=== PATIENT | male | born 1935 | race Caucasian/White ===

== ENCOUNTER 2017-05-22 10:00 | Outpatient (RCR) | payer MEDICARE, BC, SELFPAY ==
--- NOTE | 2017-02-26 14:12 | HP.PTEVAL_ITS ---
Patient's Visit Information NUNU MALDONADO is a 81 year old M referred to Physical Therapy by John Harris with a diagnosis of L reverse TSA. Date of Evaluation: 02/26/17 Physical Therapist: Kwadwo Holman, PT, - Visit Plan Frequency: 3x /Week Duration: 4-6 Weeks Plan: L shoulder PROM and mobs for 4 weeks. Progress to AROM - Subjective Subjective: DOS: 02/20/17. Pt reports he has had a chronic Hx of R shoulder pain prior to this surgery. Pt notes a Hx of 2 arthroscpic rot cuff repairs prior to this surgery. Pt notes he is still in pain since the date of surgery. Pt reports he was very limited with AROM with the R shoulder prior to the surgery. Pt reports he has been doing nothing at home up til this point because he waws only given orders to move his elbow. Pt is still in a sling and notes he will be for 4-6 weeks. Pt reports he has been icing his shoulder for his pain. Pt is R hand dom. Pt reports he has to get his L shoulder replaced in the near future. Occasional sleep diff secondary to pain. Pt Occasional T and N in R UE. 0/10 at rest, 6/10 at worst (no specific reason) - Pain L shoulder Pain Intensity (Out of 10): 0 Pain Intensity Range: 6 - Objective Neuro: B UE sensation is WNL to light touch. B bicepital reflex= 1/3. MMT: L shoulder 4/5 throughout and painful with testing. R shoulder NT. ROM: L shoulder WFL with all motions. L shoulder flex= 65, abd= 55 - Goals Goal 1:: Decrease L shoulder pain x 50% to aid with IADL's Goal Time Frame: 4-6 Weeks Goal 2:: Increase L shoulder strength x 1 grade to aid with IADL's Goal Time Frame: 4-6 Weeks Goal 3:: Increase L shoulder flex and abd ROM x 40 degrees toa id with overhead activity Goal Time Frame: 4-6 Weeks Goal 4:: I with HEP Goal Time Frame: 4-6 Weeks - Rehabilitation Potential Physical Therapy Diagnosis: L shoulder pain, weakness, and limited ROM secondary to L reverse TSA Rehabilitation Potential: Good - Anticipated Interventions Patient/Client Instruction: Educate patient on: Condition, Plan of Care For the Purpose of:: To improve self management Therapeutic Exercise to Include: Strength training, Endurance training, Body mechanics, Postural training, Flexibilty training, Passive ROM, Active ROM, Scapular Strength/Stabilization For the Purpose of:: To decrease pain, To increase ROM, To improve muscle performance and motor function Cryotherapy (ice pack, ice massage): Yes For the Purpose of:: To decrease pain Thank you for the opportunity to evaluate your patient. For Medicare and Medicare HMO plans, please review the plan of care and approve it. It will need to be FAXED BACK to us at [phone] for Medicare purposes. Please let me know if there are questions or concerns regarding this plan of care. Physician Signature: Date:
--- NOTE | 2017-05-22 10:09 | HP.PTREVAL_ITS ---
John Harris, It has been my pleasure to treat NUNU MALDONADO over the last 33 visits for R reverse TSA. Please see the progress note below for an update on the physical therapy plan of care! Subjective: Pt reports his shoulder is still sore this date Objective/Function: R shoulder pain is 1/10 at rest, increases to 3/10 with movement. R shoulder ROM: flex= 86, abd= 80, ER= 25. R shoulder MMT: flex= 3/5 , abd= 3+/5, ER= 2-/5. I with HEP Plan Plan: Hold chart open until after visit on the 12th Goals Goal 1:: Decrease L shoulder pain x 50% to aid with IADL's Goal Time Frame: 4-6 Weeks Goal Progress: Progressing Goal 2:: Increase L shoulder strength x 1 grade to aid with IADL's Goal Time Frame: 4-6 Weeks Goal Progress: Progressing Goal 3:: Increase L shoulder flex and abd ROM x 40 degrees toa id with overhead activity Goal Time Frame: 4-6 Weeks Goal Progress: Not Progressing Goal 4:: I with HEP Goal Time Frame: 4-6 Weeks Goal Progress: Goal Met Anticipated Interventions Patient/Client Instruction: Educate patient on: Condition, Plan of Care For the Purpose of:: To improve self management Therapeutic Exercise to Include: Strength training, Endurance training, Body mechanics, Postural training, Flexibilty training, Passive ROM, Active ROM, Scapular Strength/Stabilization For the Purpose of:: To decrease pain, To increase ROM, To improve muscle performance and motor function Cryotherapy (ice pack, ice massage): Yes For the Purpose of:: To decrease pain Please do not hesitate to contact me at [phone] by phone or Fax: if you have questions or concerns regarding this new plan of care! Sincerely, Kwadwo Holman, PT,
--- NOTE | 2017-07-20 12:32 | HP.PT.NRP ---
HP - Discharge Summary (1) - Patient Information NUNU MALDONADO was seen in my office for initial evaluation on 02/26/17. The following Plan of Care was established for this patient: Initial Frequency: 3x /Week Initial Duration: 4-6 Weeks - Anticipated Interventions Patient/Client Instruction: Educate patient on: Condition, Plan of Care For the Purpose of:: To improve self management Therapeutic Exercise to Include: Strength training, Endurance training, Body mechanics, Postural training, Flexibilty training, Passive ROM, Active ROM, Scapular Strength/Stabilization For the Purpose of:: To decrease pain, To increase ROM, To improve muscle performance and motor function Cryotherapy (ice pack, ice massage): Yes For the Purpose of:: To decrease pain This patient was last seen in our office . Pertinent comments regarding their Physical therapy will appear below: Pt was last treated on the date of 05/22/17 for his R shoulder pain. Pt has not returned through todays date and will be discontinued at this time At this point I will be discontinuing this patient from physical therapy. I would be happy to see this patient again in the future if found appropriate by the physician. Thank you! Kwadwo Holman, PT,
== END 2017-05-22 19:00 | disposition home or self-care (01) ==
LOC: PT 10:00
PROVIDERS: Family Provider Family Medicine; PCP Family Medicine; Visit Provider Orthopaedic Surgery
DX: M19.011 Primary osteoarthritis, right shoulder (principal); M25.511 Pain in right shoulder; Z96.611 Presence of right artificial shoulder joint
CPT/HCPCS: 97110; 97140; 97161; 97530; G8984; G8985

== ENCOUNTER → 2017-09-15 14:46 | Outpatient (CLI) | payer MEDICARE, BC, SELFPAY ==
[2017-09-15 16:23] LABS: Absolute Lymphocyte Count 1.53 X10^3/ul (0.83-4.51); Absolute Neutrophil Count 3.7 X10^3/uL (2.0-7.7); Basophil# 0.02 X10^3/uL; Basophil% 0.3 % (0-1); Eosinophil# 0.15 X10^3/uL; Eosinophils% 2.5 % (0-5); Hematocrit 39.8 % (40-54); Hemoglobin 13.8 g/dl (13.0-16.5); Lymphocyte # 1.53 X10^3/ul (4.0); Lymphocyte % 25.2 % (19-41); Mean Corp Hgb Conc 34.7 g/gl (32-36); Mean Corpuscular Hgb 35.3 pg (27.0-32.0); Mean Corpuscular Volume 101.8 fL (80-94); Mean Platelet Vol. 9.6 fl (6.2-12.0); Monocyte# 0.65 X10^3/uL; Monocyte% 10.7 % (0-10); Neutrophil # 3.71 X10^3/uL (2.7-7.7); Neutrophil % 61.1 % (47-70); Platelet Count 149 K/mm3 (150-450); RBC Distribution Width CV 13.6 % (11.6-14.6); RBC Distribution Width SD 49.9 fl (35.1-43.9); Red Blood Count 3.91 M/mm3 (4.6-6.2); White Blood Count 6.1 K/mm3 (4.4-11.0)
[2017-09-15 16:24] LABS: POSITIVE COUNT NO; POSITIVE DIFFERENTIAL NO; POSITIVE MORPHOLOGY NO
[2017-09-15 16:49] LABS: ALB/GLOB Ratio 1.1 RATIO (0.9-2.4); AST(SGOT) 20 U/L (15-37); Alanine Aminotransfer ALT/SGPT 27 U/L (16-61); Albumin, Serum 3.8 g/dL (3.2-5.0); Alkaline Phosphatase 73 U/L (45-117); Anion Gap 9 (5-15); BUN 25 mg/dL (7-18); BUN/Creat Ratio 24.5 RATIO (10-20); Calcium,Total 8.8 mg/dL (8.5-10.1); Chloride 107 mmol/L (98-107); Creatinine, Serum 1.02 mg/dL (0.70-1.30); EST Glomerular Filtration Rate 74 mL/min (>60); Est Glom Filt Rate - Afr Amer 90 mL/min (>60); Globulin 3.5 g/dL (2.2-4.2); Glucose 92 mg/dL (74-106); Potassium 4.4 mmol/L (3.5-5.1); Protein, Total 7.3 g/dL (6.4-8.2); Sodium Level 143 mmol/L (136-145); Thyroid Stim Hormone (TSH) 2.71 uIU/mL (0.358-3.74)
[2017-09-16 10:26] LABS: Vitamin D,25 Hydroxy 53.2 ng/mL (29.95-100.01)
== END ==
PROVIDERS: Visit Provider Family Medicine Geriatric Medicine
DX: E11.9 Type 2 diabetes mellitus without complications (principal); E55.9 Vitamin D deficiency, unspecified
CPT/HCPCS: 36415; 80053; 82306; 84443; 85025

== ENCOUNTER → 2017-11-06 10:36 | Outpatient (CLI) | payer MEDICARE, BC, SELFPAY ==
[2017-11-06 11:12] LABS: Absolute Lymphocyte Count 0.79 X10^3/ul (0.83-4.51); Absolute Neutrophil Count 5.7 X10^3/uL (2.0-7.7); Basophil# 0.02 X10^3/uL; Basophil% 0.3 % (0-1); Eosinophil# 0.18 X10^3/uL; Eosinophils% 2.5 % (0-5); Hematocrit 40.9 % (40-54); Lymphocyte # 0.79 X10^3/ul (4.0); Lymphocyte % 10.8 % (19-41); Mean Corp Hgb Conc 34.2 g/gl (32-36); Mean Corpuscular Hgb 34.6 pg (27.0-32.0); Mean Platelet Vol. 9.4 fl (6.2-12.0); Monocyte# 0.66 X10^3/uL; Neutrophil # 5.65 X10^3/uL (2.7-7.7); Neutrophil % 77.4 % (47-70); POSITIVE COUNT NO; POSITIVE DIFFERENTIAL NO; POSITIVE MORPHOLOGY NO; Platelet Count 116 K/mm3 (150-450); RBC Distribution Width CV 13.7 % (11.6-14.6); Red Blood Count 4.05 M/mm3 (4.6-6.2); White Blood Count 7.3 K/mm3 (4.4-11.0)
[2017-11-06 11:38] LABS: Anion Gap 6 (5-15); BUN 22 mg/dL (7-18); BUN/Creat Ratio 22.3 RATIO (10-20); Calcium,Total 8.8 mg/dL (8.5-10.1); Chloride 106 mmol/L (98-107); Creatinine, Serum 0.99 mg/dL (0.70-1.30); EST Glomerular Filtration Rate 77 mL/min (>60); Est Glom Filt Rate - Afr Amer 94 mL/min (>60); Glucose 96 mg/dL (74-106); Potassium 4.1 mmol/L (3.5-5.1); Sodium Level 140 mmol/L (136-145)
[2017-11-11 15:36] LABS: Transferrin 234 mg/dL (200-370)
== END ==
PROVIDERS: Family Provider Family Medicine; PCP Family Medicine; Visit Provider Family Medicine Geriatric Medicine
DX: I77.6 Arteritis, unspecified (principal)
CPT/HCPCS: 36415; 80048; 81240; 81241; 84466; 85025

== ENCOUNTER → 2018-01-13 10:46 | Outpatient (CLI) | payer MEDICARE, BC, SELFPAY ==
[2018-01-13 12:34] LABS: AST(SGOT) 23 U/L (15-37); Alanine Aminotransfer ALT/SGPT 31 U/L (16-61); Albumin, Serum 3.7 g/dL (3.2-5.0); Alkaline Phosphatase 75 U/L (45-117); Bilirubin, Direct 0.35 mg/dL (0.00-0.30); Globulin 3.5 g/dL (2.2-4.2); Protein, Total 7.2 g/dL (6.4-8.2)
== END ==
PROVIDERS: Family Provider Family Medicine; PCP Family Medicine; Referring Provider Internal Medicine Gastroenterology; Visit Provider Internal Medicine Gastroenterology
DX: E83.119 Hemochromatosis, unspecified (principal)
CPT/HCPCS: 36415; 80076; 82105

== ENCOUNTER → 2018-03-01 11:34 | Outpatient (CLI) | payer MEDICARE, BC, SELFPAY ==
[2018-03-01 13:01] LABS: AST(SGOT) 26 U/L (15-37); Alanine Aminotransfer ALT/SGPT 33 U/L (16-61); Albumin, Serum 3.8 g/dL (3.2-5.0); Alkaline Phosphatase 78 U/L (45-117); Bilirubin, Direct 0.32 mg/dL (0.00-0.30); Cholesterol 119 mg/dL (200); Globulin 3.4 g/dL (2.2-4.2); High Density Lipoprotein 46 mg/dL; Protein, Total 7.2 g/dL (6.4-8.2); Triglycerides 69 mg/dL; Very Low Density Lipoprotein 14 mg/dL (5-40)
== END ==
PROVIDERS: Family Provider Family Medicine; PCP Family Medicine; Referring Provider Internal Medicine Cardiovascular Disease; Visit Provider Internal Medicine Cardiovascular Disease
DX: I06.1 Rheumatic aortic insufficiency (principal); I25.810 Atherosclerosis of coronary artery bypass graft(s) without angina pectoris; I48.0 Paroxysmal atrial fibrillation; I10 Essential (primary) hypertension; E78.2 Mixed hyperlipidemia; Z95.2 Presence of prosthetic heart valve; Z86.73 Personal history of transient ischemic attack (TIA), and cerebral infarction without residual deficits
CPT/HCPCS: 36415; 80061; 80076

== ENCOUNTER → 2018-04-29 08:39 | Outpatient (CLI) | payer MEDICARE, OTHER, SELFPAY ==
[2018-04-29 09:42] LABS: PSA,Total- Diagnostic 8.73 ng/mL (0.0-4.0)
== END ==
PROVIDERS: Family Provider Family Medicine; PCP Family Medicine; Referring Provider Urology; Visit Provider Urology
DX: C61 Malignant neoplasm of prostate (principal)
CPT/HCPCS: 36415; 84153

== ENCOUNTER → 2018-05-11 07:18 | Outpatient (CLI) | payer MEDICARE, OTHER, SELFPAY ==
--- NOTE | 2018-05-11 07:20 | NM_ITS ---
CLINICAL: 82-year-old male with reported history of carcinoma of the prostate. WHOLE BODY 99m Tc MDP RADIONUCLIDE BONE SCINTIGRAPHY COMPARISON: None available FINDINGS: Following the intravenous administration of 25.3 mCi of 99m Tc MDP, whole body bone images reveal: 1. Increased radiopharmaceutical concentration is identified in the mid-lower cervical spine posteriorly on the left and right, the acromioclavicular and glenohumeral compartments of the left shoulder, bilateral elbow articulations, right posterior sacrum, the right ankle, the right-left midfoot, the left wrist, the patellofemoral compartment of the left knee. 2. Facilitated tracer uptake is noted in the greater trochanteric aspect of the apparent bilateral hip prostheses (L > R), the proximal humeral component of the apparent right shoulder prosthesis. 3. The remaining skeletal structures are scintigraphically unremarkable with normal-appearing renal images and urinary bladder activity identified. Right and left knee prostheses demonstrate no evidence of significant increased radiotracer distribution. A linear increase in radiopharmaceutical concentration is defined within the proximal-distal sternum most consistent with prior median sternotomy. NM/Bone Scan Whole Body IMPRESSION: 1. The increase in radiopharmaceutical concentration identified in the cervical spine and sacrum, left shoulder, right and left elbows, the right ankle, midfoot bilaterally, the left wrist and patellofemoral compartment of the left knee (in the absence of patellar hardware placement) is most consistent with degenerative arthritis. 2. Increased radiotracer concentration noted in the trochanteric aspects of the presumably asymptomatic bilateral hip and proximal humeral component of the right shoulder arthroplasties is most consistent with normal postsurgical change. Correlation with plain film radiography may be of benefit in the region of the left hip prosthesis secondary to the intensity of uptake. 3. There is no definitive typical scintigraphic evidence of skeletal metastatic disease on the current examination. Electronically Signed: Sheldon Shelton DO at 22:41 EST Tel , Service support ,
== END ==
PROVIDERS: Family Provider Family Medicine; PCP Family Medicine; Referring Provider Urology; Visit Provider Urology
DX: C61 Malignant neoplasm of prostate (principal); R97.20 Elevated prostate specific antigen [PSA]
CPT/HCPCS: 78306

== ENCOUNTER → 2018-07-30 08:53 | Outpatient (CLI) | payer MEDICARE, OTHER, SELFPAY ==
--- NOTE | 2018-07-30 09:07 | US_ITS ---
STUDY: ABDOMINAL ULTRASOUND - RIGHT UPPER QUADRANT REASON FOR VISIT: Male, 82 years old. Hemachromatosis TECHNIQUE: Ultrasound evaluation of the right upper quadrant was performed with real-time and static bianchi-scale imaging. TECHNICAL QUALITY: Limited. Examination limited by bowel gas. COMPARISON: None. FINDINGS: Liver: The liver measures 15.6 cm. There is normal echogenicity of the liver. The bile ducts are within normal limits. There is hepatic color flow. The direction of portal flow is hepatopetal. There is no demonstrated mass lesion. Gallbladder: Normal distended gallbladder. The gallbladder wall measures 2.6 mm. There is a negative sonographic Blackwell's sign. There is no pericholecystic fluid. There are no gallstones. Common Bile Duct (C.B.D.): The common bile duct measures 4 mm. Pancreas: Not visualized. Right Kidney: Normal size of the right kidney. The right kidney measures 11.2 x 6.6 x 5.4 cm. Normal renal cortex. The right cortex measures 2 cm. There is no demonstrated renal mass or cyst. There is no right hydronephrosis. US/Liver IMPRESSION: Limited study. No cholelithiasis identified. Electronically Signed: Gabriel Leonie, at 7:15 EDT Tel , Service support ,
[2018-08-02 13:29] LABS: AFP, Tumor Marker 1.9 ng/mL (0.0-8.3)
== END ==
PROVIDERS: Family Provider Family Medicine; PCP Family Medicine; Referring Provider Internal Medicine Gastroenterology; Visit Provider Internal Medicine Gastroenterology
DX: E83.119 Hemochromatosis, unspecified (principal)
CPT/HCPCS: 36415; 76705; 82105

== ENCOUNTER → 2018-10-11 15:35 | Outpatient (CLI) | payer MEDICARE, OTHER, SELFPAY | PROVIDERS: Family Provider Family Medicine; PCP Family Medicine; Referring Provider Otolaryngology Otolaryngology/Facial Plastic Surgery; Visit Provider Otolaryngology Otolaryngology/Facial Plastic Surgery | DX: L02.92 Furuncle, unspecified (principal) | CPT/HCPCS: 87070; 87205 ==

== ENCOUNTER → 2018-10-26 10:21 | Outpatient (CLI) | payer MEDICARE, OTHER, SELFPAY | PROVIDERS: Family Provider Family Medicine; PCP Family Medicine; Referring Provider Urology; Visit Provider Urology | DX: C61 Malignant neoplasm of prostate (principal) | CPT/HCPCS: 36415; 84153 ==

== ENCOUNTER → 2019-01-31 10:44 | Outpatient (CLI) | payer MEDICARE, OTHER, SELFPAY ==
[2018-11-11 09:40] VITALS: BMI 29.8
[2019-01-31 12:11] LABS: PSA,Total- Diagnostic 0.16 ng/mL (0.0-4.0)
== END ==
PROVIDERS: Family Provider Family Medicine; PCP Family Medicine; Referring Provider Urology; Visit Provider Urology
DX: R97.20 Elevated prostate specific antigen [PSA] (principal)
CPT/HCPCS: 36415; 84153

== ENCOUNTER → 2019-02-11 10:11 | Outpatient (CLI) | payer MEDICARE, OTHER, SELFPAY ==
[2018-11-11 09:40] VITALS: BMI 29.8
--- NOTE | 2019-02-11 10:13 | NM_ITS ---
CLINICAL: 83-year-old male with reported history of carcinoma of the prostate. WHOLE BODY 99m Tc MDP RADIONUCLIDE BONE SCINTIGRAPHY COMPARISON: Previous whole body bone scintigraphy study dated 05/11/2018 FINDINGS: Following the intravenous administration of 27.4 mCi of 99m Tc MDP, whole body bone images reveal: 1. Enhanced tracer concentration remains apparent in the mid-lower cervical spine posteriorly on the left and right, the right ankle, bilateral midfoot, left-right wrists, acromioclavicular and glenohumeral compartment of the left shoulder, visualized left elbow. 2. Relatively unchanged increased uptake remains apparent in the proximal humeral component of the right shoulder arthroplasty, trochanteric aspect of the left hip prosthesis. 3. The remaining skeletal structures are scintigraphically unremarkable with normal-appearing renal images and urinary bladder activity identified. The right hip and bilateral knee arthroplasties demonstrate no evidence of significant increased tracer uptake. Prominent uptake is persistently visualized in the proximal sternum most consistent with postsurgical changes attributed to known median sternotomy. NM/Bone Scan Whole Body IMPRESSION: 1. The increase in radiopharmaceutical concentration redemonstrated in the cervical spine, right ankle, bilateral midfoot, wrist articulations bilaterally, left shoulder and left elbow remain commensurate with degenerative arthritis. 2. Facilitated uptake redemonstrated in the presumed asymptomatic right shoulder and left hip arthroplasties remains most consistent with normal postsurgical change. 3. Overall compared to the previous whole body bone scintigraphy study dated 05/11/2018, there is no significant interval change. No typical scintigraphic evidence of diffuse axial skeletal metastatic disease is defined on the present examination. Electronically Signed: Sheldon Shelton DO at 12:30 EST Tel , Service support ,
== END ==
PROVIDERS: Family Provider Family Medicine; PCP Family Medicine; Referring Provider Nurse Practitioner Adult Health; Visit Provider Nurse Practitioner Adult Health
DX: C61 Malignant neoplasm of prostate (principal)
CPT/HCPCS: 78306

== ENCOUNTER 2019-03-21 17:59 | Emergency (ER) | payer MEDICARE, OTHER, SELFPAY ==
[2018-11-11 09:40] VITALS: BMI 29.8
[2019-03-21 18:00] VITALS: BP 140/56; PULSE 75; RESP 18; TEMP 36.6; O2SAT 98; BMI 28.8
--- NOTE | 2019-03-21 18:32 | CT_ITS ---
STUDY: CT BRAIN WITHOUT CONTRAST REASON FOR EXAM: Male, 83 years old. FALL, STRUCK BACK OF HEAD WITH LACERATION RADIATION DOSAGE (If Supplied By Facility): CTDIvol = ( 44.99 ) mGy, DLP = ( 796.11 ) mGycm TECHNIQUE: Transaxial CT imaging of the brain was performed without administration of intravenous contrast material. Individualized dose optimization techniques were used for this CT. COMPARISON: No relevant priors. FINDINGS: Normal soft tissue structures. Normal calvarium. Calcification of the cavernous carotids and vertebral arteries. Mild atrophy and moderate periventricular white matter ischemic changes.. Normal basal ganglia and thalami. Normal brainstem. Normal cerebellum. There is no intracranial hemorrhage. There are no findings of an acute ischemic infarction. Postsurgical changes of left orbit Normal visualized paranasal sinuses. CT/Brain/Head without Contrast IMPRESSION: Moderate periventricular white matter ischemic changes. No evidence for acute intracranial bleed Electronically Signed: Tucker Harris MD at 18:59 EST , Service support ,
[2019-03-21 19:02] VITALS: BP 141/73; PULSE 76; RESP 14; O2SAT 96; O2SAT 98
--- NOTE | 2019-03-21 19:23 | RAD_ITS ---
STUDY: X-RAY - PELVIS AND BILATERAL HIPS REASON FOR EXAM: Male, 83 years old. fall, bilateral hip pain TECHNIQUE: AP view of the pelvis.? 2 views of the right hip, and 2 views of the left hip were obtained. COMPARISON: None. FINDINGS: There is a non-specific bowel gas pattern. Normal visualized soft tissue structures. Normal bilateral iliac wings, sacroiliac joints and visualized sacrum. Normal bilateral superior and inferior pubic rami. Normal pubic symphysis. Normal bilateral ischial tuberosities. There is a stable appearance to the hip prostheses bilaterally. There is linear lucency traversing the greater trochanter of the left hip which has the appearance of a hairline fracture RAD/Hips B/L min 2 views w/ Pelvis IMPRESSION: Stable appearance to bilateral hip prostheses however there does appear to be a hairline fracture of the greater trochanter of the left hip Clinical correlation recommended Electronically Signed: Tucker Harris MD at 20:10 EST , Service support ,
[2019-03-21] MEDS: Diphth,Pertuss(Acell),Tet Vac 0.5 ML Vial IM (19:39)
--- NOTE | 2019-03-21 19:45 | RAD_ITS ---
STUDY: X-RAY - LUMBAR SPINE REASON FOR EXAM: Male, 83 years old. fall, low back pain TECHNIQUE: 3 view(s) of the lumbar spine were obtained. COMPARISON: None FINDINGS: Normal lumbar lordosis. There is no substantial scoliosis. There is a normal alignment of the vertebrae. There is no evidence for acute fracture or subluxation. There is multilevel disc space narrowing and endplate spurring. There appears to be multilevel spinal stenosis exaggerated by facet arthropathy and shortened pedicles. The soft tissue structures are unremarkable. RAD/Lumbar Spine 2 or 3 Views IMPRESSION: No evidence for acute fracture or subluxation. Advanced spondylosis and probable spinal stenosis at multiple levels which may be better assessed with CT or MRI if indicated Electronically Signed: Tucker Harris MD at 20:12 EST , Service support ,
--- NOTE | 2019-03-21 20:12 | ED.DCSUM_ITS ---
- ER Visit Summary Date of Service: 03/21/19 Chief Complaint: Fall History of Present Illness: The patient is a 83 M who presents after a fall that occurred today. Patient states he fell approximately 5 feet. Patient landed on his back and fell backwards and hit his head. Patient denies any loss of consc iousness. Patient denies any paresthesias or weakness. Patient states he feels like he is a tightness in his head. Patient also states he feels like he has aching in his back. Patient denies any paresthesias or weakness. Patient was ambulatory after the fall. Patient is unsure of his last tetanus. Physical Examination: Vital signs are stable. Patient is afebrile. Patient is in no acute distress. Skin is warm and dry. There is a 5 cm full-thickness linear laceration on the occipital scalp. There is no active bleeding. There is moderate gapping of the wound margins. There is no erythema or warmth. There is no bony crepitance or step-off. Musculoskeletal exam reveals tenderness over the lower lumbar spine and bilateral posterior hips, worse on the left. Range of motion was slightly limited in internal and external rotation of the left hip secondary to pain. There is no deformity noted. Oral mucosa is pink and moist. Neck is supple. Trachea is midline. There is no JVD. Heart was regular rate and rhythm. Lungs are clear and equal bilaterally. Abdomen is soft and nontender. Cranial nerves II through XII are intact. There are no focal motor or sensory deficits noted. Test Results: CT scan of the brain was obtained. There is no acute intracranial abnormality. There is no skull fracture. X-rays of the lumbar spine were obtained. There are degenerative changes but no acute fracture or spondylolisthesis. X-rays of the bilateral hips were obtained. There is a questionable nondisplaced avulsion fracture of the greater trochanter on the left. There are no other acute fractures. The prostheses are intact. These were interpreted by the radiologist and myself. Emergency Department Course and Treatment: The scalp wound was cleaned and irrigated with copious amounts of normal saline. The wound was anesthetized 1% plain lidocaine locally. The wound was closed with 7 jin. Bacitracin dressing was applied. Patient tolerated the procedure well. Patient was given wound care instructions. Patient was given head injury instructions. Patient was instructed to follow-up with his primary care physician in 5 to 7 days. Patient and family understood and were agreeable with the plan. All questions were answered. Disposition: Discharge home Impression: 1. Scalp laceration 2. Left hip contusion 3. Lumbar strain This note was generated with [employer] dictation software. It may contain incorrect words, spelling, and punctuation that were not noted in review of the chart prior to signing ED Disposition - Plan for ED Patient: Disposition: Home or Assisted Living Diagnosis: Laceration of occipital scalp, Contusion of left hip, initial encounter, Lumbosacral strain Instructions: HEAD INJURY, No Wake-Up (Adult), LACERATION, Scalp Referrals: Stanley Grace DO [Primary Care Provider] - 7 Days for suture removal
[2019-03-21] MEDS: Lidocaine/Epi/Tetracaine 50 ML 1 APPLIC TOPICAL (20:15)
[2019-03-21] MEDS: BACITRACIN 15 GM Tube 1 APPLIC TOPICAL (20:29)
[2019-03-21 21:00] VITALS: BP 112/62; PULSE 78; RESP 14; O2SAT 96
[2019-03-21 21:01] VITALS: BP 112/62; PULSE 74; RESP 15; O2SAT 97
== END 2019-03-21 21:29 | disposition home or self-care (01) ==
PROVIDERS: Emergency Provider Emergency Medicine; Family Provider Family Medicine; PCP Family Medicine
DX: S01.01XA Laceration without foreign body of scalp, initial encounter (principal); S70.02XA Contusion of left hip, initial encounter; S39.012A Strain of muscle, fascia and tendon of lower back, initial encounter; W17.89XA Other fall from one level to another, initial encounter; Y93.89 Activity, other specified; Y92.89 Other specified places as the place of occurrence of the external cause; Y99.8 Other external cause status
CPT/HCPCS: 12002; 70450; 72100; 73521; 90715; 99285

== ENCOUNTER 2019-03-26 08:40 | Emergency (ER) | payer MEDICARE, OTHER, SELFPAY ==
[2019-03-26 08:41] VITALS: BP 143/74; PULSE 66; RESP 16; TEMP 36.6; O2SAT 98; BMI 30.8
--- NOTE | 2019-03-26 08:54 | CT_ITS ---
STUDY: CT BRAIN WITHOUT CONTRAST REASON FOR EXAM: Male, 83 years old. FALL OFF LADDER 5 DAYS AGO. RADIATION DOSAGE (If Supplied By Facility): CTDIvol = ( 44.99 ) mGy, DLP = ( 829.85 ) mGycm TECHNIQUE: Transaxial CT imaging of the brain was performed without administration of intravenous contrast material. Coronal and sagittal reconstructions were performed. Individualized dose optimization techniques were used for this CT. COMPARISON: 03/21/2019. FINDINGS: Normal soft tissue structures. Normal calvarium. Normal size ventricles and extra-axial spaces for the patient''s age. Hypodensities in the white matter of both cerebral hemispheres are chronic white matter ischemic changes. 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 Normal basal ganglia and thalami. Normal brainstem. Normal cerebellum. There is no intracranial hemorrhage. There are no findings of an acute ischemic infarction. Normal visualized paranasal sinuses. Extensive and dense vascular calcifications of both internal carotid artery siphons and the intradural segments of both vertebral arteries. CT/Brain/Head without Contrast IMPRESSION: 1. No CT evidence of intracranial bleeding, acute ischemic infarct or acute intracranial abnormality. 2. Extensive and dense vascular calcifications of both internal carotid artery siphons and the intradural segments of both vertebral arteries. 3. 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 4. No significant interval changes when compared to 03/21/2019. Electronically Signed: Demetrio Lizama MD at 9:39 EST , Service support ,
--- NOTE | 2019-03-26 08:54 | CT_ITS ---
STUDY: CT CERVICAL SPINE WITHOUT CONTRAST REASON FOR EXAM: Male, 83 years old. FALL OFF LADDER 5 DAYS AGO headache since last night dizzy hearing disturbance per RN RADIATION DOSAGE (If Supplied By Facility): CTDIvol = ( 25.28 ) mGy, DLP = ( 610.82 ) mGycm TECHNIQUE: High resolution transaxial imaging was performed without contrast material. Sagittal and coronal images were reconstructed. Individualized dose optimization techniques were used for this CT. COMPARISON: None FINDINGS: Normal craniovertebral junction. Pronounced loss of the predental space but intact lateral atlantoaxial articulations. Normal odontoid process. Mild straightening of the C-spine curve. No suspicious acute fractures of the vertebral bodies and posterior osseous elements. C2-3: Normal endplates. Normal disc height with intradiscal calcifications at. Normal central canal and bilateral intervertebral neural foramina. Ankylosis of the hypertrophic right facet joint. Partial ankylosis of the hypoplastic left facet joint. C3-4: Normal endplates. Mild disc space height narrowing. Faint intradiscal calcification. Normal central canal. Moderate stenosis of the right intervertebral neural foramen. Mild stenosis of the left intervertebral neural foramen. Moderately pronounced right degenerative facet hypertrophy. Normal left facet joint. C4-5: Normal endplates. Minimal disc space height narrowing. Normal central canal and right intervertebral neural foramen. Mild stenosis of the left intervertebral neural foramen. Moderately pronounced left degenerative facet hypertrophy. Normal right facet joint. C5-6: Normal endplates. Mild disc space height narrowing. Normal central canal. Ankylosis of the hypertrophic left facet joint. Normal right facet joint. Moderate stenosis of the left intervertebral neural foramen. Normal right intervertebral neural foramen. C6-7: Normal endplates. Normal disc height. Normal central canal and intervertebral neural foramina. Moderate right degenerative facet arthropathy. Mild left degenerative facet arthropathy. C7-T1: Normal endplates. Minimal degenerative anterolisthesis of C7 on T1. Mild disc space height narrowing. Normal central canal. Mild left degenerative facet arthropathy. Moderate stenosis of the left intervertebral neural foramen. Mild right degenerative facet arthropathy. Normal right intervertebral neural foramen. T1-T2 and T2-T3: Normal endplates. Normal disc height and morphology. Normal central canal and intervertebral neural foramina. Normal visualized soft tissue structures. CT/Spine Cervical without Contras IMPRESSION: 1. No acute fracture of the cervical spine and the craniocervical junction. 2. Minimal degenerative anterolisthesis of C7 on T1, moderate stenosis of the left intervertebral neural foramen and mild asymmetric degenerative facet arthropathy, left greater than right. 3. Ankylosis of the hypertrophic right C2-C3 facet joint and partial ankylosis of the hypoplastic left C2-C3 facet joint. 4. Moderate stenosis of the right C3-C4 intervertebral neural foramen, mild stenosis of the left C3-C4 intervertebral neural foramen and moderately pronounced right C3-C4 degenerative facet hypertrophy. 5. Moderately pronounced left C4-C5 degenerative facet hypertrophy and mild stenosis of the left intervertebral neural foramen. 6. Moderate stenosis of the left C5-C6 intervertebral neural foramen and ankylosis of the hypertrophic left C5-C6 facet joint. 7. Moderate right C6-C7 degenerative facet arthropathy and mild left C6-C7 degenerative facet arthropathy. Electronically Signed: Demetrio Lizama MD at 10:04 EST , Service support ,
[2019-03-26] MEDS: Acetaminophen 500 MG Tablet 1000 MG PO (09:05)
--- NOTE | 2019-03-26 09:05 | ED.VISSUMM ---
- ER Visit Summary Date of Service: 03/26/19 Chief Complaint: Headache, recent head trauma History of Present Illness: The patient is a 83 M who has a headache and clicking in his head. On March 21 he had a fall. He was seen and had a CAT scan of his head which was negative. He had jin placed in his scalp. He states he woke up today with a headache and this clicking sensation in his head. He took nothing for it. He denies any new falls or trauma. He states the pain was from his shoulders up to his head. He is seeing an orthopedic surgeon on Thursday for follow-up. He denies any other new symptoms. Physical Examination: Vital signs reviewed. HEENT exam shows a healing scalp laceration with jin. No erythema or drainage. Heart is regular rate and rhythm without murmurs. Lungs are clear to auscultation. Abdomen is soft and nontender. His back is tender from C5-C6 in the midline. There are no step-offs. Extremities reveal no edema. Skin exam shows multiple areas of bandaged skin tears. Neurologic exam normal. He has normal strength and sensation. Test Results: CAT scan of the head reveals chronic changes and no changes from his CAT scan done on March 21. CAT scan of the cervical spine reveals chronic changes as well. No acute fractures. Emergency Department Course and Treatment: The patient was given Tylenol for pain. I am unclear the etiology of this clicking noise he hears in his head. No signs of any fractures and his CAT scan of his head is unchanged. He will continue Tylenol at home. He is following up with his orthopedic surgeon on Thursday. He will also call his PCP. Treatment Plan: [] Disposition: Discharge Impression: Headache status post fall This note was generated with [employer] software. It may contain incorrect words, spelling, and punctuation that were not noted in review of the chart prior to signing ED Disposition - Plan for ED Patient: Referrals: Stanley Grace DO [Primary Care Provider] -
--- NOTE | 2019-03-26 10:15 | ED.DEP ---
ED Disposition - Plan for ED Patient: Disposition: Home or Assisted Living Instructions: Head Trauma (Traumatic Brain Injury) Referrals: Stanley Grace DO [Primary Care Provider] -
[2019-03-26 10:48] VITALS: BP 151/82; PULSE 60; RESP 16; O2SAT 98
== END 2019-03-26 10:58 | disposition home or self-care (01) ==
PROVIDERS: Emergency Provider Emergency Medicine; Family Provider Family Medicine; PCP Family Medicine
DX: R51 Headache (principal); S01.01XD Laceration without foreign body of scalp, subsequent encounter; W19.XXXD Unspecified fall, subsequent encounter; I48.0 Paroxysmal atrial fibrillation; I10 Essential (primary) hypertension; Z79.899 Other long term (current) drug therapy
CPT/HCPCS: 70450; 72125; 99283

== ENCOUNTER → 2019-04-01 15:20 | Outpatient (CLI) | payer MEDICARE, OTHER, SELFPAY ==
[2019-03-26 08:41] VITALS: BMI 30.8
== END ==
PROVIDERS: Family Provider Family Medicine; PCP Family Medicine; Visit Provider Family Medicine
DX: R05 Cough (principal)
CPT/HCPCS: 87070; 87205

== ENCOUNTER → 2019-05-04 16:02 | Outpatient (CLI) | payer MEDICARE, OTHER, SELFPAY ==
[2019-05-04 17:44] LABS: PSA,Total- Diagnostic 0.06 ng/mL (0.0-4.0)
== END ==
PROVIDERS: PCP Family Medicine; Referring Provider Urology; Visit Provider Urology
DX: R97.21 Rising PSA following treatment for malignant neoplasm of prostate (principal)
CPT/HCPCS: 36415; 84153

== ENCOUNTER 2019-05-16 22:56 | Emergency (ER) | payer MEDICARE, OTHER, SELFPAY ==
[2019-05-16 22:57] VITALS: BP 148/75; PULSE 61; RESP 18; TEMP 36.4; O2SAT 98; BMI 32.5
--- NOTE | 2019-05-16 22:58 | NURSING ---
rn called for ekg, pulled old ekgs for
--- NOTE | 2019-05-16 23:11 | EKG12_ITS ---
Test Reason : CP Blood Pressure : / mmHG Vent. Rate : 058 BPM Atrial Rate : 058 BPM P-R Int : 158 ms QRS Dur : 084 ms QT Int : 436 ms P-R-T Axes : 009 007 063 degrees QTc Int : 428 ms Sinus bradycardia Nonspecific ST and T wave abnormality Abnormal ECG Confirmed by AKILA WATERMAN, PARIS ([id number]), editorial writer HALIE LIU ([id number]) on 05/18/2019 1:52:56 PM Referred By: BJORN Confirmed By:PARIS WILBURN MD
--- NOTE | 2019-05-16 23:12 | ED.DCSUM_ITS ---
History of Present Illness Chief Complaint: Chest Pain Informant: Patient Narrative: he stated approximately 30 minutes ago he had left-sided sharp chest pain that he felt his shoulder as well. It lasted for about 15 minutes. No home treatment. Went away on its own. Denies associated symptoms. He had this remotely years ago for short period time and it went away and never had a cause. Currently he feels back to normal. No injury to this area. Denies any history of coronary artery disease. His last stress test of his heart was several years ago and was negative. 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 He is not on anticoagulation. Stated he cannot take aspirin. He stated it causes bleeding. Patient denies any cardiac risk factors including hypertension high cholesterol smoking or family history. However looking at the chart does show a history of hypertension diabetes and atrial fibrillation remotely. 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 Past Medical History - Allergies and Home Meds Allergies/Adverse Reactions: Allergies azithromycin [From Zithromax] Adverse Reaction (Verified 05/16/19 23:00) Other DIZZY doxycycline Adverse Reaction (Verified 05/16/19 23:00) Other COUGHA ND PHLEGM erythromycin base Adverse Reaction (Verified 05/16/19 23:00) Other gabapentin Adverse Reaction (Verified 05/16/19 23:00) Pain in joints guaifenesin [From Entex T] Adverse Reaction (Verified 05/16/19 23:00) Rash pseudoephedrine [From Entex T] Adverse Reaction (Verified 05/16/19 23:00) Rash Primary Care Physician: Stanley Grace DO [Primary Care Provider] - Prior records reviewed: Yes Past Medical History: - - See problem list Surgical History: total hip arthroplasty, total knee arthroplasty, - - Aortic valve replacement. Lives: With Family Smoking Status: Never smoker Alcohol: None Drugs: None - Family History Maternal Family History: Family History (Last Reviewed 11/11/18 @ 11:[address] Randall Neal MD) Brother Heart disease Brother Myocardial infarction Family History: Reports: No pertinent history Paternal Family History: Family History (Last Reviewed 11/11/18 @ 11:[address] Randall Neal MD) Brother Heart disease Brother Myocardial infarction Family History: Reports: No pertinent history Review of Systems General: Denies: Chills, Fever, Sweats Eyes: Denies: Visual changes - bilaterally, Diplopia ENT: Denies: Rhinorrhea, Sore throat Cardiovascular: Reports: Chest pain. Denies: Palpitations Respiratory: Denies: Dyspnea, Cough, Dyspnea on exertion Gastrointestinal: Denies: Abdominal pain, Nausea, Vomiting, Diarrhea, Melena, Hematochezia Genitourinary: Denies: Dysuria, Hematuria, Frequency Musculoskeletal: Denies: Back pain, Extremity Pain Skin: Denies: Rash, Wounds Neurological: Denies: Headache, Weakness, Numbness Physical Exam Vital Signs/Narrative: Vital Signs Temp Pulse Resp BP Pulse Ox 05/16/19 22:57 97.6 F L 61 18 148/75 H 98 General: Well nourished, Well developed, No Acute Distress Head: Normocephalic, Atraumatic Eyes: Perrl, EOMI ENT: Moist mucous membranes, No rhinorrhea Neck: Supple, Nontender Cardiovascular: Regular rate, Regular rhythm, No murmurs Respiratory: No distress, CTA bilaterally, Chest nontender Abdomen: Soft, Nontender, Nondistended, Normal bowel sounds Back: Nontender, Normal Inspection Extremities: Nontender, No edema Skin: Normal color, No rash Neurological: Alert, Oriented x3, Cranial nerves II-XII grossly intact, Normal Strength, Normal Sensation Psychological: Normal affect, Normal Mood Diagnostic/Tx/Re-eval - Medical Decision Making EKG obtained shows sinus rhythm at a rate of 58 with no acute ischemic findings. Unchanged from prior. Lab work and chest x-ray obtained. The patient refused aspirin. States chest x-ray normal. Lab work shows chronic thrombocytopenia otherwise nothing acute. Troponin was negative. Electrolytes unremarkable. Reevaluation the patient remains pain-free resting comfortably. I do not think he has an acute coronary syndrome PE or dissection. His symptoms have not come back. I discussed admission with the patient for stress test. He refused this. At this time I have a low suspicion for cardiac cause of his symptoms. I feel he can be discharged to follow-up. Patient is in agreement. I do not feel he needs a delta. ED Disposition - Plan for ED Patient: Disposition: Home or Assisted Living Diagnosis: Chest pain at rest Instructions: CHEST PAIN, Uncertain Cause Referrals: Stanley Grace DO [Primary Care Provider] -
[2019-05-16 23:15] VITALS: O2SAT 95
--- NOTE | 2019-05-16 23:16 | RAD_ITS ---
STUDY: X-RAY CHEST REASON FOR EXAM: Male, 83 years old. Chest pain beginning 20 minutes ago. TECHNIQUE: PA and lateral views of the chest. COMPARISON: May 07, 2016 FINDINGS: The lungs are clear and expanded. There is no demonstrated pleural abnormality. Sternal cerclage wires are present from a prior sternotomy. The heart is normal in size. Normal mediastinum and rafaela. Normal visualized pulmonary arteries. Normal visualized aortic arch and descending thoracic aorta. Moderate degenerative changes of the thoracic spine. There is been interval right shoulder replacement when compared to the prior study. There is no demonstrated abnormality of the visualized soft tissue structures of the upper abdomen. RAD/Chest PA and Lateral IMPRESSION: No acute cardiopulmonary disease. Electronically Signed: Sampson Rothman DO at 23:32 EST Tel [phone], Service support ,
[2019-05-16 23:19] LABS: Absolute Lymphocyte Count 1.45 X10^3/uL (0.83-4.51); Absolute Neutrophil Count 2.9 X10^3/uL (2.0-7.7); Basophil# 0.03 X10^3/uL; Basophil% 0.6 % (0-1); Eosinophil# 0.19 X10^3/uL; Eosinophils% 3.5 % (0-5); Hematocrit 38.7 % (40-54); Lymphocyte # 1.45 X10^3/ul (4.0); Mean Corp Hgb Conc 33.6 g/dL (32-36); Mean Corpuscular Hgb 34.9 pg (27.0-32.0); Mean Corpuscular Volume 103.8 fL (80-94); Mean Platelet Vol. 9.4 fl (6.2-12.0); Monocyte# 0.74 X10^3/uL; Monocyte% 13.8 % (0-10); NRBC Flagged by Analyzer 0 % (0-5); Neutrophil # 2.93 X10^3/uL (2.7-7.7); Neutrophil % 54.5 % (47-70); Platelet Count 134 K/mm3 (150-450); RBC Distribution Width CV 13.4 % (11.6-14.6); Red Blood Count 3.73 M/mm3 (4.6-6.2); White Blood Count 5.4 K/mm3 (4.4-11.0)
[2019-05-16 23:32] LABS: Anion Gap 6 (5-15); BUN 32 mg/dL (7-18); BUN/Creat Ratio 28.1 RATIO (10-20); Calcium,Total 8.6 mg/dL (8.5-10.1); Chloride 110 mmol/L (98-107); Creatinine, Serum 1.14 mg/dL (0.70-1.30); EST Glomerular Filtration Rate 65 mL/min (>60); Est Glom Filt Rate - Afr Amer 79 mL/min (>60); Estimated Creatinine Clearance 50.69 ml/min; Glucose 128 mg/dL (74-106); Potassium 3.8 mmol/L (3.5-5.1); Sodium Level 143 mmol/L (136-145)
[2019-05-16 23:54] VITALS: BP 138/74; PULSE 57; RESP 14; O2SAT 94
== END 2019-05-16 23:54 | disposition home or self-care (01) ==
LOC: ED 23:47
PROVIDERS: Emergency Provider Emergency Medicine; PCP Family Medicine
DX: R07.9 Chest pain, unspecified (principal); Z95.4 Presence of other heart-valve replacement; I25.10 Atherosclerotic heart disease of native coronary artery without angina pectoris
CPT/HCPCS: 71046; 80048; 84484; 85025; 93005; 99285; A4216

== ENCOUNTER → 2019-06-24 11:07 | Outpatient (CLI) | payer MEDICARE, OTHER, SELFPAY ==
[2019-06-24 11:56] LABS: Hemoglobin A1c 6.8 % (4.2-6.3)
== END ==
PROVIDERS: PCP Family Medicine; Referring Provider Family Medicine; Visit Provider Family Medicine
DX: R73.03 Prediabetes (principal)
CPT/HCPCS: 36415; 83036

== ENCOUNTER → 2019-08-04 10:48 | Outpatient (CLI) | payer MEDICARE, OTHER, SELFPAY ==
[2019-08-04 11:59] LABS: PSA,Total- Diagnostic 0.06 ng/mL (0.0-4.0)
== END ==
PROVIDERS: PCP Family Medicine; Referring Provider Urology; Visit Provider Urology
DX: C61 Malignant neoplasm of prostate (principal)
CPT/HCPCS: 36415; 84153

== ENCOUNTER → 2019-08-22 13:36 | Outpatient (CLI) | payer MEDICARE, OTHER, SELFPAY ==
[2019-08-22 15:23] LABS: Absolute Neutrophil Count 3.7 X10^3/uL (2.0-7.7); Basophil# 0.03 X10^3/uL; Basophil% 0.5 % (0-1); Eosinophil# 0.18 X10^3/uL; Erythrocyte Sedimentation Rate 8 mm/hr (0-20); Hematocrit 38.3 % (40-54); Hemoglobin 13.2 g/dL (13.0-16.5); Lymphocyte % 21.9 % (19-41); Mean Corp Hgb Conc 34.5 g/dL (32-36); Mean Corpuscular Hgb 34.6 pg (27.0-32.0); Mean Corpuscular Volume 100.5 fL (80-94); Mean Platelet Vol. 9.7 fl (6.2-12.0); Monocyte# 0.66 X10^3/uL; Monocyte% 11.1 % (0-10); NRBC Flagged by Analyzer 0 % (0-5); Neutrophil # 3.74 X10^3/uL (2.7-7.7); Platelet Count 136 K/mm3 (150-450); RBC Distribution Width CV 13.7 % (11.6-14.6); RBC Distribution Width SD 49.6 fl (35.1-43.9); Red Blood Count 3.81 M/mm3 (4.6-6.2); White Blood Count 5.9 K/mm3 (4.4-11.0)
[2019-08-22 15:36] LABS: ALB/GLOB Ratio 0.9 RATIO (0.9-2.4); AST(SGOT) 22 U/L (15-37); Alanine Aminotransfer ALT/SGPT 28 U/L (16-61); Albumin, Serum 3.4 g/dL (3.2-5.0); Alkaline Phosphatase 75 U/L (45-117); Anion Gap 8 (5-15); BUN 25 mg/dL (7-18); BUN/Creat Ratio 22.7 RATIO (10-20); CPK Total, Creatine Kinase 75 U/L (39-308); Calcium,Total 8.7 mg/dL (8.5-10.1); Chloride 107 mmol/L (98-107); EST Glomerular Filtration Rate 68 mL/min (>60); Est Glom Filt Rate - Afr Amer 82 mL/min (>60); Globulin 3.6 g/dL (2.2-4.2); Glucose 101 mg/dL (74-106); Sodium Level 140 mmol/L (136-145); Thyroid Stim Hormone (TSH) 1.77 uIU/mL (0.358-3.74)
[2019-08-22 15:37] LABS: CRP < 2.90 mg/L (0.0-3.0)
== END ==
PROVIDERS: PCP Family Medicine; Visit Provider Family Medicine
DX: M62.81 Muscle weakness (generalized) (principal); R06.00 Dyspnea, unspecified; E53.8 Deficiency of other specified B group vitamins; Z51.81 Encounter for therapeutic drug level monitoring
CPT/HCPCS: 36415; 80053; 82550; 84443; 85025; 85652; 86140

== ENCOUNTER → 2019-08-29 10:50 | Outpatient (CLI) | payer MEDICARE, OTHER, SELFPAY ==
--- NOTE | 2019-08-29 11:07 | MRI_ITS ---
STUDY: MRI LUMBAR SPINE WITHOUT CONTRAST REASON FOR EXAM: Male, 83 years old. Spinal stenosis, bilateral leg/hip pain after fall 6 mons ago. Prostate cancer. TECHNIQUE: Standardized fat and water weighted pulse sequences were obtained in the sagittal and axial planes. COMPARISON: X-ray dated March 21, 2019 FINDINGS: Lumbar lordosis preserved. No significant scoliosis. Bilateral hip arthroplasties. Conus medullaris terminates normally at the L1 level. No acute fracture. No acute dislocation. No acute cortical destruction. 6 mm T12 bone lesion without active STIR signal (sagittal image 9 series 3 and sagittal image 8 series 2). Paraspinal muscle atrophy. Normal aorta. Normal retroperitoneum. Sacrum intact. Thin fluid collection at the prefascial interface overlying the L4-S3 levels (sagittal image 10 series 4). T12-L1: Normal endplates. Disc desiccation. Normal bilateral facet joints. Normal central canal and bilateral lateral recesses. Normal bilateral intervertebral neural foramina. L1-2: Mild endplate spondylosis. Disc bulge with mild central canal narrowing. Mild facet arthrosis. Normal bilateral lateral recesses. Normal bilateral intervertebral neural foramina. L2-3: Mild endplate spondylosis. Calcified intervertebral disc. Tiny right foraminal protrusion/osteophyte (axial image 18 series 5). Mild facet arthrosis. Normal central canal and bilateral lateral recesses. Right neural foraminal narrowing without impingement. L3-4: Mild endplate spondylosis. Disc bulge, annular fissure, with mild central canal narrowing. Mild/moderate facet arthrosis. Normal bilateral lateral recesses. Neural foraminal narrowing without impingement. L4-5: Mild endplate spondylosis. Disc bulge with mild central canal narrowing. Moderate facet arthrosis. Lateral recess narrowing without impingement. Neural foraminal narrowing without impingement. L5-S1: Normal endplates. Disc bulge, left paracentral fissure, with mild central canal narrowing. Moderate facet arthrosis. Left lateral recess narrowing without impingement. Neural foraminal narrowing without impingement. MRI/Spine Lumbar (Routine) IMPRESSION: No acute fracture or dislocation Multilevel intervertebral disc disease with multilevel mild central canal narrowing Multilevel neural foraminal narrowing without impingement Multilevel lateral recess narrowing without impingement 6 mm T12 bone lesion without active STIR signal (correlate PSA given history) Thin prefascial lower lumbar/sacral fluid collection (potential bursitis) Electronically Signed: Peter Menezes DO at 9:29 EDT Tel , Service support ,
== END ==
PROVIDERS: PCP Family Medicine; Referring Provider Family Medicine; Visit Provider Family Medicine
DX: M48.061 Spinal stenosis, lumbar region without neurogenic claudication (principal)
CPT/HCPCS: 72148

== ENCOUNTER → 2019-11-03 10:50 | Outpatient (CLI) | payer MEDICARE, OTHER, SELFPAY | PROVIDERS: PCP Family Medicine; Visit Provider Family Medicine | DX: R30.0 Dysuria (principal) | CPT/HCPCS: 87077; 87086; 87088; 87186 ==

== ENCOUNTER → 2019-12-06 12:49 | Outpatient (CLI) | payer MEDICARE, OTHER, SELFPAY ==
[2019-11-17 11:53] VITALS: BMI 31.2
--- NOTE | 2019-12-06 12:49 | ECHOCS_ITS ---
Reason For Study: AVR Procedure This was a 2D Doppler, Color Flow transthoracic echocardiogram. The study was technically difficult. Contrast injection was performed. Exam performed in department. Left Ventricle Normal LV size. Left ventricular systolic function is normal. The estimated ejection fraction is 60 %. Stage 1 diastolic dysfunction. No regional wall motion abnormalities noted. Right Ventricle Normal RV size. Normal systolic function. Atria Normal left atrium. Normal right atrium. Mitral Valve The mitral valve is structurally normal. No prolapse or stenosis seen. Tricuspid Valve Normal tricuspid valve. Mild tricuspid valve insufficiency. Pulmonary artery systolic pressure is 24 mmHg. Aortic Valve The aortic valve is not well visualized. Peak aortic valve gradient 26 mmHg. Mean aortic valve gradient 14 mmHg. Mild aortic stenosis. Pulmonic Valve The pulmonic valve is not well visualized. Great Vessels Mildly dilated aortic root. The pulmonary artery is normal size. Normal inferior vena cava. Pericardium/Pleural No pericardial effusion. Medication 22 gauge I.V. with prn adaptor inserted into right arm. Diluted definity 6.0ml given slow IV push to enhance endocardial definition. MMode/2D Measurements & Calculations LVIDd: 4.4 cm IVSd: 0.91 cm LVOT diam: 2.0 cm LVIDs: 3.2 cm LVPWd: 1.0 cm RVDd: 3.4 cm FS: 27.5 % LVOT area: 3.1 cm2 Ao root diam: 3.9 cm LAV(MOD-bp): 75.4 ml LVAd ap4: 41.8 cm2 LAV(MOD-bp) Indexed: 35.4 ml/m2 EDV(MOD-sp4): 166.6 ml LAV(MOD-sp2): 87.2 ml EDV(sp4-el): 179.8 ml LAV(MOD-sp4): 68.2 ml LVAs ap4: 21.4 cm2 ESV(MOD-sp4): 57.2 ml ESV(sp4-el): 56.8 ml EF(MOD-sp4): 65.6 % EF(sp4-el): 68.4 % SV(MOD-sp4): 109.3 ml SV(sp4-el): 122.9 ml LA A4 area: 22.8 cm2 LA dimension(2D): 4.0 cm RA A4 area: 16.9 cm2 Time Measurements MV dec time: 0.24 sec Doppler Measurements & Calculations MV E max cale: 62.0 cm/sec Lat Peak E' Cale: 6.6 cm/sec Med Peak E' Cale: 7.9 cm/sec MV A max cale: 81.2 cm/sec E/E' lat: 9.3 E/E' med: 7.8 MV E/A: 0.76 Ao V2 max: 256.5 cm/sec LV V1 max: 100.6 cm/sec SV(LVOT): 70.2 ml Ao max P.4 mmHg LV V1 max P.0 mmHg Ao V2 mean: 178.8 cm/sec LV V1 mean P.3 mmHg Ao mean P.3 mmHg LV V1 mean: 72.5 cm/sec Ao V2 VTI: 49.3 cm LV V1 VTI: 22.6 cm HANNAH(I,D): 1.4 cm2 HANNAH(V,D): 1.2 cm2 PA V2 max: 125.0 cm/sec TR max cale: 227.3 cm/sec TR max P.8 mmHg Interpretation Summary Normal LV size. Left ventricular systolic function is normal. The estimated ejection fraction is 60 %. Mean aortic valve gradient 14 mmHg. Mild aortic stenosis. Stage 1 diastolic dysfunction. Contrast injection was performed. Ordering Physician: Randall Neal Referring Physician: JEREMÍAS BAZZI Performed By: Karol Silver, SAQIB, RVT
== END ==
PROVIDERS: PCP Family Medicine; Referring Provider Internal Medicine Cardiovascular Disease; Visit Provider Internal Medicine Cardiovascular Disease
DX: I25.10 Atherosclerotic heart disease of native coronary artery without angina pectoris (principal)
CPT/HCPCS: 93306; Q9957; A4216; C8929

== ENCOUNTER → 2019-12-12 13:45 | Outpatient (CLI) | payer MEDICARE, OTHER, SELFPAY ==
[2019-11-17 11:53] VITALS: BMI 31.2
--- NOTE | 2019-12-12 14:05 | RAD_ITS ---
STUDY: X-RAY - CERVICAL SPINE REASON FOR EXAM: Male, 84 years old. Neck pain, patient states he fell a while ago, pain ever since TECHNIQUE: 5 view(s) of the cervical spine were obtained including oblique views. COMPARISON: None FINDINGS: Normal anterior atlantoaxial articulation. Normal odontoid process. There is straightening of the normal cervical lordosis. Anterior spondylosis at the C5-C6 and C6-C7 levels. There is multi-level degenerative disc disease with multilevel disc space narrowing. Normal visualized intervertebral neuroforamina. Partial opacification of the posterior nuchal ligament. RAD/Cerv Spine 2 or 3 Views IMPRESSION: Straightening of the normal cervical lordosis. Spondylosis and disc space narrowing at the C5-C6 and C6-C7 levels. Electronically Signed: Fazal Garrido, at 14:06 EDT , Service support ,
== END ==
PROVIDERS: PCP Family Medicine; Referring Provider Anesthesiology Pain Medicine; Visit Provider Anesthesiology Pain Medicine
DX: M54.2 Cervicalgia (principal)
CPT/HCPCS: 72040

== ENCOUNTER 2019-12-27 11:00 | Outpatient (RCR) | payer MEDICARE, OTHER, SELFPAY ==
[2019-11-17 11:53] VITALS: BMI 31.2
[2019-12-19 11:25] VITALS: BMI 31.2
--- NOTE | 2019-12-20 14:51 | HP.PTEVAL ---
Patient's Visit Information NUNU MALDONADO is a 84 year old M referred to Physical Therapy by Dr. Sae Dupree MD with a diagnosis of NECK PAIN AND BACK PAIN. Date of Evaluation: 12/20/19 Physical Therapist: Chaparro Aguilar PT, Cert MDT, OCS - Visit Plan Frequency: 2x /Week Duration: 4 Weeks Plan: PT INTERVENTIONS MANUAL THERAPY CERVICAL TRACTION/STM,MODALTIES ,CERVICAL POSTURAL EX'S,DLS ABD/BACK - Subjective THis 84 y/o male presents to physical therapy with neck and back pain. Patient has h/o falling last Dec onto back and hit head. Patient helped son benito caused more neck and back pain. Seen DR Noriega for neck -back pain and recevied epidural injections for lumbar. wanted to do PT for cervical pain before any injections.Pain loacted cervival region lower spine. Aggravating factors sitting,turning cervical.Patient has no difficulty sleeping Denies LUCERO/dizziness/tinnutus/.Denies parathesia/tingling. Patient has cracking in neck. No meds. Location back pain radiates R>L to buttucks. Aggraveting factors walking,standing,lifting.Alleviating rest.Bowel/bladder-.Coughing /sneezing-. Patient has h/o x-rays and MRI. Patient condtion affects ADL''s and housework tasks . Patient has condtion affects QOL. SOCAIL: . VOCATION: retired - Objective POSTURE:mild foward posture. PALPATION: tender UT/levator scapular. GAIT: mild foward posture reciprocal pattern. NEURO: denies parathesia/tingling ,reflexes C5-6-7 1/3,L3-4,L4-5,L5-S1 1/3. SYMMTRIES: align. CERVICAL ROM : flexion min loss,rotation mod/severe loss,lateral flexion mod/severe loss,extension mod/severe loss. LUMBAR ROM: flexion mod loss,extension mod loss,side glides mod loss. AROM: BUE flexion limited 10 5 degrees flexion. MMT: grossly BUE 4/5,3+/5 shoulders quads/hams 4/5,hip flexion 4-/5,ankle. FLEXABILITY: hams mod limited - Special Tests C/S Radiculapathy - Left Upper limb tension test: Positive C/S Radiculapathy - Right Upper limb tension test: Positive C/S Radiculapathy - Left Spurlings: Negative C/S Radiculapathy - Right Spurlings: Negative C/S Radiculapathy - Left Cervical distraction: Negative C/S Radiculapathy - Right Cervical distraction: Negative Sharp Miguel: Positive Vertebral Artery Test: Positive Alar Ligament Test: Positive L/S Slump test left side: Negative L/S Slump test right side: Negative L/S Left Straight Leg Raise: Negative L/S Right Straight Leg Raise: Negative - Goals Goal 1:: I with HEP. Goal Time Frame: 4-6 Weeks Goal 2:: Patient to decrease cervical and back pain by 50% or > to improve function Goal Time Frame: 4-6 Weeks Goal 3:: Patient to improve cervical and lumbar ROM for function of recovery Goal Time Frame: 8-12 Weeks Goal 4:: Patient improve neck owestry score by 5 points r > to improve QOL. Goal Time Frame: 4-6 Weeks Goal 5:: Patient d/c to prophalaxis Goal Time Frame: 4-6 Weeks - Rehabilitation Potential Physical Therapy Diagnosis: Patient has cervical and back pain with decrease ROM cervcal and lumbar sine ,strength,pain weakness impairs ADL's and function thus benifit from skilled PT Rehabilitation Potential: Good - Anticipated Interventions Patient/Client Instruction: Educate patient on: Condition, Plan of Care For the Purpose of:: To decrease pain, To increase ROM, To improve muscle performance and motor function, To improve ability to perform ADL's, To increase tolerance to activity/condition/position, To improve ability of physical actions for home/community/work/leisure, To improve health of tissue, To decrease soft tissue restriction, To increase flexibility/ROM, To reduce risk of recurrence, To improve ability to perform tasks related to life management Therapeutic Exercise to Include: Strength training, Body mechanics, Postural training, Flexibilty training, Dynamic Lumbar Stabilization For the Purpose of:: To decrease pain, To increase ROM, To improve muscle performance and motor function, To improve ability to perform ADL's, To increase tolerance to activity/condition/position, To improve ability of physical actions for home/community/work/leisure, To improve health of tissue, To decrease soft tissue restriction, To increase flexibility/ROM, To improve ability to perform tasks related to life management Manual Therapy Techniques to Include: Mobilization, Soft tissue mobilization Comment: CERVICAL TRACTION For the Purpose of:: To decrease pain, To increase ROM, To improve nutrient delivery to tissue, To increase oxygenation perfusion, To improve health of tissue, To decrease soft tissue restriction, To increase flexibility/ROM TENS: Yes IF ES: Yes Other electric stimulation: Yes Cryotherapy (ice pack, ice massage): Yes Thermo therapy (hot pack): Yes Ultrasound (thermal/non thermal): Yes For the Purpose of:: To decrease pain, To increase ROM, To improve nutrient delivery to tissue, To increase oxygenation perfusion, To improve health of tissue, To decrease soft tissue restriction Thank you for the opportunity to evaluate your patient. For Medicare and Medicare HMO plans, please review the plan of care and approve it. It will need to be FAXED BACK to us at [phone] for Medicare purposes. For Medicare only, by signing this I certify the plan of care. Please let me know if there are questions or concerns regarding this plan of care. Physician Signature: Date:
--- NOTE | 2020-03-28 10:50 | HP.PT.NRP ---
NUNU MALDONADO was seen in my office for initial evaluation on 12/20/19. The following Plan of Care was established for this patient: Initial Frequency: 2x /Week Initial Duration: 4 Weeks Patient/Client Instruction: Educate patient on: Condition, Plan of Care For the Purpose of:: To decrease pain, To increase ROM, To improve muscle performance and motor function, To improve ability to perform ADL's, To increase tolerance to activity/condition/position, To improve ability of physical actions for home/community/work/leisure, To improve health of tissue, To decrease soft tissue restriction, To increase flexibility/ROM, To reduce risk of recurrence, To improve ability to perform tasks related to life management Therapeutic Exercise to Include: Strength training, Body mechanics, Postural training, Flexibilty training, Dynamic Lumbar Stabilization For the Purpose of:: To decrease pain, To increase ROM, To improve muscle performance and motor function, To improve ability to perform ADL's, To increase tolerance to activity/condition/position, To improve ability of physical actions for home/community/work/leisure, To improve health of tissue, To decrease soft tissue restriction, To increase flexibility/ROM, To improve ability to perform tasks related to life management Manual Therapy Techniques to Include: Mobilization, Soft tissue mobilization Comment: CERVICAL TRACTION For the Purpose of:: To decrease pain, To increase ROM, To improve nutrient delivery to tissue, To increase oxygenation perfusion, To improve health of tissue, To decrease soft tissue restriction, To increase flexibility/ROM TENS: Yes IF ES: Yes Other electric stimulation: Yes Cryotherapy (ice pack, ice massage): Yes Thermo therapy (hot pack): Yes Ultrasound (thermal/non thermal): Yes For the Purpose of:: To decrease pain, To increase ROM, To improve nutrient delivery to tissue, To increase oxygenation perfusion, To improve health of tissue, To decrease soft tissue restriction This patient was last seen in our office . Pertinent comments regarding their Physical therapy will appear below: Patient seen for PT for cervical pain with tx focusing on cervical postural ex's ,STM and modalties doing well thus is d/c. At this point I will be discontinuing this patient from physical therapy. I would be happy to see this patient again in the future if found appropriate by the physician. Thank you! Chaparro Aguilar, PT, Cert MDT, OCS
== END 2019-12-27 19:00 | disposition home or self-care (01) ==
LOC: PT 11:00
PROVIDERS: PCP Family Medicine; Referring Provider Anesthesiology Pain Medicine; Visit Provider Anesthesiology Pain Medicine
DX: M54.2 Cervicalgia (principal); M54.9 Dorsalgia, unspecified
CPT/HCPCS: 97035; 97140; 97162

== ENCOUNTER → 2020-01-24 10:09 | Outpatient (CLI) | payer MEDICARE, OTHER, SELFPAY ==
[2019-12-19 11:25] VITALS: BMI 31.2
== END ==
PROVIDERS: PCP Family Medicine; Visit Provider Family Medicine
DX: R73.03 Prediabetes (principal)
CPT/HCPCS: 36415; 83036

== ENCOUNTER → 2020-01-28 07:54 | Outpatient (CLI) | payer MEDICARE, OTHER, SELFPAY ==
[2019-12-19 11:25] VITALS: BMI 31.2
--- NOTE | 2020-01-28 08:05 | MRI_ITS ---
STUDY: MR PELVIS WITHOUT CONTRAST REASON FOR EXAM: Male, 84 years old. fell from ladder onto back 1 year ago, c/o pain in hips while sitting, h/o prior hamstring tear on L TECHNIQUE: Standardized fat and water weighted pulse sequences were obtained in all 3 orthogonal planes. COMPARISON: X-ray 01/04/2020 FINDINGS: Normal urinary bladder. Normal visualized small intestine. There are multiple colonic diverticula of the sigmoid colon consistent with chronic diverticulosis. There is no pelvic fluid. There is no pelvic mass lesion or lymphadenopathy. Normal visualized pelvic arteries. Status post bilateral hip arthroplasty. Normal abdominal wall. MRI/Pelvis (Routine) IMPRESSION: Normal unenhanced MRI of the pelvis. Electronically Signed: Sheldon Avila MD at 9:38 EST Tel , Service support ,
== END ==
PROVIDERS: PCP Family Medicine; Referring Provider Family Medicine; Visit Provider Family Medicine
DX: R10.2 Pelvic and perineal pain (principal); M79.18 Myalgia, other site
CPT/HCPCS: 72195

== ENCOUNTER → 2020-02-02 09:35 | Outpatient (CLI) | payer MEDICARE, OTHER, SELFPAY ==
[2019-12-19 11:25] VITALS: BMI 31.2
[2020-02-02 11:17] LABS: PSA,Total- Diagnostic 2.94 ng/mL (0.0-4.0)
== END ==
PROVIDERS: PCP Family Medicine; Referring Provider Urology; Visit Provider Urology
DX: C61 Malignant neoplasm of prostate (principal)
CPT/HCPCS: 36415; 84153

== ENCOUNTER → 2020-03-29 17:19 | Outpatient (CLI) | payer MEDICARE, OTHER, SELFPAY ==
[2019-12-19 11:25] VITALS: BMI 31.2
== END ==
PROVIDERS: PCP Family Medicine; Referring Provider Family Medicine; Visit Provider Family Medicine
DX: R05 Cough (principal); R51.9 Headache, unspecified
CPT/HCPCS: 87635; C9803; U0005; U0003

== ENCOUNTER → 2020-04-17 09:53 | Outpatient (CLI) | payer MEDICARE, OTHER, SELFPAY ==
[2019-12-19 11:25] VITALS: BMI 31.2
== END ==
PROVIDERS: PCP Family Medicine; Visit Provider Family Medicine
DX: R05 Cough (principal)
CPT/HCPCS: 87070; 87205

== ENCOUNTER 2020-05-14 05:59 | Emergency (ER) | payer MEDICARE, OTHER, SELFPAY ==
[2019-12-19 11:25] VITALS: BMI 31.2
[2020-05-14 05:59] VITALS: BP 135/81; PULSE 60; RESP 18; TEMP 35.7; O2SAT 95; BMI 31.8
--- NOTE | 2020-05-14 06:12 | EKG12_ITS ---
Test Reason : CP Blood Pressure : / mmHG Vent. Rate : 055 BPM Atrial Rate : 055 BPM P-R Int : 172 ms QRS Dur : 092 ms QT Int : 458 ms P-R-T Axes : 015 008 001 degrees QTc Int : 438 ms Sinus bradycardia Otherwise normal ECG Confirmed by ZACK WATERMAN, CATALINA ([id number]), commissioning editor HALIE LIU ([id number]) on 05/16/2020 12:42:03 PM Referred By: FRANCESCO Confirmed By:CATALINA DIXON MD
--- NOTE | 2020-05-14 06:12 | RAD_ITS ---
STUDY: X-RAY CHEST REASON FOR EXAM: Male, 84 years old. Chest pain. TECHNIQUE: AP COMPARISON: 05/16/2019 chest radiograph. FINDINGS: Nodular density left upper lung. Otherwise no concerning findings in the lungs. No evidence of pneumothorax, pleural effusion, pneumonia, or edema. Sternotomy wires and prosthetic aortic valve again demonstrated. Status post right shoulder arthroplasty. Heart size remains normal. No concerning mediastinal or hilar lesions. RAD/Chest 1 View (Portable) IMPRESSION: No acute findings. Nodular density left upper lung. This might represent overlapping of osseous structures however a left apical nodule is possible. Suggest CT chest with IV contrast to more definitively evaluate. Electronically Signed: Jonnie Merrill MD at 6:35 EST Tel , Service support ,
--- NOTE | 2020-05-14 06:13 | ED.VIS.GEN ---
History of Present Illness Informant: Patient, Significant Other Narrative: 84-year-old male presents for the evaluation of left-sided chest pain. Patient states that he developed a discomfort on the left side of his lower chest before bedtime which was around 1130 last night. When he woke this morning he states it moved slightly laterally and is still present. wonders if it was the [place] fried chicken that he had yesterday. Patient denies any belching vomiting nausea or shortness of breath. He has a history of an aortic valve replacement in 2012 for severe aortic regurgitation. Heart catheterization prior to that procedure showed mild nonobstructive disease. He has been doing well. He had a echocardiogram in November 2019 showed no regional wall abnormalities and ejection fraction of 60%. Cardiac medications include metoprolol 25 mg once a day. Patient cannot recall having these symptoms before. 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 Lives: Spouse/ Significant Other Smoking Status: Never smoker Drugs: None - Family History Maternal Family History: Family History (Last Reviewed 11/17/19 @ 12:[address] Randall Neal MD) Brother Heart disease Brother Myocardial infarction Family History: Reports: No pertinent history Paternal Family History: Family History (Last Reviewed 11/17/19 @ 12:[address] Randall Neal MD) Brother Heart disease Brother Myocardial infarction Family History: Reports: No pertinent history <Donaldo Davis - Last Filed: 05/14/20 06:31> - Family History Maternal Family History: Family History (Last Reviewed 11/17/19 @ 12:[address] Randall Neal MD) Brother Heart disease Brother Myocardial infarction Paternal Family History: Family History (Last Reviewed 11/17/19 @ 12:[address] Randall Neal MD) Brother Heart disease Brother Myocardial infarction <MyrnaJohn - Last Filed: 05/14/20 09:34> - Allergies and Home Meds Allergies/Adverse Reactions: Allergies azithromycin [From Zithromax] Adverse Reaction (Verified 05/14/20 06:07) Other DIZZY doxycycline Adverse Reaction (Verified 05/14/20 06:07) Other COUGHA ND PHLEGM erythromycin base Adverse Reaction (Verified 05/14/20 06:07) Other gabapentin Adverse Reaction (Verified 05/14/20 06:07) Pain in joints guaifenesin [From Entex T] Adverse Reaction (Verified 05/14/20 06:07) Rash pseudoephedrine [From Entex T] Adverse Reaction (Verified 05/14/20 06:07) Rash tramadol Adverse Reaction (Verified 05/14/20 06:08) Pain in joints Primary Care Physician: Stanley Grace DO [Primary Care Provider] - Review of Systems General: Denies: Chills, Fever, Sweats Eyes: Denies: Visual changes - bilaterally, Diplopia ENT: Denies: Rhinorrhea, Sore throat Cardiovascular: Reports: Chest pain. Denies: Palpitations Respiratory: Denies: Dyspnea, Cough, Dyspnea on exertion Gastrointestinal: Denies: Abdominal pain, Nausea, Vomiting, Diarrhea, Melena, Hematochezia Genitourinary: Denies: Dysuria, Hematuria, Frequency Musculoskeletal: Denies: Back pain, Extremity Pain Skin: Denies: Rash, Wounds Neurological: Denies: Headache, Weakness, Numbness <Donaldo Davis - Last Filed: 05/14/20 06:31> Physical Exam Vital Signs/Narrative: Vital Signs Temp Pulse Resp BP Pulse Ox 05/14/20 05:59 96.3 F L 60 18 135/81 H 95 Inital Vital Signs reviewed: Yes General: Well nourished, Well developed, No Acute Distress Head: Normocephalic, Atraumatic Eyes: Perrl, EOMI ENT: Moist mucous membranes, No rhinorrhea Neck: Supple, Nontender Cardiovascular: Regular rate, No murmurs, Bradycardia Respiratory: No distress, CTA bilaterally, Chest nontender Abdomen: Soft, Nontender, Nondistended, Normal bowel sounds Back: Nontender, Normal Inspection Extremities: Nontender, No edema Skin: Normal color, No rash Neurological: Alert, Oriented x3, Cranial nerves II-XII grossly intact, Normal Strength, Normal Sensation Psychological: Normal affect, Normal Mood <Donaldo Davis - Last Filed: 05/14/20 06:31> Vital Signs/Narrative: Vital Signs Temp Pulse Resp BP Pulse Ox 05/14/20 09:23 49 L 18 143/74 H 100 05/14/20 07:37 49 L 18 127/73 H 93 05/14/20 05:59 96.3 F L 60 18 135/81 H 95 <John Norris - Last Filed: 05/14/20 09:34> Diagnostic/Tx/Re-eval - EKG Initial EKG Interpretation: Sinus Bradycardia - EKG demonstrates a sinus bradycardia at a rate of 55. No concerning features of ACS or ectopy noted. This EKG was compared to 16 May 2019. No significant changes noted. - Medical Decision Making My interpretation of the single view portable chest x-ray is no acute disease. patient received a GI cocktail. <Donaldo Davis - Last Filed: 05/14/20 06:31> - Medical Decision Making The patient was signed out to me pending results of his delta troponin. Repeat EKG shows sinus bradycardia without acute ischemia. His second cardiac enzymes were negative. The patient's pain was relieved after GI cocktail. At this point, I do feel the patient is safe for outpatient follow-up. He and his are comfortable with this plan of care. <John Norris - Last Filed: 05/14/20 09:34> ED Disposition <Donaldo Davis - Last Filed: 05/14/20 06:31> <John Norris - Last Filed: 05/14/20 09:34> - Plan for ED Patient: Diagnosis: Chest pain Instructions: ED Chest Pain, Uncertain Cause Referrals: Stanley Grace DO [Primary Care Provider] -
[2020-05-14 06:18] LABS: Absolute Lymphocyte Count 1.63 X10^3/uL (0.83-4.51); Absolute Neutrophil Count 2.6 X10^3/uL (2.0-7.7); Basophil# 0.04 X10^3/uL; Basophil% 0.8 % (0-1); Eosinophils% 5.9 % (0-5); Hematocrit 42.1 % (40-54); Hemoglobin 14.2 g/dL (13.0-16.5); Lymphocyte # 1.63 X10^3/ul (4.0); Lymphocyte % 31.8 % (19-41); Mean Corp Hgb Conc 33.7 g/dL (32-36); Mean Corpuscular Hgb 34.2 pg (27.0-32.0); Mean Corpuscular Volume 101.4 fL (80-94); Mean Platelet Vol. 9.4 fl (6.2-12.0); Monocyte# 0.58 X10^3/uL; Monocyte% 11.3 % (0-10); NRBC Flagged by Analyzer 0 % (0-5); Neutrophil # 2.55 X10^3/uL (2.7-7.7); Neutrophil % 49.8 % (47-70); Platelet Count 133 K/mm3 (150-450); RBC Distribution Width CV 13.3 % (11.6-14.6); RBC Distribution Width SD 48.9 fl (35.1-43.9); Red Blood Count 4.15 M/mm3 (4.6-6.2); White Blood Count 5.1 K/mm3 (4.4-11.0)
[2020-05-14 06:23] LABS: Partial Thromboplast Time 28.7 Seconds (24.1-36.2); Prothrombin Time (Protime)PT. 13.2 SECONDS (11.7-14.9)
[2020-05-14] MEDS: Mag Hydrox/Al Hydrox/Simeth 30 ML UDC PO (06:24)
[2020-05-14 06:33] LABS: Anion Gap 6 (5-15); BUN 20 mg/dL (7-18); BUN/Creat Ratio 19.8 RATIO (10-20); Calcium,Total 8.9 mg/dL (8.5-10.1); Chloride 107 mmol/L (98-107); Creatinine, Serum 1.01 mg/dL (0.70-1.30); EST Glomerular Filtration Rate 75 mL/min (>60); Est Glom Filt Rate - Afr Amer 90 mL/min (>60); Estimated Creatinine Clearance 56.22 ml/min; Glucose 100 mg/dL (74-106); Potassium 3.7 mmol/L (3.5-5.1); Sodium Level 141 mmol/L (136-145)
[2020-05-14 07:37] VITALS: BP 127/73; PULSE 49; RESP 18; O2SAT 93
[2020-05-14 09:23] VITALS: BP 143/74; PULSE 49; RESP 18; O2SAT 100
[2020-05-14 09:54] VITALS: BP 137/74; PULSE 50; RESP 18; O2SAT 98
== END 2020-05-14 09:56 | disposition home or self-care (01) ==
LOC: ED 06:37
PROVIDERS: Emergency Provider Emergency Medicine; PCP Family Medicine
DX: R07.9 Chest pain, unspecified (principal)
CPT/HCPCS: 71045; 80048; 84484; 85025; 85610; 85730; 93005; 99285; A4216

== ENCOUNTER 2020-05-16 10:00 | Outpatient (RCR) | payer MEDICARE, OTHER, SELFPAY ==
[2019-12-19 11:25] VITALS: BMI 31.2
--- NOTE | 2020-04-18 11:57 | HP.PTEVAL_ITS ---
Patient's Visit Information NUNU MALDONADO is a 84 year old M referred to Physical Therapy by Dr. Will Chu MD with a diagnosis of R Lumbago with sciatica; other intervertebral disc generation lumbar. Date of Evaluation: 04/18/20 Physical Therapist: Chaparro Aguilar, PT, Cert MDT, OCS - Visit Plan Frequency: 2x /Week Duration: 4 Weeks Plan: 1-2xs/week for 4 weeks per POC. PT Interventions: Lumbar ROM, LE strengthening, core stabilization exercises, postural training. - Subjective Patient is am 84 year old male presenting to the clinic with radicular symptoms into R LE. Patient was in physical therapy for his neck and back after a fall last February. Followed up with Dr. Holman for his back; recommended L4-5 surgery. MRI showed free fragment at L4-5 on the right side. Hx of R hip and bilateral knee replacements, right reverse shoulder replacement, and rotator cuff repair. Patient reports pain states sitting causes pain in bilateral buttock. Walking causes R hip/groin pain and radicular symptoms into R thigh. Pain occassionaly radiates down to R foot. Denies any recent falls. Reports weakness in B LE. Reports numbness and tingling at night when he is laying down. Coughing/sneezing negative. Sleeping is negatively impacted by hands. States he has been to the [facility] recently reports everything is good. Couple months ago had epideral injections and nerve block; reports did not help. R sided neck symptoms still limiting factor. Patient reports that he is active and is compliant with HEP from previous physical therapy. SOCIAL: - Pain Bilateral Back Pain Intensity (Out of 10): 0 Pain Intensity Range: 10 Comment: R groin, radiates into R thigh and foot. - Objective Reflexes: WNL. Sensation: WNL B LE to light tough. Posture: WFL. Palpation: Unremarkable. AROM: Flexion 75% (limited by tightness in hamstrings), ext 75%, sidebend 75%, rotation 50%. LE MMT: R hip flexion 4/5, quad 5/5, hamstring 5/5, DF 5/5. L hip flexion 5/5, quad 5/5, hamstring 5/5, DF 5/5 - Special Tests L/S Slump test left side: Negative L/S Slump test right side: Negative L/S Left Straight Leg Raise: Negative L/S Right Straight Leg Raise: Negative Lumbar Standing: Flexion - Mechanical Response: No effect Lumbar Standing: Flexion - Symptoms During Testing: Increases Lumbar Standing: Flexion - Symptoms After Testing: No worse Comments:: calf Lumbar Standing: Extension - Mechanical Response: No effect Lumbar Standing: Extension - Symptoms During Testing: Increases Lumbar Standing: Extension - Symptoms After Testing: No worse Comments:: right low back Lumbar Standing: Right Side Glides - Mechanical Response: No effect Lumbar Standing: Right Side [place] - Symptoms During Testing: No effect Lumbar Standing: Right Side [place] - Symptoms After Testing: No effect Lumbar Standing: Left Side [place] - Mechanical Response: No effect Lumbar Standing: Left Side [place] - Symptoms During Testing: No effect Lumbar Standing: Left Side [place] - Symptoms After Testing: No effect Lumbar Lying: Flexion - Mechanical Response: No effect Lumbar Lying: Flexion - Symptoms During Testing: No effect Lumbar Lying: Flexion - Symptoms After Testing: No effect Comments:: pre test pain none - Goals Goal 1:: Patient will demonstrate independence with HEP. Goal Time Frame: 2-4 Weeks Goal 2:: Patient will demonstrate 5/5 R LE strength for improved functional strength and decreased fall risk. Goal Time Frame: 2-4 Weeks Goal 3:: Patient will demonstrate improved lumbar AROM for functional mobility and recovery. Goal Time Frame: 2-4 Weeks Goal 4:: Patient will demonstrate improved Oswestry Disability Indez (Back) by 5 or > points for improved QOL. Goal Time Frame: 2-4 Weeks - Rehabilitation Potential Physical Therapy Diagnosis: Patient is an 84 year old male presenting to the clinic with radicular symptoms into R LE to foot likely due to herniated disc and stenosis. Patient attended physical therapy in the past for neck/back; expresses hesitation/concerns for the benefits of physical therapy. Co- morbidities and hesitation about physical therapy may impact outcomes. Rehabilitation Potential: Good - Anticipated Interventions Patient/Client Instruction: Educate patient on: Condition, Plan of Care, Benefits of Fitness Program For the Purpose of:: To decrease pain, To increase ROM, To improve muscle performance and motor function, To increase tolerance to activity/condition/position, To improve ability of physical actions for home/community/work/leisure, To increase flexibility/ROM, To reduce risk of recurrence, To improve safety, To improve health and function, To improve ability to perform tasks related to life management Therapeutic Exercise to Include: Strength training, Body mechanics, Postural training, Flexibilty training, Active ROM Comment: LE strength/core For the Purpose of:: To decrease pain, To increase ROM, To improve muscle performance and motor function, To increase tolerance to activity/ condition/position, To improve ability of physical actions for home/community/work/leisure, To increase flexibility/ROM, To improve safety, To improve health and function, To improve ability to perform tasks related to life management IF ES: Yes Other electric stimulation: Yes Cryotherapy (ice pack, ice massage): Yes Thermo therapy (hot pack): Yes Ultrasound (thermal/non thermal): Yes For the Purpose of:: To decrease pain, To increase ROM, To improve muscle performance and motor function, To improve ability of physical actions for home/community/work/leisure, To increase flexibility/ROM, To improve health and function, To improve ability to perform tasks related to life management Thank you for the opportunity to evaluate your patient. For Medicare and Medicare HMO plans, please review the plan of care and approve it. It will need to be FAXED BACK to us at [phone] for Medicare purposes. For Medicare only, by signing this I certify the plan of care. Please let me know if there are questions or concerns regarding this plan of care. Physician Signature: Date:
--- NOTE | 2020-09-18 12:57 | HP.PT.NRP ---
NUNU MALDONADO was seen in my office for initial evaluation on 04/18/20. The following Plan of Care was established for this patient: Initial Frequency: 2x /Week Initial Duration: 4 Weeks Patient/Client Instruction: Educate patient on: Condition, Plan of Care, Benefits of Fitness Program For the Purpose of:: To decrease pain, To increase ROM, To improve muscle performance and motor function, To increase tolerance to activity/condition/position, To improve ability of physical actions for home/community/work/leisure, To increase flexibility/ROM, To reduce risk of recurrence, To improve safety, To improve health and function, To improve ability to perform tasks related to life management Therapeutic Exercise to Include: Strength training, Body mechanics, Postural training, Flexibilty training, Active ROM For the Purpose of:: To decrease pain, To increase ROM, To improve muscle performance and motor function, To increase tolerance to activity/condition/position, To improve ability of physical actions for home/community/work/leisure, To increase flexibility/ROM, To improve safety, To improve health and function, To improve ability to perform tasks related to life management IF ES: Yes Other electric stimulation: Yes Cryotherapy (ice pack, ice massage): Yes Thermo therapy (hot pack): Yes Ultrasound (thermal/non thermal): Yes For the Purpose of:: To decrease pain, To increase ROM, To improve muscle performance and motor function, To improve ability of physical actions for home/community/work/leisure, To increase flexibility/ROM, To improve health and function, To improve ability to perform tasks related to life management This patient was last seen in our office . Pertinent comments regarding their Physical therapy will appear below: Patient seen for PT for BACK for strengthening and DLS thus is doing better d/c from PT At this point I will be discontinuing this patient from physical therapy. I would be happy to see this patient again in the future if found appropriate by the physician. Thank you! Chaparro Aguilar, PT, Cert MDT, OCS
== END 2020-05-16 19:00 | disposition home or self-care (01) ==
LOC: PT 10:00
PROVIDERS: PCP Family Medicine; Visit Provider Orthopaedic Surgery
DX: M51.36 Other intervertebral disc degeneration, lumbar region (principal); M54.41 Lumbago with sciatica, right side; M70.61 Trochanteric bursitis, right hip
CPT/HCPCS: 97110; 97162

== ENCOUNTER → 2020-05-31 09:21 | Outpatient (CLI) | payer MEDICARE, OTHER, SELFPAY ==
[2020-05-14 05:59] VITALS: BMI 31.8
[2020-05-31 10:54] LABS: PSA,Total- Diagnostic 6.24 ng/mL (0.0-4.0)
== END ==
PROVIDERS: PCP Family Medicine; Referring Provider Urology; Visit Provider Urology
DX: C61 Malignant neoplasm of prostate (principal)
CPT/HCPCS: 36415; 84153

== ENCOUNTER 2020-06-15 13:16 | Outpatient (RCR) | payer MEDICARE, OTHER, SELFPAY | END 2020-08-28 23:59 | LOC: IMMUN 13:16 | PROVIDERS: PCP Family Medicine; Visit Provider Family Medicine | DX: Z23 Encounter for immunization (principal) | CPT/HCPCS: 0001A; 0002A; 91300 ==

== ENCOUNTER → 2020-07-27 13:15 | Outpatient (CLI) | payer MEDICARE, OTHER, SELFPAY | PROVIDERS: PCP Family Medicine; Referring Provider Nurse Practitioner Family; Visit Provider Nurse Practitioner Family | DX: R00.2 Palpitations (principal) | CPT/HCPCS: 93225; 93226 ==

== ENCOUNTER → 2020-08-13 06:23 | Outpatient (CLI) | payer MEDICARE, OTHER, SELFPAY ==
--- NOTE | 2020-08-13 14:29 | STRESSREP ---
Stress Test Report Pharmacologic myocardial perfusion stress test. 84-year-old man with a history of chest pain. Stress protocol: Resting EKG demonstrates sinus bradycardia with a rate of 51 bpm normal intervals are noted resting blood pressure is 120/72 mmHg. 0.4 mg of regadenoson was infused per usual protocol followed up intravenous saline flush injection continuous EKG monitoring was performed. The maximum heart rate attained was 74 bpm which was 54% of maximum predicted heart rate the maximum workload was 1 metabolic equivalent. At rest there were no ST or T wave changes noted to suggest abnormal flow reserve and at peak infusion nonspecific ST changes were noted with did not meet the criteria for ischemia. No clinical angina was noted. Myocardial perfusion protocol. 10.3 mCi of technetium 99m sestamibi was injected at rest. 0.4 mg of regadenoson was infused per usual protocol. At peak infusion 33.1 mCi of technetium 99m sestamibi was injected stress images were obtained stress and rest images were reconstructed and compared in the short axis vertical long and horizontal long axis. Gated images were also obtained. Perfusion SPECT analysis: Review of the stress images demonstrate normal uptake of tracer noted in all areas of the myocardium. The resting images similarly demonstrate normal uptake of tracer noted in all areas of myocardium. No areas of reversibility are noted to suggest ischemia and no previous infarct is noted. Gated SPECT analysis: The gated ejection fraction is 63%. Conclusion: Normal pharmacologic myocardial perfusion stress test. Preserved ejection fraction.
== END ==
PROVIDERS: PCP Family Medicine; Referring Provider Nurse Practitioner Family; Visit Provider Nurse Practitioner Family
DX: I47.2 Ventricular tachycardia (principal); I25.10 Atherosclerotic heart disease of native coronary artery without angina pectoris; I48.0 Paroxysmal atrial fibrillation; I06.1 Rheumatic aortic insufficiency; R00.2 Palpitations; R07.9 Chest pain, unspecified; Z95.2 Presence of prosthetic heart valve
CPT/HCPCS: 78452; 93017; A9500; A4216; J2785

== ENCOUNTER → 2020-09-18 10:10 | Outpatient (CLI) | payer MEDICARE, OTHER, SELFPAY ==
[2020-09-18 10:55] LABS: PSA,Total- Diagnostic 6.45 ng/mL (0.0-4.0)
== END ==
PROVIDERS: PCP Family Medicine; Referring Provider Urology; Visit Provider Urology
DX: C61 Malignant neoplasm of prostate (principal)
CPT/HCPCS: 36415; 84153

== ENCOUNTER → 2020-10-30 07:49 | Outpatient (CLI) | payer MEDICARE, OTHER, SELFPAY ==
--- NOTE | 2020-10-30 07:51 | US_ITS ---
STUDY: ABDOMINAL ULTRASOUND - RIGHT UPPER QUADRANT REASON FOR VISIT: Male, 85 years old HEMOCHROMATOSIS, methotrexate use TECHNIQUE: Ultrasound evaluation of the right upper quadrant was performed with real-time and static bianchi-scale imaging. TECHNICAL QUALITY: Adequate. COMPARISON: None. FINDINGS: Liver: The liver measures 15 cm. There is normal echogenicity of the liver. The bile ducts are within normal limits. There is hepatic color flow. The direction of portal flow is hepatopetal. There is no demonstrated mass lesion. Gallbladder: Normal distended gallbladder. The gallbladder wall measures 1.3 mm. There is a negative sonographic Blackwell''s sign. There is no pericholecystic fluid. There are no gallstones. Common Bile Duct (C.B.D.): The common bile duct measures 3.6 mm. Pancreas: Normal size of the head, body and tail of the pancreas. There is normal echogenicity of the pancreas. There is no demonstrated pancreatic mass or cyst. Right Kidney: Normal size of the right kidney. The right kidney measures 12.4 cm x 5.5 cm x 6.4 cm. Normal renal cortex. The right cortex measures 1.8 cm. There is a 1.5 cm x 1.9 cm x 1.2 cm right renal cyst. There is no right hydronephrosis. IMPRESSION: 1.5 cm x 1.9 cm x 1.2 cm right renal cyst. No other abnormality is seen. Electronically Signed: Fazal Garrido MD at 13:59 EDT , Service support , STUDY: ABDOMINAL ULTRASOUND - ELASTOGRAPHY REASON FOR VISIT: Male, 85 years old. Hemochromatosis. TECHNIQUE: Liver stiffness measurements were obtained on a [employer] 85 ultrasound machine using a CA 1-7 probe following the SRU guidelines. 3 measurements were obtained using a 2-D-SWE method. The IQR/M was 22% suggesting a quality data set. TECHNICAL QUALITY: Adequate. COMPARISON: None. FINDINGS: Liver: There is no demonstrated mass lesion. Median liver stiffness measured 6.4 kPa. US/Abdomen Limited IMPRESSION: Liver stiffness measures 6.4 kPa compatible with F2 -- F3 Metavir score. Electronically Signed: Fazal Garrido MD at 14:01 EDT , Service support ,
--- NOTE | 2020-10-30 07:51 | US_ITS ---
STUDY: ABDOMINAL ULTRASOUND - RIGHT UPPER QUADRANT REASON FOR VISIT: Male, 85 years old HEMOCHROMATOSIS, methotrexate use TECHNIQUE: Ultrasound evaluation of the right upper quadrant was performed with real-time and static bianchi-scale imaging. TECHNICAL QUALITY: Adequate. COMPARISON: None. FINDINGS: Liver: The liver measures 15 cm. There is normal echogenicity of the liver. The bile ducts are within normal limits. There is hepatic color flow. The direction of portal flow is hepatopetal. There is no demonstrated mass lesion. Gallbladder: Normal distended gallbladder. The gallbladder wall measures 1.3 mm. There is a negative sonographic Blackwell''s sign. There is no pericholecystic fluid. There are no gallstones. Common Bile Duct (C.B.D.): The common bile duct measures 3.6 mm. Pancreas: Normal size of the head, body and tail of the pancreas. There is normal echogenicity of the pancreas. There is no demonstrated pancreatic mass or cyst. Right Kidney: Normal size of the right kidney. The right kidney measures 12.4 cm x 5.5 cm x 6.4 cm. Normal renal cortex. The right cortex measures 1.8 cm. There is a 1.5 cm x 1.9 cm x 1.2 cm right renal cyst. There is no right hydronephrosis. IMPRESSION: 1.5 cm x 1.9 cm x 1.2 cm right renal cyst. No other abnormality is seen. Electronically Signed: Fazal Garrido MD at 13:59 EDT , Service support , STUDY: ABDOMINAL ULTRASOUND - ELASTOGRAPHY REASON FOR VISIT: Male, 85 years old. Hemochromatosis. TECHNIQUE: Liver stiffness measurements were obtained on a [employer] 85 ultrasound machine using a CA 1-7 probe following the SRU guidelines. 3 measurements were obtained using a 2-D-SWE method. The IQR/M was 22% suggesting a quality data set. TECHNICAL QUALITY: Adequate. COMPARISON: None. FINDINGS: Liver: There is no demonstrated mass lesion. Median liver stiffness measured 6.4 kPa. US/Elastography Parenchyma/Organ IMPRESSION: Liver stiffness measures 6.4 kPa compatible with F2 -- F3 Metavir score. Electronically Signed: Fazal Garrido MD at 14:01 EDT , Service support ,
== END ==
PROVIDERS: PCP Family Medicine; Referring Provider Internal Medicine Gastroenterology; Visit Provider Internal Medicine Gastroenterology
DX: E83.119 Hemochromatosis, unspecified (principal)
CPT/HCPCS: 76705; 76981

== ENCOUNTER → 2020-12-17 08:10 | Outpatient (CLI) | payer MEDICARE, OTHER, SELFPAY ==
--- NOTE | 2020-12-17 08:14 | CT_ITS ---
STUDY: CT LEFT SHOULDER REASON FOR EXAM: Left shoulder pain, limited range of motion. TECHNIQUE: The patient was scanned in a multi detector CT scanner. High resolution transaxial imaging was performed without the administration of intravenous contrast material. Sagittal and coronal images were reconstructed. Individualized dose optimization techniques were used for this CT. COMPARISON: None. FINDINGS: There are marginal osteophytes of the humeral head and severe joint space narrowing of the glenohumeral articulation (coronal reconstructions 36-43). There is an intra-articular body at the posterior aspect of the glenohumeral joint (axial images 31, 32). Normal glenoid rim, neck and visualized scapula. There is cystic change of the greater and lesser tuberosities. Normal coracoid process. Normal visualized lateral clavicle. There is acromioclavicular arthrosis with small undersurface osteophytes of the distal clavicle (coronal reconstructions 32-34). There is a Type II morphology (curved), with a neutral orientation. There are calcifications in the supraspinatus and infraspinatus tendons (coronal reconstructions 24-39) and subscapularis tendon (axial images 30-33). 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 Calcifications in the supraspinatus/infraspinatus and subscapularis tendons. Electronically Signed: Jose Jovel MD at 14:56 EDT Tel , Service support ,
== END ==
PROVIDERS: PCP Family Medicine; Referring Provider Specialist; Visit Provider Specialist
DX: M19.012 Primary osteoarthritis, left shoulder (principal)
CPT/HCPCS: 73200

== ENCOUNTER → 2021-01-02 14:39 | Outpatient (CLI) | payer MEDICARE, OTHER, SELFPAY ==
--- NOTE | 2021-01-02 14:43 | CT_ITS ---
STUDY: CTA HEAD AND NECK WITH CONTRAST REASON FOR EXAM: Male, 85 years old. DIZZINESS. History of falls. RADIATION DOSAGE (If Supplied By Facility): CTDIvol = ( 32.88 ) mGy, DLP = ( 1669.73 ) mGycm TECHNIQUE: CT angiography was performed with a multi-detector CT scanner. Data acquisition was obtained from the skull base through the vertex following intravenous administration of IV 100mL Isovue-370. MIP images were reconstructed from the axial data set. Post-processing of the angiographic images was performed, with multiplanar reformation and 3D reconstruction. Individualized dose optimization techniques were used for this CT. COMPARISON: Comparison is made with prior CTA of the brain dated 03/24/2016. FINDINGS: Normal bilateral petrous carotid arteries. Normal right cavernous carotid artery with a normal supraclinoid bifurcation. Normal left cavernous carotid artery with a normal supraclinoid bifurcation. Normal right A1 segments of the anterior cerebral artery. Normal left A1 segments of the anterior cerebral artery. Normal intact anterior communicating artery (ACOM). Normal bilateral A2 segments of the anterior cerebral arteries. Normal right M1 and M2 segments of the middle cerebral arteries, with a normal M1 bifurcation. Normal left M1 and M2 segments of the middle cerebral arteries, with a normal M1 bifurcation. There is non-visualization of the right posterior communicating artery (PCOM). There is non-visualization of the left posterior communicating artery (PCOM). Normal bilateral vertebral arteries. Normal basilar artery with a normal basilar bifurcation. The visualized bilateral superior cerebellar (SCA) arteries are normal. Normal bilateral P1, P2 and visualized P3 segments of the posterior cerebral arteries. There is no demonstrated aneurysm of the [place] of [place]. Mild cerebral atrophy. Decreased attenuation in the periventricular white matter suggestive of chronic small vessel disease. AORTIC ARCH: There is atherosclerotic calcific plaque formation of the aortic arch and great vessels arising from the aortic arch, without a hemodynamically significant stenosis. There is a normal origin of the brachiocephalic, left common carotid, and left subclavian arteries. RIGHT CAROTID ARTERIES: Normal right common carotid artery (CCA). Normal right common carotid bulb. Normal origin of the right internal carotid (ICA) artery without a hemodynamically significant stenosis. Normal visualized cervical portion of the right internal carotid artery. Normal origin of the right external carotid artery (ECA). LEFT CAROTID ARTERIES: Normal left common carotid artery (CCA). Normal left common carotid bulb. There is mild atherosclerotic plaque formation of the origin of the left internal carotid artery with less than 50% cross sectional diameter stenosis. Normal visualized cervical portion of the left internal carotid artery. Normal origin of the left external carotid artery (ECA). VERTEBRAL ARTERIES: There is enhancement within the bilateral vertebral arteries with a small right vertebral artery, and a dominant left vertebral artery. Atherosclerotic plaque formation of the left vertebral artery as well as the intradural segment of the right vertebral artery. CT/CTA Head AND Neck W/ Contrast IMPRESSION: Mild atherosclerotic plaque formation at the origin of the left internal carotid artery causing less than 50% narrowing. Electronically Signed: Fazal Garrido MD at 8:11 EDT , Service support ,
[2021-01-02 14:56] LABS: EGFR FINGERSTICK > 60.0000 mL/min (>60)
== END ==
PROVIDERS: PCP Family Medicine; Referring Provider Family Medicine; Visit Provider Family Medicine
DX: G45.0 Vertebro-basilar artery syndrome (principal); R42 Dizziness and giddiness
CPT/HCPCS: 70496; 70498; Q9967

== ENCOUNTER → 2021-01-04 15:01 | Outpatient (CLI) | payer MEDICARE, OTHER, SELFPAY ==
--- NOTE | 2021-01-04 15:03 | RAD_ITS ---
STUDY: X-RAY - LEFT WRIST REASON FOR EXAM: Male, 85 years old. PAIN TECHNIQUE: 3 view(s) of the wrist were obtained. COMPARISON: None. FINDINGS: Please see the impression. RAD/Wrist min 3 Views IMPRESSION: No acute fracture or dislocation in the left wrist; however, the scaphoid view was not obtained. Polyarticular osteoarthritis. Mild diffuse osteopenia. CPPD deposition in the triangular fibrocartilage. Vascular calcification. Electronically Signed: Ben Ochoa MD at 18:14 EDT Tel , Service support ,
== END ==
PROVIDERS: PCP Family Medicine; Referring Provider Family Medicine; Visit Provider Family Medicine
DX: M25.532 Pain in left wrist (principal)
CPT/HCPCS: 73110

== ENCOUNTER 2021-02-06 16:09 | Observation (INO) | payer MEDICARE, OTHER, SELFPAY ==
--- NOTE | 2021-01-18 14:58 | PCM.HP.BLA ---
History and Physical History and Physical [facility] Patient Name: Jose Armando Alejo : 1935 From: SARAH MARTÍNEZ PA-C DATE OF SURGERY: 02/06/2021 SCHEDULED PROCEDURE: left reverse total shoulder arthroplasty HISTORY OF PRESENT ILLNESS: Preoperative history and physical exam was performed on January 18, 2021. This is an 85-year-old male who has had ongoing pain for several years with his left shoulder. Patient reports having a previous left shoulder arthroscopy with Dr. Harris in 2016. Patient reports pain be an intermittent, aching, sharp. Pain is increased with any use of the left arm. He is right-hand dominant. Pain is located over the anterior and lateral aspect of the left shoulder. He does report the pain does awaken him at night. He gets intermittent numbness and tingling in both hands and fingers. Patient has attempted home exercises with no relief in symptoms. He has tried [id number] ibuprofen with no relief in symptoms. Patient has a medical history pertinent for psoriatic arthritis, previous stroke, history of previous hypertension and diabetes. He states after weight loss he has not had to take any blood pressure medications and diabetic medications. Patient does also see access coordinator Dr. Neal. Patient has previous history of heart catheterization and valve replacement in 2012. Per cardiology document patient has history of paroxysmal atrial fibrillation. History of prostate cancer. Patient denies having atrial fibrillation. He is a poor historian with regards to his medical history. Currently denies any chest pain, shortness of breath, fevers chills, recent infections. After failing conservative measures and discussing treatment options with Dr. Pierre Mckeon, the patient does wish to proceed with a left reverse total shoulder arthroplasty REVIEW OF SYSTEMS: ROS: Const: Denies anorexia, change in appetite, fever, difficulty sleeping, weight change. CV: Denies chest pain, heart murmur, irregular heartbeat and peripheral vascular disease. Resp: Denies asthma, cough, pneumonia, sleep apnea, shortness of breath, tuberculosis and wheezing. GI: Denies constipation, diarrhea, heartburn, nausea, rectal itching, bloody stools and vomiting. : Denies incontinence. Musculo: Denies leg swelling, pain, trouble walking and weakness. Skin: Denies Raynaud's, history of shingles and tattoo. Neuro: Denies ambulatory dysfunction, dizziness, numbness/tingling and tremor. Psych: Denies anxiety, depression, insomnia, mental illness and stress. Girish/Lymph: Denies anemia, bleeding/bruising tendency and past transfusion. Reviewed, no changes. PAST MEDICAL HISTORY: Advance Care Plan: Other Directive, LIVING WILL Effective Date: 02/09/2020 Other Directive, POA Effective Date: 02/09/2020 PMH: Medical Problems: Stroke, Psoriasis, Cancer, Diabetes, High Blood Pressure Accidents: Other - FALL-03/21/2019 Surgical Hx: Carpal Tunnel Release Lt - Carpal Tunnel Release RT - DR. HARRIS Hip Replacement Rt - DR. HARRIS Knee Replacement Bilat - DR HARRIS Shoulder Arthroscopy Lt Shoulder Arthroscopy Rt - X2 RT Shoulder Replacement - (2016) @[place] [facility] RT Shoulder - (2017) LT Leg Hamstring - (2016) RT Torn Tendon - (2015) Total LT Hip - (2014) Heart Valve Replacement - (2012) Protsate Cancer - (2009) Heart Catherization - (2012) Cataract LT Eye - (2006) Anesthesia Complications: None Assistive Devices: Glasses - READING Reviewed, no changes. SOCIAL HISTORY: SH: Marital: .Occupation: Retired.Work Status: Retired.Hand Dominance: Right-handed. Personal Habits: Cigarette Use: Never.Smokeless Tobacco: Never Used Smokeless Tobacco.E-Cigarette Use: Never used.Alcohol: Denies use.Drug Use: Denies Use.Enjoy Exercising: Never Exercises. Reviewed, no changes. VITALS: Ht: 69.3 Wt: 214lb Wt k.070 BMI: 31.3 BP: 118/54 Pulse: 59 Resp: 16 T: 97.5 T: 36.4C Pain Level: 2 ALLERGIES: Cats Dogs Ragweed Dust Mites Zithromax Erythromycin Gabapentin Otezla Tramadol Clindamyacin Doxycycline MEDICATIONS: Methotrexate 2.5 mg 8 tabs PO weekly, Folic Acid 1 mg 1 tab PO daily and 2 tabs on days of methotrexate, Multivitamins 1 tab PO daily, Preservision Areds 1 cap PO daily, Flaxseed Oil 1000 mg 1po daily, Triple [place]-3-6-9 1po daily, Fiber Adult Gummies 2 gm 1 by mouth every day, Ibuprofen 200 mg 2 tablets by mouth for pain as needed PRE-OP EXAM: General appearance:NORMAL Other: Eyes: Conjunctivae and lids: NORMAL Pupils: ERR Ears, Nose, Mouth, and Throat: NORMAL Other: Inspection of lips, teeth and gums: NORMAL Other: Neck: Examination of neck: no masses noted. Respiratory: Assessment of respiratory effort: NORMAL Other: Auscultation of lungs: clear to auscultation no wheezes, rhonchi or rales. Cardiovascular: Auscultation of heart: regular rate and rhythm, Positive systolic murmur. PHYSICAL EXAMINATION: Left shoulder is cool to touch without erythema or signs of infection. Patient has tenderness to palpation of the lateral left shoulder. Previous incisions from arthroscopy are well-healed with no signs of infection. Range of motion: Forward elevation 95 bilaterally, internal rotation 20 on the left and 25 on the right, internal rotation L2 on the left and T12 on the right. Resisted range of motion: Supraspinatus strength 4/5 on the left and 3/5 on the right, 4/5 external rotation on the left. Sensation intact to light touch in axillary, radial, median, ulnar nerve distribution. IMAGING STUDIES: Previous x-rays of the left shoulder reveals severe glenohumeral joint space narrowing with posterior glenoid erosion, subchondral sclerosis on the undersurface of the acromion and lateral tuberosity consistent with rotator cuff dysfunction. Large anterior/posterior humeral head osteophytes. IMPRESSION: 1. 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 History of hypertension 3. History of type 2 diabetes mellitus 4. Previous stroke 5. Previous history heart catheterization with heart valve replacement 6. History of paroxysmal atrial fibrillation 7. psoriatic arthritis PLAN: Dr. Pierre Mckeon did discuss and review with the patient all treatment options including surgical versus nonsurgical options. Patient does wish to proceed with the above-stated procedure. Potential risks, benefits, and complications of the procedure were discussed in detail including but not limited to , infection, nerve and blood vessel damage, persistent pain, numbness, tingling, paresthesias, blood clot, pulmonary embolism, and requirement for possible further surgery. The patient expressed full understanding and has no further questions for the doctor. Patient does agree to proceed with the above-stated procedure and has signed the surgery consent form. Patient states he has significant allergy to aspirin which causes significant bleeding. DVT prophylaxis and risk assessment was performed and we will utilize early mobilization of the arm for DVT prophylaxis. We discussed the current risks associated with COVID 19. This does include the risk of exposure while in the hospital. Patient was reassured local hospitals have low infection rates and are taking all necessary precautions to avoid exposure to patients. In addition, we discussed strategies that can be used to help limit exposure including those that limit the patient's time in the hospital. Also using strategies to limit the patient's need for continued inpatient services after being discharged from the hospital. Patient was notified that we will need to comply with any screening or testing the hospital wishes to perform or that surgery may be delayed for any positive results. This dictation was created using voice recognition software. Phonetic and/or grammatical errors may exist. ___ I have re-examined the patient. There are no clinical changes since date of exam. ___ See progress notes for changes. ___ Dictated on admission Date: Time: Signature:
[2021-01-28 09:52] LABS: Hemoglobin 13.8 g/dL (13.0-16.5); Mean Corp Hgb Conc 34.5 g/dL (32-36); Mean Corpuscular Hgb 34.4 pg (27.0-32.0); Mean Corpuscular Volume 99.8 fL (80-94); Mean Platelet Vol. 9.2 fl (6.2-12.0); Platelet Count 117 K/mm3 (150-450); RBC Distribution Width CV 13.7 % (11.6-14.6); Red Blood Count 4.01 M/mm3 (4.6-6.2); White Blood Count 5.5 K/mm3 (4.4-11.0)
[2021-01-28 10:08] LABS: International Normalized Ratio 1.1; Prothrombin Time (Protime)PT. 13.5 SECONDS (11.7-14.9)
[2021-01-28 10:09] LABS: Partial Thromboplast Time 28.2 Seconds (24.1-36.2)
[2021-01-28 10:26] LABS: Anion Gap 4 (5-15); BUN 23 mg/dL (7-18); BUN/Creat Ratio 21.3 RATIO (10-20); Calcium,Total 9.1 mg/dL (8.5-10.1); Chloride 106 mmol/L (98-107); Creatinine, Serum 1.08 mg/dL (0.70-1.30); EST Glomerular Filtration Rate 69 mL/min (>60); Est Glom Filt Rate - Afr Amer 84 mL/min (>60); Glucose 94 mg/dL (74-106); Potassium 3.9 mmol/L (3.5-5.1); Sodium Level 140 mmol/L (136-145)
[2021-01-28 10:36] LABS: AST(SGOT) 27 U/L (15-37); Alanine Aminotransfer ALT/SGPT 47 U/L (16-61); Albumin, Serum 3.3 g/dL (3.2-5.0); Alkaline Phosphatase 80 U/L (45-117); Bilirubin, Direct 0.29 mg/dL (0.00-0.30); Globulin 3.5 g/dL (2.2-4.2); Magnesium 1.9 mg/dL (1.6-2.6); Protein, Total 6.8 g/dL (6.4-8.2)
--- NOTE | 2021-02-05 14:57 | NURSING ---
PATIENT CALLED IN TO PAT NURSE AND STATED THAT PRE SURGERY ENSURE MADE HIM DIZZY. NURSE INSTRUCTED PATIENT NOT TO CONTINUE DRINKING ENSURE.
[2021-02-06] VITALS (8 sets, daily range): BP systolic 119–144; BP diastolic 71–95; PULSE 53–63; RESP 14–16; TEMP 36–36.4; O2SAT 93–100; BMI 129.5
--- NOTE | 2021-02-06 07:05 | PCM.OPRPT ---
Report of Operation Date of Procedure: 02/06/21 Pre-Operative Diagnosis: Left shoulder osteoarthritis with rotator cuff insufficiency Post-Operative Diagnosis: Left shoulder osteoarthritis with rotator cuff insufficiency Surgery/Procedure Performed:: Left reverse total shoulder replacement Description of Surgical Findings:: Stable shoulder Surgeon: Pierre Mckeon turn down man: Noa Lora Type of Anesthesia: General Anesthesiologist: Silver Edmond Special Medications: 2 g Ancef, 1 g TXA at incision, 1 g TXA closure, 10 mg Decadron, joint cocktail (5 mg Duramorph, 30 mL of 0.5% Ropivicaine, 1000 units of epinephrine, 30 mg of Toradol), 1 g vancomycin at incision Specimen's removed: Bony cuts Estimated Blood Loss (mL): 200 Fluids Replaced: 800 mL crystalloid Description of Procedure: Components used 1. [employer] glenoid baseplate 2. [employer] 36 mm, 6mm Glenosphere 3. [employer] 36mm, 4mm humeral liner 4. Agusto reunion reverse TSA humeral adapter tray 2mm 5. [employer] humeral stem primary press-fit 16mm size Brief history/Operative indications: 85 yo M with history of left shoulder pain and cuff tear arthropathy. Patient failed conservative measures as mentioned in the H&P. After discussion of risk and benefits of reverse total shoulder replacement including but not limited to blood loss, DVTs, PEs, nerve vessel damage, infection, general risk of anesthesia including loss of life, instability and stiffness patient demonstrating understanding wish to proceed was able to sign informed consent. Medical clearance was obtained. Procedure: On the date of the procedure, patient's left upper extremity was marked in the preoperative area. Patient was taken back to the operating room where they were placed on the table in the supine position. Anesthesia assumed control of the C-spine and airway, then administered anesthetic. All bony prominences were identified well-padded, the head was secured and the patient was placed in the beachchair position at about 35? inclination. Anesthesia remained in control of the C-spine airway throughout the remainder of the procedure. Patient was then appropriately fastened to the table and the left upper extremity was prepped in a sterile fashion. The surgeons then scrubbed. Upon reentering the room, the left upper extremity was draped in a sterile fashion and the incision was marked out. Timeout was called, everyone agreed upon the side, the site, the procedure to be performed, patient identity and antibiotics given. Incision was taken down through skin and subcutaneous tissue, fat down to fascia. The stripe of the deltopectoral interval and cephalic vein were identified and blunt dissection was used to retract the deltoid. The cephalic vein was retracted laterally. Clavipectoral fascia was then incised and a cobra retractor was placed in the wound. The proximal one third of the pectoralis major insertion was released. Pectoralis tendon insertion was used to tenodesed the biceps tendon which was identified in the bicipital groove. Tenodesis was done with #1 Vicryl. Proximally we followed the biceps tendon after transecting it into the rotator interval. The rotator interval was split and the arm was externally rotated. The split was 1 cm medial to the bicipital groove. Subscapularis tendon was released. We released down the anterior portion of the humeral head and a petersen elevator was used to release the inferior portion of the humeral head. The arm was externally rotated and the shoulder was dislocated. The humeral head was then cut at its natural retroversion. Once his humeral head cut was made humerus was retracted out of the way and the glenoid was exposed. After exposing the glenoid, the labrum and the remaining proximal biceps were debrided. At this time we are able to view the entire outer edge of the glenoid. A central pin was placed we sequentially reamed over this central pin to 36mm. Once this was completed the central screw was measured and found to be. The glenoid baseplate was screwed into place. Wound was closely irrigated out with normal saline we then drilled sequentially for 2 screws. Screws were placed superiorly and inferiorly and tightened down the screws. Once the screws were appropriately tightened into place the glenoid baseplate was compressed against the exposed subchondral bone. A 36mm glenosphere was impacted into place engaging the Reagan taper. Attention was then turned towards the humerus. The humerus was again externally rotated exposing the proximal portion of the humerus. Central canal finder was then used to open up the canal. We reamed to a 18mm reamer. We then broached to a 16mm stem. We trialed the 4mm liner, with the 2mm humeral baseplate. We obtained an adequate reduction at this time with a nice stable shoulder. Good internal rotation to the gluteus, forward elevation to 140?, external rotation to 20?. Final components were then assembled on the back table, trials were removed and the wound was copiously irrigated with normal saline after dislocating the shoulder. Once the final components were assembled they were impacted into place. Shoulder was then reduced and found to be stable with good range of motion. Subscapularis tendon was repaired using #2 FiberWire. The wound was with chlorhexidine solution then copiously irrigated out with a 1 L normal saline lavage. The deltopectoral fascia was then closed using #1 Vicryl skin was closed using 2-0 Vicryl interrupted sutures and final skin closure was done with 3-0 Monocryl. Steri-Strips are placed for final skin closure. Sterile dressing was placed patient was then placed in a sling and awakened by anesthesia. Patient was then transferred to the PACU for recovery. Postoperative plan: Patient will be admitted to the hospital overnight. They will get physical therapy starting in 2 weeks with normal postoperative regimen. After a thorough discussion of risks and benefits with the patient who has previous bleeding complications with aspirin after discussing increased bleeding complications with greater anticoagulation and risks associated with upper extremity surgery for PEs and VTE's we have elected to proceed with early mobilization as an appropriate form of anticoagulation. The first postoperative appointment will be in 2 weeks for wound check and initiation of phase 1 physical therapy. During the course of the procedure the physician fitness assistant played a vital role. His intimate knowledge of my steps in the procedure aided in safe and expedient completion of the procedure. The PA played a vital rolls in positioning particularly in obtaining the appropriate beach chair position and securing the patient's body and head to the table. The PA was also vital in the retraction of soft tissues during the exposure and especially the glenoid work as this is a vital part of the procedure to prevent neurovascular damage. the PA was also vital and protecting soft tissues during times of bony cuts and reaming. He also played a vital role in closure with my direct supervision. The PA was also important during reduction and dislocation of the joint and trials intraoperatively. Admit VTE Documentation VTE Present on Admission: No VTE Mechan Device Prophylaxis: SCD's VTE Pharm Prophylaxis ordered?: Yes
[2021-02-06] MEDS: Acetaminophen 500 MG Tablet 1000 MG PO ×2 (10:42→23:02)
[2021-02-06] MEDS: Celecoxib 200 MG Capsule 400 MG PO (10:42)
[2021-02-06 10:56] LABS: Bedside Glucose 96 mg/dL (70-110)
[2021-02-06] MEDS: dexAMETHasone 10 MG/ML Vial IV (12:38)
[2021-02-06] MEDS: Cefazolin 2 GM in 0.9% Normal Saline 100 ML IV (12:38)
--- NOTE | 2021-02-06 14:40 | RAD_ITS ---
STUDY: X-RAY - LEFT SHOULDER REASON FOR EXAM: Male, 85 years old. Post op -- AP and Lateral X-Ray of operative shoulder in PACU TECHNIQUE: 2 view(s) of the shoulder. COMPARISON: None. FINDINGS: The patient is status post reverse shoulder replacement. There is good alignment. Postoperative soft tissue changes. Left basilar atelectasis and/or infiltrate. RAD/Shoulder min 2 Views IMPRESSION: Status post left shoulder replacement. There is good alignment. Left basilar infiltrate or atelectasis. Electronically Signed: Fazal Garrido MD at 14:57 EST , Service support ,
[2021-02-06] MEDS: Lactated Ringers 1,000 ML 125 ML IV (17:07)
--- NOTE | 2021-02-06 17:54 | PCM.PN.HOSP ---
Documented by User: Saravanan MEDINA 02/06/21 18:05 Subjective Subjective Patient is an 85-year-old male comfortably resting in bed status post left reverse total shoulder replacement, patient is alert and orient x3. Denies illness or problems preop and postop. Does not appear in acute distress. Objective Data Objective Data Vital Signs: Vital Signs Temp Pulse Resp BP Pulse Ox 97.4 F L 53 L 16 144/81 H 97 02/06/21 16:20 02/06/21 16:20 02/06/21 16:20 02/06/21 16:20 02/06/21 16:20 Oxygen Flow Rate (L/min) 6 Oxygen Delivery Method Room Air Weight: 209 lb 10.554 oz Body Mass Index (BMI) 30.0 Intake & Output: Intake and Output for Last 24 Hours 02/04/21 02/05/21 02/06/21 23:59 23:59 23:59 Intake Total 866 / 866 Balance 866 / 866 Lab / Micro Data Result Diagrams: 01/28/21 09:22 01/28/21 09:22 Labs: Laboratory Results - last 24 hr 02/06/21 10:38: POC Glucose 96 Micro: Microbiology 01/28/21 09:22 Swab (Method) Nasal Screen MRSA/MSSA - Final Radiography Diagnostic Testing: Radiology Impression Shoulder X-Ray 02/06/21 14:40 IMPRESSION: Status post left shoulder replacement. There is good alignment. Left basilar infiltrate or atelectasis. Electronically Signed: Fazal Garrido MD at 14:57 EST , Service support , Physical Exam Const alert, oriented x3 and no apparent distress HEENT head/scalp atraumatic and moist oral mucous membranes Head and Scalp: normocephalic Eyes PERRL, EOMs intact bilaterally and conjunctivae normal Neck no lymphadenopathy, supple and no JVD Resp normal respiratory effort, no retractions, no use of accessory muscles and clear to auscultation bilaterally Cardio regular rate, regular rhythm, no murmurs and no JVD GI normal to inspection, nondistended, normoactive bowel sounds, soft to palpation and non-tender Extremity Extremity Narrative: Left upper extremity stabilized in device. Skin no rashes or lesions noted, no wounds, skin turgor normal and no jaundice Neuro CN's II-XII intact bilaterally Psych affect normal Assessment & Plan Assessment/Plan (1) Osteoarthritis: (2) Psoriasis: (3) B12 deficiency: PLAN: Patient is an 85-year-old male who presents to the hospital medicine service on consult from Dr. 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 1) psoriasis Continue methotrexate. 2) B12 deficiency Continue folic acid supplementation. 3) left shoulder osteoarthritis Status post left reverse total shoulder replacement performed by Dr. Mckeon. Management per orthopedics. DVT prophylaxis - SCDs Patient seen by Saravanan Vang PA-C, under the supervision of Dr. Renner. Documented by User: Dr. Ced Rennre MD 02/06/21 19:29 Subjective Subjective Patient is admitted after left reverse arthroplasty of shoulder. Patient has history of aortic valve replacement for aortic regurgitation in 2012, cardiac stent in 2014, paroxysmal A. fib not on anticoagulant, history of prostate cancer. Currently patient does not have any chest pain or shortness of breath or palpitation. Twelve-lead EKG on 02/01/2021 shows normal sinus rhythm QTC 421 ms. Twelve-lead EKG in July 2020 shows sinus bradycardia at 53 bpm. QTc 423 ms. Prior to surgery patient denied having any chest pain angina or shortness of breath or dyspnea on exertion. Objective Data Lab / Micro Data Result Diagrams: 01/28/21 09:22 01/28/21 09:22 Physical Exam Narrative General: Alert, Oriented x3, Cooperative HEENT: Atraumatic, PERRLA, EOMI, Normocephalic Oral: No Gingival or Mucosal Lesions/ Ulcerations Neck: Supple, No JVD, Negative Carotid Bruits Lungs: Air entry diminished in bilateral lung bases. No crepitation/rhonchi Cardiovascular: Sinus rhythm, Normal S1, Normal S2, No murmurs Abdomen: Bowel Sounds Present, Soft, Non Tender, Non-Distended : No renal angle tenderness. No suprapubic tenderness. Extremities: No edema, Capillary Refill Less than 3 Seconds Skin: No rashes, No breakdown Musculoskeletal: Left shoulder on U-sling. Surgical dressing is dry. No tenderness at hip and knee joints. Neurological: Cranial nerves II-XII grossly intact, DTR 2+/4 and Symmetrical, Neuro grossly intact Psych/Mental Status: Normal Affect, Appropriate. Assessment & Plan Assessment/Plan (1) Osteoarthritis: PLAN: This patient was seen in conjunction with CAROL Almanzar. I have independently interviewed and examined the patient and reviewed pertinent history, examination findings, laboratory and plan of management. I have reviewed the note and agree with the documented findings with the few additional points. In brief, patient is admitted in orthopedic Dr. 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 Patient has history of coronary artery status post stent and bioprosthetic aortic valve replacement. Patient does not have any active cardiac symptoms prior or during surgery. No chest pain angina or shortness of breath. Other comorbidities include psoriasis weak arthritis, history of prostate cancer and weakness. Patient does not have Siddiqui catheter. Patient is spontaneously voided about 250 Chu surgery. Patient is not on anticoagulant for paroxysmal A. fib. Currently sinus rhythm. Other community admission I have discussed my assessment with CAROL Almanzar and orders have been reviewed. Charges/Coding Visit Charges Inpatient E&M: 93364 Subs Hosp L2
[2021-02-06] MEDS: Cefazolin 1 GM/50 ML BAG IV (20:36)
[2021-02-06] MEDS: Senna/Docusate Sodium 1 Tablet 2 TABLET PO (23:00)
[2021-02-07 03:30] VITALS: BP 155/64; PULSE 60; RESP 18; TEMP 36.6; O2SAT 98
[2021-02-07] MEDS: Cefazolin 1 GM/50 ML BAG IV (05:27)
[2021-02-07] MEDS: Acetaminophen 500 MG Tablet 1000 MG PO (05:32)
[2021-02-07 07:41] LABS: Hematocrit 37.3 % (40-54); Hemoglobin 12.8 g/dL (13.0-16.5); Mean Corp Hgb Conc 34.3 g/dL (32-36); Mean Corpuscular Hgb 33.9 pg (27.0-32.0); Mean Corpuscular Volume 98.7 fL (80-94); Mean Platelet Vol. 9.6 fl (6.2-12.0); Platelet Count 115 K/mm3 (150-450); RBC Distribution Width CV 13.7 % (11.6-14.6); Red Blood Count 3.78 M/mm3 (4.6-6.2); White Blood Count 10.9 K/mm3 (4.4-11.0)
[2021-02-07 08:34] LABS: Anion Gap 9 (5-15); BUN 21 mg/dL (7-18); BUN/Creat Ratio 20.8 RATIO (10-20); Calcium,Total 8.4 mg/dL (8.5-10.1); Chloride 105 mmol/L (98-107); Creatinine, Serum 1.01 mg/dL (0.70-1.30); EST Glomerular Filtration Rate 75 mL/min (>60); Est Glom Filt Rate - Afr Amer 90 mL/min (>60); Estimated Creatinine Clearance 55.21 ml/min; Glucose 138 mg/dL (74-106); Potassium 4.2 mmol/L (3.5-5.1); Sodium Level 139 mmol/L (136-145)
[2021-02-07] MEDS: Senna/Docusate Sodium 1 Tablet 2 TABLET PO (09:09)
[2021-02-07] MEDS: Multivitamin (Healthy Eyes) Capsule 1 CAP PO (09:09)
[2021-02-07 09:18] VITALS: BP 110/79; PULSE 72; RESP 16; TEMP 36.4; O2SAT 99
--- NOTE | 2021-02-07 09:25 | PCS.PANDOC ---
PANDEMIC DOCUMENTATION INITIATED: Date: 11/05/2020 Time: 190
[2021-02-07] MEDS: Methotrexate 2.5 MG Tablet 20 MG PO (10:26)
[2021-02-07] MEDS: Meloxicam 7.5 MG Tablet PO (10:26)
--- NOTE | 2021-02-07 10:45 | CASEMGMT ---
MELBA SHEPARD Face to Face with patient for initial transition planning/care coordination assessment. RN CM introduced self and role at [facility]. Patient sitting in chair, alert and oriented. Patient willing to participate in assessment and is able to answer all questions appropriately. Care providers, pharmacy, and demographics verified. Patient wishes to discharge home, denies need for home health at this time. Patient states he has no further needs or concerns at this time. CM to follow for discharge planning needs that may arise. PCP: Sanjay Specialists: Linda ortho; Dennis, bundling machine operator; Ángel, bundle helper; Reginaldo, direct support professional Preferred Pharmacy: [facility] at discharge. Insurance: [facility], MMO Prescription Benefit: yes Living Will/HPOA: yes, Francie Alejo LNOK: Living Arrangements: Patient lives with in a single story home with no steps to enter. Patient states he is independent at home. Transportation: self/ DME/HHC: Patient states he has shower chair, raised toilet, grab bars, and walker at home. Patient denies previous HHC or SNF. Disposition Plan: Patient to discharge home with family support and follow-up plans in place. Melanie MALIK, RN, CM
--- NOTE | 2021-02-07 11:32 | PCM.DC ---
Discharge Instructions Diet Discharge Diet: No restrictions Dressing / Incision Call your doctor if your incision/area has: Continuous Slow Oozing, Sudden Increased Bleeding, Increased Pain/ Swelling, Increased Redness, Foul Smelling Discharge and Swelling at the incision site Call your doctor if you observe: Fever of 101 or Higher, Numbness or Tingling, Shortness of breath, Dizziness, Chest pain and Calf discomfort Remove Dressing in: 5 days Cleanse incision/area with: Soap & Water Follow Up Care Test Results: Test results from this visit will be discussed in further detail at your follow-up appointment, if applicable. Discharge Plan Admission Admit Date/Time: 02/06/21 16:09 Attending Provider: Pierre Mckeon Primary Care Provider: Stanley Grace Consulting Providers: Anila Jones ; Carin Mariee ; Donaldo Nelson ; Moy Mora Discharge Orders/Prescriptions Prescriptions: No Action omega-3 fatty acids [Fish Oil Concentrate] 1,000 mg capsule 1,000 mg PO BID RF: 0 flaxseed oil 1,000 MG capsule 1,000 mg PO BID RF: 0 methotrexate sodium 2.5 MG tablet 20 mg PO TH RF: 0 folic acid 1 MG tablet 1 mg PO SUMOTUWEFRSA RF: 0 PreserVision Lutein 226 mg-200 unit -5 mg-0.8 mg Capsule 1 cap PO BID RF: 0 Fiber Gummies 2 gram Tablet,Chewable 2 g PO DAILY RF: 0
--- NOTE | 2021-02-07 11:33 | PCM.PN.ORT ---
Subjective Subjective Patient is s/p left reverse total shoulder arthroplasty with Dr. Mckeon. Patient resting comfortably in bed. Rates pain 0/ 10 at rest. With movement 3/10. States taking Tylenol and meloxicam and ice help to relieve pain. Patient has been up with therapy. Patient compliant with sling. Afebrile, no chest pain, shortness of breath, negative calf pain/ erythema, and no other signs of DVT. Objective Data Objective Data Vital Signs: Vital Signs Temp Pulse Resp BP Pulse Ox 97.6 F L 72 16 110/79 99 02/07/21 09:18 02/07/21 09:18 02/07/21 09:18 02/07/21 09:18 02/07/21 09:18 Oxygen Flow Rate (L/min) 6 Oxygen Delivery Method Room Air Weight: 95.1 kg Body Mass Index (BMI) 30.0 Intake & Output: Intake and Output for Last 24 Hours 02/05/21 02/06/21 02/07/21 23:59 23:59 23:59 Intake Total 916 / 1116 1650 / 1650 Output Total 250 / 250 Balance 666 / 866 1650 / 1650 Lab / Micro Data Result Diagrams: 02/07/21 06:48 02/07/21 06:48 Labs: Laboratory Results - last 24 hr 02/07/21 06:48: WBC 10.9, RBC 3.78 L, Hgb 12.8 L, Hct 37.3 L, MCV 98.7 H, MCH 33.9 H, MCHC 34.3, RDW Std Deviation 49.0 H, RDW Coeff of Fazal 13.7, Plt Count 115 L, MPV 9.6 02/07/21 06:48: Sodium 139, Potassium 4.2, Chloride 105, Carbon Dioxide 25.0, Anion Gap 9, BUN 21 H, Creatinine 1.01, Estim Creat Clear Calc 55.21, Est GFR (MDRD) Af Amer 90, Est GFR (MDRD) Non-Af 75, BUN/Creatinine Ratio 20.8 H, Glucose 138 H, Calcium 8.4 L Micro: Microbiology 01/28/21 09:22 Swab (Method) Nasal Screen MRSA/MSSA - Final Radiography Diagnostic Testing: Radiology Impression Shoulder X-Ray 02/06/21 14:40 IMPRESSION: Status post left shoulder replacement. There is good alignment. Left basilar infiltrate or atelectasis. Electronically Signed: Fazal Garrido MD at 14:57 EST , Service support , Physical Exam Narrative Patient walking around room upon examination No signs of acute distress Satting well on room air Limb is warm to touch, Sensation intact throughout entire lower extremity, Patient able to make a peace sign, okay sign, cross fingers Radial pulses bounding. Dressing is clear dry intact Calf nontender to palpation, no erythema, no edema. Negative Homans Assessment & Plan Assessment/Plan (1) S/p reverse total shoulder arthroplasty: PLAN: 1. Will continue PT today 2. plan for discharge this afternoon following PT 3. Patient will follow up for his post op appointment in 2 weeks 4. Patient has outpatient PT appointment in 2 weeks after his postop appointment. 5. WBC 10.9, no acute reactive leukocytosis 6. H/H 12.8/37.3: post operavtive anemia secondary to acute blood loss intraoperatively. Patient is asymptomatic at this time. No intraoperative complications. will continue to monitor. no acute interventions. 7. DVT prophylaxis : Patient has severe allergy to aspirin as it makes him bleed significantly. We will use early mobilization, SCDs, movement for DVT prophylaxis. 8. Pain control: patient instructed to take tylenol 500mg 2 tablets TID and meloxicam twice daily. Patient declined oxycodone prescription as he states he does not need it he is not in pain.
--- NOTE | 2021-02-07 11:42 | CASEMGMT ---
MELBA CM in to complete CELIS form with patient. RN DEVYN explained CELIS form to patient, patient voiced understanding. Patient signed CELIS form and filed in chart. Patient provided with copy of signed CELIS form. Patient had no further questions or concerns at this time.
== END 2021-02-07 12:35 | disposition home or self-care (01) ==
LOC: MS2 02-07 07:18 → AC 02-07 09:01 → SDC 02-07 09:01 → MS2 02-07 09:01
PROVIDERS: Anesthesiology; Admitting Provider Specialist; PCP Family Medicine; Referring Provider Specialist; Visit Provider Specialist
PROC: (CPT 23472; principal; 2021-02-06 11:55)
DX: M19.012 Primary osteoarthritis, left shoulder (principal); I10 Essential (primary) hypertension; L40.50 Arthropathic psoriasis, unspecified; I48.0 Paroxysmal atrial fibrillation; E11.9 Type 2 diabetes mellitus without complications; I25.10 Atherosclerotic heart disease of native coronary artery without angina pectoris; E53.8 Deficiency of other specified B group vitamins; Z86.73 Personal history of transient ischemic attack (TIA), and cerebral infarction without residual deficits; Z85.46 Personal history of malignant neoplasm of prostate; Z79.899 Other long term (current) drug therapy; Z95.5 Presence of coronary angioplasty implant and graft; Z95.3 Presence of xenogenic heart valve
CPT/HCPCS: 23472; 64415; 36415; 73030; 80048; 80076; 82962; 83735; 85027; 85610; 85730; 87081; 94762; 96365; 96366; 97166; 99218; 99251; C1776; J7040; J7120; G0378; G0463; J2405; J8610

== ENCOUNTER 2021-02-19 02:46 | Emergency (ER) | payer MEDICARE, OTHER, SELFPAY ==
[2021-02-19 02:47] VITALS: BP 173/80; PULSE 58; RESP 18; TEMP 36.3; O2SAT 95; BMI 30.2
--- NOTE | 2021-02-19 03:38 | EDS_ITS ---
HPI History of Present Illness Chief Complaint: Upper Extremity Injury Narrative Narrative: Pt had a left shoulder replacement surgery about 2 weeks ago. he states that he has had increased pain and swelling which he felt was worse tonight. He states that he has concern for infection and therefore comes in to the ED for evaluation [facility] Medical History Back pain Cancer Cardiology follow-up encounter Easy bruising Essential (primary) hypertension Excessive bleeding Hereditary hemochromatosis History of Holter monitoring History of injury of tendon History of irregular heartbeat History of pain when walking History of stress test Hx of dislocation of hip Hypertension Injury of head and neck Leg cramps Loss of hearing Macular degeneration Non-smoker Nonobstructive atherosclerosis of coronary artery Obesity Pain Paroxysmal atrial fibrillation Prostate cancer Prosthetic aortic valve stenosis Psoriasis Psoriatic arthritis Rectal bleeding Restless legs Rheumatic aortic valve insufficiency Shortness of breath on exertion Syncope TIA (transient ischemic attack) (2007) Wears glasses Home Medications flaxseed oil 1,000 mg PO BID 03/23/16 [History Last Taken Unknown] folic acid 1 mg PO SUMOTUWEFRSA 03/23/16 [History Last Taken Unknown] methotrexate sodium 20 mg PO TH 03/23/16 [History Last Taken 03/20/16] omega-3 fatty acids 1,000 mg capsule 1,000 mg PO BID 11/17/19 [History Last Taken Unknown] Fiber Gummies 2 g PO DAILY 01/23/21 [History Last Taken Unknown] PreserVision Lutein 1 cap PO BID 01/23/21 [History Last Taken Unknown] acetaminophen 1,000 mg PO Q8 #90 tab 02/07/21 [Rx Last Taken Unknown] meloxicam 7.5 mg PO BID #60 tab 02/07/21 [Rx Last Taken Unknown] Allergy/AdvReac Type Severity Reaction Status Date / Time apremilast [From Otezla] AdvReac Pain in Verified 02/19/21 02:50 joints azithromycin [From Zithromax] AdvReac Other Verified 02/19/21 02:50 doxycycline AdvReac Other Verified 02/19/21 02:50 erythromycin base AdvReac Other Verified 02/19/21 02:50 gabapentin AdvReac Pain in Verified 02/19/21 02:50 joints guaifenesin [From Entex T] AdvReac Rash Verified 02/19/21 02:50 pseudoephedrine AdvReac Rash Verified 02/19/21 02:50 [From Entex T] tramadol AdvReac Pain in Verified 02/19/21 02:50 joints Family History Brother Heart disease AFIB Brother Myocardial infarction Surgical History H/O aortic valve replacement (06/30/12) History of bilateral carpal tunnel release History of left heart catheterization (06/18/12) History of nasal septoplasty History of repair of rotator cuff History of shoulder surgery History of total bilateral knee replacement History of total right hip replacement Hx of colonoscopy Hx of left cataract extraction Hx of right cataract extraction Hx of shoulder replacement Hx of total hip arthroplasty Social History Smoking Status: Never smoker ROS ROS ED Constitutional Constitutional ED: Denies chills or fever(s) Cardiovascular Cardiovascular: Denies chest pain Respiratory/Chest Respiratory/Chest: Denies cough or dyspnea Gastrointestinal Gastrointestinal: Denies abdominal pain, diarrhea, nausea or vomiting Genitourinary Genitourinary ED: Denies dysuria Musculoskeletal Musculoskeletal: Reports myalgias Integumentary Reports other Details: + ecchymosis ; Denies rash Neurologic Neurologic: Denies headache(s) or paresthesias Hematologic/Lymphatic Hematologic/Lymphatic: Denies easy bleeding or easy bruising EXAM Physical Exam Const Vital Signs: 02/19/21 02:47 Temperature 97.3 F L Temperature Source Oral Pulse Rate 58 L Respiratory Rate 18 Blood Pressure 173/80 H Blood Pressure Mean 111 Pulse Ox 95 Oxygen Delivery Method Room Air Positive well nourished and well developed General Appearance ED: well developed Eyes PERRL and EOMs intact bilaterally Neck full ROM and supple Chest Wall palpation of chest normal Resp normal respiratory effort and clear to auscultation bilaterally Cardio regular rate and regular rhythm Extremity Extremity Narrative: Surgical change to the left shoulder with incision that is clean dry and intact. + STS to the left arm with ecchymosis. No obvious infectious process noted. Neuro oriented x3 and CN's II-XII intact bilaterally Sensorium / Orientation: alert Psych mental status grossly normal Skin no rashes or lesions noted Skin Narrative: soft tissue changes to the left arm as documented above MDM MDM MDM Narrative Medical decision making narrative: pt presented afebrile without secondary changes to suggest infection. With his concern for illness and the bruising I elected to perform basic labs. labs showed no acute findings. With his pain and swelling and recent surgery he will be ordered an venous duplex to rule out DVT Discharge Plan Triage Chief Complaint: Upper Extremity Injury ED Provider: Aquiles Bowling Dx/Rx/DC Orders Clinical Impression: Post-operative pain, Ecchymosis Instructions: ED Hematoma Prescriptions: No Action omega-3 fatty acids [Fish Oil Concentrate] 1,000 mg capsule 1,000 mg PO BID RF: 0 flaxseed oil 1,000 MG capsule 1,000 mg PO BID RF: 0 methotrexate sodium 2.5 MG tablet 20 mg PO TH RF: 0 folic acid 1 MG tablet 1 mg PO SUMOTUWEFRSA RF: 0 PreserVision Lutein 226 mg-200 unit -5 mg-0.8 mg Capsule 1 cap PO BID RF: 0 Fiber Gummies 2 gram Tablet,Chewable 2 g PO DAILY RF: 0 acetaminophen 500 mg Tablet 1,000 mg PO Q8 Qty: 90 RF: 0 meloxicam 7.5 mg Tablet 7.5 mg PO BID Qty: 60 RF: 0 Other Ambulatory Orders: Venous Duplex US, Unilateral (Routine) Facility: [facility] - Location: [facility] Ordered By: Dr. Aquiles Bowling Primary Care Provider: Stanley Grace Referrals: Stanley Grace DO [Primary Care Provider] - Activity Restrictions/Additional Instructions: Please return as directed for your ultrasound to further assess the cause of your pain and swelling Disposition Disposition: Home, Self Care Discharge Date/Time: 02/19/21 04:40
[2021-02-19 03:59] LABS: Absolute Lymphocyte Count 1.17 X10^3/uL (0.83-4.51); Absolute Neutrophil Count 3.6 X10^3/uL (2.0-7.7); Basophil# 0.03 X10^3/uL; Basophil% 0.5 % (0-1); Eosinophil# 0.29 X10^3/uL; Eosinophils% 5.2 % (0-5); Hematocrit 34.9 % (40-54); Lymphocyte # 1.17 X10^3/ul (0.83-4.51); Lymphocyte % 20.9 % (19-41); Mean Corp Hgb Conc 34.4 g/dL (32-36); Mean Corpuscular Hgb 34.2 pg (27.0-32.0); Mean Corpuscular Volume 99.4 fL (80-94); Mean Platelet Vol. 8.6 fl (6.2-12.0); Monocyte# 0.51 X10^3/uL; Monocyte% 9.1 % (0-10); NRBC Flagged by Analyzer 0 % (0-5); Neutrophil # 3.55 X10^3/uL (2.7-7.7); Neutrophil % 63.2 % (47-70); Platelet Count 157 K/mm3 (150-450); RBC Distribution Width CV 13.9 % (11.6-14.6); RBC Distribution Width SD 49.2 fl (35.1-43.9); Red Blood Count 3.51 M/mm3 (4.6-6.2); White Blood Count 5.6 K/mm3 (4.4-11.0)
[2021-02-19 04:03] LABS: International Normalized Ratio 1.1; Prothrombin Time (Protime)PT. 13.4 SECONDS (11.7-14.9)
[2021-02-19 04:04] LABS: Partial Thromboplast Time 29.3 Seconds (24.1-36.2)
[2021-02-19 04:12] LABS: Anion Gap 6 (5-15); BUN 25 mg/dL (7-18); BUN/Creat Ratio 27.7 RATIO (10-20); Calcium,Total 8.7 mg/dL (8.5-10.1); Chloride 107 mmol/L (98-107); EST Glomerular Filtration Rate 85 mL/min (>60); Est Glom Filt Rate - Afr Amer 103 mL/min (>60); Estimated Creatinine Clearance 61.96 ml/min; Glucose 120 mg/dL (74-106); Sodium Level 139 mmol/L (136-145)
== END 2021-02-19 04:40 | disposition home or self-care (01) ==
PROVIDERS: Emergency Provider Emergency Medicine; PCP Family Medicine
DX: G89.18 Other acute postprocedural pain (principal); R58 Hemorrhage, not elsewhere classified; I25.10 Atherosclerotic heart disease of native coronary artery without angina pectoris; M79.89 Other specified soft tissue disorders; R60.0 Localized edema; Z86.73 Personal history of transient ischemic attack (TIA), and cerebral infarction without residual deficits; Z96.612 Presence of left artificial shoulder joint
CPT/HCPCS: 80048; 85025; 85610; 85730; 93971; 99282

== ENCOUNTER → 2021-02-19 10:45 | Outpatient (CLI) | payer MEDICARE, OTHER, SELFPAY ==
--- NOTE | 2021-02-19 10:56 | VDUE_ITS ---
Reason For Study: Swelling Left Proximal Left jugular vein is spontaneous, widely patent, phasic, with no intraluminal echogenicity noted. Left subclavian vein is spontaneous, widely patent, phasic, with no intraluminal echogenicity noted. Left Arm Left axillary vein is spontaneous, patent, phasic, competent, compressible and demonstrates augmentation. Left brachial vein is compressible. Left cephalic vein is compressible. Left basilic vein is compressible. Left Lower Arm Left radial vein is compressible. Left ulnar vein is compressible. Patient Safety Pt seen in ED 02/19/2021 in early AM. Preliminary report sent to PCP: Sanjay and Ortho: Linda. VL/Venous Duplex US, Unilateral Interpretation Summary No evidence for acute deep venous thrombosis[left] upper extremity with patent and compressible cephalic and basilic veins. Ordering Physician: Aquiles Bowling Referring Physician: Stanley Grace Performed By: Melanie Cao RVT ?
== END ==
PROVIDERS: PCP Family Medicine; Referring Provider Emergency Medicine; Visit Provider Emergency Medicine
DX: R60.0 Localized edema (principal)
CPT/HCPCS: 93971

== ENCOUNTER → 2021-03-05 18:24 | Outpatient (CLI) | payer MEDICARE, OTHER, SELFPAY ==
--- NOTE | 2021-03-05 18:45 | MRI_ITS ---
EXAM: MR HEAD WITHOUT AND WITH INTRAVENOUS CONTRAST CLINICAL INDICATION: DISEQUILIBRIUM Technologist Notes RINGING IN EARS;DIZZINESS; HAS HAD SEVERAL FALLS W/ HITTING HEAD. SYMPTOMS HAVE BEEN IN LAST YEAR. TECHNIQUE: Multiplanar and multisequence MR images of the brain were obtained without and with intravenous contrast. This report was created using [employer] technology. CONTRAST: IV 19ml Dotarem 19 mL COMPARISON: ct 03.26.19 FINDINGS: BRAIN AND EXTRA-AXIAL SPACES: Microvascular ischemic changes. 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 No intra- or extra-axial hemorrhage. No intracranial mass or mass effect. Ventricles are appropriate for age. No hydrocephalus. Basal cisterns are patent. SELLA: Unremarkable. Normal sella turcica, pituitary gland, infundibular stalk, optic chiasm and hypothalamus. AUDITORY SYSTEM: Unremarkable. The internal auditory canals are patent. BONES/JOINTS: Unremarkable. No discrete lytic or blastic abnormalities. SINUSES: Unremarkable as visualized. Clear. MASTOID AIR CELLS: Unremarkable as visualized. Clear. ORBITS: Unremarkable as visualized. Both globes, extraocular muscles, optic nerves and retrobulbar fat appear unremarkable. VASCULATURE: Unremarkable as visualized. Normal flow voids in the major intracranial circulation. MRI/Brain W/WO Contrast IMPRESSION: Microvascular ischemic changes. Electronically Signed: Kwadwo Khan MD at 20:04 EST , Service support ,
== END ==
PROVIDERS: PCP Family Medicine; Visit Provider Psychiatry & Neurology Neurology
DX: R42 Dizziness and giddiness (principal)
CPT/HCPCS: 70553; A9575

== ENCOUNTER → 2021-03-21 10:44 | Outpatient (CLI) | payer MEDICARE, OTHER, SELFPAY ==
[2021-03-21 11:36] LABS: Vitamin B12 786 pg/mL (211-911)
[2021-03-21 12:09] LABS: Ferritin 91 ng/mL (26-388); Iron 138 ug/dL (65-175); Thyroid Stim Hormone (TSH) 1.55 uIU/mL (0.358-3.74)
[2021-03-27 20:19] LABS: Vitamin B1, Thiamine 145.4 nmol/L (66.5-200.0)
== END ==
PROVIDERS: PCP Family Medicine; Referring Provider Psychiatry & Neurology Neurology; Visit Provider Urology
DX: C61 Malignant neoplasm of prostate (principal); D64.9 Anemia, unspecified; G31.84 Mild cognitive impairment of uncertain or unknown etiology; I10 Essential (primary) hypertension; Z86.2 Personal history of diseases of the blood and blood-forming organs and certain disorders involving the immune mechanism
CPT/HCPCS: 36415; 82607; 82728; 82746; 83540; 84153; 84425; 84443

== ENCOUNTER 2021-04-05 08:46 | Outpatient (CLI) | payer MEDICARE, OTHER, SELFPAY ==
--- NOTE | 2021-04-05 08:52 | NM_ITS ---
CLINICAL: Male, 85 years old. ELEVATED PSA -- HX OF PROSTATE CANCER WHOLE BODY NUCLEAR BONE SCAN TECHNIQUE: Following the IV administration of 26 mCi of Tc MDP, whole body bone imaging was performed with a gamma camera following a three hour delay. COMPARISON STUDIES : NM - None. CR - Not available for review at this time. CT - Not available for review at this time. MR - Not available for review at this time. US - Not available for review at this time. FINDINGS: There is a normal concentration of radiopharmaceutical throughout the axial and appendicular skeletal system without either a focal decrease or increase in uptake. Photopenic areas within the humeral head bilaterally consistent with arthroplasty. Some diffuse increased uptake surrounding the prosthesis on the left consistent with recent surgery. Photopenic areas about both knee joints consistent with arthroplasty. NM/Bone Scan Whole Body IMPRESSION: No scintigraphic evidence of metastatic disease. Electronically Signed: Sheldon Avila MD at 12:56 EST Tel , Service support ,
== END 2021-04-05 23:59 | disposition short-term general hospital (02) ==
LOC: NM 08:48
PROVIDERS: PCP Family Medicine; Referring Provider Urology; Visit Provider Urology
DX: R97.20 Elevated prostate specific antigen [PSA] (principal)
CPT/HCPCS: 78306; A9503

== ENCOUNTER 2021-07-01 10:15 | Outpatient (CLI) | payer MEDICARE, OTHER, SELFPAY ==
[2021-07-01 11:49] LABS: PSA,Total- Diagnostic 0.59 ng/mL (0.0-4.0)
== END 2021-07-01 23:59 | disposition home or self-care (01) ==
LOC: LAB 10:17
PROVIDERS: PCP Family Medicine; Referring Provider Registered Nurse; Visit Provider Registered Nurse
DX: R97.20 Elevated prostate specific antigen [PSA] (principal)
CPT/HCPCS: 36415; 84153

== ENCOUNTER → 2021-07-10 | Outpatient (CLI) | payer MEDICARE, OTHER, SELFPAY ==
--- NOTE | 2021-07-10 16:42 | CT_ITS ---
STUDY: CT CHEST WITH CONTRAST REASON FOR EXAM: Male, 85 years old. LEFT LUNG NODULE RADIATION DOSAGE (If Supplied By Facility): CTDIvol = ( 22.61 ) mGy, DLP = ( 706.62 ) mGycm TECHNIQUE: Transaxial imaging was performed following intravenous administration of IV 100mL Isovue-300. Individualized dose optimization techniques were used for this CT. COMPARISON: Chest x-ray 07/05/2021. CT chest 07/06/2012. FINDINGS: LUNGS: No consolidation. Left upper lobe small calcified subpleural nodule is unchanged to slightly smaller compared to the prior CT chest. No other lung nodules are identified. Degenerative changes at the anterior aspect of the first ribs sternochondral junction more pronounced on the left, likely accounts for the nodular opacity seen on the recent chest x-rays. PLEURA: No pleural effusion. No pneumothorax. MEDIASTINUM: Unremarkable. HEART: Not enlarged. Aortic valve prosthesis. AORTA: Normal caliber. UPPER ABDOMEN: No acute abnormalities. BONES/SOFT TISSUES: Surgical hardware in both shoulders. Sternal wires. No acute abnormalities. OTHER: None. CT/Chest WITH Contrast IMPRESSION: No pulmonary nodule. No acute findings. Electronically Signed: Karol Allen MD at 4:13 EDT ,
[2021-07-10 16:55] LABS: EGFR FINGERSTICK > 60.0000 mL/min (>60)
== END | disposition home or self-care (01) ==
LOC: CT 16:40
PROVIDERS: PCP Family Medicine; Visit Provider Family Medicine
DX: R91.1 Solitary pulmonary nodule (principal)
CPT/HCPCS: 71260; Q9967

== ENCOUNTER 2021-07-24 15:30 | Outpatient (RCR) | payer MEDICARE, OTHER, SELFPAY ==
--- NOTE | 2021-07-04 15:47 | HP.PTEVAL ---
Patient's Visit Information NUNU MALDONADO is a 85 year old M referred to Physical Therapy by Dr. Stanley Grace DO with a diagnosis of vertigo, dizzyness. Date of Evaluation: 07/04/21 Physical Therapist: Peter Chance, CONNERT, OCS, CSCS - Visit Plan Frequency: 1x/Week Duration: 4-6 Weeks Plan: weekly as needed for 2-4 weeks for positional monitorring and check need for further vestibular or balance. Next session check positional and oculomotor as needed. - Subjective Been having for 6 months some dizzyness. Decme of 2018 fell to the basement of house and got stitches in head. Not sure if that has anything to do with it. Started insidiously 6 onths ago and was about gone 3 weeks ago but started on other pills for bronchitis and wheezing. Now still partly dizzy. has to be careful stooping over or turning too fast. Gettng up in the morning has to be really careful. Gets LUCERO and dizzy described as having to be careful with balance. Sitting and lying down are not a problem lately. Was a little dizzy lying down back 2 months ago but not anymore. Activities are normal but has to be careful. Retired. Mows yard with tractor and trimmed with hands. Lives with of 60 years. Lives in ranch on one floor, no steps. Dresses self and bathroom shower I. One fall bending over to pickler helper paper last week, no injury. - Objective Walks I and easily without imbalance or AD. Trasnfers without UE easily. Steps reciprocal without rail today. Cervical aROM is limited but not painful or probklematic. 30 ext and 45 B rotation. UE AROM WFL, limited elevation with B TSA. + R hallpike carol for up torsional nystagmus 3 second delayed and 8 second duration. Treated with R Ashely and then - HD test. - Balance/Special Test Scores Functional Gait Assessment Score: 28 % Disability: 6.6700 Dizziness Score: 54 - Goals Goal 1:: Abolish vertigo feeling Goal Time Frame: 2-4 Weeks Goal 2:: Pt feel 100% back to normal Goal Time Frame: 2-4 Weeks - Rehabilitation Potential Physical Therapy Diagnosis: BPPV Rehabilitation Potential: Good - Anticipated Interventions Patient/Client Instruction: Educate patient on: Condition, Plan of Care For the Purpose of:: To increase tolerance to activity/condition/position, To improve ability of physical actions for home/community/work/leisure Comment: vestibular ex/activity For the Purpose of:: To increase tolerance to activity/condition/position, To improve balance, To improve safety with gait Thank you for the opportunity to evaluate your patient. For Medicare and Medicare HMO plans, please review the plan of care and approve it. It will need to be FAXED BACK to us at [phone] for Medicare purposes. For Medicare only, by signing this I certify the plan of care. Please let me know if there are questions or concerns regarding this plan of care. Physician Signature: Date:
--- NOTE | 2021-07-24 15:55 | HP.PTREVAL_ITS ---
Dr. Stanley Grace, DO, It has been my pleasure to treat NUNU MALDONADO over the last 3 visits for vertigo, dizzyness. Please see the progress note below for an update on the physical therapy plan of care! Subjective: I am doing OK. Maybe woozy every now and then. No spinning. Balance feels OK. Activities are all pretty normal. Doing exercises without d campbell.Saw Sanjay last week and being treated for bronchitis. Wants to hold on therapy and work on ex at home and will call if problems. Objective/Function: + R HD treated with Ashely today, very slight positive. Walking very well and feeling good for the most part. pt wishes to continue with ex at home vs more frequent therapy. Plan Plan: hold chart til end of July and patient to call if dizzy returns or feels worse to return, otherwise will d/c end of July. Balance/Gait/Functional tests - Balance/Special Test Scores Functional Gait Assessment Score: 29 % Disability: 3.3400 Dizziness Score: 6 Goals Goal 1:: Abolish vertigo feeling Goal Time Frame: 2-4 Weeks Goal Progress: Goal Met Goal 2:: Pt feel 100% back to normal Goal Time Frame: 2-4 Weeks Goal Progress: 99%, tired today Anticipated Interventions Patient/Client Instruction: Educate patient on: Condition, Plan of Care For the Purpose of:: To increase tolerance to activity/condition/position, To improve ability of physical actions for home/community/work/leisure Comment: vestibular ex/activity For the Purpose of:: To increase tolerance to activity/condition/position, To improve balance, To improve safety with gait Please do not hesitate to contact me at [phone] by phone or if you have questions or concerns regarding this new plan of care! Sincerely, Peter Chance, DPT, OCS, CSCS
--- NOTE | 2021-09-26 16:29 | HP.PTDCSUM ---
It has been my pleasure to treat NUNU MALDONADO referred by Dr. Stanley Grace DO, with the diagnosis of vertigo, dizzyness for a total of 3 visit(s). Discharge Date: Please see the following information for a summary of their discharge status. Subjective: I am doing OK. Maybe woozy every now and then. No spinning. Balance feels OK. Activities are all pretty normal. Doing exercises without dizzy.Saw Sanjay last week and being treated for bronchitis. Wants to hold on therapy and work on ex at home and will call if problems. % Improvement: 99 Objective/Function: + R HD treated with Ashely today, very slight positive. Walking very well and feeling good for the most part. pt wishes to continue with ex at home vs more frequent therapy. Goal 1:: Abolish vertigo feeling Goal Progress: Goal Met Goal 2:: Pt feel 100% back to normal Goal Progress: 99%, tired today Plan: hold chart til end of July and patient to call if dizzy returns or feels worse to return, otherwise will d/c end of July. If there are questions or concerns regarding this patient's physical therapy, please feel free to call me at [phone]. Thank you for the referral of this patient. Sincerely, Peter Chance, DPT, OCS, CSCS Balance/Gait/Functional tests - Balance/Special Test Scores Functional Gait Assessment Score: 29 % Disability: 3.3400 Dizziness Score: 6
== END 2021-07-24 19:00 | disposition home or self-care (01) ==
LOC: PT 15:30
PROVIDERS: PCP Family Medicine; Referring Provider Family Medicine; Visit Provider Family Medicine
DX: R42 Dizziness and giddiness (principal)
CPT/HCPCS: 97161; 97530

== ENCOUNTER 2021-10-28 17:34 | Emergency (ER) | payer MEDICARE, OTHER, SELFPAY ==
[2021-10-28 17:35] VITALS: BP 94/49; PULSE 85; RESP 16; TEMP 35.9; O2SAT 94; BMI 29.7
--- NOTE | 2021-10-28 20:26 | EX.ED.GENINJ ---
HPI History of Present Illness Chief Complaint: Laceration Narrative Narrative: Patient slipped off his scooter. He abraded his right cheek on the handlebars. No impact with the head or loss of consciousness or headache. He also got a skin tear in his right forearm. He did not want to come in but his told him to come in. Last tetanus is unknown. Not on any anticoagulation. He states he feels fine. Nothing really makes his worse. He put a dressing on the area that made it better. [facility] Medical History Anemia Back pain Easy bruising Essential (primary) hypertension Excessive bleeding Hereditary hemochromatosis History of injury of tendon History of pain when walking Leg cramps Loss of hearing Macular degeneration Non-smoker Nonobstructive atherosclerosis of coronary artery Obesity Orthostatic hypotension Pain Paroxysmal atrial fibrillation Prostate cancer Prosthetic aortic valve stenosis Psoriasis Psoriatic arthritis Rectal bleeding Restless legs Rheumatic aortic valve insufficiency Syncope TIA (transient ischemic attack) (2007) Wears glasses Home Medications folic acid 1 mg tablet 1 mg PO SUMOTUWEFRSA 03/23/16 [History Last Taken Unknown] vit C 226 mg-vit E 90 mg-copper 0.8 mg-zinc oxide-lutein 5 mg capsule (PreserVision Lutein) 1 cap PO BID 01/23/21 [History Last Taken Unknown] cholecalciferol (vitamin D3) 25 mcg (1,000 unit) capsule 25 mcg PO DAILY 03/04/21 [History Last Taken Unknown] fish, borage, flaxseed oils-omega 3,6,9 cb #1 400 mg-400 mg-400 mg cap ([place] 3-6-9) 1 cap PO DAILY 03/04/21 [History Last Taken Unknown] meclizine 12.5 mg tablet 12.5 mg PO BID #60 tabs 03/04/21 [Rx Last Taken Unknown] metformin 500 mg tablet 500 mg PO DAILY PRN 03/04/21 [History Last Taken Unknown] methotrexate sodium 2.5 mg tablet 20 mg PO TH 03/04/21 [History Last Taken Unknown] inulin 2 gram chewable tablet (Fiber Gummies) g PO DAILY PRN 07/01/21 [History Last Taken Unknown] Allergy/AdvReac Type Severity Reaction Status Date / Time apremilast [From Otezla] AdvReac Pain in Verified 10/28/21 17:35 joints azithromycin [From Zithromax] AdvReac Other Verified 10/28/21 17:35 doxycycline AdvReac Other Verified 10/28/21 17:35 erythromycin base AdvReac Other Verified 10/28/21 17:35 gabapentin AdvReac Pain in Verified 10/28/21 17:35 joints guaifenesin [From Entex T] AdvReac Rash Verified 10/28/21 17:35 pseudoephedrine AdvReac Rash Verified 10/28/21 17:35 [From Entex T] tramadol AdvReac Pain in Verified 10/28/21 17:35 joints Family History Brother Heart disease AFIB Brother Myocardial infarction Other Cerebral aneurysm Surgical History H/O aortic valve replacement (06/30/12) History of arthroplasty of left shoulder History of bilateral carpal tunnel release History of left heart catheterization (06/18/12) History of nasal septoplasty History of repair of rotator cuff History of shoulder surgery History of total bilateral knee replacement History of total right hip replacement Hx of colonoscopy Hx of left cataract extraction Hx of right cataract extraction Hx of shoulder replacement Hx of total hip arthroplasty S/p reverse total shoulder arthroplasty Social History Smoking Status: Never smoker Electronic Cigarette Use: not used second hand exposure: No alcohol intake: never substance use type: does not use ROS ROS ED Constitutional Constitutional ED: Denies chills or fever(s) Eyes Eyes: Denies blurry vision or change in vision ENT ENT ED: Reports other Details: Laceration to right cheek. Now no bleeding. Closed. Cardiovascular Cardiovascular: Denies chest pain, palpitations or racing heartbeat Respiratory/Chest Respiratory/Chest: Denies cough or dyspnea Gastrointestinal Gastrointestinal: Denies nausea or vomiting Musculoskeletal Musculoskeletal: Denies arthralgias, back pain, myalgias or neck pain Integumentary Reports other Details: See history of present illness Neurologic Neurologic: Denies headache(s), paresthesias or weakness Hematologic/Lymphatic Hematologic/Lymphatic: Denies easy bleeding or easy bruising Allergic/Immunologic Allergic/Immunologic ED: Denies urticaria EXAM Physical Exam Const Vital Signs: 10/28/21 17:35 Temperature 96.7 F L Temperature Source Temporal Pulse Rate 85 Respiratory Rate 16 Blood Pressure 94/49 L Blood Pressure Mean 64 Pulse Ox 94 Oxygen Delivery Method Room Air Positive well nourished General Appearance ED: NAD HEENT HEENT Narrative: Patient has a 1/2 cm laceration right over the right sinus area. No involvement of the eye. It is already closed. No bleeding. No tenderness. No bony step-off. No facial anesthesia or diplopia with upward gaze. Eyes PERRL and EOMs intact bilaterally General Eye ED: Yes other Other Details: No sign of involvement. No subconjunctival hemorrhage. Neck No full ROM General: Negative for tenderness Chest Wall inspection of chest normal Resp normal respiratory effort Cardio regular rhythm GI normal to inspection, nondistended, normoactive bowel sounds and non-tender Narrative: No CVA tenderness Back/Spine no thoracic nor lumbar tenderness Extremity Extremity Narrative: Patient has skin tear to the right forearm. No active bleeding. No bony tenderness Neuro oriented x3 Neuro Narrative: states he is acting normally. Psych mental status grossly normal Skin Skin Narrative: See above PROC Procedures Lacerations Laceration: Depth: Skin Shape: Linear Prep: Sterile Conditions Laceration repair: Dermabond MDM MDM MDM Narrative Medical decision making narrative: The right forearm was cleansed and nonadherent dressing placed. Dermabond is done to the right cheek. He tolerated this well. Tetanus is updated. Reasons to return are discussed. I really do not see indication for CT or other imaging at this time. Patient does not want these done either Discharge Plan Triage Chief Complaint: Laceration ED Provider: Fransisco Guzman Dx/Rx/DC Orders Clinical Impression: Laceration of cheek, right, Skin tear of right upper extremity Instructions: ED Laceration: All Closures Prescriptions: No Action metformin 500 mg tablet 500 mg PO DAILY PRN Rx Instructions: Take when BS is over 120 fish,bora,flax oils-om3,6,9no1 [[place] 3-6-9] 400-400-400 mg capsule 1 cap PO DAILY cholecalciferol (vitamin D3) 25 mcg (1,000 unit) capsule 25 mcg PO DAILY meclizine 12.5 mg tablet 12.5 mg PO BID Qty: 60 2RF Fiber Gummies 2 gram tablet,chewable PO DAILY PRN folic acid 1 MG tablet 1 mg PO SUMOTUWEFRSA Label Comments: supplement methotrexate sodium 2.5 mg tablet 20 mg PO Label Comments: THURSDAYS PreserVision Lutein 226 mg-200 unit -5 mg-0.8 mg Capsule 1 cap PO BID Primary Care Provider: Stanley Grace Referrals: Stanley Grace, [Primary Care Provider] - 1 Week if not improving Disposition Disposition: Home, Self Care
[2021-10-28] MEDS: Diphth,Pertuss(Acell),Tet Vac 0.5 ML Vial IM (20:47)
== END 2021-10-28 20:56 | disposition home or self-care (01) ==
PROVIDERS: Emergency Provider Emergency Medicine; PCP Family Medicine; Visit Provider Emergency Medicine
DX: S01.411A Laceration without foreign body of right cheek and temporomandibular area, initial encounter (principal); S51.811A Laceration without foreign body of right forearm, initial encounter; I25.10 Atherosclerotic heart disease of native coronary artery without angina pectoris; Z86.73 Personal history of transient ischemic attack (TIA), and cerebral infarction without residual deficits; W05.1XXA Fall from non-moving nonmotorized scooter, initial encounter
CPT/HCPCS: 12011; 99282

== ENCOUNTER → 2021-10-29 | Outpatient (CLI) | payer MEDICARE, OTHER, SELFPAY ==
[2021-10-29 12:43] LABS: PSA,Total- Diagnostic 0.27 ng/mL (0.0-4.0)
== END | disposition home or self-care (01) ==
LOC: LAB 11:26
PROVIDERS: PCP Family Medicine; Referring Provider Urology; Visit Provider Urology
DX: C61 Malignant neoplasm of prostate (principal)
CPT/HCPCS: 36415; 84153

== ENCOUNTER → 2021-10-30 | Outpatient (CLI) | payer MEDICARE, OTHER, SELFPAY ==
--- NOTE | 2021-10-30 13:21 | NEURO ---
NCS and/or EMG Patient Report Ordering Doctor: Eric Gage DATE OF SERVICE: 10/30/21 Jose Armando presents for electrodiagnostic testing of the right upper limb. He reports numbness and tingling in the left hand. Electrodiagnostic Findings: Left median motor nerve demonstrates prolonged distal latency with normal amplitude and reduced conduction velocity. Borderline prolonged left ulnar motor latency is noted. Absent left median sensory latency at the wrist. Absent ulnar sensory response at the wrist. On needle EMG, all muscles tested in the left upper limb showed no evidence of denervation with normal motor unit action potentials. Electrodiagnostic impression: This is an abnormal study in the left upper limb. 1. 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 This is consistent with a moderate to advanced left carpal tunnel syndrome. 2. 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 3. No electrodiagnostic evidence is noted for cervical radiculopathy.
== END | disposition home or self-care (01) ==
LOC: PSN 09:51
PROVIDERS: PCP Family Medicine; Referring Provider Physician Assistant Surgical; Visit Provider Physician Assistant Surgical
DX: R20.2 Paresthesia of skin (principal)
CPT/HCPCS: 95886; 95910

== ENCOUNTER 2021-12-24 15:00 | Outpatient (RCR) | payer MEDICARE, OTHER, SELFPAY ==
--- NOTE | 2021-12-10 14:35 | HP.PTEVAL ---
Patient's Visit Information NUNU MALDONADO is a 86 year old M referred to Physical Therapy by Dr. Stanley Grace DO with a diagnosis of . Date of Evaluation: 12/04/21 Physical Therapist: Chaparro Aguilar PT, Cert MDT, OCS - Visit Plan Frequency: 1x/Week Duration: 4 Weeks - Subjective This 86 y/o male presents to physical therapy with lumbar pain and right hip pain . Patient has h/o lumbar radiculopathy for and hip pain past year . Patient has multiple comorbities to include bilateral THR, bilateral TSR , bilateral TKR ,CABG aorta valve, TIA. Patient pain right groin to foot. Aggravating walking , standing 5-10mins , difficulty with lifting. Alleviating factors rest and sitting. Patient symptoms affects sleeping. Coughing/sneezing -. Bowel/bladder . Denies paresthesia/tingling. Patient had x-rays of hips looked good. Patient did have MRI showed lumbar stenosis. Patient symptoms affects QOL and daily function. Patient states have been doing ex's which has not helped .No meds. Patient uses scooter for extended mobility. SOCIAL: . VOCATION: retired - Pain Right Lower Extremity Pain Intensity (Out of 10): 3 Pain Intensity Range: 10 Bilateral Back Pain Intensity (Out of 10): 2 Pain Intensity Range: 10 - Objective POST - Rehabilitation Potential Rehabilitation Potential: Good - Anticipated Interventions Thank you for the opportunity to evaluate your patient. For Medicare and Medicare HMO plans, please review the plan of care and approve it. It will need to be FAXED BACK to us at [phone] for Medicare purposes. For Medicare only, by signing this I certify the plan of care. Please let me know if there are questions or concerns regarding this plan of care. Physician Signature: Date:
--- NOTE | 2021-12-10 15:02 | HP.PTEVAL_ITS ---
Patient's Visit Information NUNU MALDONADO is a 86 year old M referred to Physical Therapy by Dr. Stanley Grace DO with a diagnosis of OTHER INTERVERTEBRAL DSIC DEGENERATION, ARTIFICIAL HIP JOINT. Date of Evaluation: 12/04/21 Physical Therapist: Chaparro Aguilar, PT, Cert MDT, OCS - Visit Plan Frequency: 1x/Week Duration: 4 Weeks Plan: PT INTERVETIONS DLS,POSTURAL EX'S LE STRENGTHENING AND FLEXABLITY AND FUNCTIONAL STRENGTHENING - Subjective This 86 y/o male presents to physical therapy with lumbar pain and right hip pain . Patient has h/o lumbar radiculopathy for and hip pain past year . Patient has multiple comorbities to include bilateral THR, bilateral TSR , bilateral TKR ,CABG aorta valve, TIA. Patient pain right groin to foot. Aggravating walking , standing 5-10mins , difficulty with lifting. Alleviating factors rest and sit ting. Patient symptoms affects sleeping. Coughing/sneezing -. Bowel/bladder . Denies paresthesia/tingling. Patient had x-rays of hips looked good. Patient did have MRI showed lumbar stenosis. Patient symptoms affects QOL and daily function. Patient states have been doing ex's which has not helped .No meds. Patient uses scooter for extended mobility. SOCIAL: . VOCATION: retired - Pain Right Lower Extremity Pain Intensity (Out of 10): 3 Pain Intensity Range: 10 Bilateral Back Pain Intensity (Out of 10): 2 Pain Intensity Range: 10 - Objective POSTURE: mild forward posture. GAIT: reciprocal pattern mild forward posture sloe jennifer. PALPATION: LS. NEURO: denies paresthesia/tingling ,reflexes L3-4,L4-5,L5-S1 2/3. MMT: quad/hams 4/5 ,hip flexion 4-/5 ,,ankle 4/5. LUMBAR ROM: flexion mod loss ,extension mod loss ,side glides mod loss,. FLEXABLITY: hamstrings min tight - Special Tests L/S Slump test left side: Negative L/S Slump test right side: Negative L/S Left Straight Leg Raise: Negative L/S Right Straight Leg Raise: Negative - Balance/Special Test Scores Oswestry Low Back Score: 26 - Goals Goal 1:: I with HEP for back Goal Time Frame: 4-6 Weeks Goal 2:: Patient improve posture for ADLS 75% of the time Goal Time Frame: 4-6 Weeks Goal 3:: Patient to demonstrate 50% improvement with decrease function with less pain Goal Time Frame: 4-6 Weeks Goal 4:: Patient improve lumbar ROM for function of recovery to put on shoes Goal Time Frame: 4-6 Weeks Goal 5:: Patient to improve back oswestry by 5 points to improve QOL and function Goal Time Frame: 4-6 Weeks - Rehabilitation Potential Physical Therapy Diagnosis: This patient has complexity issues with back pain chronic back pain with decrease ROM lumbar spine, pain LS with postion and motion testing impairs ADLS and housework tasks thus benefit from skilled PT Rehabilitation Potential: Good - Anticipated Interventions Patient/Client Instruction: Educate patient on: Condition, Plan of Care For the Purpose of:: To decrease pain, To increase ROM, To improve muscle performance and motor function, To improve ability to perform ADL's, To increase tolerance to activity/condition/position, To improve ability of physical actions for home/community/work/leisure, To improve health of tissue, To decrease soft tissue restriction, To prevent re-injury, To improve tolerance to ADL's Therapeutic Exercise to Include: Strength training, Endurance training, Balance training, Body mechanics, Postural training, Flexibilty training, Active ROM, Dynamic Lumbar Stabilization For the Purpose of:: To decrease pain, To increase ROM, To improve muscle performance and motor function, To improve ability to perform ADL's, To increase tolerance to activity/condition/position, To improve ability of physical actions for home/community/work/leisure, To improve health of tissue, To decrease soft tissue restriction, To increase flexibility/ROM, To improve ability to perform tasks related to life management, To improve tolerance to ADL's Thank you for the opportunity to evaluate your patient. For Medicare and Medicare HMO plans, please review the plan of care and approve it. It will need to be FAXED BACK to us at [phone] for Medicare purposes. For Medicare only, by signing this I certify the plan of care. Please let me know if there are questions or concerns regarding this plan of care. Physician Signature: Date:
--- NOTE | 2021-12-10 15:06 | HP.PTEVAL_ITS ---
Patient's Visit Information NUNU MALDONADO is a 86 year old M referred to Physical Therapy by Dr. Stanley Grace DO with a diagnosis of OTHER INTERVERTEBRAL DSIC DEGENERATION, ARTIFICIAL HIP JOINT. Date of Evaluation: 12/04/21 Physical Therapist: Chaparro Aguilar, PT, Cert MDT, OCS - Visit Plan Frequency: 2x /Week Duration: 4 Weeks Plan: PT INTERVETIONS DLS,POSTURAL EX'S LE STRENGTHENING AND FLEXABLITY AND FUNCTIONAL STRENGTHENING - Subjective This 86 y/o male presents to physical therapy with lumbar pain and right hip pain . Patient has h/o lumbar radiculopathy for and hip pain past year . Patient has multiple comorbities to include bilateral THR, bilateral TSR , bilateral TKR ,CABG aorta valve, TIA. Patient pain right groin to foot. Aggravating walking , standing 5-10mins , difficulty with lifting. Alleviating factors rest and si tting. Patient symptoms affects sleeping. Coughing/sneezing -. Bowel/bladder . Denies paresthesia/tingling. Patient had x-rays of hips looked good. Patient did have MRI showed lumbar stenosis. Patient symptoms affects QOL and daily function. Patient states have been doing ex's which has not helped .No meds. Patient uses scooter for extended mobility. SOCIAL: . VOCATION: retired - Pain Right Lower Extremity Pain Intensity (Out of 10): 3 Pain Intensity Range: 10 Bilateral Back Pain Intensity (Out of 10): 2 Pain Intensity Range: 10 - Objective POSTURE: mild forward posture. GAIT: reciprocal pattern mild forward posture sloe jennifer. PALPATION: LS. NEURO: denies paresthesia/tingling ,reflexes L3-4,L4-5,L5-S1 2/3. MMT: quad/hams 4/5 ,hip flexion 4-/5 ,,ankle 4/5. LUMBAR ROM: flexion mod loss ,extension mod loss ,side glides mod loss,. FLEXABLITY: hamstrings min tight - Special Tests L/S Slump test left side: Negative L/S Slump test right side: Negative L/S Left Straight Leg Raise: Negative L/S Right Straight Leg Raise: Negative - Balance/Special Test Scores Oswestry Low Back Score: 26 - Goals Goal 1:: I with HEP for back Goal Time Frame: 4-6 Weeks Goal 2:: Patient improve posture for ADLS 75% of the time Goal Time Frame: 4-6 Weeks Goal 3:: Patient to demonstrate 50% improvement with decrease function with less pain Goal Time Frame: 4-6 Weeks Goal 4:: Patient improve lumbar ROM for function of recovery to put on shoes Goal Time Frame: 4-6 Weeks Goal 5:: Patient to improve back oswestry by 5 points to improve QOL and function Goal Time Frame: 4-6 Weeks - Rehabilitation Potential Physical Therapy Diagnosis: This patient has complexity issues with back pain chronic back pain with decrease ROM lumbar spine, pain LS with postion and motion testing impairs ADLS and housework tasks thus benefit from skilled PT Rehabilitation Potential: Good - Anticipated Interventions Patient/Client Instruction: Educate patient on: Condition, Plan of Care For the Purpose of:: To decrease pain, To increase ROM, To improve muscle performance and motor function, To improve ability to perform ADL's, To increase tolerance to activity/condition/position, To improve ability of physical actions for home/community/work/leisure, To improve health of tissue, To decrease soft t issue restriction, To prevent re-injury, To improve tolerance to ADL's Therapeutic Exercise to Include: Strength training, Endurance training, Balance training, Body mechanics, Postural training, Flexibilty training, Active ROM, Dynamic Lumbar Stabilization For the Purpose of:: To decrease pain, To increase ROM, To improve muscle performance and motor function, To improve ability to perform ADL's, To increase tolerance to activity/condition/position, To improve ability of physical actions for home/community/work/leisure, To improve health of tissue, To decrease soft tissue restriction, To increase flexibility/ROM, To improve ability to perform tasks related to life management, To improve tolerance to ADL's Thank you for the opportunity to evaluate your patient. For Medicare and Medicare HMO plans, please review the plan of care and approve it. It will need to be FAXED BACK to us at [phone] for Medicare purposes. For Medicare only, by signing this I certify the plan of care. Please let me know if there are questions or concerns regarding this plan of care. Physician Signature: Date:
--- NOTE | 2022-01-07 09:53 | HP.PT.NRP ---
NUNU MALDONADO was seen in my office for initial evaluation on 12/04/21. The following Plan of Care was established for this patient: Initial Frequency: 2x /Week Initial Duration: 4 Weeks Patient/Client Instruction: Educate patient on: Condition, Plan of Care For the Purpose of:: To decrease pain, To increase ROM, To improve muscle performance and motor function, To improve ability to perform ADL's, To increase tolerance to activity/condition/position, To improve ability of physical actions for home/community/work/leisure, To improve health of tissue, To decrease soft tissue restriction, To prevent re-injury, To improve tolerance to ADL's Therapeutic Exercise to Include: Strength training, Endurance training, Balance training, Body mechanics, Postural training, Flexibilty training, Active ROM, Dynamic Lumbar Stabilization For the Purpose of:: To decrease pain, To increase ROM, To improve muscle performance and motor function, To improve ability to perform ADL's, To increase tolerance to activity/condition/position, To improve ability of physical actions for home/community/work/leisure, To improve health of tissue, To decrease soft tissue restriction, To increase flexibility/ROM, To improve ability to perform tasks related to life management, To improve tolerance to ADL's This patient was last seen in our office . Pertinent comments regarding their Physical therapy will appear below: Patient seen in PT for back an hip pain for ROM ,strengthening and DLS. RTD thus plan to return in Aquatic therapy At this point I will be discontinuing this patient from physical therapy. I would be happy to see this patient again in the future if found appropriate by the physician. Thank you! Chaparro Aguilar, PT, Cert MDT, OCS Balance/Gait/Functional tests - Balance/Special Test Scores Oswestry Low Back Score: 26
== END 2021-12-24 19:00 | disposition home or self-care (01) ==
LOC: PT 15:00
PROVIDERS: PCP Family Medicine; Visit Provider Family Medicine
DX: M51.36 Other intervertebral disc degeneration, lumbar region (principal); Z96.643 Presence of artificial hip joint, bilateral
CPT/HCPCS: 97110; 97162

== ENCOUNTER → 2021-12-31 | Outpatient (CLI) | payer MEDICARE, OTHER, SELFPAY ==
--- NOTE | 2021-12-31 08:55 | ECHOCS_ITS ---
Version 2 Reason For Study: MURMUR Procedure This was a 2D Doppler, Color Flow transthoracic echocardiogram. The study was technically difficult. The study was technically limited. Due to poor parasternal accoustic windows. Contrast injection was performed. Exam performed in department. Left Ventricle Normal LV size. Left ventricular systolic function is normal. The estimated ejection fraction is 60 %. No regional wall motion abnormalities noted. Right Ventricle Normal RV size. Normal systolic function. Atria Normal left atrium. Normal right atrium. Mitral Valve Mitral valve not well visualized. Aortic Valve Peak aortic valve gradient 29 mmHg. Mean aortic valve gradient 16 mmHg. Mild aortic stenosis. Bioprosthetic aortic valve. Great Vessels Normal aortic root. Pericardium/Pleural No pericardial effusion. Medication 22 gauge I.V. with prn adaptor inserted into right arm. Diluted definity 2.0ml given slow IV push to enhance endocardial definition. MMode/2D Measurements & Calculations LVIDd: 5.7 cm IVSd: 1.00 cm LVOT diam: 2.0 cm LVIDs: 4.2 cm LVPWd: 1.1 cm LVOT area: 3.3 cm2 RVDd: 3.3 cm FS: 27.0 % LAV(MOD-bp): 103.6 ml LA A4 area: 29.5 cm2 RA A4 area: 20.6 cm2 LAV(MOD-bp) Indexed: 47.8 ml/m2 LAV(MOD-sp2): 92.1 ml LAV(MOD-sp4): 102.1 ml Time Measurements MV dec time: 0.27 sec Doppler Measurements & Calculations MV E max cale: 57.0 cm/sec Lat Peak E' Cale: 7.9 cm/sec Med Peak E' Cale: 8.9 cm/sec MV A max cale: 71.5 cm/sec E/E' lat: 7.2 E/E' med: 6.4 MV E/A: 0.80 Ao V2 max: 270.5 cm/sec LV V1 max: 86.2 cm/sec MV dec slope: 211.7 cm/sec2 Ao max P.3 mmHg LV V1 max P.0 mmHg Ao V2 mean: 190.1 cm/sec LV V1 mean P.8 mmHg Ao mean P.4 mmHg LV V1 mean: 64.8 cm/sec Ao V2 VTI: 61.9 cm LV V1 VTI: 23.3 cm HANNAH(I,D): 1.2 cm2 HANNAH(V,D): 1.1 cm2 SV(LVOT): 76.8 ml PA V2 max: 101.9 cm/sec TR max cale: 240.4 cm/sec TR max P.1 mmHg ECHO/Echo Complete W/ Contrast Interpretation Summary Normal LV size. Left ventricular systolic function is normal. The estimated ejection fraction is 60 %. Mean aortic valve gradient 16 mmHg. Mild aortic stenosis. Bioprosthetic aortic valve. Contrast injection was performed. The study was technically difficult. The stud y was technically limited. Ordering Physician: Randall Neal Referring Physician: Stanley Grace Performed By: Shea Caal, SAQIB, RVT
== END | disposition home or self-care (01) ==
LOC: CVS 08:53
PROVIDERS: PCP Family Medicine; Referring Provider Internal Medicine Cardiovascular Disease; Visit Provider Internal Medicine Cardiovascular Disease
DX: R01.1 Cardiac murmur, unspecified (principal); Z95.2 Presence of prosthetic heart valve
CPT/HCPCS: 93306; Q9957; A4216; C8929

== ENCOUNTER → 2022-02-03 | Outpatient (CLI) | payer MEDICARE, OTHER, SELFPAY ==
[2022-02-03 15:49] LABS: PSA,Total- Diagnostic 0.06 ng/mL (0.0-4.0)
== END | disposition home or self-care (01) ==
LOC: LAB 13:34
PROVIDERS: PCP Family Medicine; Referring Provider Urology; Visit Provider Urology
DX: C61 Malignant neoplasm of prostate (principal)
CPT/HCPCS: 36415; 84153

== ENCOUNTER 2022-02-10 10:00 | Outpatient (RCR) | payer MEDICARE, OTHER, SELFPAY ==
--- NOTE | 2022-01-09 15:13 | HP.PTEVAL_ITS ---
Patient's Visit Information NUNU MALDONADO is a 86 year old M referred to Physical Therapy by Dr. Pierre Mckeon MD with a diagnosis of Bursitis R and L hip. Date of Evaluation: 01/09/22 Physical Therapist: Peter Chance, DPT, OCS, CSCS - Visit Plan Frequency: 3x /Week Duration: 4-6 Weeks Plan: 3x/week for 3-6 weeks for aquatic therapy for. 1. quad and HS stretches. 2. LE and core strength. 3. general activity progression. Monitor tolerance to pain. 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 Doing very well. Having issues with torn HS L leg and HS tendon R leg and butt is sore when he sits alot. Talked to Linda about this pain and wants to try water therapy. Has 5 shoulder surgerie and B TSA, B MAYA, B TKA. Has a pig valve and had a TIA at one point. Mows and gal yard and washes car and does housework and sweeps and can do it all, it just hurts. I cannot lift things. L shoulder is sore at times. May get x rays at some point. No real back trouble. Was on gabapentin at one point and it attacked legs and made them weak. Cannot stand long perior of time or knees lock up adn that has never gone away from 10-15 yrs ago. He exercises daily: for LE with bands and walking in the house. Has intermittent hip pain B without reason, can wake up at night with pain. Falls now and then typically with bending FW. No cane or walker as he does not want to use them. - Pain B hip pain Pain Intensity (Out of 10): 0 Pain Intensity Range: 0, 2 - Objective Walks with stiffness in legs but I without AD. Trasnfers I bed and chair. Steps reciprocal with one rail today. LB AROM ext mod limited and no pain, flexion and SB WFL. HS and quads min and mod tight. UE aROM WFL but lacking ext rot ation and end range elevation, strength 4/5 except R shoulder er 4-/5. Hip and knee AROM WFL and without c/o pain today. ankle AROM WFL. tender B GT areas minimally. reflexes 1/3 patella and achilles. Sensation LE WNL to gross light touch. strength hips 4+/5 flexion and 4/5 abd and 4- extension. knee strength 5/5 flexion and ext, ankl eStrength 4+/5 B. - Balance/Special Test Scores Functional Gait Assessment Score: 27 % Disability: 10.0000 Lower Extremity Functional Score: 50 - Goals Goal 1:: Pain reports 50% improved to 1/10 at worst in hips and shoulders and LB Goal Time Frame: 4-6 Weeks Goal 2:: I managment of hip painas needed Goal Time Frame: 4-6 Weeks - Rehabilitation Potential Physical Therapy Diagnosis: stiffness and pain B hip s and widespread. Rehabilitation Potential: Fair - Anticipated Interventions Patient/Client Instruction: Educate patient on: Condition, Plan of Care For the Purpose of:: To decrease pain, To increase tolerance to activity/condition/position Therapeutic Exercise to Include: Strength training, Flexibilty training, In an aquatic setting, Passive ROM, Active ROM For the Purpose of:: To decrease pain, To improve nutrient delivery to tissue, To improve muscle performance and motor function, To increase tolerance to activity/condition/position Thank you for the opportunity to evaluate your patient. For Medicare and Medicare HMO plans, please review the plan of care and approve it. It will need to be FAXED BACK to us at [phone] for Medicare purposes. For Medicare only, by signing this I certify the plan of care. Please let me know if there are questions or concerns regarding this plan of care. Physician Signature: Date:
--- NOTE | 2022-02-10 10:31 | HP.PTDCSUM ---
It has been my pleasure to treat NUNU MALDONADO referred by Dr. Pierre Mckeon MD, with the diagnosis of Bursitis R and L hip for a total of 8 visit(s). Discharge Date: Please see the following information for a summary of their discharge status. Subjective: Doing good.. walking better. B hip pain Pain Intensity (Out of 10): 0 % Improvement: 30 Objective/Function: GAIT: reciprocal pattern. NURO: intact. PALPATION: unremarkable. FLEXABILITY: WFL. MMT: quads/hams 4/5 ,4-/5 Goal 1:: Pain reports 50% improved to 1/10 at worst in hips and shoulders and LB Goal Progress: Progressing Goal 2:: I managment of hip painas needed Goal Progress: Progressing Plan: d/c If there are questions or concerns regarding this patient's physical therapy, please feel free to call me at [phone]. Thank you for the referral of this patient. Sincerely, Chaparro Aguilar, PT, Cert MDT, OCS Balance/Gait/Functional tests - Balance/Special Test Scores Functional Gait Assessment Score: 27 % Disability: 10.0000 Lower Extremity Functional Score: 41
== END 2022-02-10 19:00 | disposition home or self-care (01) ==
LOC: PT 10:00
PROVIDERS: PCP Family Medicine; Referring Provider Specialist; Visit Provider Specialist
DX: M70.71 Other bursitis of hip, right hip (principal); M70.72 Other bursitis of hip, left hip
CPT/HCPCS: 97113; 97161; 97530

== ENCOUNTER 2022-03-18 00:33 | Emergency (ER) | payer MEDICARE, OTHER, SELFPAY ==
[2022-03-18 00:34] VITALS: BP 146/83; PULSE 60; RESP 16; TEMP 36.8; O2SAT 98; BMI 30.9
--- NOTE | 2022-03-18 00:41 | CT_ITS ---
EXAM: CT maxillofacial. HISTORY: trauma TECHNIQUE: CT Maxillofacial W/O Contrast Injection. Coronal and sagittal reconstructions were obtained. A radiation dose optimization technique was utilized for this scan. COMPARISON: None. LIMITATIONS: None. ORBITS: Old fracture of the left orbital floor. No acute fracture identified. NASAL BONES: Normal ZYGOMATIC ARCHES: Normal. MAXILLAE: Normal. PTERYGOID PLATES: Normal. MANDIBLE: Normal. SINUSES: No fluid levels. SOFT TISSUES: Right periorbital soft tissue swelling. OTHER: None. CONCLUSION: No acute fracture. Electronically Signed: Aguila Nance MD at 2:52 EST , CT/Sinus/Facial Bone IMPRESSION: undefined
--- NOTE | 2022-03-18 00:41 | CT_ITS ---
EXAM: CT cervical spine. HISTORY: trauma TECHNIQUE: No intravenous contrast. A radiation dose optimization technique was used for this scan. COMPARISON: None. LIMITATIONS: Motion artifact. FRACTURES: None. SPINAL CANAL: No significant stenosis. DEGENERATIVE CHANGE: Moderate degenerative change. SOFT TISSUE: Normal. OTHER: None. CONCLUSION: Motion artifact. No acute fracture identified. Electronically Signed: Aguila Nance MD at 2:46 EST , CT/Spine Cervical without Contras IMPRESSION: undefined
--- NOTE | 2022-03-18 00:41 | CT_ITS ---
EXAM: CT brain without IV contrast. HISTORY: trauma TECHNIQUE: No intravenous contrast. A radiation dose optimization technique was used for this scan. COMPARISON: Head CT March 26, 2019. LIMITATIONS: None. BRAIN: Mild involutional change. Mild low attenuation bilaterally within the deep white matter, likely secondary to chronic microvascular ischemia. 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 VENTRICLES: No hydrocephalus. EXTRA-AXIAL SPACES: No acute hemorrhage. CALVARIUM/SKULL BASE: No acute fracture. FACE/SINUSES: The facial bones are described in a separate report. SOFT TISSUES: Contusion of the right frontal scalp. OTHER: None. CONCLUSION: No acute intracranial abnormality. Electronically Signed: Aguila Nance MD at 2:05 EST , CT/Brain/Head without Contrast IMPRESSION: undefined
--- NOTE | 2022-03-18 00:43 | EDS_ITS ---
HPI History of Present Illness Chief Complaint: Fall Informant: patient Onset/Context/Timing Onset: Days Mechanism/Context: Fall Narrative Narrative: Patient presents for evaluation after falling on March 15. He fell on icy sidewalk face forward. He denies loss of consciousness. states he had a large hematoma just above his right eye and he now has a black eye. He denies vision change. He had difficulty sleeping tonight so he wanted to come in to be evaluated. He does not take anticoagulants. [facility] Medical History Anemia Back pain Easy bruising Essential (primary) hypertension Excessive bleeding Hereditary hemochromatosis History of injury of tendon History of pain when walking Leg cramps Loss of hearing Macular degeneration Mild cognitive impairment Non-smoker Nonobstructive atherosclerosis of coronary artery Nonrheumatic aortic (valve) insufficiency Obesity Orthostatic hypotension Pain Paroxysmal atrial fibrillation Peripheral vestibulopathy Prostate cancer Prosthetic aortic valve stenosis Psoriasis Psoriatic arthritis Rectal bleeding Restless legs Syncope TIA (transient ischemic attack) (2007) Wears glasses Home Medications folic acid 1 mg tablet 1 mg PO SUMOTUWEFRSA 03/23/16 [History Last Taken Unknown] vit C 226 mg-vit E 90 mg-copper 0.8 mg-zinc oxide-lutein 5 mg capsule (PreserVision Lutein) 1 cap PO BID 01/23/21 [History Last Taken Unknown] cholecalciferol (vitamin D3) 25 mcg (1,000 unit) capsule 25 mcg PO DAILY 03/04/21 [History Last Taken Unknown] fish, borage, flaxseed oils-omega 3,6,9 cb #1 400 mg-400 mg-400 mg cap ([place]ple [place] 3-6-9) 1 cap PO DAILY 03/04/21 [History Last Taken Unknown] metformin 500 mg tablet 500 mg PO DAILY PRN 03/04/21 [History Last Taken Unknown] methotrexate sodium 2.5 mg tablet 20 mg PO TH 03/04/21 [History Last Taken Unkno wn] inulin 2 gram chewable tablet (Fiber Gummies) g PO DAILY PRN 07/01/21 [History Last Taken Unknown] metoprolol succinate 25 mg tablet,extended release 24 hr 25 mg PO DAILY PRN 12/17/21 [History Last Taken Unknown] Allergy/AdvReac Type Severity Reaction Status Date / Time apremilast [From Otezla] AdvReac Pain in Verified 12/17/21 09:14 joints azithromycin [From Zithromax] AdvReac Other Verified 12/17/21 09:14 doxycycline AdvReac Other Verified 12/17/21 09:14 erythromycin base AdvReac Other Verified 12/17/21 09:14 gabapentin AdvReac Pain in Verified 12/17/21 09:14 joints guaifenesin [From Entex T] AdvReac Rash Verified 12/17/21 09:14 pseudoephedrine AdvReac Rash Verified 12/17/21 09:14 [From Entex T] tramadol AdvReac Pain in Verified 12/17/21 09:14 joints Family History Brother Heart disease AFIB Brother Myocardial infarction Other Cerebral aneurysm Surgical History H/O aortic valve replacement (06/30/12) History of arthroplasty of left shoulder History of bilateral carpal tunnel release History of left heart catheterization (06/18/12) History of nasal septoplasty History of repair of rotator cuff History of shoulder surgery History of total bilateral knee replacement History of total right hip replacement Hx of colonoscopy Hx of left cataract extraction Hx of right cataract extraction Hx of shoulder replacement Hx of total hip arthroplasty S/p reverse total shoulder arthroplasty Social History Smoking Status: Never smoker Electronic Cigarette Use: not used second hand exposure: No alcohol intake: never substance use type: does not use ROS ROS ED Constitutional Constitutional ED: Denies chills or fever(s) Eyes Eyes: Denies change in vision or discharge from eye(s) ENT ENT ED: Denies discharge from eye(s), rhinorrhea or sore throat Cardiovascular Cardiovascular: Denies chest pain or palpitations Respiratory/Chest Respiratory/Chest: Denies cough or dyspnea Gastrointestinal Gastrointestinal: Denies abdominal pain, diarrhea, nausea or vomiting Genitourinary Genitourinary ED: Denies difficulty urinating or dysuria Musculoskeletal Musculoskeletal: Reports neck pain; Denies back pain or extremity pain Integumentary Reports other Details: Periorbital ecchymosis ; Denies Abrasions or rash Neurologic Neurologic: Denies headache(s) or weakness Psychiatric Psychiatric: Denies anxiety or depression Endocrine Endocrinology: Denies polydipsia or polyuria Allergic/Immunologic Allergic/Immunologic ED: Denies lip swelling or urticaria EXAM Physical Exam Const Vital Signs: 03/18/22 00:34 03/18/22 00:36 Temperature 98.3 F Temperature Source Temporal Pulse Rate 60 Respiratory Rate 16 Respiratory Effort Normal Non-Labored Blood Pressure 146/83 H Blood Pressure Mean 104 Pulse Ox 98 Oxygen Delivery Method Room Air Positive well nourished and well developed General Appearance ED: well developed HEENT Reports normocephalic HEENT Narrative: Right periorbital ecchymosis. Extraocular movements fully intact. Eyes PERRL and EOMs intact bilaterally Neck supple Chest Wall inspection of chest normal and palpation of chest normal Resp normal respiratory effort and clear to auscultation bilaterally Cardio regular rate and regular rhythm GI normal to inspection, nondistended, normoactive bowel sounds Palpation: soft Extremity normal to inspection Neuro oriented x3 and no sensory deficits noted Sensorium / Orientation: alert Motor Exam: strength 5/5 throughout Psych mental status grossly normal Skin Skin Narrative: Periorbital ecchymosis as noted above. MDM MDM MDM Narrative Medical decision making narrative: CT scan of the head, C-spine, facial bones is obtained. Radiography Diagnostic Testing: Clinical Impression(s) from Imaging Studies Brain CT 03/18/22 00:41 IMPRESSION: undefined Cervical Spine CT 03/18/22 00:41 IMPRESSION: undefined CT C-spine: Motion artifact. No acute fracture identified. CT brain: No acute intracranial abnormality. CT facial bones: No acute fracture. Treatment and Re-Evaluation Narrative: Test results discussed with patient and at bedside. They are reassured with these findings. Supportive care is discussed. Discharge Plan Triage Chief Complaint: Fall ED Provider: Danya Morales Dx/Rx/DC Orders Clinical Impression: Fall, Contusion of periorbital region Instructions: ED Eye Contusion, ED Mechanical Fall Prescriptions: No Action metformin 500 mg tablet 500 mg PO DAILY PRN Rx Instructions: Take when BS is over 120 fish,bora,flax oils-om3,6,9no1 [[place]ple [place] 3-6-9] 400-400-400 mg capsule 1 cap PO DAILY cholecalciferol (vitamin D3) 25 mcg (1,000 unit) capsule 25 mcg PO DAILY Fiber Gummies 2 gram tablet,chewable PO DAILY PRN metoprolol succinate 25 mg tablet extended release 24 hr 25 mg PO DAILY PRN folic acid 1 MG tablet 1 mg PO SUMOTUWEFRSA Label Comments: supplement methotrexate sodium 2.5 mg tablet 20 mg PO Label Comments: THURSDAYS PreserVision Lutein 226 mg-200 unit -5 mg-0.8 mg Capsule 1 cap PO BID Primary Care Provider: Stanley Grace Referrals: Stanley Grace DO [Primary Care Provider] - As Needed Disposition Disposition: Home, Self Care
== END 2022-03-18 03:22 | disposition home or self-care (01) ==
PROVIDERS: Emergency Provider Emergency Medicine; PCP Family Medicine; Visit Provider Emergency Medicine
DX: S05.11XA Contusion of eyeball and orbital tissues, right eye, initial encounter (principal); I25.10 Atherosclerotic heart disease of native coronary artery without angina pectoris; Z86.73 Personal history of transient ischemic attack (TIA), and cerebral infarction without residual deficits; W19.XXXA Unspecified fall, initial encounter
CPT/HCPCS: 70450; 70486; 72125; 99282

== ENCOUNTER 2022-04-14 00:50 | Emergency (ER) | payer MEDICARE, OTHER, SELFPAY ==
[2022-04-14 00:52] VITALS: BP 176/78; PULSE 54; RESP 15; TEMP 36.3; O2SAT 97; BMI 31.2
--- NOTE | 2022-04-14 01:21 | CT_ITS ---
EXAM: CT HEAD WITHOUT INTRAVENOUS CONTRAST CLINICAL INDICATION: headache TECHNIQUE: Multiple axial images were obtained of the head without intravenous contrast. This CT exam was performed using one or more of the following dose reduction techniques: automated exposure control, adjustment of the mA and/or kV according to patient size, and/or use of iterative reconstruction technique. This report was created using [employer] report generation technology. COMPARISON: 03/18/2022 FINDINGS: BRAIN AND EXTRA-AXIAL SPACES: Diffuse cerebral volume loss. Periventricular small vessel ischemic changes. No intra- or extra-axial hemorrhage. No intracranial mass or mass effect. Posterior fossa structures are unremarkable. No hydrocephalus. Basal cisterns are patent. BONES/JOINTS: Unremarkable. No discrete lytic or blastic abnormalities. VASCULATURE: Vascular calcifications. SINUSES: Unremarkable as visualized. Clear. MASTOID AIR CELLS: Unremarkable. Clear. ORBITS: Visualized globes, extraocular muscles, optic nerves and retrobulbar fat appear unremarkable. CT/Brain/Head without Contrast IMPRESSION: 1. No acute intracranial abnormalities. 2. Age-related changes. Electronically Signed: Kwadwo Davis MD at 2:02 EST ,
--- NOTE | 2022-04-14 01:22 | RAD_ITS ---
EXAM: XR CHEST, 2 VIEWS CLINICAL INDICATION: chest pain TECHNIQUE: Frontal and lateral views of the chest. This report was created using [employer] report generation technology. COMPARISON: 07/05/2021 FINDINGS: LUNGS AND PLEURAL SPACES: Unremarkable. No consolidation or edema. No pneumothorax. No effusion. HEART: Unremarkable. Cardiac silhouette not enlarged. MEDIASTINUM: Surgical changes of the mediastinum. BONES/JOINTS: Degenerative changes of the spine. Bilateral shoulder arthroplasties. SOFT TISSUES: Unremarkable. RAD/Chest PA and Lateral IMPRESSION: No acute findings in the chest. Electronically Signed: Kwadwo Davis MD at 1:53 EST ,
--- NOTE | 2022-04-14 01:22 | EKG12_ITS ---
Test Reason : HEADACHE Blood Pressure : / mmHG Vent. Rate : 052 BPM Atrial Rate : 052 BPM P-R Int : 196 ms QRS Dur : 096 ms QT Int : 456 ms P-R-T Axes : 004 008 030 degrees QTc Int : 424 ms Sinus bradycardia Nonspecific ST abnormality Abnormal ECG Confirmed by ZACK WATERMAN, CATALINA ([id number]), society editor HALIE LIU ([id number]) on 04/14/2022 10:59:32 AM Referred By: Confirmed By:CATALINA DIXON MD
[2022-04-14 01:32] LABS: Absolute Lymphocyte Count 1.91 X10^3/uL (0.83-4.51); Absolute Neutrophil Count 2.7 X10^3/uL (2.0-7.7); Basophil# 0.04 X10^3/uL; Basophil% 0.7 % (0-1); Eosinophil# 0.23 X10^3/uL; Eosinophils% 4.2 % (0-5); Hematocrit 37.3 % (40-54); Hemoglobin 13.2 g/dL (13.0-16.5); Lymphocyte # 1.91 X10^3/ul (0.83-4.51); Lymphocyte % 34.7 % (19-41); Mean Corp Hgb Conc 35.4 g/dL (32-36); Mean Corpuscular Hgb 35.5 pg (27.0-32.0); Mean Corpuscular Volume 100.3 fL (80-94); Mean Platelet Vol. 9.5 fl (6.2-12.0); Monocyte# 0.63 X10^3/uL; Monocyte% 11.5 % (0-10); NRBC Flagged by Analyzer 0 % (0-5); Neutrophil # 2.68 X10^3/uL (2.7-7.7); Neutrophil % 48.7 % (47-70); Platelet Count 114 K/mm3 (150-450); RBC Distribution Width CV 13.2 % (11.6-14.6); RBC Distribution Width SD 48.2 fl (35.1-43.9); Red Blood Count 3.72 M/mm3 (4.6-6.2); White Blood Count 5.5 K/mm3 (4.4-11.0)
[2022-04-14 01:49] LABS: Anion Gap 5 (5-15); BUN 29 mg/dL (7-18); BUN/Creat Ratio 28.4 RATIO (10-20); Calcium,Total 9.1 mg/dL (8.5-10.1); Chloride 108 mmol/L (98-107); Creatinine, Serum 1.02 mg/dL (0.70-1.30); EST Glomerular Filtration Rate 74 mL/min (>60); Est Glom Filt Rate - Afr Amer 89 mL/min (>60); Estimated Creatinine Clearance 53.68 ml/min; Glucose 117 mg/dL (74-106); Potassium 4.1 mmol/L (3.5-5.1); Sodium Level 141 mmol/L (136-145); Troponin-I HS 12 pg/mL (3.0-78.0)
--- NOTE | 2022-04-14 02:27 | EX.ED.VIS.HA ---
HPI History of Present Illness Chief Complaint: Headache Informant: patient and spouse/S.O. Narrative Narrative: Worsening shooting left-sided headache since 11 PM. Denies visual changes speech changes nausea and vomiting. States tingling down left arm. No current chest pains. Reported had a fall head injury 3 weeks ago was seen in the ED with imaging studies that were negative. He typically does not take any blood thinners. However spouse gave him an aspirin prior to arrival. In addition stated 2 days ago while in the shower had a twinge in his chest that was brief. He does history of prostatic valve replacement. No obstructive coronary disease history. [facility] Medical History Anemia Back pain Easy bruising Essential (primary) hypertension Excessive bleeding Hereditary hemochromatosis History of injury of tendon History of pain when walking Leg cramps Loss of hearing Macular degeneration Mild cognitive impairment Non-smoker Nonobstructive atherosclerosis of coronary artery Nonrheumatic aortic (valve) insufficiency Obesity Orthostatic hypotension Pain Paroxysmal atrial fibrillation Peripheral vestibulopathy Prostate cancer Prosthetic aortic valve stenosis Psoriasis Psoriatic arthritis Rectal bleeding Restless legs Syncope TIA (transient ischemic attack) (2007) Wears glasses Home Medications folic acid 1 mg tablet 1 mg PO SUMOTUWEFRSA 03/23/16 [History Last Taken Unknown] vit C 226 mg-vit E 90 mg-copper 0.8 mg-zinc oxide-lutein 5 mg capsule (PreserVision Lutein) 1 cap PO BID 01/23/21 [History Last Taken Unknown] cholecalciferol (vitamin D3) 25 mcg (1,000 unit) capsule 25 mcg PO DAILY 03/04/21 [History Last Taken Unknown] fish, borage, flaxseed oils-omega 3,6,9 cb #1 400 mg-400 mg-400 mg cap (Triple [place] 3-6-9) 1 cap PO DAILY 03/04/21 [History Last Taken Unknown] metformin 500 mg tablet 500 mg PO DAILY PRN 03/04/21 [History Last Taken Unknown] methotrexate sodium 2.5 mg tablet 20 mg PO TH 03/04/21 [History Last Taken Unknown] inulin 2 gram chewable tablet (Fiber Gummies) g PO DAILY PRN 07/01/21 [History Last Taken Unknown] metoprolol succinate 25 mg tablet,extended release 24 hr 25 mg PO DAILY PRN 12/17/21 [History Last Taken Unknown] Allergy/AdvReac Type Severity Reaction Status Date / Time apremilast [From Otezla] AdvReac Pain in Verified 04/14/22 00:52 joints azithromycin [From Zithromax] AdvReac Other Verified 04/14/22 00:52 doxycycline AdvReac Other Verified 04/14/22 00:52 erythromycin base AdvReac Other Verified 04/14/22 00:52 gabapentin AdvReac Pain in Verified 04/14/22 00:52 joints guaifenesin [From Entex T] AdvReac Rash Verified 04/14/22 00:52 pseudoephedrine AdvReac Rash Verified 04/14/22 00:52 [From Entex T] tramadol AdvReac Pain in Verified 04/14/22 00:52 joints Family History Brother Heart disease AFIB Brother Myocardial infarction Other Cerebral aneurysm Surgical History H/O aortic valve replacement (06/30/12) History of arthroplasty of left shoulder History of bilateral carpal tunnel release History of left heart catheterization (06/18/12) History of nasal septoplasty History of repair of rotator cuff History of shoulder surgery History of total bilateral knee replacement History of total right hip replacement Hx of colonoscopy Hx of left cataract extraction Hx of right cataract extraction Hx of shoulder replacement Hx of total hip arthroplasty S/p reverse total shoulder arthroplasty Social History Smoking Status: Never smoker Electronic Cigarette Use: not used second hand exposure: No alcohol intake: never substance use type: does not use ROS ROS ED Constitutional Constitutional ED: Denies chills, fever(s) or sweats Eyes Eyes: Denies change in vision ENT ENT ED: Denies dysphagia or sore throat Cardiovascular Cardiovascular: Reports chest pain; Denies leg edema, palpitations or racing heartbeat Respiratory/Chest Respiratory/Chest: Denies cough, dyspnea or dyspnea on exertion Gastrointestinal Gastrointestinal: Denies abdominal pain, diarrhea, nausea or vomiting Genitourinary Genitourinary ED: Denies dysuria, hematuria or urinary frequency Musculoskeletal Musculoskeletal: Denies back pain, extremity pain or neck pain Integumentary Denies rash or wounds Neurologic Neurologic: Reports headache(s); Denies paresthesias or weakness EXAM Physical Exam Const Vital Signs: 04/14/22 00:52 Temperature 97.3 F L Temperature Source Temporal Pulse Rate 54 L Respiratory Rate 15 Blood Pressure 176/78 H Blood Pressure Mean 110 Pulse Ox 97 Oxygen Delivery Method Room Air Positive well nourished and well developed General Appearance ED: well developed and NAD HEENT Reports TM's clear and moist mucous membranes HEENT Narrative: No temporal artery tenderness bilaterally. normocephalic and atraumatic Tympanic Membrane ED: Yes TM's clear Eyes PERRL, EOMs intact bilaterally and conjunctivae normal General Eye ED: Yes normal appearance of both eyes Neck no lymphadenopathy, supple and no meningeal signs General: Negative for tenderness Chest Wall Chest: Negative for tenderness Resp normal respiratory effort and normal air movement Effort and Inspection: symmetric chest movement; Negative for respiratory distress Cardio regular rate, regular rhythm and no murmurs Peripheral Pulses: pulses 2+ throughout GI normal to inspection, nondistended, normoactive bowel sounds and non-tender Palpation: Negative for guarding or rebound tenderness present Back/Spine no CVA tenderness and no thoracic nor lumbar tenderness Extremity normal to inspection General Extremety ED: Negative for edema or tenderness General Extremity: Negative for edema Neuro oriented x3, CN's II-XII intact bilaterally and no sensory deficits noted Neuro Narrative: Cranial nerves II through XII intact. Sensorium / Orientation: awake and alert Skin no rashes or lesions noted and no wounds MDM MDM MDM Narrative Medical decision making narrative: Patient headache 2 hours prior to arrival there is no focal deficits. No meningismus. Differential meningitis atypical migraines delayed bleed from head trauma. Head CT obtained negative. Symptoms subsiding. Discussed using Tylenol as needed. They have this at home. Patient NIH of 0. Left-sided headache with left arm tingling, this does not correlate with any stroke symptoms. He had chest pains 2 days ago that resolved. Differential of atypical chest pain ACS. No clinical PE risk factors. No dyspnea. EKG cardiac work-up negative. Two-view chest x-ray interpreted by myself and read by radiology shows no acute process. Patient able ambulate in the department. He discharged outpatient follow-up. All questions were answered. Lab Data Attestation: I reviewed the patient's lab results. Labs: Laboratory Results - last 24 hr 04/14/22 04/14/22 00:55 00:55 WBC 5.5 RBC 3.72 L Hgb 13.2 Hct 37.3 L MCV 100.3 H MCH 35.5 H MCHC 35.4 RDW Std Deviation 48.2 H RDW Coeff of Fazal 13.2 Plt Count 114 L MPV 9.5 Immature Gran % (Auto) 0.200 Neut % (Auto) 48.7 Lymph % (Auto) 34.7 [place] % (Auto) 11.5 H Eos % (Auto) 4.2 Baso % (Auto) 0.7 Absolute Neuts (auto) 2.7 Absolute Lymphs (auto) 1.91 Nucleated RBC % 0 Sodium 141 Potassium 4.1 Chloride 108 H Carbon Dioxide 28.0 Anion Gap 5 BUN 29 H Creatinine 1.02 Estim Creat Clear Calc 53.68 Est GFR (MDRD) Af Amer 89 Est GFR (MDRD) Non-Af 74 BUN/Creatinine Ratio 28.4 H Glucose 117 H Calcium 9.1 Troponin I High Sens 12 Radiography Diagnostic Testing: Clinical Impression(s) from Imaging Studies Brain CT 04/14/22 01:21 IMPRESSION: 1. No acute intracranial abnormalities. 2. Age-related changes. Electronically Signed: Kwadwo Davis MD at 2:02 EST Reading Location ID and State: [address] [place] [address] Tel , Service support , Chest X-Ray 04/14/22 01:22 IMPRESSION: No acute findings in the chest. Electronically Signed: Kwadwo Davis MD at 1:53 EST Reading Location ID and State: [facility] / [place] Tel , Service support , Discharge Plan Triage Chief Complaint: Headache ED Provider: Silas Hernandez Dx/Rx/DC Orders Clinical Impression: Headache, Chest pain Instructions: ED Chest Pain, Noncardiac, ED Headache Unspecified Prescriptions: No Action metformin 500 mg tablet 500 mg PO DAILY PRN Rx Instructions: Take when BS is over 120 fish,bora,flax oils-om3,6,[id number] [Triple [place] 3-6-9] 400-400-400 mg capsule 1 cap PO DAILY cholecalciferol (vitamin D3) 25 mcg (1,000 unit) capsule 25 mcg PO DAILY Fiber Gummies 2 gram tablet,chewable PO DAILY PRN metoprolol succinate 25 mg tablet extended release 24 hr 25 mg PO DAILY PRN folic acid 1 MG tablet 1 mg PO SUMOTUWEFRSA Label Comments: supplement methotrexate sodium 2.5 mg tablet 20 mg PO Label Comments: THURSDAYS PreserVision Lutein 226 mg-200 unit -5 mg-0.8 mg Capsule 1 cap PO BID Primary Care Provider: Stanley Grace Referrals: Stanley Grace DO [Primary Care Provider] - 3-5 Days if not improving Activity Restrictions/Additional Instructions: CT brain negative. Cardiac work-up negative. Use acetaminophen or Tylenol as needed every 6 hours. Follow-up with your doctor. Return if any worsening symptoms. Disposition Disposition: Home, Self Care
[2022-04-14 02:48] VITALS: BP 130/90; PULSE 78; RESP 16
== END 2022-04-14 02:48 | disposition home or self-care (01) ==
PROVIDERS: Emergency Provider Emergency Medicine; PCP Family Medicine; Visit Provider Emergency Medicine
DX: R51.9 Headache, unspecified (principal); R07.9 Chest pain, unspecified; I25.10 Atherosclerotic heart disease of native coronary artery without angina pectoris; Z86.73 Personal history of transient ischemic attack (TIA), and cerebral infarction without residual deficits
CPT/HCPCS: 70450; 71046; 80048; 84484; 85025; 93005; 99283; A4216

== ENCOUNTER → 2022-05-12 | Outpatient (CLI) | payer MEDICARE, OTHER, SELFPAY ==
[2022-05-12 10:56] LABS: PSA,Total- Diagnostic 0.08 ng/mL (0.0-4.0)
== END | disposition home or self-care (01) ==
LOC: LAB 09:34
PROVIDERS: PCP Family Medicine; Referring Provider Urology; Visit Provider Urology
DX: R97.21 Rising PSA following treatment for malignant neoplasm of prostate (principal)
CPT/HCPCS: 36415; 84153

== ENCOUNTER → 2022-05-22 | Outpatient (CLI) | payer MEDICARE, OTHER, SELFPAY ==
[2022-05-22 16:02] LABS: Vitamin B12 544 pg/mL (211-911)
== END | disposition home or self-care (01) ==
LOC: BFHLAB 11:17
PROVIDERS: PCP Family Medicine; Visit Provider Family Medicine
DX: E53.8 Deficiency of other specified B group vitamins (principal)
CPT/HCPCS: 36415; 82607

== ENCOUNTER → 2022-05-27 | Outpatient (CLI) | payer MEDICARE, OTHER, SELFPAY | END | disposition home or self-care (01) | LOC: LABSPEC 16:11 | PROVIDERS: PCP Family Medicine; Visit Provider Family Medicine | DX: U07.1 COVID-19 (principal) | CPT/HCPCS: 87635; U0003; U0005 ==

== ENCOUNTER → 2022-08-12 | Outpatient (CLI) | payer MEDICARE, OTHER, SELFPAY ==
[2022-08-12 13:33] LABS: PSA,Total- Diagnostic 0.07 ng/mL (0.0-4.0)
== END | disposition home or self-care (01) ==
LOC: LAB 11:36
PROVIDERS: PCP Family Medicine; Referring Provider Registered Nurse; Visit Provider Registered Nurse
DX: C61 Malignant neoplasm of prostate (principal)
CPT/HCPCS: 36415; 84153

== ENCOUNTER 2022-09-02 11:45 | Inpatient (IN) | payer MEDICARE, OTHER, SELFPAY ==
[2022-09-02] VITALS (27 sets, daily range): BP systolic 103–197; BP diastolic 66–113; PULSE 53–92; RESP 13–28; TEMP 35.2–36.6; O2SAT 90–100; BMI 33.2; BMI 31.1
[2022-09-02] MEDS: Rocuronium Bromide 50 MG/5 ML Vial IV (11:50)
--- NOTE | 2022-09-02 11:58 | EDS_ITS ---
HPI History of Present Illness Chief Complaint: Unresponsive Detail of Chief Complaint: Collapsed while eating with Informant: family and EMS Onset/Context/Timing Onset: Hours Context: Sudden Onset Timing: Continuous Quality: V-fib arrest Location: Residents Current Severity: Severe Maximum Severity: Severe Worsened by: Unknown Relieved by: Defibrillation, epinephrine and amiodarone Associated Symptoms Associated Symptoms: other (Unknown.) Length of loss of consciousness: From time of onset Narrative Narrative: Patient is an elderly male with history of mild cognitive impairment, prosthetic aortic valve, paroxysmal atrial fibrillation, nonobstructive atherosclerotic coronary disease, essential hypertension, prostate cancer who was eating when he collapsed. He was found to be in V-fib. He was defibrillated x3. He received 4 doses of epinephrine. After the second IV bolus of amiodarone patient had spontaneous return of circulation. Upon arrival patient's GCS is 3T. Prior similar symptoms: No Recent Illness/Hospitalization: No [facility] Medical History Anemia Back pain Easy bruising Essential (primary) hypertension Excessive bleeding Hereditary hemochromatosis History of injury of tendon History of pain when walking Leg cramps Loss of hearing Macular degeneration Mild cognitive impairment Non-smoker Nonobstructive atherosclerosis of coronary artery Nonrheumatic aortic (valve) insufficiency Obesity Orthostatic hypotension Pain Paroxysmal atrial fibrillation Peripheral vestibulopathy Prostate cancer Prosthetic aortic valve stenosis Psoriasis Psoriatic arthritis Rectal bleeding Restless legs Syncope TIA (transient ischemic attack) (2007) Wears glasses Home Medications folic acid 1 mg tablet 1 mg PO SUMOTUWEFRSA 03/23/16 [History Last Taken Unknown] cholecalciferol (vitamin D3) 25 mcg (1,000 unit) capsule 25 mcg PO DAILY 03/04/21 [History Last Taken Unknown] fish, borage, flaxseed oils-omega 3,6,9 cb #1 400 mg-400 mg-400 mg cap (Triple Rowdy 3-6-9) 1 cap PO DAILY 03/04/21 [History Last Taken Unknown] methotrexate sodium 2.5 mg tablet 20 mg PO TH 03/04/21 [History Last Taken Unknown] inulin 2 gram chewable tablet (Fiber Gummies) g PO DAILY PRN 07/01/21 [History Last Taken Unknown] cetirizine 10 mg tablet 10 mg PO DAILY #30 tabs 04/21/22 [Rx Last Taken Unknown] multivitamin (Multiple Vitamins tablet) 1 tab PO DAILY 04/21/22 [History Last Taken Unknown] Allergy/AdvReac Type Severity Reaction Status Date / Time apremilast [From Otezla] AdvReac Pain in Verified 04/21/22 15:49 joints azithromycin [From Zithromax] AdvReac Other Verified 04/21/22 15:49 doxycycline AdvReac Other Verified 04/21/22 15:49 erythromycin base AdvReac Other Verified 04/21/22 15:49 gabapentin AdvReac Pain in Verified 04/21/22 15:49 joints guaifenesin [From Entex T] AdvReac Rash Verified 04/21/22 15:49 pseudoephedrine AdvReac Rash Verified 04/21/22 15:49 [From Entex T] tramadol AdvReac Pain in Verified 04/21/22 15:49 joints Family History Brother Heart disease AFIB Brother Myocardial infarction Other Cerebral aneurysm Surgical History H/O aortic valve replacement (06/30/12) History of arthroplasty of left shoulder History of bilateral carpal tunnel release History of left heart catheterization (06/18/12) History of nasal septoplasty History of repair of rotator cuff History of shoulder surgery History of total bilateral knee replacement History of total right hip replacement Hx of colonoscopy Hx of left cataract extraction Hx of right cataract extraction Hx of shoulder replacement Hx of total hip arthroplasty S/p reverse total shoulder arthroplasty Social History Smoking Status: Unknown if ever smoked Electronic Cigarette Use: not used second hand exposure: No alcohol intake: never substance use type: does not use shanika/religious: Moravian seatbelt use: sometimes ROS ROS ED Review of Systems ROS Unobtainable: due to mental status EXAM Physical Exam Const Vital Signs: 09/02/22 11:46 09/02/22 12:02 09/02/22 12:30 Temperature 97 F L 96.8 F L Temperature Source Temporal Core Pulse Rate 70 66 62 Respiratory Rate 16 14 14 Blood Pressure 103/72 121/70 H 114/75 Blood Pressure Mean 82 87 88 Pulse Ox 100 99 99 Oxygen Delivery Method Ambu-Bag Mechanical Ventilator Mechanical Ventilator Fraction of Inspired Oxygen (FIO2) 70 70 09/02/22 12:46 09/02/22 13:00 09/02/22 13:46 Temperature 95.4 F L Temperature Source Core Pulse Rate 68 60 58 L Respiratory Rate 23 H 18 17 Blood Pressure 134/71 H 132/72 H 117/71 Blood Pressure Mean 92 92 86 Pulse Ox 99 96 96 Oxygen Delivery Method Mechanical Ventilator Mechanical Ventilator Mechanical Ventilator Fraction of Inspired Oxygen (FIO2) 70 70 70 Positive well nourished and well developed Constitutional Narrative: Patient is breathing spontaneously. There is an Igel in place. General Appearance ED: well developed and NAD; Negative for pallor HEENT normocephalic and atraumatic; Negative for cyanosis of lips/distal nose Eyes Eyes Narrative: Pupils are pinpoint. General Eye ED: Negative for pale conjunctiva or scleral icterus Neck no lymphadenopathy, supple and no JVD Resp Resp Narrative: Patient is breathing on his own. Breathing is not labored. Breath sounds are diminished bilaterally. Pulse ox is 100%. Cardio regular rate, regular rhythm, S1 normal heart sound, S2 normal heart sound and no murmurs GI non-distended and no masses GI Narrative: There is no palpable pulsatile mass. There is no abdominal bruit. Auscultation: hypoactive bowel sounds Palpation: soft Back/Spine no CVA tenderness Neuro No oriented x3, No CN's II-XII intact bilaterally and No no sensory deficits noted Neuro Narrative: GCS 3 T Sensorium / Orientation: orientation impaired and stuporous; Negative for alert, oriented to person, oriented to place or oriented to time Speech: Negative for speech normal Gait (Neuro): Negative for normal gait Psych Psych Narrative: Unable to determine Skin General Skin Exam: Negative for jaundice or pallor Lesions: no lesions Rashes: no rashes MDM MDM MDM Narrative Medical decision making narrative: Patient arrives status post V-fib arrest. Ice packs for axilla and groin were ordered. Patient was intubated. First attempt was made without sedation or chemical paralysis. This was unsuccessful because patient would gag when attempt was made to push the endotracheal tube past the cords. Patient received 50 mg of rocuronium. He was easily orotracheal intubated with a 7.5 Setswana endotracheal tube using glide scope on first pass. There is appropriate color change on capnometer. Breath sounds were noted bilaterally. Work-up was undertaken for V-fib arrest. In light of history of prostate cancer need to consider pulmonary embolus. Since patient did receive amiodarone with return to spontaneous circulation from V-fib will start amiodarone drip. I was informed that the stated he was not using the left side prior to his collapse. With pinpoint pupils not using his left side need to rule out intracranial bleed. CT of the head without contrast was ordered. Since there is no evidence of intracranial bleed CTA was obtained. CTA reveals bilateral interstitial pneumonia. We will obtain blood cultures and start on antibiotics for community-acquired pneumonia. Case was discussed with Dr. Hector Cornejo the pediatrician active practice. He wanted family to be made aware that we do not do formal hypoxic thermic treatment. had many questions. The and patient's computer software engineer Dr. Randall Neal. Since she was made aware that Dr. Fu does not believe that hypothermia is of benefit she wishes her to stay here. Mender [employer] was paged as well to discuss anticoagulation etc. Lab Data Attestation: I reviewed the patient's lab results. Lab results narrative: CBC is remarkable for macrocytic red UA reveals hematuria with bacteriuria. There is no pyuria. Macro was negative for leukoesterase and nitrites. We will send culture. Antibiotics were not started. Comprehensive metabolic panel is remarkable for potassium 3.1, CO2 of 16 with an anion gap of 12. BUN and creatinine are 17 and 1.13 with a GFR 65. Glucose elevated 216. Total bili slightly up at 1.1. AST and ALT are up at 2 77-73 respectively. Troponin is markedly elevated 2643. D-dimer is elevated even after corrected for age. With prior history of clots will obtain CTA of the chest if the CT of the head does not reveal intracranial bleed. Lactate is elevated at 5.1. This is most likely due to the rest. Labs: Laboratory Results - last 24 hr 09/02/22 09/02/22 09/02/22 11:50 11:50 11:50 WBC 8.2 RBC 3.39 L Hgb 11.8 L Hct 34.9 L MCV 102.9 H MCH 34.8 H MCHC 33.8 RDW Std Deviation 52.4 H RDW Coeff of Fazal 14.1 Plt Count 104 L MPV 9.1 Immature Gran % (Auto) 2.200 H Neut % (Auto) 51.6 Lymph % (Auto) 35.7 [place] % (Auto) 7.7 Eos % (Auto) 2.4 Baso % (Auto) 0.4 Absolute Neuts (auto) 4.2 Absolute Lymphs (auto) 2.92 Nucleated RBC % 0.2 PT 16.8 H INR 1.4 APTT 27.3 D-Dimer Quant (PE/DVT) 4.88 H* Sodium 142 Potassium 3.1 L Chloride 114 H Carbon Dioxide 16.0 L Anion Gap 12 BUN 17 Creatinine 1.13 Estim Creat Clear Calc 48.45 Est GFR (MDRD) Af Amer 79 Est GFR (MDRD) Non-Af 65 BUN/Creatinine Ratio 15.0 Glucose 216 H Lactic Acid Calcium 7.7 L Total Bilirubin 1.10 H AST 277 H ALT 273 H Alkaline Phosphatase 71 Troponin I High Sens 2643 H* B-Natriuretic Peptide Total Protein 5.6 L Albumin 2.9 L Globulin 2.7 Albumin/Globulin Ratio 1.1 Urine Color Urine Clarity Urine pH Ur Specific [place] Urine Protein Urine Glucose (UA) Urine Ketones Urine Occult Blood Urine Nitrite Urine Bilirubin Urine Urobilinogen Ur Leukocyte Esterase Urine RBC Urine WBC Ur Squamous Epith Cells Urine Bacteria Urine Mucus POC Glucose 09/02/22 09/02/22 09/02/22 11:50 11:50 12:00 WBC RBC Hgb Hct MCV MCH MCHC RDW Std Deviation RDW Coeff of Fazal Plt Count MPV Immature Gran % (Auto) Neut % (Auto) Lymph % (Auto) [place] % (Auto) Eos % (Auto) Baso % (Auto) Absolute Neuts (auto) Absolute Lymphs (auto) Nucleated RBC % PT INR APTT D-Dimer Quant (PE/DVT) Sodium Potassium Chloride Carbon Dioxide Anion Gap BUN Creatinine Estim Creat Clear Calc Est GFR (MDRD) Af Amer Est GFR (MDRD) Non-Af BUN/Creatinine Ratio Glucose Lactic Acid 5.1 H* Calcium Total Bilirubin AST ALT Alkaline Phosphatase Troponin I High Sens B-Natriuretic Peptide 202.5 H Total Protein Albumin Globulin Albumin/Globulin Ratio Urine Color Yellow Urine Clarity Cloudy Urine pH 7.0 Ur Specific [place] 1.015 Urine Protein 500 H Urine Glucose (UA) 100 H Urine Ketones Negative Urine Occult Blood 250 H Urine Nitrite Negative Urine Bilirubin Negative Urine Urobilinogen Normal Ur Leukocyte Esterase Negative Urine RBC 25-50 SEEN Urine WBC 5-10 SEEN Ur Squamous Epith Cells 0 SEEN Urine Bacteria 2+ Urine Mucus 0 SEEN POC Glucose 09/02/22 12:11 WBC RBC Hgb Hct MCV MCH MCHC RDW Std Deviation RDW Coeff of Fazal Plt Count MPV Immature Gran % (Auto) Neut % (Auto) Lymph % (Auto) [place] % (Auto) Eos % (Auto) Baso % (Auto) Absolute Neuts (auto) Absolute Lymphs (auto) Nucleated RBC % PT INR APTT D-Dimer Quant (PE/DVT) Sodium Potassium Chloride Carbon Dioxide Anion Gap BUN Creatinine Estim Creat Clear Calc Est GFR (MDRD) Af Amer Est GFR (MDRD) Non-Af BUN/Creatinine Ratio Glucose Lactic Acid Calcium Total Bilirubin AST ALT Alkaline Phosphatase Troponin I High Sens B-Natriuretic Peptide Total Protein Albumin Globulin Albumin/Globulin Ratio Urine Color Urine Clarity Urine pH Ur Specific [place] Urine Protein Urine Glucose (UA) Urine Ketones Urine Occult Blood Urine Nitrite Urine Bilirubin Urine Urobilinogen Ur Leukocyte Esterase Urine RBC Urine WBC Ur Squamous Epith Cells Urine Bacteria Urine Mucus POC Glucose 198 H Radiography Chest X-Ray - ED: 1 View and Read by ED Physician (Single view portable chest x- ray reveals endotracheal tube to be at the kalpesh/left main. Will have respiratory was pulled back 1.5 cm. OG is in the stomach but needs to be inserted an additional 5 to 10 cm. Limited inspiratory volume. There may be CHF versus poor inspiratory volume versus pneum) Diagnostic Testing: Clinical Impression(s) from Imaging Studies Chest X-Ray 09/02/22 12:20 IMPRESSION: The tip of the endotracheal tube is at the level of the kalpesh. It should be pulled back approximately 2.5 cm. The tip of the orogastric tube is below the left hemidiaphragm. Patchy infiltrate in the left lower lobe as well as in the left apex. Electronically Signed: Fazal Garrido MD at 12:36 EDT , Brain CT 09/02/22 12:47 IMPRESSION: Chronic involutional changes of the brain. Electronically Signed: Fazal Garrido MD at 13:47 EDT , Chest CTA 09/02/22 13:00 IMPRESSION: No evidence of pleural embolism. The tip of the endotracheal tube is in the origin of the left mainstem bronchus. It should be withdrawn approximately 2 cm. Patchy infiltration and/or atelectasis at the lung bases as described. Electronically Signed: Fazal Garrido MD at 13:52 EDT , CTA of the chest reveals bilateral interstitial infiltrates. CT of the head without contrast reveals no acute intracranial bleed i.e. subdural, epidural, subarachnoid hemorrhage or intraparenchymal bleed. EKG Initial EKG: Attestation: I personally reviewed and interpreted this EKG as follows: Interpretation: Sinus Rhythm (Rate is 63. There is no ossific ST-T wave changes noted. Parable is under 74 ms. Cures duration 100 ms. QT duration 438 ms. [place] is normal.) Procedures Intubations Intubation Method: orotracheal (Documented in the MDM portion of the chart) Intubation Verification: Positive color change and Bilateral breath sounds confirmed Intubation Complications: no complications Critical Care Time Critical Care Time: Yes Critical care time (excluding procedures): 75-104 minutes (76), Including time spent: (History, physical, documentation, review of prior records, interpretation laboratory results and imaging, discussion with family and ), Discussing w/Patient &/or Family/Maintenance Clerk, Discussing w/Consultants (Hospitalist, pediatrician active practice) and Arranging Admission or Transfer Discharge Plan Dx/Rx/DC Orders Clinical Impression: Cardiopulmonary arrest with successful resuscitation, Prostate cancer, Obesity, Essential (primary) hypertension, Ventricular fibrillation, Non-ST elevation NE (NSTEMI), Bilateral interstitial pneumonia, Acute respiratory failure, History of coronary artery disease, Lactic acidosis Disposition Disposition: [facility] Capacity Capacity Assessment Tool Can the patient make a choice & communicate that choice?: No Can the patient understand benefits, risks and alternatives?: No Can the patient make a logical, rational choice?: No Is the choice the patient makes consistent w/ their values?: Unable to Determine Is there an impending, emergent risk to the patient?: Yes Does the patient have an Advance Directive?: Unable to Determine (Spoke to a family member will contact patient's to determine CODE STATUS etc.) Is there a Surrogate Available?: No (Not presently) i.e. close relative (spouse, child, parent, sibling)?: Yes (Uncertain regarding CODE STATUS etc. There is a history of blood clots.)
--- NOTE | 2022-09-02 12:06 | EKG12_ITS ---
Test Reason : CHEST PAIN Blood Pressure : / mmHG Vent. Rate : 063 BPM Atrial Rate : 063 BPM P-R Int : 174 ms QRS Dur : 100 ms QT Int : 438 ms P-R-T Axes : 015 021 067 degrees QTc Int : 448 ms Normal sinus rhythm Nonspecific ST and T wave abnormality Abnormal ECG Confirmed by LEVI WATERMAN, SYMONE ([id number]), editor in chief HALIE LIU ([id number]) on 09/05/2022 9:55:27 AM Referred By: MELCHOR Confirmed By:FADY SIMS MD
[2022-09-02 12:12] LABS: Mucous, Urine 0 SEEN /hpf (<or=2+); Squamous Epithelial Cells - UA 0 SEEN /hpf (0-5)
[2022-09-02 12:14] LABS: Color, Urine Yellow (Yellow); Glucose, Dipstick 100 mg/dl (Normal); Ketone-Dipstick Negative (Negative); Leukocyte Esterase-Dipstick Negative /ul (Negative); Nitrite-Dipstick Negative (Negative); Occult Blood-Urine 250 /ul (Negative); Protein-Dipstick 500 mg/dl (Negative); Specific Gravity, Urine 1.015 (1.002-1.030); Urine Bilirubin Dipstick Negative (Negative); Urine Clarity Cloudy (Clear); Urine Urobilinogen Normal (Normal)
[2022-09-02 12:18] LABS: Absolute Lymphocyte Count 2.92 X10^3/uL (0.83-4.51); Absolute Neutrophil Count 4.2 X10^3/uL (2.0-7.7); Basophil# 0.03 X10^3/uL; Basophil% 0.4 % (0-1); Eosinophils% 2.4 % (0-5); Hematocrit 34.9 % (40-54); Hemoglobin 11.8 g/dL (13.0-16.5); Lymphocyte # 2.92 X10^3/ul (0.83-4.51); Lymphocyte % 35.7 % (19-41); Mean Corp Hgb Conc 33.8 g/dL (32-36); Mean Corpuscular Hgb 34.8 pg (27.0-32.0); Mean Corpuscular Volume 102.9 fL (80-94); Mean Platelet Vol. 9.1 fl (6.2-12.0); Monocyte# 0.63 X10^3/uL; Monocyte% 7.7 % (0-10); NRBC Flagged by Analyzer 0.2 % (0-5); Neutrophil # 4.21 X10^3/uL (2.7-7.7); Neutrophil % 51.6 % (47-70); Platelet Count 104 K/mm3 (150-450); RBC Distribution Width CV 14.1 % (11.6-14.6); RBC Distribution Width SD 52.4 fl (35.1-43.9); Red Blood Count 3.39 M/mm3 (4.6-6.2); White Blood Count 8.2 K/mm3 (4.4-11.0)
--- NOTE | 2022-09-02 12:20 | RAD_ITS ---
STUDY: X-RAY CHEST REASON FOR EXAM: Male, 86 years old. Status postintubation TECHNIQUE: Single AP portable view of the chest. COMPARISON: Comparison is made with prior study dated April 14, 2022. FINDINGS: An orogastric tube is seen with the tip below the left hemidiaphragm. An endotracheal tube is in situ with the tip at the level of the kalpesh. It should be pulled back approximately 2.5 cm. Increased markings at the left lung base suggestive of a possible atelectasis. Mild degree of increased markings also seen at the left lung apex. There is no demonstrated pleural abnormality. Sternal cerclage wires are present from a prior sternotomy. Normal mediastinum and rafaela. Normal visualized pulmonary arteries. Normal visualized aortic arch and descending thoracic aorta. There are degenerative changes of the visualized thoracic spine. Bilateral shoulder replacement. There is no demonstrated abnormality of the visualized soft tissue structures of the upper abdomen. RAD/Chest 1 View (Portable) IMPRESSION: The tip of the endotracheal tube is at the level of the kalpesh. It should be pulled back approximately 2.5 cm. The tip of the orogastric tube is below the left hemidiaphragm. Patchy infiltrate in the left lower lobe as well as in the left apex. Electronically Signed: Fazal Garrido MD at 12:36 EDT ,
[2022-09-02 12:28] LABS: International Normalized Ratio 1.4; Partial Thromboplast Time 27.3 Seconds (24.1-36.2); Prothrombin Time (Protime)PT. 16.8 SECONDS (11.7-14.9)
[2022-09-02 12:31] LABS: Bacteria 2+ /hpf (None Seen); Red Blood Cells-Urine 25-50 SEEN /hpf (0-5); White Blood Cells 5-10 SEEN /hpf (0-5)
[2022-09-02 12:31] LABS: Bedside Glucose 198 mg/dL (74-106)
[2022-09-02 12:44] LABS: BNP,B-Type NATRIURETIC PEPTIDE 202.5 pg/mL (0-100)
--- NOTE | 2022-09-02 12:47 | CT_ITS ---
STUDY: CT BRAIN WITHOUT CONTRAST REASON FOR EXAM: Male, 86 years old. Pinpoint pupils, GCS 3 T concern hemorrhage for rest. RADIATION DOSAGE (If Supplied By Facility): CTDIvol = ( 44.99 ) mGy, DLP = ( 832.67 ) mGycm TECHNIQUE: Transaxial CT imaging of the brain was performed without administration of intravenous contrast material. Individualized dose optimization techniques were used for this CT. COMPARISON: Comparison is made with prior study dated April 14, 2022. FINDINGS: Normal soft tissue structures. Normal calvarium. There is mild cerebral atrophy with widening of the extra-axial spaces and ventricular dilatation. There are areas of decreased attenuation within the white matter tracts of the supratentorial brain, consistent with microvascular disease changes. 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 Also old small lacunar infarct in the insular cortex of the left temporal lobe. Normal brainstem. Normal cerebellum. There is no intracranial hemorrhage. There are no findings of an acute ischemic infarction. Atherosclerotic calcification of the vertebral arteries and cavernous portions of the internal carotid arteries bilaterally. Partial opacification of the ethmoid sinuses bilaterally. CT/Brain/Head without Contrast IMPRESSION: Chronic involutional changes of the brain. Electronically Signed: Fazal Garrido MD at 13:47 EDT ,
[2022-09-02 12:53] LABS: D-Dimer Quantitative (DVT/PE) 4.88 FEU/ug/m (0.27-0.49)
[2022-09-02 12:57] LABS: ALB/GLOB Ratio 1.1 RATIO (0.9-2.4); AST(SGOT) 277 U/L (15-37); Alanine Aminotransfer ALT/SGPT 273 U/L (16-61); Albumin, Serum 2.9 g/dL (3.2-5.0); Alkaline Phosphatase 71 U/L (45-117); Anion Gap 12 (5-15); BUN 17 mg/dL (7-18); Calcium,Total 7.7 mg/dL (8.5-10.1); Chloride 114 mmol/L (98-107); Creatinine, Serum 1.13 mg/dL (0.70-1.30); EST Glomerular Filtration Rate 65 mL/min (>60); Est Glom Filt Rate - Afr Amer 79 mL/min (>60); Estimated Creatinine Clearance 48.45 ml/min; Globulin 2.7 g/dL (2.2-4.2); Glucose 216 mg/dL (74-106); Lactic Acid 5.1 mmol/L (0.4-1.9); Potassium 3.1 mmol/L (3.5-5.1); Protein, Total 5.6 g/dL (6.4-8.2); Sodium Level 142 mmol/L (136-145); Troponin-I HS (w/2H Reflex) 2643 pg/mL (3.0-78.0)
--- NOTE | 2022-09-02 13:00 | CT_ITS ---
STUDY: CTA CHEST REASON FOR EXAM: Male, 86 years old. Elevated D-dimer prior clots RADIATION DOSAGE (If Supplied By Facility): CTDIvol = ( 20.97 ) mGy, DLP = ( 580.91 ) mGycm TECHNIQUE: The examination was performed with the intravenous administration of [id number] 100ML. Post-processing of the angiographic images was performed, with multiplanar reformation and 3D reconstruction. Individualized dose optimization techniques were used for this CT. COMPARISON: Comparison is made with prior chest graft on the date as well as prior CT of the chest dated July 10, 2021. FINDINGS: An endotracheal tube is in situ. The tip is at the lower margin of the left mainstem bronchus. It should be withdrawn. NG tube is seen within the stomach. Normal enhancement of the main pulmonary artery and right and left pulmonary arteries. Normal enhancement of the bilateral peripheral pulmonary arteries. There is no demonstrated pulmonary embolism. Normal thoracic aorta and visualized great vessels. There is no demonstrated aortic dissection. Sternal cerclage wires and vascular clips are present from a prior sternotomy and coronary artery bypass graft procedure (CABG). There are calcifications of the coronary arteries. Normal mediastinum. Normal hilar regions. Normal visualized trachea and bronchi. Increased markings at the lung bases with confluence worse in the right lower lobe suggestive of bibasilar infiltrates and/or atelectasis. Normal pleura. Normal chest wall structures. There are degenerative changes of thoracic spine. Normal visualized upper abdomen. CT/CTA Chest W/WO Contrast IMPRESSION: No evidence of pleural embolism. The tip of the endotracheal tube is in the origin of the left mainstem bronchus. It should be withdrawn approximately 2 cm. Patchy infiltration and/or atelectasis at the lung bases as described. Electronically Signed: Fazal Garrido MD at 13:52 EDT ,
[2022-09-02] MEDS: fentaNYL 100 MCG/2 ML Ampul 50 MCG IV (13:42)
--- NOTE | 2022-09-02 13:57 | CM.ED ---
Social Work SW introduced self and role to patient's and grandson. SW provided emotional support to family. Hyacinth Alvarez MANAGER INTERN, [employer]
[2022-09-02 14:13] LABS: Reflex Troponin-HS? (from REC) Y
[2022-09-02] MEDS: fentaNYL drip 100 ML 2.5 MCG CONT INF (14:17)
[2022-09-02 14:21] LABS: Base Excess -8 mmol/L (-2 to +2); Bicarbonate 17.3 mmol/L (22-26); Blood Gas Specimen Type ART; FI02 50; Mode AC; PEEP 5; PO2 85 mmHG (75-100); RR 14; SITE L Radial; SO2 96 % (95-99); Total Carbon Dioxide 18 mmol/L; Vt 450; pCO2 29.4 mmHg (35-45); pH 7.38 (7.35-7.45)
--- NOTE | 2022-09-02 14:44 | ED.RN ---
1154- PT THRASHING ARMS AND LEGS GAGGING ON INTUBATION. DR. ROCHE VERBAL ORDER FOR PARALYTIC MEDICATION. PT PLACED IN SOFT RESTRAINTS.
--- NOTE | 2022-09-02 14:59 | ED.RN ---
CALLED PHARMACY TO VERIFY HEPARIN
--- NOTE | 2022-09-02 15:17 | ED.RN ---
HEPARIN ON HOLD PER DR ROCHE UNTIL CENTRAL LINE IS PLACED
[2022-09-02] MEDS: Propofol 10MG/Ml 1,000 MG/100 ML Bottle 6.3 MG CONT INF (15:18)
[2022-09-02 15:42] LABS: Troponin-I HS 3220 pg/mL (3.0-78.0)
[2022-09-02] MEDS: Heparin Injection (Vial) 5,000 UNIT/ML VIAL 8000 UNIT IV (15:51)
[2022-09-02] MEDS: HEPARIN/D5w 25,000 UNITS 25,000 UNITS/250 ML IV.SOLN. 15 UNITS CONT INF (15:55)
[2022-09-02 16:12] LABS: Reflex Lactate? Y
--- NOTE | 2022-09-02 16:49 | CON.PCM.CC_ITS ---
Assessment & Plan Assessment/Plan (1) Acute respiratory failure: PLAN: Plan RECOMMENDATIONS: 1. Continue assist-control mode of mechanical ventilation. Wean FiO2 and PEEP for saturations greater than 90%. 2. Continue current sedation regimen with a goal to maintain a RASS of -1 to 1. 3. Plan for awakening trial beginning tomorrow to assess neurologic status. 4. Continue amiodarone and heparin per cardiology recommendations. 5. Continue empiric antimicrobials, pending finalized culture results. 6. Continue appropriate GI prophylaxis. IMPRESSIONS: 1. Acute hypoxemic respiratory failure following cardiac arrest The patient presented as a out of hospital V-fib cardiac arrest and was intubated in the emergency department. ROSC was ultimately achieved. The patient does have what appears to be some infiltrates in the bibasilar posterior lung draper. Therefore, antimicrobials were initiated. Sputum culture is pend ing. Plan to continue assist-control mode of mechanical ventilation and wean FiO2 to maintain saturations at or above 90%. Recommend daily. Spontaneous awakening and breathing trials beginning tomorrow. 2. History of coronary artery disease and valvular heart disease status postca rdiac arrest Cardiology consultation is pending. Anticipate need for follow-up echocard iogram. Will defer medical management to cardiology. It is unclear how much downtime there was during the patient's initial insult. Therefore, his underlying neurologic status is unclear. Targeted temperature management would otherwise be indicated in a situation like this. 3. Advanced age/hypertension/hyperlipidemia/history of prostate CA Complicates care, management, recovery and prognosis. Continue supportive measures as noted above. TIME: 37 minutes of critical care time, independent of procedures, was spent addressing the patient's acute hypoxemic respiratory failure status post V-fib cardiac arrest, review of all data and collaboration with the care team. HPI Consult Data Date of Consult: 09/03/22 HPI Narrative Reason for Consultation: Acute respiratory failure HPI Narrative: The patient is an 86-year-old male, with a history as outlined below, who presented to the emergency department via EMS on September 02 following an acute cardiopulmonary event at home. According to EMS documentation, the patient was found with his pulseless and apneic. ACLS was initiated. The patient was noted to be in ventricular fibrillation for which the patient received a combination of shocks, epinephrine and amiodarone. ROSC was ultimately achieved while in route to the hospital. The patient has a known history of coronary artery disease and aortic valve disease with severe aortic regurgitation. The patient is followed by Dr. Neal on an outpatient basis. On presentation to the emergency department, the patient was noted to be afebrile and hemodynamically stable. Initial laboratory evaluation revealed no evidence of a leukocytosis. Platelet count was low at 104,000. D-dimer was elevated at 4.8. Chemistry profile was notable for a potassium of 3.1, chloride of 114, bicarbonate of 16 and creatinine of 1.13. Lactate was elevated at 5.1. AST and ALT were increased at 277 and 273, respectively. Troponin was elevated at 2643. BNP was increased at 202. Urine analysis was noncontributory. CT head revealed chronic involutional changes of the brain. CTA chest showed no evidence for pulmonary embolism. The endotracheal tube was located in the left mainstem. There was bibasilar subpleural infiltrates. Upon arrival to the emergency department, the patient's GCS was documented to be 3T. The patient was emergently intubated. A central venous catheter was placed. The patient was initiated on amiodarone and heparin infusion. The patient was also started on antimicrobial therapy. He was admitted to the medical intensive care unit for further management. [facility] Medical History Anemia Back pain Easy bruising Essential (primary) hypertension Excessive bleeding Hereditary hemochromatosis History of injury of tendon History of pain when walking Leg cramps Loss of hearing Macular degeneration Mild cognitive impairment Non-smoker Nonobstructive atherosclerosis of coronary artery Nonrheumatic aortic (valve) insufficiency Obesity Orthostatic hypotension Pain Paroxysmal atrial fibrillation Peripheral vestibulopathy Prostate cancer Prosthetic aortic valve stenosis Psoriasis Psoriatic arthritis Rectal bleeding Restless legs Syncope TIA (transient ischemic attack) (2007) Wears glasses Home Medications folic acid 1 mg tablet 1 mg PO SUMOTUWEFRSA Check with primary doctor 03/23/16 [History Last Taken Unknown] cholecalciferol (vitamin D3) 25 mcg (1,000 unit) capsule 25 mcg PO DAILY Check with primary doctor 03/04/21 [History Last Taken Unknown] fish, borage, flaxseed oils-omega 3,6,9 cb #1 400 mg-400 mg-400 mg cap (Triple [place] 3-6-9) 1 cap PO DAILY Check with primary doctor 03/04/21 [History Last Taken Unknown] methotrexate sodium 2.5 mg tablet 20 mg PO TH Check with primary doctor 03/04/21 [History Last Taken Unknown] multivitamin (Multiple Vitamins tablet) 1 tab PO DAILY Check with primary doctor 04/21/22 [History Last Taken Unknown] cetirizine 10 mg tablet 10 mg PO DAILY Check with primary doctor 09/02/22 [History Last Taken Unknown] Allergy/AdvReac Type Severity Reaction Status Date / Time apremilast [From Otezla] AdvReac Pain in Verified 09/02/22 14:23 joints azithromycin [From Zithromax] AdvReac Other Verified 09/02/22 14:23 doxycycline AdvReac Other Verified 09/02/22 14:23 erythromycin base AdvReac Other Verified 09/02/22 14:23 gabapentin AdvReac Pain in Verified 09/02/22 14:23 joints guaifenesin [From Entex T] AdvReac Rash Verified 09/02/22 14:23 pseudoephedrine AdvReac Rash Verified 09/02/22 14:23 [From Entex T] tramadol AdvReac Pain in Verified 09/02/22 14:23 joints Family History Brother Heart disease AFIB Brother Myocardial infarction Other Cerebral aneurysm Surgical History H/O aortic valve replacement (06/30/12) History of arthroplasty of left shoulder History of bilateral carpal tunnel release History of left heart catheterization (06/18/12) History of nasal septoplasty History of repair of rotator cuff History of shoulder surgery History of total bilateral knee replacement History of total right hip replacement Hx of colonoscopy Hx of left cataract extraction Hx of right cataract extraction Hx of shoulder replacement Hx of total hip arthroplasty S/p reverse total shoulder arthroplasty Social History Smoking Status: Never smoker Electronic Cigarette Use: not used second hand exposure: No alcohol intake: never substance use type: does not use shanika/evangelical: Druze seatbelt use: sometimes ROS Review of Systems ROS Unobtainable: due to endotracheal tube Physical Exam Const Constitutional Narrative: Intubated, sedated and mechanically ventilated. HEENT head/scalp atraumatic Mouth: endotracheal tube in place Eyes conjunctivae normal Neck supple General: trachea midline and CVC in place Chest inspection of chest normal Resp normal respiratory effort Auscultation: Negative for rales, rhonchi or wheezes Cardio regular rate and regular rhythm Cardio Narrative: Frequent ectopy GI normal to inspection, nondistended, normoactive bowel sounds Extremity Extremity Narrative: Trace lower extremity edema General Extremity: Negative for clubbing Skin General Skin Exam: venous stasis and dermatitis Neuro Sensorium / Orientation: sedated on vent Lab / Micro Data Result Diagrams: 09/03/22 03:45 09/03/22 03:45 Labs: Laboratory Results - last 24 hr 09/02/22 11:50: WBC 8.2, RBC 3.39 L, Hgb 11.8 L, Hct 34.9 L, MCV 102.9 H, MCH 34.8 H, MCHC 33.8, RDW Std Deviation 52.4 H, RDW Coeff of Fazal 14.1, Plt Count 104 L, MPV 9.1, Immature Gran % (Auto) 2.200 H, Neut % (Auto) 51.6, Lymph % (Auto) 35.7, [place] % (Auto) 7.7, Eos % (Auto) 2.4, Baso % (Auto) 0.4, Absolute Neuts (auto) 4.2, Absolute Lymphs (auto) 2.92, Nucleated RBC % 0.2 09/02/22 11:50: PT 16.8 H, INR 1.4, APTT 27.3, D-Dimer Quant (PE/DVT) 4.88 H* 09/02/22 11:50: Sodium 142, Potassium 3.1 L, Chloride 114 H, Carbon Dioxide 16.0 L, Anion Gap 12, BUN 17, Creatinine 1.13, Estim Creat Clear Calc 48.45, Est GFR (MDRD) Af Amer 79, Est GFR (MDRD) Non-Af 65, BUN/Creatinine Ratio 15.0, Glucose 216 H, Calcium 7.7 L, Total Bilirubin 1.10 H, AST 277 H, ALT 273 H, Alkaline Phosphatase 71, Troponin I High Sens 2643 H*, Total Protein 5.6 L, Albumin 2.9 L , Globulin 2.7, Albumin/Globulin Ratio 1.1 09/02/22 11:50: Lactic Acid 5.1 H* 09/02/22 11:50: B-Natriuretic Peptide 202.5 H 09/02/22 12:00: Urine Color Yellow, Urine Clarity Cloudy, Urine pH 7.0, Ur Specific [place] 1.015, Urine Protein 500 H, Urine Glucose (UA) 100 H, Urine Ketones Negative, Urine Occult Blood 250 H, Urine Nitrite Negative, Urine Bilirubin Negative, Urine Urobilinogen Normal, Ur Leukocyte Esterase Negative, Urine RBC 25-50 SEEN, Urine WBC 5-10 SEEN, Ur Squamous Epith Cells 0 SEEN, Urine Bacteria 2+, Urine Mucus 0 SEEN 09/02/22 12:11: POC Glucose 198 H 09/02/22 15:00: Troponin I High Sens 3220 H* ABG Data ABG results: ABG 09/02/22 14:18 Specimen Type ART Sample Site L Radial pH 7.38 Bicarbonate Actual 17.3 L Total CO2 18 Base Excess -8 L O2 Saturation 96 O2 % 50 ABG pCO2 29.4 L ABG pO2 85 Respiration Rate 14 Vent Mode AC Tidal Volume 450 POC PEEP 5 Radiology Impression Chest X-Ray 09/02/22 12:20 IMPRESSION: The tip of the endotracheal tube is at the level of the kalpesh. It should be pulled back approximately 2.5 cm. The tip of the orogastric tube is below the left hemidiaphragm. Patchy infiltrate in the left lower lobe as well as in the left apex. Electronically Signed: Fazal Garrido MD at 12:36 EDT , Brain CT 09/02/22 12:47 IMPRESSION: Chronic involutional changes of the brain. Electronically Signed: Fazal Garrido MD at 13:47 EDT , Chest CTA 09/02/22 13:00 IMPRESSION: No evidence of pleural embolism. The tip of the endotracheal tube is in the origin of the left mainstem bronchus. It should be withdrawn approximately 2 cm. Patchy infiltration and/or atelectasis at the lung bases as described. Electronically Signed: Fazal Garrido MD at 13:52 EDT , Charges/Coding Procedures Hospitalists Procedures: 15868 Critial Care 1st Hr
[2022-09-02] MEDS: KCl 20MEQ in D5NS 20 MEQ/1,000 ML IV.SOLN. 75 MEQ IV (17:32)
[2022-09-02] MEDS: Potassium Chloride 20mEq/100mL 20 MEQ/100 ML IV.SOLN. 100 MEQ IV BOLUS ×2 (17:37→19:33)
[2022-09-02 17:39] LABS: Lactic Acid 4.7 mmol/L (0.4-1.9)
--- NOTE | 2022-09-02 17:42 | BH.SGPN.TEST ---
ET was pulled back to 26 at the teeth per Dr. Demarco Group Topic: [] # of Participants: [] Goal of Group: [] Staff Interventions: []
[2022-09-02] MEDS: Aspirin 325 MG Tablet NG (17:43)
[2022-09-02] MEDS: Amiodarone 360 MG in Dextrose 5% Viaflo Bag 192.8 ML 16.7 MG CONT INF (18:31)
[2022-09-02] MEDS: Ipratropium/Albuterol Sulfate 3 ML AMPUL.NEB INHALATION ×2 (18:38→22:55)
[2022-09-02 18:41] LABS: Troponin-I HS 4359 pg/mL (3.0-78.0)
[2022-09-02] MEDS: Insulin Lispro 100 UNIT/ML INSULN.PEN SC (18:44)
[2022-09-02 18:51] LABS: Bedside Glucose 232 mg/dL (74-106)
[2022-09-02 19:13] LABS: CPK Total, Creatine Kinase 330 U/L (39-308); Triglycerides 94 mg/dL
--- NOTE | 2022-09-02 19:43 | PCM.HP.STD ---
HPI - General General Date of Admission: 09/02/22 Date of Service: 09/02/22 Chief Complaint: Cardiac arrest HPI Narrative NUNU MALDONADO, is a 86 M who presents following a cardiac arrest. Patient currently intubated and on mechanical ventilation. History was obtained from the patient's who is at the bedside and who was with him when he slumped while they were having breakfast. Daughter and son-in-law also in the room providing some of the history. EMS was called and patient was successfully resuscitated following 3 shocks as he was found to be in ventricular fibrillation. Found to have markedly elevated the troponin levels and lactic acidosis [facility] Medical History Anemia Back pain Easy bruising Essential (primary) hypertension Excessive bleeding Hereditary hemochromatosis History of injury of tendon History of pain when walking Leg cramps Loss of hearing Macular degeneration Mild cognitive impairment Non-smoker Nonobstructive atherosclerosis of coronary artery Nonrheumatic aortic (valve) insufficiency Obesity Orthostatic hypotension Pain Paroxysmal atrial fibrillation Peripheral vestibulopathy Prostate cancer Prosthetic aortic valve stenosis Psoriasis Psoriatic arthritis Rectal bleeding Restless legs Syncope TIA (transient ischemic attack) (2007) Wears glasses Home Medications folic acid 1 mg tablet 1 mg PO SUMOTUWEFRSA Check with primary doctor 03/23/16 [History Last Taken Unknown] cholecalciferol (vitamin D3) 25 mcg (1,000 unit) capsule 25 mcg PO DAILY Check with primary doctor 03/04/21 [History Last Taken Unknown] fish, borage, flaxseed oils-omega 3,6,9 cb #1 400 mg-400 mg-400 mg cap (Triple [place] 3-6-9) 1 cap PO DAILY Check with primary doctor 03/04/21 [History Last Taken Unknown] methotrexate sodium 2.5 mg tablet 20 mg PO TH Check with primary doctor 03/04/21 [History Last Taken Unknown] multivitamin (Multiple Vitamins tablet) 1 tab PO DAILY Check with primary doctor 04/21/22 [History Last Taken Unknown] cetirizine 10 mg tablet 10 mg PO DAILY Check with primary doctor 09/02/22 [History Last Taken Unknown] Allergy/AdvReac Type Severity Reaction Status Date / Time apremilast [From Otezla] AdvReac Pain in Verified 09/02/22 14:23 joints azithromycin [From Zithromax] AdvReac Other Verified 09/02/22 14:23 doxycycline AdvReac Other Verified 09/02/22 14:23 erythromycin base AdvReac Other Verified 09/02/22 14:23 gabapentin AdvReac Pain in Verified 09/02/22 14:23 joints guaifenesin [From Entex T] AdvReac Rash Verified 09/02/22 14:23 pseudoephedrine AdvReac Rash Verified 09/02/22 14:23 [From Entex T] tramadol AdvReac Pain in Verified 09/02/22 14:23 joints Family History Brother Heart disease AFIB Brother Myocardial infarction Other Cerebral aneurysm Surgical History H/O aortic valve replacement (06/30/12) History of arthroplasty of left shoulder History of bilateral carpal tunnel release History of left heart catheterization (06/18/12) History of nasal septoplasty History of repair of rotator cuff History of shoulder surgery History of total bilateral knee replacement History of total right hip replacement Hx of colonoscopy Hx of left cataract extraction Hx of right cataract extraction Hx of shoulder replacement Hx of total hip arthroplasty S/p reverse total shoulder arthroplasty Social History Smoking Status: Never smoker Electronic Cigarette Use: not used second hand exposure: No alcohol intake: never substance use type: does not use shanika/orthodox: Congregation seatbelt use: sometimes ROS ROS Narrative Unable to obtain as patient is intubated and on mechanical ventilation. Vital Signs Vital Signs Vital Signs: 09/02/22 11:46 09/02/22 12:02 09/02/22 12:30 Temperature 36.1 C L 36.0 C L Temperature Source Temporal Core Pulse Rate 70 66 62 Respiratory Rate 16 14 14 Respiratory Effort Respiratory Pattern Blood Pressure 103/72 121/70 H 114/75 Blood Pressure [BP] Blood Pressure Mean 82 87 88 Blood Pressure Mean [BP] Blood Pressure Source Blood Pressure Source [BP] Blood Pressure Position Blood Pressure Position [BP] Blood Pressure Location Blood Pressure Location [BP] Pulse Ox 100 99 99 Oxygen Delivery Method Ambu-Bag Mechanical Ventilator Mechanical Ventilator Fraction of Inspired Oxygen (FIO2) 70 70 09/02/22 12:46 09/02/22 13:00 09/02/22 13:46 Temperature 35.2 C L Temperature Source Core Pulse Rate 68 60 58 L Respiratory Rate 23 H 18 17 Respiratory Effort Respiratory Pattern Blood Pressure 134/71 H 132/72 H 117/71 Blood Pressure [BP] Blood Pressure Mean 92 92 86 Blood Pressure Mean [BP] Blood Pressure Source Blood Pressure Source [BP] Blood Pressure Position Blood Pressure Position [BP] Blood Pressure Location Blood Pressure Location [BP] Pulse Ox 99 96 96 Oxygen Delivery Method Mechanical Ventilator Mechanical Ventilator Mechanical Ventilator Fraction of Inspired Oxygen (FIO2) 70 70 70 09/02/22 14:01 09/02/22 14:26 09/02/22 15:24 Temperature 35.2 C L 35.2 C L Temperature Source Core Core Pulse Rate 60 69 92 Respiratory Rate 21 H 25 H 28 H Respiratory Effort Respiratory Pattern Blood Pressure 129/80 H 129/80 H 181/100 H Blood Pressure [BP] Blood Pressure Mean 96 96 127 Blood Pressure Mean [BP] Blood Pressure Source Blood Pressure Source [BP] Blood Pressure Position Blood Pressure Position [BP] Blood Pressure Location Blood Pressure Location [BP] Pulse Ox 96 95 93 Oxygen Delivery Method Mechanical Ventilator Mechanical Ventilator Mechanical Ventilator Fraction of Inspired Oxygen (FIO2) 70 70 100 09/02/22 15:33 09/02/22 12:00 09/02/22 17:00 Temperature 35.5 C L Temperature Source Core Pulse Rate 75 78 Respiratory Rate 26 H 18 Respiratory Effort Respiratory Pattern Normal Blood Pressure 197/79 H Blood Pressure [BP] Blood Pressure Mean 118 Blood Pressure Mean [BP] Blood Pressure Source Blood Pressure Source [BP] Blood Pressure Position Blood Pressure Position [BP] Blood Pressure Location Blood Pressure Location [BP] Pulse Ox 92 100 100 Oxygen Delivery Method Mechanical Ventilator Fraction of Inspired Oxygen (FIO2) 100 100 50 09/02/22 16:56 09/02/22 17:00 09/02/22 17:15 Temperature Temperature Source Pulse Rate 69 75 59 L Respiratory Rate 24 H 13 Respiratory Effort Respiratory Pattern Blood Pressure 146/72 H 146/113 H 103/69 Blood Pressure [BP] Blood Pressure Mean 96 124 80 Blood Pressure Mean [BP] Blood Pressure Source Monitor Monitor Monitor Blood Pressure Source [BP] Blood Pressure Position Semi-Fowlers Semi-Fowlers Semi-Fowlers Blood Pressure Position [BP] Blood Pressure Location Left Arm Left Arm Left Arm Blood Pressure Location [BP] Pulse Ox 90 99 Oxygen Delivery Method Mechanical Ventilator Mechanical Ventilator Fraction of Inspired Oxygen (FIO2) 50 50 09/02/22 17:30 09/02/22 18:00 09/02/22 18:30 Temperature 36.2 C L Temperature Source Core Pulse Rate 57 L 54 L 53 L Respiratory Rate 14 14 13 Respiratory Effort Respiratory Pattern Blood Pressure 110/66 110/68 114/70 Blood Pressure [BP] Blood Pressure Mean 80 82 84 Blood Pressure Mean [BP] Blood Pressure Source Monitor Monitor Monitor Blood Pressure Source [BP] Blood Pressure Position Semi-Fowlers Semi-Fowlers Semi-Fowlers Blood Pressure Position [BP] Blood Pressure Location Left Arm Left Arm Left Arm Blood Pressure Location [BP] Pulse Ox 98 99 100 Oxygen Delivery Method Mechanical Ventilator Mechanical Ventilator Mechanical Ventilator Fraction of Inspired Oxygen (FIO2) 50 50 40 09/02/22 19:00 09/02/22 17:30 Temperature 36.3 C L Temperature Source Core Pulse Rate 56 L Respiratory Rate 17 Respiratory Effort Mechanically Ventilated Respiratory Pattern Blood Pressure Blood Pressure [BP] 115/70 Blood Pressure Mean Blood Pressure Mean [BP] 85 Blood Pressure Source Blood Pressure Source [BP] Monitor Blood Pressure Position Blood Pressure Position [BP] Semi-Fowlers Blood Pressure Location Blood Pressure Location [BP] Left Arm Pulse Ox 100 Oxygen Delivery Method Mechanical Ventilator Mechanical Ventilator Fraction of Inspired Oxygen (FIO2) 40 50 Weight Weight: 98.6 kg Body Mass Index (BMI) 31.1 Physical Exam Narrative General exam. Elderly man, intubated and on mechanical ventilation, skin slightly. HEENT. Intubated, oral mucosa slightly dry Neck. Neck is supple Heart. Present second heart sounds. Slightly distant Lungs. Fair air entry but with expiratory wheezing 2+ bilaterally. Abdomen soft and full nontender. Extremities. No pedal edema. 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 Unable to examine as patient is sedated. Results Medical Records Data Attestation: I reviewed the patient's medical records Lab / Micro Data Attestation: I reviewed the patient's lab results. Result Diagrams: 09/02/22 11:50 09/02/22 11:50 Labs: Laboratory Results - last 24 hr 09/02/22 11:50: WBC 8.2, RBC 3.39 L, Hgb 11.8 L, Hct 34.9 L, MCV 102.9 H, MCH 34.8 H, MCHC 33.8, RDW Std Deviation 52.4 H, RDW Coeff of Fazal 14.1, Plt Count 104 L, MPV 9.1, Immature Gran % (Auto) 2.200 H, Neut % (Auto) 51.6, Lymph % (Auto) 35.7, [place] % (Auto) 7.7, Eos % (Auto) 2.4, Baso % (Auto) 0.4, Absolute Neuts (auto) 4.2, Absolute Lymphs (auto) 2.92, Nucleated RBC % 0.2 09/02/22 11:50: PT 16.8 H, INR 1.4, APTT 27.3, D-Dimer Quant (PE/DVT) 4.88 H* 09/02/22 11:50: Sodium 142, Potassium 3.1 L, Chloride 114 H, Carbon Dioxide 16.0 L, Anion Gap 12, BUN 17, Creatinine 1.13, Estim Creat Clear Calc 48.45, Est GFR (MDRD) Af Amer 79, Est GFR (MDRD) Non-Af 65, BUN/Creatinine Ratio 15.0, Glucose 216 H, Calcium 7.7 L, Total Bilirubin 1.10 H, AST 277 H, ALT 273 H, Alkaline Phosphatase 71, Troponin I High Sens 2643 H*, Total Protein 5.6 L, Albumin 2.9 L, Globulin 2.7, Albumin/Globulin Ratio 1.1 09/02/22 11:50: Lactic Acid 5.1 H* 09/02/22 11:50: B-Natriuretic Peptide 202.5 H 09/02/22 11:50: Total Creatine Kinase 330 H, Triglycerides 94 09/02/22 12:00: Urine Color Yellow, Urine Clarity Cloudy, Urine pH 7.0, Ur Specific [place] 1.015, Urine Protein 500 H, Urine Glucose (UA) 100 H, Urine Ketones Negative, Urine Occult Blood 250 H, Urine Nitrite Negative, Urine Bilirubin Negative, Urine Urobilinogen Normal, Ur Leukocyte Esterase Negative, Urine RBC 25-50 SEEN, Urine WBC 5-10 SEEN, Ur Squamous Epith Cells 0 SEEN, Urine Bacteria 2+, Urine Mucus 0 SEEN 09/02/22 12:11: POC Glucose 198 H 09/02/22 14:55: Troponin I High Sens 4359 H* 09/02/22 15:00: Troponin I High Sens 3220 H* 09/02/22 16:36: Lactic Acid 4.7 H* 09/02/22 18:26: POC Glucose 232 H ABG Data ABG results: ABG 09/02/22 14:18 Specimen Type ART Sample Site L Radial pH 7.38 Bicarbonate Actual 17.3 L Total CO2 18 Base Excess -8 L O2 Saturation 96 O2 % 50 ABG pCO2 29.4 L ABG pO2 85 Respiration Rate 14 Vent Mode AC Tidal Volume 450 POC PEEP 5 Attestation: I personally reviewed and interpreted this ABG as follows: Radiology Impression Chest X-Ray 09/02/22 12:20 IMPRESSION: The tip of the endotracheal tube is at the level of the kalpesh. It should be pulled back approximately 2.5 cm. The tip of the orogastric tube is below the left hemidiaphragm. Patchy infiltrate in the left lower lobe as well as in the left apex. Electronically Signed: Fazal Garrido MD at 12:36 EDT , Brain CT 09/02/22 12:47 IMPRESSION: Chronic involutional changes of the brain. Electronically Signed: Fazal Garrido MD at 13:47 EDT , Chest CTA 09/02/22 13:00 IMPRESSION: No evidence of pleural embolism. The tip of the endotracheal tube is in the origin of the left mainstem bronchus. It should be withdrawn approximately 2 cm. Patchy infiltration and/or atelectasis at the lung bases as described. Electronically Signed: Fazal Garrido MD at 13:52 EDT , Assessment & Plan Assessment/Plan (1) Cardiac arrest: PLAN: Plan 1. Status post ventricular fibrillation cardiac arrest. Patient successfully resuscitated. Hemodynamically he appears to be quite stable at this time. Patient is intubated and on mechanical ventilation. Will be admitted to the intensive care unit. 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 Continue sedation with fentanyl drip. 2. NSTEMI. Possible cause of ventricular fibrillation arrest. Started on heparin by weight. Cardiology consulted. May require left heart catheterization. Echocardiogram. 3. Hypokalemia. Will correct. 4. Hyperglycemia. No known history of diabetes. Most likely stress response. We will stick to keep her normal glucose between 100 and 180 mg per DL with basal and sliding scale Humalog every 6 hours. 5. Lactic acidosis. Secondary to cardiac arrest. Currently hemodynamically stable and appears to be perfusing well. 6. Wheezing noted on examination. We will schedule inhaled bronchodilators with DuoNebs every 4 hours. Charges/Coding Visit Charges Inpatient E&M: 71560 Init Hosp L3
--- NOTE | 2022-09-02 20:32 | RAD_ITS ---
STUDY: X-RAY CHEST REASON FOR EXAM: Male, 86 years old. CVC placement TECHNIQUE: Single AP portable view of the chest. COMPARISON: Same day 12:52 PM. FINDINGS: There is a new right PICC line the level of the right hilum. Endotracheal tube terminates 1.2 cm above the kalpesh. Consider repositioning 3 cm proximal. Nasogastric tube coiled in the proximal stomach. Mild increased atelectasis in the lung bases since earlier today. Electronically Signed: Akira Vail MD at 21:05 EDT , RAD/Chest 1 View (Portable) IMPRESSION: undefined
[2022-09-02 21:55] LABS: Partial Thromboplast Time > 200.0 Seconds (24.1-36.2)
[2022-09-02 22:02] LABS: Troponin-I HS 6309 pg/mL (3.0-78.0)
[2022-09-02] MEDS: Chlorhexidine 15 ML PO (23:20)
[2022-09-02] MEDS: Famotidine 20 MG Tablet GT (23:26)
[2022-09-02] MEDS: Atorvastatin Calcium 40 MG Tablet PO (23:26)
[2022-09-03] VITALS (34 sets, daily range): BP systolic 102–130; BP diastolic 51–74; PULSE 58–93; RESP 13–30; TEMP 36.6–38.1; O2SAT 25–99; BMI 31.5
[2022-09-03] MEDS: Propofol 10MG/Ml 1,000 MG/100 ML Bottle 9.5 MG CONT INF (00:19)
[2022-09-03] MEDS: Insulin Lispro 100 UNIT/ML INSULN.PEN SC ×4 (01:09→17:16)
[2022-09-03 01:22] LABS: Bedside Glucose 244 mg/dL (74-106)
[2022-09-03] MEDS: Ipratropium/Albuterol Sulfate 3 ML AMPUL.NEB INHALATION ×6 (02:06→22:51)
[2022-09-03 03:53] LABS: Absolute Lymphocyte Count 1.07 X10^3/uL (0.83-4.51); Absolute Neutrophil Count 6.8 X10^3/uL (2.0-7.7); Basophil# 0.01 X10^3/uL; Basophil% 0.1 % (0-1); Eosinophil# 0.02 X10^3/uL; Eosinophils% 0.2 % (0-5); Hematocrit 34.8 % (40-54); Hemoglobin 11.5 g/dL (13.0-16.5); Lymphocyte # 1.07 X10^3/ul (0.83-4.51); Lymphocyte % 12.4 % (19-41); Mean Corpuscular Hgb 34.5 pg (27.0-32.0); Mean Corpuscular Volume 104.5 fL (80-94); Mean Platelet Vol. 9.7 fl (6.2-12.0); Monocyte# 0.69 X10^3/uL; NRBC Flagged by Analyzer 0 % (0-5); Neutrophil % 78.7 % (47-70); Platelet Count 111 K/mm3 (150-450); RBC Distribution Width CV 14.4 % (11.6-14.6); RBC Distribution Width SD 53.8 fl (35.1-43.9); Red Blood Count 3.33 M/mm3 (4.6-6.2); White Blood Count 8.6 K/mm3 (4.4-11.0)
[2022-09-03 04:13] LABS: AST(SGOT) 211 U/L (15-37); Alanine Aminotransfer ALT/SGPT 246 U/L (16-61); Albumin, Serum 2.9 g/dL (3.2-5.0); Alkaline Phosphatase 66 U/L (45-117); Anion Gap 10 (5-15); BUN 20 mg/dL (7-18); BUN/Creat Ratio 16.1 RATIO (10-20); Chloride 111 mmol/L (98-107); Creatinine, Serum 1.24 mg/dL (0.70-1.30); EST Glomerular Filtration Rate 59 mL/min (>60); Est Glom Filt Rate - Afr Amer 71 mL/min (>60); Estimated Creatinine Clearance 44.15 ml/min; Glucose 246 mg/dL (74-106); Potassium 3.7 mmol/L (3.5-5.1); Protein, Total 5.9 g/dL (6.4-8.2); Sodium Level 138 mmol/L (136-145)
[2022-09-03 04:20] LABS: Troponin-I HS 9499 pg/mL (3.0-78.0)
[2022-09-03] MEDS: KCl 20MEQ in D5NS 20 MEQ/1,000 ML IV.SOLN. 75 MEQ IV ×2 (05:59→16:14)
[2022-09-03] MEDS: 0.9% Saline Lock 10 ML Syringe IV ×3 (06:00→19:39)
[2022-09-03 06:08] LABS: Partial Thromboplast Time 114.8 Seconds (24.1-36.2)
[2022-09-03 06:11] LABS: Bedside Glucose 220 mg/dL (74-106)
--- NOTE | 2022-09-03 07:25 | PCM.PN.INT ---
Assessment & Plan Assessment/Plan (1) Acute respiratory failure: PLAN: Plan RECOMMENDATIONS: 1. Continue assist-control mode of mechanical ventilation. Wean FiO2 and PEEP for saturations greater than 90%. 2. Continue to limit sedation to better assess underlying neurologic status. 3. Continue pressure support mode of mechanical ventilation as tolerated. 4. Awaiting cardiology evaluation. 5. Obtain echocardiogram. 6. Continue heparin infusion and amiodarone. 7. Continue empiric antimicrobials. 8. Continue appropriate GI prophylaxis. 9. Okay to initiate tube feeds. IMPRESSIONS: 1. Acute hypoxemic respiratory failure following cardiac arrest The patient presented as a out of hospital V-fib cardiac arrest and was intubated in the emergency department. ROSC was ultimately achieved. The patient does have what appears to be some infiltrates in the bibasilar posterior lung draper. Therefore, antimicrobials were initiated. Sputum culture is pending. Plan to continue assist-control mode of mechanical ventilation and wean FiO2 to maintain saturations at or above 90%. The patient will be continued on pressure support mode mechanical ventilation as tolerated today. Follow-up ABG will be obtained. 2. History of coronary artery disease and valvular heart disease status postcardiac arrest Cardiology consultation is pending. Anticipate need for follow-up echocardiogram. Will defer medical management to cardiology. It is unclear how much downtime there was during the patient's initial insult. Therefore, his underlying neurologic status is unclear. We will continue supportive measures as noted above while awaiting neurologic recovery. 3. Advanced age/hypertension/hyperlipidemia/history of prostate CA Complicates care, management, recovery and prognosis. Continue supportive measures as noted above. TIME: 33 minutes of critical care time, independent of procedures, was spent addressing the patient's acute hypoxemic respiratory failure status post V-fib cardiac arrest, review of all data and collaboration with the care team. Subjective Subjective The patient was seen and examined at the bedside this morning. Events from the last 24 hours have been reviewed. The patient currently has a low-grade temperature at 99.6 ?F. He is otherwise hemodynamically stable and maintaining appropriate oxygen saturations with an FiO2 requirement of 25%. The patient is currently on a spontaneous breathing trial. The patient has been off of all forms of sedation since 4 AM. Although he opens his eyes, he does not follow any commands at the present time. Troponin this morning remains elevated at 9500. Objective Data Objective Data The patient's most recent lab work, culture data and imaging studies have all been personally reviewed. Surface echocardiogram from December 2021 demonstrated normal LV size and function with an ejection fraction of 60%. Mild aortic stenosis was noted. Blood and sputum cultures are pending. Vital Signs: Vital Signs Temp Pulse Resp BP Pulse Ox O2 Del Method FiO2 99.6 F H 71 13 127/65 H 96 Mechanical Ventilator 25 09/03/22 06:00 09/03/22 06:00 09/03/22 06:00 09/03/22 06:00 09/03/22 06:00 09/03/22 06:00 09/03/22 06:00 Oxygen Delivery Method Mechanical Ventilator Weight: 220 lb 3.869 oz Body Mass Index (BMI) 31.5 Intake & Output: Intake and Output for Last 24 Hours 09/01/22 09/02/22 09/03/22 23:59 23:59 23:59 Intake Total 1106.71 / 1116.21 1079.58 / 1079.58 Output Total 2575 / 2575 310 / 310 Balance -1468.29 / -1458.79 769.58 / 769.58 Lab / Micro Data Attestation: I reviewed the patient's lab results. Result Diagrams: 09/03/22 03:45 09/03/22 03:45 Labs: Laboratory Results - last 24 hr 09/02/22 11:50: WBC 8.2, RBC 3.39 L, Hgb 11.8 L, Hct 34.9 L, MCV 102.9 H, MCH 34.8 H, MCHC 33.8, RDW Std Deviation 52.4 H, RDW Coeff of Fazal 14.1, Plt Count 104 L, MPV 9.1, Immature Gran % (Auto) 2.200 H, Neut % (Auto) 51.6, Lymph % (Auto) 35.7, [place] % (Auto) 7.7, Eos % (Auto) 2.4, Baso % (Auto) 0.4, Absolute Neuts (auto) 4.2, Absolute Lymphs (auto) 2.92, Nucleated RBC % 0.2 09/02/22 11:50: PT 16.8 H, INR 1.4, APTT 27.3, D-Dimer Quant (PE/DVT) 4.88 H* 09/02/22 11:50: Sodium 142, Potassium 3.1 L, Chloride 114 H, Carbon Dioxide 16.0 L, Anion Gap 12, BUN 17, Creatinine 1.13, Estim Creat Clear Calc 48.45, Est GFR (MDRD) Af Amer 79, Est GFR (MDRD) Non-Af 65, BUN/Creatinine Ratio 15.0, Glucose 216 H, Calcium 7.7 L, Total Bilirubin 1.10 H, AST 277 H, ALT 273 H, Alkaline Phosphatase 71, Troponin I High Sens 2643 H*, Total Protein 5.6 L, Albumin 2.9 L, Globulin 2.7, Albumin/Globulin Ratio 1.1 09/02/22 11:50: Lactic Acid 5.1 H* 09/02/22 11:50: B-Natriuretic Peptide 202.5 H 09/02/22 11:50: Total Creatine Kinase 330 H, Triglycerides 94 09/02/22 12:00: Urine Color Yellow, Urine Clarity Cloudy, Urine pH 7.0, Ur Specific [place] 1.015, Urine Protein 500 H, Urine Glucose (UA) 100 H, Urine Ketones Negative, Urine Occult Blood 250 H, Urine Nitrite Negative, Urine Bilirubin Negative, Urine Urobilinogen Normal, Ur Leukocyte Esterase Negative, Urine RBC 25-50 SEEN, Urine WBC 5-10 SEEN, Ur Squamous Epith Cells 0 SEEN, Urine Bacteria 2+, Urine Mucus 0 SEEN 09/02/22 12:11: POC Glucose 198 H 09/02/22 14:55: Troponin I High Sens 4359 H* 09/02/22 15:00: Troponin I High Sens 3220 H* 09/02/22 16:36: Lactic Acid 4.7 H* 09/02/22 18:26: POC Glucose 232 H 09/02/22 21:15: Troponin I High Sens 6309 H* 09/02/22 21:15: APTT > 200.0 H* 09/03/22 01:04: POC Glucose 244 H 09/03/22 03:45: WBC 8.6, RBC 3.33 L, Hgb 11.5 L, Hct 34.8 L, MCV 104.5 H, MCH 34.5 H, MCHC 33.0, RDW Std Deviation 53.8 H, RDW Coeff of Fazal 14.4, Plt Count 111 L, MPV 9.7, Immature Gran % (Auto) 0.600, Neut % (Auto) 78.7 H, Lymph % (Auto) 12.4 L, [place] % (Auto) 8.0, Eos % (Auto) 0.2, Baso % (Auto) 0.1, Absolute Neuts (auto) 6.8, Absolute Lymphs (auto) 1.07, Nucleated RBC % 0 09/03/22 03:45: Sodium 138, Potassium 3.7, Chloride 111 H, Carbon Dioxide 17.0 L, Anion Gap 10, BUN 20 H, Creatinine 1.24, Estim Creat Clear Calc 44.15, Est GFR (MDRD) Af Amer 71, Est GFR (MDRD) Non-Af 59 L, BUN/Creatinine Ratio 16.1, Glucose 246 H, Calcium 8.0 L, Total Bilirubin 0.90, AST 211 H, ALT 246 H, Alkaline Phosphatase 66, Total Protein 5.9 L, Albumin 2.9 L, Globulin 3.0, Albumin/Globulin Ratio 1.0 09/03/22 03:45: Troponin I High Sens 9499 H* 09/03/22 05:50: APTT 114.8 H* 09/03/22 05:54: POC Glucose 220 H ABG Data ABG results: ABG 09/02/22 14:18 Specimen Type ART Sample Site L Radial pH 7.38 Bicarbonate Actual 17.3 L Total CO2 18 Base Excess -8 L O2 Saturation 96 O2 % 50 ABG pCO2 29.4 L ABG pO2 85 Respiration Rate 14 Vent Mode AC Tidal Volume 450 POC PEEP 5 Radiography Diagnostic Testing: Radiology Impression Chest X-Ray 09/02/22 12:20 IMPRESSION: The tip of the endotracheal tube is at the level of the kalpesh. It should be pulled back approximately 2.5 cm. The tip of the orogastric tube is below the left hemidiaphragm. Patchy infiltrate in the left lower lobe as well as in the left apex. Electronically Signed: Fazal Garrido MD at 12:36 EDT , Brain CT 09/02/22 12:47 IMPRESSION: Chronic involutional changes of the brain. Electronically Signed: Fazal Garrido MD at 13:47 EDT , Chest CTA 09/02/22 13:00 IMPRESSION: No evidence of pleural embolism. The tip of the endotracheal tube is in the origin of the left mainstem bronchus. It should be withdrawn approximately 2 cm. Patchy infiltration and/or atelectasis at the lung bases as described. Electronically Signed: Fazal Garrido MD at 13:52 EDT , Chest X-Ray 09/02/22 20:32 IMPRESSION: undefined Physical Exam Const Constitutional Narrative: Remains intubated mechanically ventilated. HEENT head/scalp atraumatic Mouth: endotracheal tube in place Eyes PERRL and conjunctivae normal Neck supple General: trachea midline and CVC in place Chest inspection of chest normal Resp normal respiratory effort Auscultation: Negative for rales, rhonchi or wheezes Cardio regular rate and regular rhythm Cardio Narrative: Frequent ectopy GI normal to inspection, nondistended, normoactive bowel sounds Extremity Extremity Narrative: Trace lower extremity edema General Extremity: Negative for clubbing Skin General Skin Exam: venous stasis and dermatitis Neuro Neuro Narrative: The patient's eyes are currently opening. He appears to be tracking. However, the patient is not following any commands at the present time. Charges/Coding Procedures Hospitalists Procedures: [id number] Critial Care 1st Hr
--- NOTE | 2022-09-03 07:27 | ECHOCS_ITS ---
Reason For Study: S/P OK Procedure This was a 2D Doppler, Color Flow transthoracic echocardiogram. The study was technically difficult. Exam performed portable in ICU/CCU. Left Ventricle Normal LV size. Left ventricular systolic function is normal. The estimated ejection fraction is 55 %. Stage 1 diastolic dysfunction. No regional wall motion abnormalities noted. Right Ventricle Normal RV size. Normal systolic function. Atria Normal left atrium. Normal right atrium. Mitral Valve Mitral valve not well visualized. Tricuspid Valve The tricuspid valve is not well visualized. Aortic Valve The aortic valve is not well visualized. Peak aortic valve gradient 50 mmHg. Mean aortic valve gradient 30 mmHg. Moderate aortic stenosis. Pulmonic Valve The pulmonic valve is not well visualized. Great Vessels Normal aortic root. Pericardium/Pleural No pericardial effusion. Medication Diluted definity 3ml given slow IV push to enhance endocardial definition. MMode/2D Measurements & Calculations LVIDd: 4.3 cm IVSd: 1.1 cm LVOT diam: 2.0 cm LVIDs: 2.9 cm LVPWd: 0.97 cm RVDd: 3.8 cm FS: 31.4 % LVOT area: 3.2 cm2 Ao root diam: 3.5 cm LAV(MOD-bp): 42.2 ml LVAd ap4: 21.8 cm2 LAV(MOD-bp) Indexed: 19.4 ml/m2 LVLd ap4: 7.3 cm LAV(MOD-sp2): 36.7 ml EDV(MOD-sp4): 52.0 ml LAV(MOD-sp4): 44.8 ml EDV(sp4-el): 54.9 ml LVAs ap4: 11.5 cm2 LVLs ap4: 6.5 cm ESV(MOD-sp4): 17.3 ml ESV(sp4-el): 17.3 ml EF(MOD-sp4): 66.7 % EF(sp4-el): 68.6 % SV(MOD-sp4): 34.7 ml SV(sp4-el): 37.7 ml LA A4 area: 18.6 cm2 LA dimension(2D): 4.0 cm RA A4 area: 16.8 cm2 Time Measurements MV dec time: 0.32 sec Doppler Measurements & Calculations MV E max cale: 63.2 cm/sec Lat Peak E' Acle: 11.0 cm/sec Med Peak E' Cale: 9.2 cm/sec MV A max cale: 97.8 cm/sec E/E' lat: 5.7 E/E' med: 6.8 MV E/A: 0.65 Ao V2 max: 355.9 cm/sec LV V1 max: 114.3 cm/sec SV(LVOT): 72.8 ml Ao max P.7 mmHg LV V1 max P.2 mmHg Ao V2 mean: 261.4 cm/sec LV V1 mean P.1 mmHg Ao mean P.3 mmHg LV V1 mean: 83.8 cm/sec Ao V2 VTI: 55.8 cm LV V1 VTI: 22.7 cm AV (velocity ratio): 0.41 HANNAH(I,D): 1.3 cm2 HANNAH(V,D): 1.0 cm2 PA V2 max: 126.4 cm/sec ECHO/Echo Complete W/ Contrast Interpretation Summary Normal LV size. Left ventricular systolic function is normal. The estimated ejection fraction is 55 %. Stage 1 diastolic dysfunction. Peak aortic valve gradient 50 mmHg. Mean aortic valve gradient 30 mmHg. Moderate aortic stenosis. Contrast injection was performed. Ordering Physician: Hector Cornejo Referring Physician: JEREMÍAS BAZZI Performed By: Christie Aleman RDCS
[2022-09-03] MEDS: Amiodarone 360 MG in Dextrose 5% Viaflo Bag 192.8 ML 16.7 MG CONT INF (07:30)
[2022-09-03 07:55] LABS: Base Excess -7 mmol/L (-2 to +2); Bicarbonate 16.9 mmol/L (22-26); Blood Gas Specimen Type ART; FI02 25; Mode CPAP/PS; PEEP 5; PO2 70 mmHG (75-100); PS 5; SITE L Radial; SO2 95 % (95-99); Total Carbon Dioxide 18 mmol/L; pCO2 24.2 mmHg (35-45); pH 7.45 (7.35-7.45)
[2022-09-03] MEDS: Chlorhexidine 15 ML PO ×2 (10:23→19:39)
[2022-09-03] MEDS: Famotidine 20 MG Tablet GT ×2 (10:25→19:40)
[2022-09-03] MEDS: Aspirin 325 MG Tablet NG (10:25)
[2022-09-03 12:22] LABS: Bedside Glucose 221 mg/dL (74-106)
[2022-09-03] MEDS: Vital AF 1.2 Cal Liquid 1,000 ML 15 ML GT (12:59)
--- NOTE | 2022-09-03 13:21 | CHAPLAIN ---
Type of Pastoral Visit _x__ Initial Visit ___ Follow-up Visit ___ On-call Visit ___ General Patient Visit ___ Spiritual Assessment ___ Family Conference ___ Bereavement ___ Rapid Response ___ Code Blue ___ Other (describe below) Pastoral Care Referral From ___ Patient _x__ Family ___ Nurse ___ Physician ___ Etl Application Developer ___ Binding Nicker ___ Other (describe below) Sacrament/Intervention _x__ Active listening ___ Anointing ___ Cheondoism ___ Bereavement ___ Communion ___ Jessica exploration ___ ___ Life review _x__ Prayer ___ Reconciliation ___ Sacrament of Sick _x__ Supportive presence ___ Wedding ___ Other (describe below) Pastoral Comments patient is on the ventilator and minimally responsive; pt family members have gathered in the waiting room; offer of support led to much explanation by about the days events and how she is coping with the sudden change in pt health; family has muslim and family support; family welcomes the presence and prayer of this tong hooker a well; prayer with family
[2022-09-03] MEDS: Insulin Glargine-YFGN 100 UNIT/ML Pen 12 UNIT SC (13:43)
[2022-09-03 14:09] LABS: Partial Thromboplast Time 62.2 Seconds (24.1-36.2)
--- NOTE | 2022-09-03 14:33 | PN_ITS ---
Subjective Subjective Patient seen and examined. He was admitted after he was found unresponsive. He was found pulseless and apneic and ACLS was initiated. EMS was called and he was found to be ventricular fibrillation. He was resuscitated with epinephrine, amiodarone and shocks via ACLS protocol and ultimately ROSC was achieved. CT of the brain showed no acute intracranial pathology. CT of the chest showed no evidence of PE. He was intubated in the ED. Central line was also placed and he was placed on amiodarone and heparin infusion. Patient seen and examined this morning. His son and grandson were by his bedside. Patient remains intubated but was on spontaneous breathing via the ventilator. Patient able to answer questions but is alert and able to track with his eyes. Unable to do review of systems. Objective Data Objective Data Vital Signs: Vital Signs Temp Pulse Resp BP Pulse Ox O2 Del Method FiO2 100.4 F H 83 18 130/74 H 97 Mechanical Ventilator 25 09/03/22 12:00 09/03/22 14:26 09/03/22 14:26 09/03/22 13:00 09/03/22 14:22 09/03/22 13:00 09/03/22 13:00 Oxygen Delivery Method Mechanical Ventilator Weight: 219 lb 9.286 oz Body Mass Index (BMI) 31.5 Intake & Output: Intake and Output for Last 24 Hours 09/01/22 09/02/22 09/03/22 23:59 23:59 23:59 Intake Total 1106.71 / 1116.21 1654.58 / 1654.58 Output Total 2575 / 2575 510 / 510 Balance -1468.29 / -1458.79 1144.58 / 1144.58 Lab / Micro Data Result Diagrams: 09/03/22 03:45 09/03/22 03:45 Labs: Laboratory Results - last 24 hr 09/02/22 11:50: Total Creatine Kinase 330 H, Triglycerides 94 09/02/22 14:55: Troponin I High Sens 4359 H* 09/02/22 15:00: Troponin I High Sens 3220 H* 09/02/22 16:36: Lactic Acid 4.7 H* 09/02/22 18:26: POC Glucose 232 H 09/02/22 21:15: Troponin I High Sens 6309 H* 09/02/22 21:15: APTT > 200.0 H* 09/03/22 01:04: POC Glucose 244 H 09/03/22 03:45: WBC 8.6, RBC 3.33 L, Hgb 11.5 L, Hct 34.8 L, MCV 104.5 H, MCH 34.5 H, MCHC 33.0, RDW Std Deviation 53.8 H, RDW Coeff of Fazal 14.4, Plt Count 111 L, MPV 9.7, Immature Gran % (Auto) 0.600, Neut % (Auto) 78.7 H, Lymph % (Auto) 12.4 L, [place] % (Auto) 8.0, Eos % (Auto) 0.2, Baso % (Auto) 0.1, Absolute Neuts (auto) 6.8, Absolute Lymphs (auto) 1.07, Nucleated RBC % 0 09/03/22 03:45: Sodium 138, Potassium 3.7, Chloride 111 H, Carbon Dioxide 17.0 L , Anion Gap 10, BUN 20 H, Creatinine 1.24, Estim Creat Clear Calc 44.15, Est GFR (MDRD) Af Amer 71, Est GFR (MDRD) Non-Af 59 L, BUN/Creatinine Ratio 16.1, Glucose 246 H, Calcium 8.0 L, Total Bilirubin 0.90, AST 211 H, ALT 246 H, Alkaline Phosphatase 66, Total Protein 5.9 L, Albumin 2.9 L, Globulin 3.0, Albumin/Globulin Ratio 1.0 09/03/22 03:45: Troponin I High Sens 9499 H* 09/03/22 05:50: APTT 114.8 H* 09/03/22 05:54: POC Glucose 220 H 09/03/22 12:00: POC Glucose 221 H 09/03/22 13:50: APTT 62.2 H ABG Data ABG results: ABG 09/03/22 07:50 Specimen Type ART Sample Site L Radial pH 7.45 Bicarbonate Actual 16.9 L Total CO2 18 Base Excess -7 L O2 Saturation 95 O2 % 25 ABG pCO2 24.2 L ABG pO2 70 L Vent Mode CPAP/PS POC PEEP 5 POC Pressure Suppt 5 Radiography Diagnostic Testing: Radiology Impression Chest X-Ray 09/02/22 20:32 IMPRESSION: undefined Echocardiogram 09/03/22 07:27 Interpretation Summary Normal LV size. Left ventricular systolic function is normal. The estimated ejection fraction is 55 %. Stage 1 diastolic dysfunction. Peak aortic valve gradient 50 mmHg. Mean aortic valve gradient 30 mmHg. Moderate aortic stenosis. Contrast injection was performed. Ordering Physician: Hector Cornejo Referring Physician: JEREMÍAS BAZZI Performed By: Christie Aleman RDCS Physical Exam Const Constitutional Narrative: patient alert, intubated, unable to answer question HEENT normocephalic, head/scalp atraumatic and moist oral mucous membranes Eyes PERRL and EOMs intact bilaterally Neck no lymphadenopathy, supple and no JVD Lymph Lymphatic: no lymphadenopathy noted and no lymphedema noted Resp Resp Narrative: patient intubated, off sedation. On spontaneous breathing on ventilator. Diminished breath sounds bibasally, no wheezes or crackles. Cardio regular rate, regular rhythm, S1 normal heart sound, S2 normal heart sound and no murmurs GI normal to inspection, nondistended, normoactive bowel sounds, soft to palpation and non-tender Extremity normal capillary refill, no clubbing, cyanosis or edema and no calf tenderness Skin General Skin Exam: no breakdown and turgor normal Neuro Neuro Narrative: alert, flat affect, intubated, off sedation. Able to squeeze fingers bilaterally, dorsi flex and plantar flex both feet. Motor Exam: strength 5/5 throughout Psych thought process normal and cooperative Appearance: appropriate Assessment & Plan Assessment/Plan (1) Cardiopulmonary arrest with successful resuscitation: (2) Ventricular fibrillation: (3) Non-ST elevation ID (NSTEMI): PLAN: Plan #Acute cardiopulmonary arrest due to ventricular fibrillation * successfully resuscitated via ROSC after he received epinephrine and amiodarone and was shocked * currently on heparin drip and amiodarone * intubated * cardiology and critical care on board * 2D echo showed EF of 55% with normal left ventricular systolic function and stage I diastolic dysfunction with no regional wall motion abnormalities noted. Moderate aortic stenosis visualized * #Acute hypoxic respiratory failure due to acute cardiopulmonary arrest * As above. Currently intubated. Undergoing a spontaneous breathing trial. * Breathing treatments bronchodilators. CT of the chest was negative for PE but showed bibasilar posterior lung field crackles. * Critical care on board. On broad-spectrum antibiotics-on IV Zosyn * #NSTEMI * Troponin is markedly elevated and trended upwards. * Cardiology on board. On heparin drip. * 2D echo done * On high intensity statin and aspirin * #Hyperlipidemia: On statin #Historyf of prostate cancer: stable #History of aortic valve stenosis s/p aortic valve replacement: Stable DVT prophylaxis: on heparin drip Charges/Coding Visit Charges Inpatient E&M: 19602 [facility] Hosp L3
--- NOTE | 2022-09-03 15:45 | CASEMGMT ---
Addendum entered and electronically signed by Elizabeth Noriega RN 09/03/22 16:21: DME: pt does have a bench in his shower with a hand held shower head and grab bars. Original Note: MELBA SHEPARD Discharge Planning Assessment: Pt on ventilator. Face to Face with patient's in waiting room for initial transition planning/care coordination assessment.?MELBA SHEPARD introduced self and role at [facility], pt's voices understanding, and is agreeable to participating in assessment.? Care providers, pharmacy,?and demographics verified. ? Admitting dx: cardiopulmonary arrest, pneumonia, NSTEMI PCP: Sanjay Specialists: Ángel (professor of communication arts), [facility] hematology (was Dr. Collins), [facility] Insurance: Passenger [employer], [employer] [facility] supplement Prescription Benefit:? yes LNOK: pt's Francie Living Arrangements: Pt lives with his spouse in a single story home without steps to enter. Pt was independent with all ADLs including self care and household tasks. Pt was mowing the yard on Thursday and assisting with other agronomist without difficulty. DME: none HHC/SNF: none ? Plan: TBD. Pt's currently recovering from a fx tailbone and is reliant on a walker for ambulation. Pt had been assisting her as needed. Pt's will have limited ability to assist pt. Will continue to monitor pt's medical status and assist with discharge needs as they are determined. Maria Luisa Noriega RN CM
[2022-09-03] MEDS: HEPARIN/D5w 25,000 UNITS 25,000 UNITS/250 ML IV.SOLN. 9 UNITS CONT INF (16:15)
--- NOTE | 2022-09-03 16:44 | PCM.CONS.C ---
Assessment & Plan Assessment/Plan (1) Non-ST elevation GA (NSTEMI): PLAN: This could be related to patient's cardiac arrest due to ventricular fibrillation. Patient has history of mild CAD. He denies any chest pain at this time. Agree with continuing heparin. This can be discontinued tomorrow. (2) Nonobstructive atherosclerosis of coronary artery: (3) H/O aortic valve replacement: PLAN: 2D echo done today revealed preserved EF and moderate aortic stenosis. (4) Ventricular fibrillation: PLAN: Patient was hypokalemic upon presentation. No further episodes of ventricular fibrillation. He was on amiodarone drip which we have discontinued at this time. We will continue to monitor on telemetry. EF is preserved. HPI Consult Data Date of Consult: 09/03/22 HPI Narrative Reason for Consultation: Elevated troponin, cardiac arrest HPI Narrative: NUNU MALDONADO, is a 86 M who presents after what appears to be a witnessed cardiac arrest. When EMS came to patient's bedside he was apparently in ventricular fibrillation. He was defibrillated and brought to the emergency room. He is currently intubated but awake and appears to be following commands. He denies any chest pain. His troponin went went up to over 9000. His potassium upon arrival was 3.1 and he was also acidotic. Review of systems: Cannot obtain as patient is intubated. [facility] Medical History Anemia Back pain Easy bruising Essential (primary) hypertension Excessive bleeding Hereditary hemochromatosis History of injury of tendon History of pain when walking Leg cramps Loss of hearing Macular degeneration Mild cognitive impairment Non-smoker Nonobstructive atherosclerosis of coronary artery Nonrheumatic aortic (valve) insufficiency Obesity Orthostatic hypotension Pain Paroxysmal atrial fibrillation Peripheral vestibulopathy Prostate cancer Prosthetic aortic valve stenosis Psoriasis Psoriatic arthritis Rectal bleeding Restless legs Syncope TIA (transient ischemic attack) (2007) Wears glasses Home Medications folic acid 1 mg tablet 1 mg PO SUMOTUWEFRSA Check with primary doctor 03/23/16 [History Last Taken Unknown] cholecalciferol (vitamin D3) 25 mcg (1,000 unit) capsule 25 mcg PO DAILY Check with primary doctor 03/04/21 [History Last Taken Unknown] fish, borage, flaxseed oils-omega 3,6,9 cb #1 400 mg-400 mg-400 mg cap (Triple [place] 3-6-9) 1 cap PO DAILY Check with primary doctor 03/04/21 [History Last Taken Unknown] methotrexate sodium 2.5 mg tablet 20 mg PO TH Check with primary doctor 03/04/21 [History Last Taken Unknown] multivitamin (Multiple Vitamins tablet) 1 tab PO DAILY Check with primary doctor 04/21/22 [History Last Taken Unknown] cetirizine 10 mg tablet 10 mg PO DAILY Check with primary doctor 09/02/22 [History Last Taken Unknown] Allergy/AdvReac Type Severity Reaction Status Date / Time apremilast [From Otezla] AdvReac Pain in Verified 09/02/22 14:23 joints azithromycin [From Zithromax] AdvReac Other Verified 09/02/22 14:23 doxycycline AdvReac Other Verified 09/02/22 14:23 erythromycin base AdvReac Other Verified 09/02/22 14:23 gabapentin AdvReac Pain in Verified 09/02/22 14:23 joints guaifenesin [From Entex T] AdvReac Rash Verified 09/02/22 14:23 pseudoephedrine AdvReac Rash Verified 09/02/22 14:23 [From Entex T] tramadol AdvReac Pain in Verified 09/02/22 14:23 joints Family History Brother Heart disease AFIB Brother Myocardial infarction Other Cerebral aneurysm Surgical History H/O aortic valve replacement (06/30/12) History of arthroplasty of left shoulder History of bilateral carpal tunnel release History of left heart catheterization (06/18/12) History of nasal septoplasty History of repair of rotator cuff History of shoulder surgery History of total bilateral knee replacement History of total right hip replacement Hx of colonoscopy Hx of left cataract extraction Hx of right cataract extraction Hx of shoulder replacement Hx of total hip arthroplasty S/p reverse total shoulder arthroplasty Social History Smoking Status: Never smoker Electronic Cigarette Use: not used second hand exposure: No alcohol intake: never substance use type: does not use shanika/tenriism: Rastafarian seatbelt use: sometimes Physical Exam Const Constitutional Narrative: Intubated but appears to be following commands. HEENT normocephalic Cardio regular rate Risk Stratification Risk Stratification Applicable: No Charges/Coding Visit Charges Inpatient E&M: 13934 Init Hosp L2 Objective Data Vital Signs: Vital Signs Temp Pulse Resp BP Pulse Ox O2 Del Method FiO2 100.2 F H 91 14 114/55 L 97 Mechanical Ventilator 25 09/03/22 16:00 09/03/22 16:00 09/03/22 16:00 09/03/22 16:00 09/03/22 16:00 09/03/22 16:00 09/03/22 16:00 Oxygen Delivery Method Mechanical Ventilator Weight: 219 lb 9.286 oz Body Mass Index (BMI) 31.5 Intake & Output: Intake and Output for Last 24 Hours 09/01/22 09/02/22 09/03/22 23:59 23:59 23:59 Intake Total 1106.71 / 1116.21 2427.23 / 2427.23 Output Total 2575 / 2575 510 / 510 Balance -1468.29 / -1458.79 1917.23 / 1917.23 Lab / Micro Data Result Diagrams: 09/03/22 03:45 09/03/22 03:45 Labs: Laboratory Results - last 24 hr 09/02/22 11:50: Total Creatine Kinase 330 H, Triglycerides 94 09/02/22 14:55: Troponin I High Sens 4359 H* 09/02/22 16:36: Lactic Acid 4.7 H* 09/02/22 18:26: POC Glucose 232 H 09/02/22 21:15: Troponin I High Sens 6309 H* 09/02/22 21:15: APTT > 200.0 H* 09/03/22 01:04: POC Glucose 244 H 09/03/22 03:45: WBC 8.6, RBC 3.33 L, Hgb 11.5 L, Hct 34.8 L, MCV 104.5 H, MCH 34.5 H, MCHC 33.0, RDW Std Deviation 53.8 H, RDW Coeff of Fazal 14.4, Plt Count 111 L, MPV 9.7, Immature Gran % (Auto) 0.600, Neut % (Auto) 78.7 H, Lymph % (Auto) 12.4 L, [place] % (Auto) 8.0, Eos % (Auto) 0.2, Baso % (Auto) 0.1, Absolute Neuts (auto) 6.8, Absolute Lymphs (auto) 1.07, Nucleated RBC % 0 09/03/22 03:45: Sodium 138, Potassium 3.7, Chloride 111 H, Carbon Dioxide 17.0 L, Anion Gap 10, BUN 20 H, Creatinine 1.24, Estim Creat Clear Calc 44.15, Est GFR (MDRD) Af Amer 71, Est GFR (MDRD) Non-Af 59 L, BUN/Creatinine Ratio 16.1, Glucose 246 H, Calcium 8.0 L, Total Bilirubin 0.90, AST 211 H, ALT 246 H, Alkaline Phosphatase 66, Total Protein 5.9 L, Albumin 2.9 L, Globulin 3.0, Albumin/Globulin Ratio 1.0 09/03/22 03:45: Troponin I High Sens 9499 H* 09/03/22 05:50: APTT 114.8 H* 09/03/22 05:54: POC Glucose 220 H 09/03/22 12:00: POC Glucose 221 H 09/03/22 13:50: APTT 62.2 H Micro: Microbiology 09/02/22 16:55 Sputum, Induced/Lukens Gram Stain - Final ABG Data ABG results: ABG 09/03/22 07:50 Specimen Type ART Sample Site L Radial pH 7.45 Bicarbonate Actual 16.9 L Total CO2 18 Base Excess -7 L O2 Saturation 95 O2 % 25 ABG pCO2 24.2 L ABG pO2 70 L Vent Mode CPAP/PS POC PEEP 5 POC Pressure Suppt 5 Cardiology Labs/Tests 09/02/22 11:50: Triglycerides 94 09/02/22 16:36: Lactic Acid 4.7 H* 09/02/22 21:15: APTT > 200.0 H* 09/03/22 03:45: WBC 8.6, RBC 3.33 L, Hgb 11.5 L, Hct 34.8 L, MCV 104.5 H, MCH 34.5 H, MCHC 33.0, Plt Count 111 L, MPV 9.7, Immature Gran % (Auto) 0.600, Neut % (Auto) 78.7 H, Lymph % (Auto) 12.4 L, [place] % (Auto) 8.0, Eos % (Auto) 0.2, Baso % (Auto) 0.1, Absolute Neuts (auto) 6.8, Nucleated RBC % 0 09/03/22 03:45: Sodium 138, Potassium 3.7, Chloride 111 H, Carbon Dioxide 17.0 L, Anion Gap 10, BUN 20 H, Creatinine 1.24, Est GFR (MDRD) Af Amer 71, Est GFR (MDRD) Non-Af 59 L, BUN/Creatinine Ratio 16.1, Glucose 246 H, Calcium 8.0 L, Total Bilirubin 0.90 09/03/22 05:50: APTT 114.8 H* 09/03/22 07:50: pH 7.45, Bicarbonate Actual 16.9 L, Base Excess -7 L, O2 Saturation 95, ABG pCO2 24.2 L, ABG pO2 70 L 09/03/22 13:50: APTT 62.2 H Rhythm: EKG: ECHO: Stress Test: Cardiac Cath: PCI: CT Surgery: Holter monitor: EPS: PPM: CXR: Chest CT Scan: Radiography Diagnostic Testing: Radiology Impression Chest X-Ray 09/02/22 20:32 IMPRESSION: undefined Echocardiogram 09/03/22 07:27 Interpretation Summary Normal LV size. Left ventricular systolic function is normal. The estimated ejection fraction is 55 %. Stage 1 diastolic dysfunction. Peak aortic valve gradient 50 mmHg. Mean aortic valve gradient 30 mmHg. Moderate aortic stenosis. Contrast injection was performed. Ordering Physician: Hector Cornejo Referring Physician: JEREMÍAS BAZZI Performed By: Christie Aleman RDCS
[2022-09-03 17:36] LABS: Bedside Glucose 218 mg/dL (74-106)
[2022-09-03] MEDS: Propofol 10MG/Ml 1,000 MG/100 ML Bottle 6.3 MG CONT INF (18:30)
[2022-09-03] MEDS: Atorvastatin Calcium 40 MG Tablet PO (19:40)
[2022-09-03 20:10] LABS: Partial Thromboplast Time 75.4 Seconds (24.1-36.2)
[2022-09-04] VITALS (34 sets, daily range): BP systolic 97–154; BP diastolic 55–86; PULSE 68–89; RESP 11–97; TEMP 37.3–37.8; O2SAT 20–100; BMI 32.3
[2022-09-04] MEDS: Insulin Lispro 100 UNIT/ML INSULN.PEN SC ×4 (00:22→23:43)
[2022-09-04 00:33] LABS: Bedside Glucose 182 mg/dL (74-106)
[2022-09-04] MEDS: fentaNYL drip 100 ML 5 MCG CONT INF (01:44)
[2022-09-04] MEDS: Propofol 10MG/Ml 1,000 MG/100 ML Bottle 12.6 MG CONT INF (02:45)
[2022-09-04 03:18] LABS: Absolute Lymphocyte Count 1.18 X10^3/uL (0.83-4.51); Basophil# 0.02 X10^3/uL; Basophil% 0.2 % (0-1); Eosinophil# 0.11 X10^3/uL; Eosinophils% 1.3 % (0-5); Hematocrit 32.2 % (40-54); Hemoglobin 10.4 g/dL (13.0-16.5); Lymphocyte # 1.18 X10^3/ul (0.83-4.51); Lymphocyte % 14.5 % (19-41); Mean Corp Hgb Conc 32.3 g/dL (32-36); Mean Corpuscular Hgb 34.7 pg (27.0-32.0); Mean Corpuscular Volume 107.3 fL (80-94); Mean Platelet Vol. 9.7 fl (6.2-12.0); Monocyte# 0.78 X10^3/uL; Monocyte% 9.6 % (0-10); NRBC Flagged by Analyzer 0 % (0-5); Neutrophil # 6.02 X10^3/uL (2.7-7.7); Neutrophil % 73.9 % (47-70); POSITIVE COUNT YES; Platelet Count 90 K/mm3 (150-450); RBC Distribution Width CV 14.8 % (11.6-14.6); RBC Distribution Width SD 57.4 fl (35.1-43.9); White Blood Count 8.2 K/mm3 (4.4-11.0)
[2022-09-04 03:24] LABS: Differential Indicated SCAN CRITERIA MET
[2022-09-04 03:26] LABS: Partial Thromboplast Time 74.8 Seconds (24.1-36.2)
[2022-09-04 03:38] LABS: Anisocytosis 1+; Macrocytosis 2+
[2022-09-04 03:39] LABS: Platelet Estimate MOD DEC (ADEQ)
[2022-09-04 03:51] LABS: Anion Gap 6 (5-15); BUN 15 mg/dL (7-18); BUN/Creat Ratio 15.7 RATIO (10-20); Chloride 114 mmol/L (98-107); Creatinine, Serum 0.96 mg/dL (0.70-1.30); EST Glomerular Filtration Rate 79 mL/min (>60); Est Glom Filt Rate - Afr Amer 96 mL/min (>60); Estimated Creatinine Clearance 57.03 ml/min; Glucose 179 mg/dL (74-106); Potassium 3.4 mmol/L (3.5-5.1); Sodium Level 140 mmol/L (136-145)
[2022-09-04] MEDS: Ipratropium/Albuterol Sulfate 3 ML AMPUL.NEB INHALATION ×6 (04:02→22:06)
[2022-09-04] MEDS: Vital AF 1.2 Cal Liquid 1,000 ML 45 ML GT (05:36)
[2022-09-04] MEDS: KCl 20MEQ in D5NS 20 MEQ/1,000 ML IV.SOLN. 75 MEQ IV ×2 (05:37→17:48)
[2022-09-04] MEDS: 0.9% Saline Lock 10 ML Syringe IV (05:40)
--- NOTE | 2022-09-04 07:01 | PCM.PN.INT ---
Assessment & Plan Assessment/Plan (1) Acute respiratory failure: PLAN: Plan RECOMMENDATIONS: 1. Proceed with a trial of extubation this morning. 2. Once extubated, wean supplemental oxygen to maintain saturations at or above 90%. 3. Bedside swallow evaluation with dietary advancement as tolerated. 4. Potassium repletion as ordered. 5. Continue empiric antimicrobials. 6. Encourage incentive spirometer use and mobilize patient as tolerated. IMPRESSIONS: 1. Acute hypoxemic respiratory failure following cardiac arrest The patient presented as a out of hospital V-fib cardiac arrest and was intubated in the emergency department. ROSC was ultimately achieved. The patient does have what appears to be some infiltrates in the bibasilar posterior lung draper. Therefore, antimicrobials were initiated. Sputum culture is pending. The patient has improved significantly from a respiratory perspective and was able to be extubated on September 04. We will plan to wean supplemental oxygen at this time to maintain saturations at or above 90%. Bedside swallow evaluation will be completed with dietary advancement accordingly. 2. History of coronary artery disease and valvular heart disease status postcardiac arrest Cardiology is following to assist with medical management. 3. Advanced age/hypertension/hyperlipidemia/history of prostate CA Complicates care, management, recovery and prognosis. Continue supportive measures as noted above. TIME: 31 minutes of critical care time, independent of procedures, was spent addressing the patient's acute hypoxemic respiratory failure status post V-fib cardiac arrest, review of all data and collaboration with the care team. Subjective Subjective The patient was seen and examined at the bedside this morning. Events from the last 24 hours have been reviewed. The patient is currently afebrile, hemodynamically stable and maintaining appropriate oxygen saturations on spontaneous mode mechanical ventilation with an FiO2 requirement of 25%. The patient has done well overnight. The patient is now alert and following commands. He has done well this morning on a breathing trial. The patient is documented to be overall net +1.3 L for the hospitalization. Potassium is low at 3.4. Objective Data Objective Data The patient's most recent lab work, culture data and imaging studies have all been personally reviewed. Surface echocardiogram from December 2021 demonstrated normal LV size and function with an ejection fraction of 60%. Mild aortic stenosis was noted. Blood and sputum cultures are pending. Vital Signs: Vital Signs Temp Pulse Resp BP Pulse Ox O2 Del Method O2 Flow Rate 99.2 F H 78 14 141/78 H 96 Mechanical Ventilator 25 09/04/22 06:00 09/04/22 05:00 09/04/22 06:00 09/04/22 06:00 09/04/22 06:00 09/04/22 06:00 09/03/22 20:00 FiO2 25 09/04/22 06:00 Oxygen Flow Rate (L/min) 25 Oxygen Delivery Method Mechanical Ventilator Weight: 225 lb 8.526 oz Body Mass Index (BMI) 32.3 Intake & Output: Intake and Output for Last 24 Hours 09/02/22 09/03/22 09/04/22 23:59 23:59 23:59 Intake Total 1106.71 / 1116.21 2763.51 / 3048.86 1718.04 / 1718.04 Output Total 2575 / 2575 960 / 975 710 / 710 Balance -1468.29 / -1458.79 1803.51 / 2073.86 1008.04 / 1008.04 Lab / Micro Data Attestation: I reviewed the patient's lab results. Result Diagrams: 09/04/22 03:00 09/04/22 03:00 Labs: Laboratory Results - last 24 hr 09/03/22 12:00: POC Glucose 221 H 09/03/22 13:50: APTT 62.2 H 09/03/22 17:15: POC Glucose 218 H 09/03/22 19:50: APTT 75.4 H 09/04/22 00:16: POC Glucose 182 H 09/04/22 03:00: APTT 74.8 H 09/04/22 03:00: Sodium 140, Potassium 3.4 L, Chloride 114 H, Carbon Dioxide 20.0 L, Anion Gap 6, BUN 15, Creatinine 0.96, Estim Creat Clear Calc 57.03, Est GFR (MDRD) Af Amer 96, Est GFR (MDRD) Non-Af 79, BUN/Creatinine Ratio 15.7, Glucose 179 H, Calcium 8.0 L 09/04/22 03:00: WBC 8.2, RBC 3.00 L, Hgb 10.4 L, Hct 32.2 L, MCV 107.3 H, MCH 34.7 H, MCHC 32.3, RDW Std Deviation 57.4 H, RDW Coeff of Fazal 14.8 H, Plt Count 90 L, MPV 9.7, Immature Gran % (Auto) 0.500, Neut % (Auto) 73.9 H, Lymph % (Auto) 14.5 L, [place] % (Auto) 9.6, Eos % (Auto) 1.3, Baso % (Auto) 0.2, Absolute Neuts (auto) 6.0, Absolute Lymphs (auto) 1.18, Nucleated RBC % 0, Platelet Estimate MOD DEC, Anisocytosis 1+, Macrocytosis 2+ Micro: Microbiology 09/02/22 16:55 Sputum, Induced/Lukens Gram Stain - Final ABG Data ABG results: ABG 09/03/22 07:50 Specimen Type ART Sample Site L Radial pH 7.45 Bicarbonate Actual 16.9 L Total CO2 18 Base Excess -7 L O2 Saturation 95 O2 % 25 ABG pCO2 24.2 L ABG pO2 70 L Vent Mode CPAP/PS POC PEEP 5 POC Pressure Suppt 5 Radiography Diagnostic Testing: Radiology Impression Echocardiogram 09/03/22 07:27 Interpretation Summary Normal LV size. Left ventricular systolic function is normal. The estimated ejection fraction is 55 %. Stage 1 diastolic dysfunction. Peak aortic valve gradient 50 mmHg. Mean aortic valve gradient 30 mmHg. Moderate aortic stenosis. Contrast injection was performed. Ordering Physician: Hector Cornejo Referring Physician: JEREMÍAS BAZZI Performed By: Christie Aleman RDCS Physical Exam Const Constitutional Narrative: Intubated and mechanically ventilated. Tolerating spontaneous mode mechanical ventilation. HEENT normocephalic and head/scalp atraumatic Mouth: endotracheal tube in place Eyes PERRL and conjunctivae normal Neck supple General: trachea midline and CVC in place Chest inspection of chest normal Resp normal respiratory effort Auscultation: Negative for rales, rhonchi or wheezes Cardio regular rate and regular rhythm Cardio Narrative: Frequent ectopy GI normal to inspection, nondistended, normoactive bowel sounds Extremity Extremity Narrative: Trace lower extremity edema General Extremity: Negative for clubbing Skin General Skin Exam: venous stasis and dermatitis Neuro Neuro Narrative: Alert and able to follow simple commands appropriately. Charges/Coding Procedures Hospitalists Procedures: 44494 Critial Care 1st Hr
[2022-09-04] MEDS: Potassium Chloride 10mEq/100mL 10 MEQ/100 ML IV.SOLN. 100 MEQ IV BOLUS ×4 (07:54→10:53)
[2022-09-04] MEDS: Insulin Glargine-YFGN 100 UNIT/ML Pen 12 UNIT SC (09:39)
[2022-09-04 10:00] LABS: Bedside Glucose 177 mg/dL (74-106)
[2022-09-04 11:28] LABS: Bedside Glucose 170 mg/dL (74-106)
--- NOTE | 2022-09-04 14:42 | CHAPLAIN ---
Type of Pastoral Visit ___ Initial Visit _x__ Follow-up Visit ___ On-call Visit ___ General Patient Visit ___ Spiritual Assessment ___ Family Conference ___ Bereavement ___ Rapid Response ___ Code Blue ___ Other (describe below) Pastoral Care Referral From ___ Patient _x__ Family ___ Nurse ___ Physician ___ Screen Printing Press Operator ___ Psychiatric Nurse ___ Other (describe below) Sacrament/Intervention ___ Active listening ___ Anointing ___ Orthodox ___ Bereavement ___ Communion ___ Jessica exploration ___ ___ Life review _x__ Prayer ___ Reconciliation ___ Sacrament of Sick _x__ Supportive presence ___ Wedding ___ Other (describe below) Pastoral Comments patient is alert but receiving a breathing treatment and unable to talk; pt does indicate understanding and nod head; pt welcomes prayer and presence for support
--- NOTE | 2022-09-04 16:05 | PN_ITS ---
Subjective Subjective Patient seen and examined. He was extubated this morning. He feels better. was by his bedside. He is having some difficulty with swallowing likely because he was intubated. Speech therapy consulted. He has remained hemodynamically stable. He was on 2 L of oxygen at time of review was subsequently weaned down to room air. Objective Data Objective Data Vital Signs: Vital Signs Temp Pulse Resp BP Pulse Ox O2 Del Method O2 Flow Rate 100.1 F H 80 18 132/59 H 94 Room Air 3 09/04/22 16:00 09/04/22 16:00 09/04/22 16:00 09/04/22 16:00 09/04/22 16:00 09/04/22 16:00 09/04/22 15:44 FiO2 25 09/04/22 06:00 Oxygen Flow Rate (L/min) 3 Oxygen Delivery Method Room Air Weight: 225 lb 8.526 oz Body Mass Index (BMI) 32.3 Intake & Output: Intake and Output for Last 24 Hours 09/02/22 09/03/22 09/04/22 23:59 23:59 23:59 Intake Total 1106.71 / 1116.21 2763.51 / 3048.86 2161.37 / 2161.37 Output Total 2575 / 2575 960 / 975 960 / 960 Balance -1468.29 / -1458.79 1803.51 / 2073.86 1201.37 / 1201.37 Lab / Micro Data Result Diagrams: 09/04/22 03:00 09/04/22 03:00 Labs: Laboratory Results - last 24 hr 09/03/22 17:15: POC Glucose 218 H 09/03/22 19:50: APTT 75.4 H 09/04/22 00:16: POC Glucose 182 H 09/04/22 03:00: APTT 74.8 H 09/04/22 03:00: Sodium 140, Potassium 3.4 L, Chloride 114 H, Carbon Dioxide 20.0 L, Anion Gap 6, BUN 15, Creatinine 0.96, Estim Creat Clear Calc 57.03, Est GFR (MDRD) Af Amer 96, Est GFR (MDRD) Non-Af 79, BUN/Creatinine Ratio 15.7, Glucose 179 H, Calcium 8.0 L 09/04/22 03:00: WBC 8.2, RBC 3.00 L, Hgb 10.4 L, Hct 32.2 L, MCV 107.3 H, MCH 34.7 H, MCHC 32.3, RDW Std Deviation 57.4 H, RDW Coeff of Fazal 14.8 H, Plt Count 90 L, MPV 9.7, Immature Gran % (Auto) 0.500, Neut % (Auto) 73.9 H, Lymph % (Auto) 14.5 L, [place] % (Auto) 9.6, Eos % (Auto) 1.3, Baso % (Auto) 0.2, Absolute Neuts (auto) 6.0, Absolute Lymphs (auto) 1.18, Nucleated RBC % 0, Platelet Estimate MOD DEC, Anisocytosis 1+, Macrocytosis 2+ 09/04/22 09:39: POC Glucose 177 H 09/04/22 11:10: POC Glucose 170 H Micro: Microbiology 09/02/22 16:55 Sputum, Induced/Lukens Gram Stain - Final 09/02/22 16:55 Sputum, Induced/Lukens Respiratory Culture - Preliminary Appears to be normal respiratory ann. Further studies to follow. 09/02/22 13:54 Blood Culture (Wb) - Anticubital Right Blood Culture - Preliminary No growth in 48 hours. 09/02/22 13:50 Blood Culture (Wb) - Anticubital Right Blood Culture - Preliminary No growth in 48 hours. Physical Exam Const alert, oriented x3 and no apparent distress Orientation / Consciousness: lethargic HEENT normocephalic, head/scalp atraumatic and moist oral mucous membranes Eyes PERRL and EOMs intact bilaterally Neck no lymphadenopathy, supple and no JVD Lymph Lymphatic: no lymphadenopathy noted and no lymphedema noted Resp Resp Narrative: patient extubated, on room air. now Cardio regular rate, regular rhythm, S1 normal heart sound, S2 normal heart sound and no murmurs GI normal to inspection, nondistended, normoactive bowel sounds, soft to palpation and non-tender Extremity normal capillary refill, no clubbing, cyanosis or edema and no calf tenderness Skin General Skin Exam: no breakdown and turgor normal Neuro CN's II-XII intact bilaterally and no focal motor deficits Motor Exam: strength 5/5 throughout Psych thought process normal and cooperative Appearance: appropriate Mood & Affect: flat affect Assessment & Plan Assessment/Plan (1) Cardiopulmonary arrest with successful resuscitation: (2) Ventricular fibrillation: (3) Non-ST elevation GA (NSTEMI): PLAN: Plan #Acute cardiopulmonary arrest due to ventricular fibrillation * successfully resuscitated via ROSC after he received epinephrine and amiodarone and was shocked * currently on heparin drip and amiodarone * Was extubated this morning. * cardiology and critical care on board * 2D echo showed EF of 55% with normal left ventricular systolic function and stage I diastolic dysfunction with no regional wall motion abnormalities noted. Moderate aortic stenosis visualized * #Acute hypoxic respiratory failure due to acute cardiopulmonary arrest * Was successfully extubated this morning * Breathing treatments bronchodilators. CT of the chest was negative for PE but showed bibasilar posterior lung field crackles. * Critical care on board. On broad-spectrum antibiotics-on IV Zosyn * #Hypokalemia: Potassium is 3.4. Will replace and trend. #NSTEMI * Troponin is markedly elevated and trended upwards. * Cardiology on board. On heparin drip. * 2D echo done and results as above. * On high intensity statin and aspirin * Further management as per cardiology. #Hyperlipidemia: On statin #History of prostate cancer: stable #History of aortic valve stenosis s/p aortic valve replacement: Stable DVT prophylaxis: on heparin drip Charges/Coding Visit Charges Inpatient E&M: 90547 Subs Hosp L2
--- NOTE | 2022-09-04 16:15 | CASEMGMT ---
Discharge Planning SNF list created and given to SW. Sydnie Pan, Discharge Planning Asst.
[2022-09-04 17:16] LABS: Bedside Glucose 155 mg/dL (74-106)
[2022-09-04] MEDS: HEPARIN/D5w 25,000 UNITS 25,000 UNITS/250 ML IV.SOLN. 9 UNITS CONT INF (17:44)
--- NOTE | 2022-09-04 17:49 | PCM.PN.CARD ---
Subjective Subjective Patient is extubated. Responds appropriately to questions. Denies any chest pain. Objective Data Vital Signs: Vital Signs Temp Pulse Resp BP Pulse Ox O2 Del Method O2 Flow Rate 100.1 F H 84 18 138/72 H 91 Room Air 3 09/04/22 16:00 09/04/22 17:00 09/04/22 17:00 09/04/22 17:00 09/04/22 17:00 09/04/22 17:00 09/04/22 15:44 FiO2 25 09/04/22 06:00 Oxygen Flow Rate (L/min) 3 Oxygen Delivery Method Room Air Weight: 225 lb 8.526 oz Body Mass Index (BMI) 32.3 Intake & Output: Intake and Output for Last 24 Hours 09/02/22 09/03/22 09/04/22 23:59 23:59 23:59 Intake Total 1106.71 / 1116.21 2763.51 / 3048.86 3354.47 / 3354.47 Output Total 2575 / 2575 960 / 975 1660 / 1660 Balance -1468.29 / -1458.79 1803.51 / 2073.86 1694.47 / 1694.47 Lab / Micro Data Result Diagrams: 09/04/22 03:00 09/04/22 03:00 Labs: Laboratory Results - last 24 hr 09/03/22 19:50: APTT 75.4 H 09/04/22 00:16: POC Glucose 182 H 09/04/22 03:00: APTT 74.8 H 09/04/22 03:00: Sodium 140, Potassium 3.4 L, Chloride 114 H, Carbon Dioxide 20.0 L, Anion Gap 6, BUN 15, Creatinine 0.96, Estim Creat Clear Calc 57.03, Est GFR (MDRD) Af Amer 96, Est GFR (MDRD) Non-Af 79, BUN/Creatinine Ratio 15.7, Glucose 179 H, Calcium 8.0 L 09/04/22 03:00: WBC 8.2, RBC 3.00 L, Hgb 10.4 L, Hct 32.2 L, MCV 107.3 H, MCH 34.7 H, MCHC 32.3, RDW Std Deviation 57.4 H, RDW Coeff of Fazal 14.8 H, Plt Count 90 L, MPV 9.7, Immature Gran % (Auto) 0.500, Neut % (Auto) 73.9 H, Lymph % (Auto) 14.5 L, [place] % (Auto) 9.6, Eos % (Auto) 1.3, Baso % (Auto) 0.2, Absolute Neuts (auto) 6.0, Absolute Lymphs (auto) 1.18, Nucleated RBC % 0, Platelet Estimate MOD DEC, Anisocytosis 1+, Macrocytosis 2+ 09/04/22 09:39: POC Glucose 177 H 09/04/22 11:10: POC Glucose 170 H 09/04/22 16:54: POC Glucose 155 H Micro: Microbiology 09/02/22 16:55 Sputum, Induced/Lukens Gram Stain - Final 09/02/22 16:55 Sputum, Induced/Lukens Respiratory Culture - Preliminary Appears to be normal respiratory ann. Further studies to follow. 09/02/22 13:54 Blood Culture (Wb) - Anticubital Right Blood Culture - Preliminary No growth in 48 hours. 09/02/22 13:50 Blood Culture (Wb) - Anticubital Right Blood Culture - Preliminary No growth in 48 hours. Cardiology Labs/Tests 09/03/22 19:50: APTT 75.4 H 09/04/22 03:00: APTT 74.8 H 09/04/22 03:00: Sodium 140, Potassium 3.4 L, Chloride 114 H, Carbon Dioxide 20.0 L, Anion Gap 6, BUN 15, Creatinine 0.96, Est GFR (MDRD) Af Amer 96, Est GFR (MDRD) Non-Af 79, BUN/Creatinine Ratio 15.7, Glucose 179 H, Calcium 8.0 L 09/04/22 03:00: WBC 8.2, RBC 3.00 L, Hgb 10.4 L, Hct 32.2 L, MCV 107.3 H, MCH 34.7 H, MCHC 32.3, Plt Count 90 L, MPV 9.7, Immature Gran % (Auto) 0.500, Neut % (Auto) 73.9 H, Lymph % (Auto) 14.5 L, [place] % (Auto) 9.6, Eos % (Auto) 1.3, Baso % (Auto) 0.2, Absolute Neuts (auto) 6.0, Nucleated RBC % 0 Rhythm: EKG: ECHO: Stress Test: Cardiac Cath: PCI: CT Surgery: Holter monitor: EPS: PPM: CXR: Chest CT Scan: Physical Exam HEENT normocephalic Eyes no scleral icterus Resp normal respiratory effort Assessment & Plan Assessment/Plan (1) Non-ST elevation [place] (NSTEMI): PLAN: This could be related to patient's cardiac arrest due to ventricular fibrillation. Patient has history of mild CAD. He denies any chest pain at this time. We could consider a Lexiscan stress test prior to discharge or just continue medical management with aspirin and statin. Further recommendations will be based on patient's hospital course. (2) Nonobstructive atherosclerosis of coronary artery: (3) H/O aortic valve replacement: PLAN: 2D echo done today revealed preserved EF and moderate aortic stenosis. (4) Ventricular fibrillation: PLAN: Patient was hypokalemic upon presentation. No further episodes of ventricular fibrillation. He was on amiodarone drip which we have discontinued at this time. We will continue to monitor on telemetry. EF is preserved. Charges/Coding Visit Charges Inpatient E&M: 58762 Subs Hosp L2
[2022-09-05] VITALS (27 sets, daily range): BP systolic 103–153; BP diastolic 47–99; PULSE 77–93; RESP 15–27; TEMP 36.6–38; O2SAT 89–98; BMI 32.0
[2022-09-05 00:03] LABS: Bedside Glucose 160 mg/dL (74-106)
[2022-09-05 04:12] LABS: Absolute Lymphocyte Count 1.07 X10^3/uL (0.83-4.51); Absolute Neutrophil Count 7.1 X10^3/uL (2.0-7.7); Basophil# 0.03 X10^3/uL; Basophil% 0.3 % (0-1); Eosinophil# 0.11 X10^3/uL; Eosinophils% 1.2 % (0-5); Hematocrit 30.1 % (40-54); Hemoglobin 10.4 g/dL (13.0-16.5); Lymphocyte # 1.07 X10^3/ul (0.83-4.51); Lymphocyte % 11.4 % (19-41); Mean Corp Hgb Conc 34.6 g/dL (32-36); Mean Corpuscular Volume 101.3 fL (80-94); Mean Platelet Vol. 9.6 fl (6.2-12.0); Monocyte# 1.03 X10^3/uL; NRBC Flagged by Analyzer 0 % (0-5); Neutrophil # 7.08 X10^3/uL (2.7-7.7); Neutrophil % 75.4 % (47-70); Platelet Count 102 K/mm3 (150-450); RBC Distribution Width CV 14.4 % (11.6-14.6); RBC Distribution Width SD 51.9 fl (35.1-43.9); Red Blood Count 2.97 M/mm3 (4.6-6.2); White Blood Count 9.4 K/mm3 (4.4-11.0)
[2022-09-05 04:31] LABS: Anion Gap 6 (5-15); BUN 9 mg/dL (7-18); BUN/Creat Ratio 11.2 RATIO (10-20); Calcium,Total 8.6 mg/dL (8.5-10.1); Chloride 111 mmol/L (98-107); EST Glomerular Filtration Rate 97 mL/min (>60); Est Glom Filt Rate - Afr Amer 117 mL/min (>60); Estimated Creatinine Clearance 68.44 ml/min; Glucose 144 mg/dL (74-106); Potassium 3.9 mmol/L (3.5-5.1); Sodium Level 139 mmol/L (136-145)
[2022-09-05 04:32] LABS: Partial Thromboplast Time 52.4 Seconds (24.1-36.2)
[2022-09-05] MEDS: Heparin Injection (Vial) 5,000 UNIT/ML VIAL IV (05:01)
[2022-09-05] MEDS: KCl 20MEQ in D5NS 20 MEQ/1,000 ML IV.SOLN. 75 MEQ IV ×2 (05:02→20:16)
[2022-09-05 05:35] LABS: Bedside Glucose 129 mg/dL (74-106)
[2022-09-05] MEDS: Ipratropium/Albuterol Sulfate 3 ML AMPUL.NEB INHALATION ×5 (06:50→23:04)
--- NOTE | 2022-09-05 09:35 | PCM.PN.INT ---
Assessment & Plan Assessment/Plan (1) Acute respiratory failure: PLAN: Patient extubated uneventfully on 09/04/2022, is now on room air with no new respiratory issues. PLAN: Plan RECOMMENDATIONS: 1. Monitor respiratory status, mobilize, recheck portable chest x-ray today for follow-up on his previous bibasilar atelectasis. 2. Bedside swallow evaluation today, with dietary advancement as tolerated, then decrease maintenance IV when he is able to take adequately p.o. 3. Continue to monitor fluids and electrolytes. 4. Continue empiric antimicrobials, cultures are negative to date. 5. Patient is unable to perform incentive spirometer use due to confusion, would use normal stimulation and attempts at conversation for bronchopulmonary hygiene, and mobilize patient as tolerated. Due to impulsiveness and confusion this will likely be limited to dangle at bedside as he is unsafe moving to a chair. Discussed with physical therapy on interdisciplinary rounds. 6. Continue IV heparin for now, further cardiac work-up and management per cardiology. IMPRESSIONS: 1. Acute hypoxemic respiratory failure following cardiac arrest The patient presented as a out of hospital witnessed V-fib cardiac arrest and was intubated in the emergency department. ROSC was ultimately achieved on route with EMS after 3 shocks and multiple rounds of epi, amiodarone IV. The patient does have what appears to be some infiltrates in the bibasilar posterior lung draper on CT, possibly some chronic pulmonary fibrotic changes. Therefore, antimicrobials were empirically initiated. Sputum culture is negative to date. The patient has improved significantly is now on room air after he was extubated on September 04. Maintain saturations at or above 90%. Bedside swallow evaluation will be completed with dietary advancement accordingly. 2. History of coronary artery disease and valvular heart disease status postcardiac arrest Cardiology is following to assist with medical management. Troponin peaked at over 9000. 3. Acute postarrest metabolic encephalopathy Patient is gradually improving. Likely due to hypertensive/ischemic. In the setting of cardiac arrest. He will need further assessment of placement options, this was discussed on interdisciplinary rounds with his adult daughter today who lives in [place]. There is another daughter who lives locally. No further imaging is needed at this time. Supportive care, maintenance of excellent oxygenation, and management of electrolytes are main course of therapy currently. 4. Advanced age/hypertension/hyperlipidemia/history of prostate CA Complicates care, management, recovery and prognosis. Continue supportive measures as noted above. - He will likely need placement when he is ready for hospital discharge. TIME: 40 minutes of critical care time, independent of procedures, was spent addressing the patient's acute and chronic medical issues status post V-fib cardiac arrest, review of data and interdisciplinary communication/rounds with the family and care team. Subjective Subjective Patient remains confused, knows his name knows he is in the hospital, but is hallucinating and reaching above his bed picking at the air. Confabulating, semiarticulate speech, more so when he focuses. No complaint of pain, headache, dyspnea, abdominal discomfort. Objective Data Objective Data The patient was seen and examined at the bedside this morning. Events from the last 24 hours have been reviewed. The patient's most recent labs microbiology and imaging have all been personally reviewed. The case was discussed on ICU interdisciplinary rounds. Overnight: Stable vitals, respiratory, physical status. Improving confusion, nonfocal. He needs 2 person assist, needs close observation because he is impetuous and is a fall risk. Remains in ICU mainly for that reason. Pertinent events include: Extubated uneventfully yesterday. Saturation is 92% on room air. No further cardiac arrhythmias since hospitalization. Vital Signs: Vital Signs Temp Pulse Resp BP Pulse Ox O2 Del Method O2 Flow Rate 99.1 F 77 20 H 103/83 H 92 Room Air 3 09/05/22 08:00 09/05/22 08:00 09/05/22 08:00 09/05/22 08:00 09/05/22 08:00 09/05/22 08:00 09/04/22 15:44 FiO2 25 09/04/22 06:00 Oxygen Flow Rate (L/min) 3 Oxygen Delivery Method Room Air (oxygen was discontinued). Weight: 223 lb 8.78 oz Body Mass Index (BMI) 32.0 Current medications include DuoNeb, aspirin, atorvastatin 40 mg at bedtime, heparin at 1000 units an hour, 40 of potassium, insulin glargine 12 units daily, Zosyn. Maintenance IV fluids D5 normal saline at 75 cc/h. Intake & Output: Intake and Output for Last 24 Hours 09/03/22 09/04/22 09/05/22 23:59 23:59 23:59 Intake Total 2763.51 / 3048.86 3354.47 / 3354.47 1044.65 / 1044.65 Output Total 960 / 975 2860 / 2860 1550 / 1550 Balance 1803.51 / 2073.86 494.47 / 494.47 -505.35 / -505.35 Maintenance IV fluids D5 normal saline at 75 cc/h. N.p.o. pending speech evaluation, possibly starting a oral diet today if he passes. Lab / Micro Data Attestation: I reviewed the patient's lab results. Result Diagrams: 09/05/22 03:55 09/05/22 03:55 Labs: Laboratory Results - last 24 hr 09/04/22 09:39: POC Glucose 177 H 09/04/22 11:10: POC Glucose 170 H 09/04/22 16:54: POC Glucose 155 H 09/04/22 23:40: POC Glucose 160 H 09/05/22 03:55: WBC 9.4, RBC 2.97 L, Hgb 10.4 L, Hct 30.1 L, MCV 101.3 H D, MCH 35.0 H, MCHC 34.6 D, RDW Std Deviation 51.9 H, RDW Coeff of Fazal 14.4, Plt Count 102 L, MPV 9.6, Immature Gran % (Auto) 0.700, Neut % (Auto) 75.4 H, Lymph % (Auto) 11.4 L, [place] % (Auto) 11.0 H, Eos % (Auto) 1.2, Baso % (Auto) 0.3, Absolute Neuts (auto) 7.1, Absolute Lymphs (auto) 1.07, Nucleated RBC % 0 09/05/22 03:55: Sodium 139, Potassium 3.9, Chloride 111 H, Carbon Dioxide 22.0, Anion Gap 6, BUN 9, Creatinine 0.80, Estim Creat Clear Calc 68.44, Est GFR (MDRD) Af Amer 117, Est GFR (MDRD) Non-Af 97, BUN/Creatinine Ratio 11.2, Glucose 144 H, Calcium 8.6 09/05/22 03:55: APTT 52.4 H 09/05/22 05:10: POC Glucose 129 H Micro: Microbiology 09/02/22 16:55 Sputum, Induced/Lukens Gram Stain - Final 09/02/22 16:55 Sputum, Induced/Lukens Respiratory Culture - Final Mixed normal respiratory ann. No Streptococcus pneumoniae, beta-hemolytic Streptococcus or Staphylococcus aureus isolated. 09/02/22 13:54 Blood Culture (Wb) - Anticubital Right Blood Culture - Preliminary No growth in 48 hours. 09/02/22 13:50 Blood Culture (Wb) - Anticubital Right Blood Culture - Preliminary No growth in 48 hours. Radiography Diagnostic Testing: CT/CTA Chest W/WO Contrast IMPRESSION: No evidence of pleural embolism. The tip of the endotracheal tube is in the origin of the left mainstem bronchus. It should be withdrawn approximately 2 cm. Patchy infiltration and/or atelectasis at the lung bases as described. ? Electronically Signed: Fazal Garrido MD at 13:52 EDT Chest x-ray portable 09/02/2022: FINDINGS: There is a new right PICC line the level of the right hilum. Endotracheal tube terminates 1.2 cm above the kalpesh. Consider repositioning 3 cm proximal. Nasogastric tube coiled in the proximal stomach. Mild increased atelectasis in the lung bases since earlier today. Electronically Signed: Akira Vail MD at 21:05 EDT Echocardiogram September 03, 2022 ejection fraction 55% stage I diastolic dysfunction, moderate aortic stenosis with a peak gradient of 50 mm mean gradient of 30. Rhythm Strip Rhythm Strip: Sinus Rhythm Physical Exam Narrative Developed, pleasantly confused elderly gentleman in no acute distress. Mild agitation, easily redirectable with voice. HEENT is unremarkable with moist mucous membranes. Garbled speech, anicteric. EOMI, able to focus and track. Normal pupils Chest is clear bilaterally with no wheezes rales or rhonchi. Did not cooperate for repositioning for exam. Anterolateral exam only. Unlabored respirations, symmetrical chest, mildly chronically hyperinflated. Heart regular S1-S2 with an aortic stenosis murmur heard across the anterior precordium to the neck, 3 out of 6 Abdomen is soft, nontender, bowel sounds, Extremities have no clubbing cyanosis or edema. Chronic venous stasis changes of both distal lower extremities. Pulses 2+. Arthritic chronic changes of the hands. Neuro: Good strength bilaterally, able to raise his hands above his head, follows commands generally. Confused, easily distractible, unable to maintain a string of conversation yet. Initial reasonable responses. Oriented to hospital and self. Const alert; Negative for oriented x3 Constitutional Narrative: Intubated and mechanically ventilated. Tolerating spontaneous mode mechanical ventilation. HEENT normocephalic and head/scalp atraumatic Eyes PERRL and conjunctivae normal Neck supple General: trachea midline and CVC in place Chest inspection of chest normal Resp normal respiratory effort Auscultation: Negative for rales, rhonchi or wheezes Cardio regular rate and regular rhythm Cardio Narrative: Frequent ectopy GI normal to inspection, nondistended, normoactive bowel sounds Extremity Extremity Narrative: Trace lower extremity edema General Extremity: Negative for clubbing Skin General Skin Exam: venous stasis and dermatitis Neuro Neuro Narrative: Alert and able to follow simple commands appropriately. Sensorium / Orientation: sedated on vent
--- NOTE | 2022-09-05 10:16 | PCM.PROGNOTE ---
Subjective Subjective Patient seen and examined. HE had no acute complaints. He is on room air. He does appear to be a bit confused. He denied any fever, chills, cough, chest pain, palpitations, dizziness, nausea, vomiting or diarrhea. Review of systems is otherwise negative. Objective Data Objective Data Vital Signs: Vital Signs Temp Pulse Resp BP Pulse Ox O2 Del Method O2 Flow Rate 99.1 F 79 18 126/99 H 92 Room Air 3 09/05/22 08:00 09/05/22 10:00 09/05/22 10:00 09/05/22 10:00 09/05/22 10:00 09/05/22 10:00 09/04/22 15:44 FiO2 25 09/04/22 06:00 Oxygen Flow Rate (L/min) 3 Oxygen Delivery Method Room Air Weight: 223 lb 8.78 oz Body Mass Index (BMI) 32.0 Intake & Output: Intake and Output for Last 24 Hours 09/03/22 09/04/22 09/05/22 23:59 23:59 23:59 Intake Total 2763.51 / 3048.86 3354.47 / 3354.47 1044.65 / 1044.65 Output Total 960 / 975 2860 / 2860 1550 / 1550 Balance 1803.51 / 2073.86 494.47 / 494.47 -505.35 / -505.35 Lab / Micro Data Result Diagrams: 09/05/22 03:55 09/05/22 03:55 Labs: Laboratory Results - last 24 hr 09/04/22 11:10: POC Glucose 170 H 09/04/22 16:54: POC Glucose 155 H 09/04/22 23:40: POC Glucose 160 H 09/05/22 03:55: WBC 9.4, RBC 2.97 L, Hgb 10.4 L, Hct 30.1 L, MCV 101.3 H D, MCH 35.0 H, MCHC 34.6 D, RDW Std Deviation 51.9 H, RDW Coeff of Fazal 14.4, Plt Count 102 L, MPV 9.6, Immature Gran % (Auto) 0.700, Neut % (Auto) 75.4 H, Lymph % (Auto) 11.4 L, [place] % (Auto) 11.0 H, Eos % (Auto) 1.2, Baso % (Auto) 0.3, Absolute Neuts (auto) 7.1, Absolute Lymphs (auto) 1.07, Nucleated RBC % 0 09/05/22 03:55: Sodium 139, Potassium 3.9, Chloride 111 H, Carbon Dioxide 22.0, Anion Gap 6, BUN 9, Creatinine 0.80, Estim Creat Clear Calc 68.44, Est GFR (MDRD) Af Amer 117, Est GFR (MDRD) Non-Af 97, BUN/Creatinine Ratio 11.2, Glucose 144 H, Calcium 8.6 09/05/22 03:55: APTT 52.4 H 09/05/22 05:10: POC Glucose 129 H Micro: Microbiology 09/02/22 16:55 Sputum, Induced/Lukens Gram Stain - Final 09/02/22 16:55 Sputum, Induced/Lukens Respiratory Culture - Final Mixed normal respiratory ann. No Streptococcus pneumoniae, beta-hemolytic Streptococcus or Staphylococcus aureus isolated. 09/02/22 13:54 Blood Culture (Wb) - Anticubital Right Blood Culture - Preliminary No growth in 48 hours. 09/02/22 13:50 Blood Culture (Wb) - Anticubital Right Blood Culture - Preliminary No growth in 48 hours. Rhythm Strip Rhythm Strip: Sinus Rhythm Physical Exam Const alert and no apparent distress Orientation / Consciousness: lethargic HEENT normocephalic, head/scalp atraumatic and moist oral mucous membranes Eyes PERRL and EOMs intact bilaterally Neck no lymphadenopathy, supple and no JVD Lymph Lymphatic: no lymphadenopathy noted and no lymphedema noted Resp Resp Narrative: patient extubated, on room air. now Cardio regular rate, regular rhythm, S1 normal heart sound, S2 normal heart sound and no murmurs GI normal to inspection, nondistended, normoactive bowel sounds, soft to palpation and non-tender Extremity normal capillary refill, no clubbing, cyanosis or edema and no calf tenderness Skin General Skin Exam: no breakdown and turgor normal Neuro CN's II-XII intact bilaterally and no focal motor deficits Neuro Narrative: alert, flat affect Motor Exam: strength 5/5 throughout Psych thought process normal and cooperative Appearance: appropriate Mood & Affect: flat affect Assessment & Plan Assessment/Plan (1) Cardiopulmonary arrest with successful resuscitation: (2) Ventricular fibrillation: (3) Non-ST elevation [place] (NSTEMI): PLAN: Plan #Acute cardiopulmonary arrest due to ventricular fibrillation successfully resuscitated via ROSC after he received epinephrine and amiodarone and received shocks. extubated and now on room air cardiology and critical care on board. currently on heparin drip and amiodarone 2D echo showed EF of 55% with normal left ventricular systolic function and stage I diastolic dysfunction with no regional wall motion abnormalities noted. Moderate aortic stenosis visualized #Acute hypoxic respiratory failure due to acute cardiopulmonary arrest now extubated and on room air. Breathing treatments bronchodilators. CT of the chest was negative for PE but showed bibasilar posterior lung field crackles. Critical care on board. on IV Zosyn speech therapy pending #Hypokalemia: resolved. Potassium is 3.9. #NSTEMI Troponin is markedly elevated and trended upwards. Cardiology on board. On heparin drip. 2D echo done and results as above. On high intensity statin and aspirin per cardiology, to consider a lexiscan stress test prior to discharge or just continue medical management with aspirin and statin #Hyperlipidemia: On statin #History of prostate cancer: stable #History of aortic valve stenosis s/p aortic valve replacement: Stable DVT prophylaxis: on heparin drip Charges/Coding Visit Charges Inpatient E&M: 85838 [facility] Hosp L3
[2022-09-05] MEDS: Insulin Glargine-YFGN 100 UNIT/ML Pen 12 UNIT SC (10:52)
[2022-09-05 11:03] LABS: Bedside Glucose 145 mg/dL (74-106)
--- NOTE | 2022-09-05 11:23 | CASEMGMT ---
SW met with patient's family as senior living facility is being recommended. Patient's Francie, son in law Storm, and daughter Susan were all present. SW introduced self and role at [facility]. SW went over Medicare SNF coverage. SW explained SW would just need family to pick several facilities they would be okay with and SW will check on availability. After looking at the list their choices would be [facility] and then [facility]. They are trying to figure out care for patient's as well. SW explained if she went to a halfway she would be private pay due to no qualifying stay. They verbalized understanding. SW will work on referrals. NAYANA asked Sydnie d/c medical lab assistant to please make referrals to [facility] and [facility]. Zahra MARTINEZ
[2022-09-05 11:52] LABS: Partial Thromboplast Time 61.5 Seconds (24.1-36.2)
--- NOTE | 2022-09-05 12:00 | CASEMGMT ---
Discharge Planning Referral sent to SW and W via [facility]. Sydnie Pan, Discharge Planning Asst.
--- NOTE | 2022-09-05 16:00 | CASEMGMT ---
[facility] has accepted patient. [facility] has said they will not have any beds until next week. reached out to [facility] to see when they will have a bed next week, but [facility] has not gotten back to . will notify family. Physician feels patient will likely be at [facility] through the weekend. Plan: [facility] vs [facility] Zahra MARTINEZ
--- NOTE | 2022-09-05 16:23 | CASEMGMT ---
NAYANA went to notify family that [facility] accepted and [facility] will not have beds until next week. Family then asked NAYANA to send a referral to [facility]. NAYANA told family NAYANA will follow up with family on Thursday once NAYANA hears back from facilities. NAYANA then asked Sydnie d/c planning lead to please send referrals to [facility] and [facility]. Plan: [facility] Zahra MARTINEZ
--- NOTE | 2022-09-05 16:27 | CASEMGMT ---
Discharge Planning Additional SNF referrals sent to [facility], per family request. Sydnie Pan, Discharge Planning Asst.
--- NOTE | 2022-09-05 18:08 | NURSING ---
report called for transfer to room 101, family present & aware
[2022-09-05 18:13] LABS: Bedside Glucose 154 mg/dL (74-106)
[2022-09-05 18:21] LABS: Partial Thromboplast Time 56.8 Seconds (24.1-36.2)
[2022-09-05] MEDS: HEPARIN/D5w 25,000 UNITS 25,000 UNITS/250 ML IV.SOLN. 10 UNITS CONT INF (20:21)
[2022-09-05] MEDS: 0.9% Saline Lock 10 ML Syringe IV ×2 (20:22→21:04)
[2022-09-06] VITALS (10 sets, daily range): BP systolic 126–143; BP diastolic 69–76; PULSE 74–89; RESP 16–24; TEMP 36.4–37.3; O2SAT 90–96; BMI 31.4
[2022-09-06 02:00] LABS: Bedside Glucose 160 mg/dL (74-106)
[2022-09-06] MEDS: Ipratropium/Albuterol Sulfate 3 ML AMPUL.NEB INHALATION ×5 (03:23→23:55)
--- NOTE | 2022-09-06 05:00 | RAD_ITS ---
INDICATION: atelectasis follow up EXAMINATION/TECHNIQUE: X-RAY - XR Chest 1 View COMPARISON: September 02, 2022. FINDINGS: LINES/DEVICES: Right-sided PICC line is visualized with its tip projecting over the SVC. Vertebral removal of endotracheal and nasogastric tubes appear LUNGS: Moderate left lower lobe atelectasis stable. MEDIASTINUM AND CARDIOVASCULAR STRUCTURES: Status post sternotomy. Heart size normal. BONES AND SOFT TISSUES: Status post bilateral shoulder arthroplasty. RAD/Chest 1 View (Portable) IMPRESSION: Endotracheal tube and nasogastric tube removed. Remainder findings detailed above stable. Electronically Signed: Stanley Quigley MD, DANIEL at 9:17 EDT ,
[2022-09-06 06:43] LABS: Bedside Glucose 146 mg/dL (74-106)
[2022-09-06 07:06] LABS: Absolute Lymphocyte Count 1.12 X10^3/uL (0.83-4.51); Absolute Neutrophil Count 5.5 X10^3/uL (2.0-7.7); Basophil# 0.03 X10^3/uL; Basophil% 0.4 % (0-1); Eosinophil# 0.11 X10^3/uL; Eosinophils% 1.4 % (0-5); Hematocrit 29.4 % (40-54); Hemoglobin 9.8 g/dL (13.0-16.5); Lymphocyte # 1.12 X10^3/ul (0.83-4.51); Lymphocyte % 14.4 % (19-41); Mean Corp Hgb Conc 33.3 g/dL (32-36); Mean Corpuscular Hgb 34.3 pg (27.0-32.0); Mean Corpuscular Volume 102.8 fL (80-94); Mean Platelet Vol. 9.2 fl (6.2-12.0); Monocyte# 1.02 X10^3/uL; Monocyte% 13.1 % (0-10); NRBC Flagged by Analyzer 0 % (0-5); Neutrophil # 5.47 X10^3/uL (2.7-7.7); Neutrophil % 70.1 % (47-70); Platelet Count 102 K/mm3 (150-450); RBC Distribution Width CV 14.2 % (11.6-14.6); RBC Distribution Width SD 53.1 fl (35.1-43.9); Red Blood Count 2.86 M/mm3 (4.6-6.2); White Blood Count 7.8 K/mm3 (4.4-11.0)
[2022-09-06 07:34] LABS: ALB/GLOB Ratio 0.9 RATIO (0.9-2.4); AST(SGOT) 56 U/L (15-37); Alanine Aminotransfer ALT/SGPT 91 U/L (16-61); Albumin, Serum 2.7 g/dL (3.2-5.0); Alkaline Phosphatase 62 U/L (45-117); Anion Gap 5 (5-15); BUN 12 mg/dL (7-18); BUN/Creat Ratio 13.4 RATIO (10-20); Calcium,Total 8.5 mg/dL (8.5-10.1); Chloride 107 mmol/L (98-107); Creatinine, Serum 0.89 mg/dL (0.70-1.30); EST Glomerular Filtration Rate 86 mL/min (>60); Est Glom Filt Rate - Afr Amer 104 mL/min (>60); Estimated Creatinine Clearance 61.52 ml/min; Globulin 3.1 g/dL (2.2-4.2); Glucose 168 mg/dL (74-106); Potassium 3.9 mmol/L (3.5-5.1); Protein, Total 5.8 g/dL (6.4-8.2); Sodium Level 136 mmol/L (136-145)
[2022-09-06 07:51] LABS: Procalcitonin 0.11 ng/mL (0.00-0.09)
[2022-09-06 07:55] LABS: Partial Thromboplast Time 60.4 Seconds (24.1-36.2)
[2022-09-06] MEDS: KCl 20MEQ in D5NS 20 MEQ/1,000 ML IV.SOLN. 75 MEQ IV ×2 (10:04→21:33)
--- NOTE | 2022-09-06 10:29 | PN_ITS ---
Subjective Subjective Patient seen and examined. he was lying comfortably in bed. He is a bit confused and just answers mumbles in response to questions. Unable to do comprehensive review of systems. He has remained hemodynamically stable. Objective Data Objective Data Vital Signs: Vital Signs Temp Pulse Resp BP Pulse Ox O2 Del Method O2 Flow Rate 98 F 88 20 H 132/69 H 95 Room Air 3 09/06/22 04:40 09/06/22 07:08 09/06/22 07:08 09/06/22 04:40 09/06/22 04:40 09/06/22 09:13 09/04/22 15:44 FiO2 25 09/04/22 06:00 Oxygen Flow Rate (L/min) 3 Oxygen Delivery Method Room Air Weight: 219 lb 12.814 oz Body Mass Index (BMI) 31.4 Intake & Output: Intake and Output for Last 24 Hours 09/04/22 09/05/22 09/06/22 23:59 23:59 23:59 Intake Total 3354.47 / 3354.47 2242.50 / 2242.50 1166.5 / 1166.5 Output Total 2860 / 2860 1550 / 1550 1000 / 1000 Balance 494.47 / 494.47 692.50 / 692.50 166.5 / 166.5 Lab / Micro Data Result Diagrams: 09/06/22 06:59 09/06/22 06:59 Labs: Laboratory Results - last 24 hr 09/05/22 10:43: POC Glucose 145 H 09/05/22 11:30: APTT 61.5 H 09/05/22 17:54: POC Glucose 154 H 09/05/22 17:55: APTT 56.8 H 09/05/22 23:29: POC Glucose 160 H 09/06/22 06:20: POC Glucose 146 H 09/06/22 06:59: WBC 7.8, RBC 2.86 L, Hgb 9.8 L, Hct 29.4 L, MCV 102.8 H, MCH 34.3 H, MCHC 33.3, RDW Std Deviation 53.1 H, RDW Coeff of Fazal 14.2, Plt Count 102 L, MPV 9.2, Immature Gran % (Auto) 0.600, Neut % (Auto) 70.1 H, Lymph % (Auto) 14.4 L, [place] % (Auto) 13.1 H, Eos % (Auto) 1.4, Baso % (Auto) 0.4, Absolute Neuts (auto) 5.5, Absolute Lymphs (auto) 1.12, Nucleated RBC % 0 09/06/22 06:59: Sodium 136, Potassium 3.9, Chloride 107, Carbon Dioxide 24.0, Anion Gap 5, BUN 12, Creatinine 0.89, Estim Creat Clear Calc 61.52, Est GFR (MDRD) Af Amer 104, Est GFR (MDRD) Non-Af 86, BUN/Creatinine Ratio 13.4, Glucose 168 H, Calcium 8.5, Total Bilirubin 2.40 H, AST 56 H, ALT 91 H, Alkaline Phosphatase 62, Total Protein 5.8 L, Albumin 2.7 L, Globulin 3.1, Albumin/Globulin Ratio 0.9 09/06/22 06:59: Procalcitonin 0.11 H 09/06/22 06:59: APTT 60.4 H Micro: Microbiology 09/02/22 16:55 Sputum, Induced/Lukens Gram Stain - Final 09/02/22 16:55 Sputum, Induced/Lukens Respiratory Culture - Final Mixed normal respiratory ann. No Streptococcus pneumoniae, beta-hemolytic Streptococcus or Staphylococcus aureus isolated. 09/02/22 13:54 Blood Culture (Wb) - Anticubital Right Blood Culture - Preliminary No growth in 48 hours. 09/02/22 13:50 Blood Culture (Wb) - Anticubital Right Blood Culture - Preliminary No growth in 48 hours. Radiography Diagnostic Testing: Radiology Impression Chest X-Ray 09/06/22 05:00 IMPRESSION: Endotracheal tube and nasogastric tube removed. Remainder findings detailed above stable. Electronically Signed: Stanley Quigley MD, DANIEL at 9:17 EDT , Rhythm Strip Rhythm Strip: Sinus Rhythm Physical Exam Const Constitutional Narrative: patient alert, confused Orientation / Consciousness: lethargic HEENT normocephalic, head/scalp atraumatic and moist oral mucous membranes Eyes PERRL and EOMs intact bilaterally Neck no lymphadenopathy, supple and no JVD Lymph Lymphatic: no lymphadenopathy noted and no lymphedema noted Resp Resp Narrative: milldy diminished breath sounds bibasally, no wheezes or crackles. On room air. Cardio regular rate, regular rhythm, S1 normal heart sound, S2 normal heart sound and no murmurs GI normal to inspection, nondistended, normoactive bowel sounds, soft to palpation and non-tender Extremity normal capillary refill, no clubbing, cyanosis or edema and no calf tenderness Skin General Skin Exam: no breakdown and turgor normal Neuro CN's II-XII intact bilaterally and no focal motor deficits Neuro Narrative: confused Motor Exam: strength 5/5 throughout Psych Psych Narrative: confused Assessment & Plan Assessment/Plan (1) Cardiopulmonary arrest with successful resuscitation: (2) Ventricular fibrillation: (3) Non-ST elevation NM (NSTEMI): PLAN: Plan #Acute cardiopulmonary arrest due to ventricular fibrillation * successfully resuscitated via ROSC after he received epinephrine and amiodarone and received shocks. * extubated and now on room air * cardiology and critical care on board. * currently on heparin drip and amiodarone * 2D echo showed EF of 55% with normal left ventricular systolic function and stage I diastolic dysfunction with no regional wall motion abnormalities noted. Moderate aortic stenosis visualized * #Acute hypoxic respiratory failure due to acute cardiopulmonary arrest * now extubated and on room air. * Breathing treatments bronchodilators. * CT of the chest was negative for PE but showed bibasilar posterior lung field crackles. * Critical care on board. * on IV Zosyn * speech therapy on board * #Hypokalemia: resolved. #NSTEMI * Troponin is markedly elevated and trended upwards. * Cardiology on board. heparin drip discontinued * 2D echo done and results as above. * On high intensity statin and aspirin * per cardiology, to consider a lexiscan stress test prior to discharge or just continue medical management with aspirin and statin #Hyperlipidemia: On statin #History of prostate cancer: stable #History of aortic valve stenosis s/p aortic valve replacement: Stable DVT prophylaxis: heparin drip discontinued; Start lovenox 40mg daily Charges/Coding Visit Charges Inpatient E&M: 53753 Subs Hosp L2
[2022-09-06] MEDS: Insulin Glargine-YFGN 100 UNIT/ML Pen 12 UNIT SC (11:20)
[2022-09-06] MEDS: Insulin Lispro 100 UNIT/ML INSULN.PEN SC (11:21)
[2022-09-06 11:33] LABS: Bedside Glucose 167 mg/dL (74-106)
[2022-09-06 18:33] LABS: Bedside Glucose 150 mg/dL (74-106)
[2022-09-06] MEDS: Heparin Injection (Vial) 5,000 UNIT/ML VIAL 5000 UNIT SC (21:04)
[2022-09-06] MEDS: Aspirin 300 MG Suppository RC (21:04)
[2022-09-06] MEDS: 0.9% Saline Lock 10 ML Syringe IV (21:22)
[2022-09-06 23:51] LABS: Bedside Glucose 164 mg/dL (74-106)
[2022-09-07] VITALS (10 sets, daily range): BP systolic 133–149; BP diastolic 52–87; PULSE 70–86; RESP 16–24; TEMP 36.3–37.3; O2SAT 92–97; BMI 30.3
[2022-09-07] MEDS: 0.9% Saline Lock 10 ML Syringe IV ×3 (05:27→12:53)
[2022-09-07] MEDS: Ipratropium/Albuterol Sulfate 3 ML AMPUL.NEB INHALATION ×4 (05:46→22:39)
[2022-09-07 05:52] LABS: Bedside Glucose 138 mg/dL (74-106)
[2022-09-07 06:16] LABS: Absolute Lymphocyte Count 1.01 X10^3/uL (0.83-4.51); Absolute Neutrophil Count 4.9 X10^3/uL (2.0-7.7); Basophil# 0.03 X10^3/uL; Basophil% 0.4 % (0-1); Eosinophil# 0.27 X10^3/uL; Eosinophils% 3.7 % (0-5); Hematocrit 31.3 % (40-54); Hemoglobin 10.7 g/dL (13.0-16.5); Lymphocyte # 1.01 X10^3/ul (0.83-4.51); Lymphocyte % 13.9 % (19-41); Mean Corp Hgb Conc 34.2 g/dL (32-36); Mean Corpuscular Volume 102.3 fL (80-94); Mean Platelet Vol. 9.4 fl (6.2-12.0); Monocyte# 0.96 X10^3/uL; Monocyte% 13.2 % (0-10); NRBC Flagged by Analyzer 0 % (0-5); Neutrophil # 4.94 X10^3/uL (2.7-7.7); Neutrophil % 68.2 % (47-70); Platelet Count 119 K/mm3 (150-450); RBC Distribution Width CV 13.9 % (11.6-14.6); RBC Distribution Width SD 51.3 fl (35.1-43.9); Red Blood Count 3.06 M/mm3 (4.6-6.2); White Blood Count 7.3 K/mm3 (4.4-11.0)
[2022-09-07 06:40] LABS: Anion Gap 6 (5-15); BUN 12 mg/dL (7-18); Calcium,Total 8.6 mg/dL (8.5-10.1); Chloride 109 mmol/L (98-107); EST Glomerular Filtration Rate 97 mL/min (>60); Est Glom Filt Rate - Afr Amer 117 mL/min (>60); Estimated Creatinine Clearance 68.44 ml/min; Glucose 145 mg/dL (74-106); Potassium 3.7 mmol/L (3.5-5.1); Sodium Level 137 mmol/L (136-145)
--- NOTE | 2022-09-07 11:53 | PN_ITS ---
Subjective Subjective Patient seen and examined. He was lying comfortably in bed. He still has some confusion and so unable to do comprehensive review of systems or suggest mumbles in response to questions. Review of systems otherwise negative. Patient is n.p.o. due to concerns about dysphagia and is due to have a cookie swallow test tomorrow. He has remained hemodynamically stable. Objective Data Objective Data Vital Signs: Vital Signs Temp Pulse Resp BP Pulse Ox O2 Del Method O2 Flow Rate 98.8 F 74 24 H 134/80 H 93 Nasal Cannula 2 09/07/22 07:38 09/07/22 10:30 09/07/22 10:30 09/07/22 07:38 09/07/22 08:49 09/07/22 09:00 09/07/22 11:26 FiO2 25 09/04/22 06:00 Oxygen Flow Rate (L/min) 2 Oxygen Delivery Method Nasal Cannula Weight: 212 lb 1.355 oz Body Mass Index (BMI) 30.3 Intake & Output: Intake and Output for Last 24 Hours 09/05/22 09/06/22 09/07/22 23:59 23:59 23:59 Intake Total 2242.50 / 2242.50 2154.25 / 2154.25 93.75 / 93.75 Output Total 1550 / 1550 2150 / 2150 400 / 400 Balance 692.50 / 692.50 4.25 / 4.25 -306.25 / -306.25 Lab / Micro Data Result Diagrams: 09/07/22 05:52 09/07/22 05:52 Labs: Laboratory Results - last 24 hr 09/06/22 18:15: POC Glucose 150 H 09/06/22 23:31: POC Glucose 164 H 09/07/22 05:22: POC Glucose 138 H 09/07/22 05:52: WBC 7.3, RBC 3.06 L, Hgb 10.7 L, Hct 31.3 L, MCV 102.3 H, MCH 35.0 H, MCHC 34.2, RDW Std Deviation 51.3 H, RDW Coeff of Fazal 13.9, Plt Count 119 L, MPV 9.4, Immature Gran % (Auto) 0.600, Neut % (Auto) 68.2, Lymph % (Auto) 13.9 L, [place] % (Auto) 13.2 H, Eos % (Auto) 3.7, Baso % (Auto) 0.4, Absolute Neuts (auto) 4.9, Absolute Lymphs (auto) 1.01, Nucleated RBC % 0 09/07/22 05:52: Sodium 137, Potassium 3.7, Chloride 109 H, Carbon Dioxide 22.0, Anion Gap 6, BUN 12, Creatinine 0.80, Estim Creat Clear Calc 68.44, Est GFR (MDRD) Af Amer 117, Est GFR (MDRD) Non-Af 97, BUN/Creatinine Ratio 15.0, Glucose 145 H, Calcium 8.6 Micro: Microbiology 09/02/22 16:55 Sputum, Induced/Lukens Gram Stain - Final 09/02/22 16:55 Sputum, Induced/Lukens Respiratory Culture - Final Mixed normal respiratory ann. No Streptococcus pneumoniae, beta-hemolytic Streptococcus or Staphylococcus aureus isolated. 09/02/22 13:54 Blood Culture (Wb) - Anticubital Right Blood Culture - Preliminary No growth in 48 hours. 09/02/22 13:50 Blood Culture (Wb) - Anticubital Right Blood Culture - Preliminary No growth in 48 hours. Rhythm Strip Rhythm Strip: Sinus Rhythm Physical Exam Const alert and no apparent distress Constitutional Narrative: patient alert, confused Orientation / Consciousness: lethargic HEENT normocephalic, head/scalp atraumatic and moist oral mucous membranes Eyes PERRL and EOMs intact bilaterally Neck no lymphadenopathy, supple and no JVD Lymph Lymphatic: no lymphadenopathy noted and no lymphedema noted Resp Resp Narrative: milldy diminished breath sounds bibasally, no wheezes or crackles. On room air. Cardio regular rate, regular rhythm, S1 normal heart sound, S2 normal heart sound and no murmurs GI normal to inspection, nondistended, normoactive bowel sounds, soft to palpation and non-tender Extremity normal capillary refill, no clubbing, cyanosis or edema and no calf tenderness Skin General Skin Exam: no breakdown and turgor normal Neuro CN's II-XII intact bilaterally, no focal motor deficits and no sensory deficits noted Neuro Narrative: confused Motor Exam: strength 5/5 throughout Psych thought process normal and cooperative Psych Narrative: confused Appearance: appropriate Mood & Affect: flat affect Assessment & Plan Assessment/Plan (1) Cardiopulmonary arrest with successful resuscitation: (2) Ventricular fibrillation: (3) Non-ST elevation IA (NSTEMI): PLAN: Plan #Acute cardiopulmonary arrest due to ventricular fibrillation * successfully resuscitated via ROSC after he received epinephrine and amiodarone and received shocks. * extubated and now on room air * cardiology and critical care on board. * 2D echo showed EF of 55% with normal left ventricular systolic function and stage I diastolic dysfunction with no regional wall motion abnormalities noted. Moderate aortic stenosis visualized * #Acute hypoxic respiratory failure due to acute cardiopulmonary arrest * now extubated and on room air. * Breathing treatments bronchodilators. * CT of the chest was negative for PE but showed bibasilar posterior lung field crackles. * Critical care on board. * on IV Zosyn; will dc today as all cultures have been negative. * speech therapy on board * #Hypokalemia: resolved. #NSTEMI * Troponin is markedly elevated and trended upwards. * Cardiology on board. heparin drip discontinued * 2D echo done and results as above. * On high intensity statin and aspirin * per cardiology, to consider a lexiscan stress test prior to discharge or just continue medical management with aspirin and statin #Dysphagia: Currently n.p.o. due to concerns about aspiration. Speech therapy on board. Full cookie swallow tomorrow. #Hyperlipidemia: On statin #History of prostate cancer: stable #History of aortic valve stenosis s/p aortic valve replacement: Stable DVT prophylaxis: heparin drip discontinued: on heparin Disposition: Will need placement. Case management on board. Charges/Coding Visit Charges Inpatient E&M: 87021 Subs Hosp L2
[2022-09-07] MEDS: Aspirin 300 MG Suppository RC (12:48)
[2022-09-07] MEDS: Heparin Injection (Vial) 5,000 UNIT/ML VIAL 5000 UNIT SC ×2 (12:53→21:41)
[2022-09-07] MEDS: KCl 20MEQ in D5NS 20 MEQ/1,000 ML IV.SOLN. 75 MEQ IV (12:57)
[2022-09-07 13:18] LABS: Bedside Glucose 147 mg/dL (74-106)
[2022-09-07] MEDS: QUEtiapine 25 MG Tablet PO ×2 (14:12→21:43)
[2022-09-08] VITALS (13 sets, daily range): BP systolic 109–149; BP diastolic 52–76; PULSE 74–89; RESP 16–24; TEMP 36.1–37.1; O2SAT 90–98; BMI 30.4
[2022-09-08 01:24] LABS: Bedside Glucose 130 mg/dL (74-106)
[2022-09-08] MEDS: KCl 20MEQ in D5NS 20 MEQ/1,000 ML IV.SOLN. 75 MEQ IV ×2 (01:45→18:38)
[2022-09-08 06:00] LABS: Absolute Lymphocyte Count 0.87 X10^3/uL (0.83-4.51); Absolute Neutrophil Count 4.8 X10^3/uL (2.0-7.7); Basophil# 0.04 X10^3/uL; Basophil% 0.6 % (0-1); Eosinophil# 0.46 X10^3/uL; Eosinophils% 6.4 % (0-5); Hematocrit 33.2 % (40-54); Hemoglobin 10.9 g/dL (13.0-16.5); Lymphocyte # 0.87 X10^3/ul (0.83-4.51); Lymphocyte % 12.1 % (19-41); Mean Corp Hgb Conc 32.8 g/dL (32-36); Mean Corpuscular Volume 103.4 fL (80-94); Mean Platelet Vol. 9.3 fl (6.2-12.0); Monocyte# 0.99 X10^3/uL; Monocyte% 13.8 % (0-10); NRBC Flagged by Analyzer 0 % (0-5); Neutrophil # 4.75 X10^3/uL (2.7-7.7); Neutrophil % 66.3 % (47-70); Platelet Count 133 K/mm3 (150-450); RBC Distribution Width CV 13.7 % (11.6-14.6); RBC Distribution Width SD 51.8 fl (35.1-43.9); Red Blood Count 3.21 M/mm3 (4.6-6.2); White Blood Count 7.2 K/mm3 (4.4-11.0)
[2022-09-08 06:32] LABS: Anion Gap 6 (5-15); BUN 12 mg/dL (7-18); Calcium,Total 8.7 mg/dL (8.5-10.1); Chloride 109 mmol/L (98-107); Creatinine, Serum 0.75 mg/dL (0.70-1.30); EST Glomerular Filtration Rate 105 mL/min (>60); Est Glom Filt Rate - Afr Amer 127 mL/min (>60); Estimated Creatinine Clearance 54.75 ml/min; Glucose 148 mg/dL (74-106); Potassium 3.8 mmol/L (3.5-5.1); Sodium Level 138 mmol/L (136-145)
[2022-09-08] MEDS: Ipratropium/Albuterol Sulfate 3 ML AMPUL.NEB INHALATION ×5 (06:55→22:53)
[2022-09-08 07:04] LABS: Bedside Glucose 151 mg/dL (74-106)
--- NOTE | 2022-09-08 08:13 | PCM.PN.CARD ---
Subjective Subjective Patient seen and evaluated Objective Data Vital Signs: Vital Signs Temp Pulse Resp BP Pulse Ox O2 Del Method O2 Flow Rate 97 F L 74 16 114/63 96 Nasal Cannula 2 09/08/22 06:00 09/08/22 06:00 09/08/22 06:00 09/08/22 06:00 09/08/22 06:00 09/08/22 06:00 09/08/22 03:00 FiO2 25 09/04/22 06:00 Oxygen Flow Rate (L/min) 2 Oxygen Delivery Method Nasal Cannula Weight: 212 lb 11.937 oz Body Mass Index (BMI) 30.4 Intake & Output: Intake and Output for Last 24 Hours 09/06/22 09/07/22 09/08/22 23:59 23:59 23:59 Intake Total 2154.25 / 2154.25 1472.50 / 1472.50 581.25 / 581.25 Output Total 2150 / 2150 1060 / 1860 1300 / 1300 Balance 4.25 / 4.25 412.50 / -387.50 -718.75 / -718.75 Lab / Micro Data Result Diagrams: 09/08/22 05:07 09/08/22 05:07 Labs: Laboratory Results - last 24 hr 09/07/22 12:51: POC Glucose 147 H 09/07/22 21:49: POC Glucose 130 H 09/08/22 05:07: WBC 7.2, RBC 3.21 L, Hgb 10.9 L, Hct 33.2 L, MCV 103.4 H, MCH 34.0 H, MCHC 32.8, RDW Std Deviation 51.8 H, RDW Coeff of Fazal 13.7, Plt Count 133 L, MPV 9.3, Immature Gran % (Auto) 0.800, Neut % (Auto) 66.3, Lymph % (Auto) 12.1 L, [place] % (Auto) 13.8 H, Eos % (Auto) 6.4 H, Baso % (Auto) 0.6, Absolute Neuts (auto) 4.8, Absolute Lymphs (auto) 0.87, Nucleated RBC % 0 09/08/22 05:07: Sodium 138, Potassium 3.8, Chloride 109 H, Carbon Dioxide 23.0, Anion Gap 6, BUN 12, Creatinine 0.75, Estim Creat Clear Calc 54.75, Est GFR (MDRD) Af Amer 127, Est GFR (MDRD) Non-Af 105, BUN/Creatinine Ratio 16.0, Glucose 148 H, Calcium 8.7 09/08/22 05:12: POC Glucose 151 H Micro: Microbiology 09/02/22 13:54 Blood Culture (Wb) - Anticubital Right Blood Culture - Final No growth in 5 days. 09/02/22 13:50 Blood Culture (Wb) - Anticubital Right Blood Culture - Final No growth in 5 days. Rhythm Strip Rhythm Strip: Sinus Rhythm Cardiology Labs/Tests 09/08/22 05:07: WBC 7.2, RBC 3.21 L, Hgb 10.9 L, Hct 33.2 L, MCV 103.4 H, MCH 34.0 H, MCHC 32.8, Plt Count 133 L, MPV 9.3, Immature Gran % (Auto) 0.800, Neut % (Auto) 66.3, Lymph % (Auto) 12.1 L, [place] % (Auto) 13.8 H, Eos % (Auto) 6.4 H, Baso % (Auto) 0.6, Absolute Neuts (auto) 4.8, Nucleated RBC % 0 09/08/22 05:07: Sodium 138, Potassium 3.8, Chloride 109 H, Carbon Dioxide 23.0, Anion Gap 6, BUN 12, Creatinine 0.75, Est GFR (MDRD) Af Amer 127, Est GFR (MDRD) Non-Af 105, BUN/Creatinine Ratio 16.0, Glucose 148 H, Calcium 8.7 Rhythm: EKG: ECHO: Stress Test: Cardiac Cath: PCI: CT Surgery: Holter monitor: EPS: PPM: CXR: Chest CT Scan: Physical Exam Const alert and no apparent distress Constitutional Narrative: patient alert, confused Orientation / Consciousness: lethargic HEENT normocephalic, head/scalp atraumatic and moist oral mucous membranes Eyes PERRL and EOMs intact bilaterally Neck no lymphadenopathy, supple and no JVD Lymph Lymphatic: no lymphadenopathy noted and no lymphedema noted Resp normal respiratory effort Cardio regular rate, regular rhythm, S1 normal heart sound, S2 normal heart sound and no murmurs GI normal to inspection, nondistended, normoactive bowel sounds, soft to palpation and non-tender Extremity normal capillary refill, no clubbing, cyanosis or edema and no calf tenderness Skin General Skin Exam: no breakdown and turgor normal Neuro CN's II-XII intact bilaterally, no focal motor deficits and no sensory deficits noted Neuro Narrative: confused Motor Exam: strength 5/5 throughout Psych thought process normal and cooperative Psych Narrative: confused Appearance: appropriate Mood & Affect: flat affect Assessment & Plan Assessment/Plan (1) Non-ST elevation MD (NSTEMI): PLAN: This could be related to patient's cardiac arrest due to ventricular fibrillation. Patient has history of mild CAD. He denies any chest pain at this time. We could consider a Lexiscan stress test prior to discharge or just continue medical management with aspirin and statin. Further recommendations will be based on patient's hospital course. (2) H/O aortic valve replacement: PLAN: 2D echo done revealed preserved EF and moderate aortic stenosis. (3) Ventricular fibrillation: PLAN: Patient was hypokalemic upon presentation. No further episodes of ventricular fibrillation. He was on amiodarone drip which we have discontinued at this time. We will continue to monitor on telemetry. EF is preserved.
--- NOTE | 2022-09-08 09:42 | CASEMGMT ---
NAYANA spoke with patient's family per their request. SW let patient's family know that [facility] and [facility] have accepted patient. [facility] it depends on their bed availability. [facility] has not responded yet. Family would like to cancel [facility]. Family would like referrals to [facility] and [facility] ([facility]). SW attempted to explain TCU is mainly for those patient's that need 20 days or less and will then go home. Family would still like a referral made. NAYANA let family know referrals will be sent to [facility] and [facility]. NAYANA asked Sydnie allison/jose strategic planning analyst to please send a referral to [facility] and follow up with [facility]. SW sent a referral to [facility]. Zahra Hidalgo INDUSTRIAL CONVEYOR BELT REPAIRER MICHELLE
[2022-09-08] MEDS: Aspirin 300 MG Suppository RC (09:48)
[2022-09-08] MEDS: Heparin Injection (Vial) 5,000 UNIT/ML VIAL 5000 UNIT SC ×2 (09:48→21:19)
--- NOTE | 2022-09-08 09:49 | CASEMGMT ---
Discharge Planning Referral sent via [facility] to [facility] per family request. Sydnie Pan, Discharge Planning Asst.
[2022-09-08] MEDS: Insulin Glargine-YFGN 100 UNIT/ML Pen 12 UNIT SC (09:52)
--- NOTE | 2022-09-08 09:57 | CASEMGMT ---
Discharge Planning Updates [facility] Sydnie Pan, Discharge Planning Asst.
--- NOTE | 2022-09-08 11:13 | CASEMGMT ---
At this time [facility]CU is declining patient due to inability to follow commands with therapy. [facility] is also declining patient due to inability to follow commands with therapy. SW will let family know this information. Zahra Hidalgo NEWSPAPER DISTRIBUTOR SUPERVISOR MICHELLE
--- NOTE | 2022-09-08 11:32 | SP.MBSS_ITS ---
Modified Barium Swallow - Patient Information Study Date: 09/08/22 Study Time: 10:35 Direct Billable Minutes: 87 Total Minutes procedure & reportin Diagnosis: Cardiac arrest (I46.9), Acute respiratory failure (J96.00) Referring Physician: Francie Montes De Oca Reason for Referral: Objectively assess swallow function, assess risk for aspiration, and determine recommendations for least restrictive diet textures and compensatory strategies to improve safety of swallow. Medical History: The patient presented to [facility] ED 09/02/2022 as a out of hospital V-fib cardiac arrest and was intubated in the emergency department. The patient did appear to have some infiltrates in the bibasilar posterior lung draper. Therefore, antimicrobials were initiated. He was extubated 09/04/2022 and recommended for BSE. Patient was recommended NPO with plans for MBSS prior to diet advancement to further assess concerns for aspiration. PMH: Anemia, HTN, Mild cognitive impairment, TIA, Macular degeneration, Prostate cancer, Syncope, A fib (SEE EMR for full PMH). Current Diet Ordered: NPO Mental Status: Impaired - mild cognitive impairment per diagnosis list Respiratory Status: Oxygenating on Room Air - Penetration-Aspiration Scale Penetration-Aspiration Scale: OBJECTIVE ASSESSMENT OF SWALLOW FUNCTION (QUANTITATIVE ? PER TRIAL): PENETRATION / ASPIRATION SCALE (BHAT): 1 = does not enter airway 2 = enters airway/above vocal folds/ejected 3 = enters airway/above vocal folds/not ejected 4 = enters airway/contacts vocal folds/ejected 5 = enters airway/contacts vocal folds/not ejected 6 = enters airway/below vocal folds/ejected 7 = enters airway/below vocal folds/not ejected despite effort 8 = enters airway/below vocal folds/no effort VIDEOFLOROSCOPIC SCALE SCORE (BHAT): Grade I = aspiration of material that has penetrated into the laryngeal vestibule, intact cough reflex Grade II = aspiration < 10 % of the bolus, intact cough reflex Grade III = aspiration of < 10 % of the bolus, reduced cough reflex or aspiration of > 10 % of the bolus, intact cough reflex Grade IV = aspiration of > 10 % of the bolus, reduced cough reflex - Penetration-Aspiration Scale Score Thin Liquid via teaspoon Result: 2= enter airway/above vocal folds/ejected Thin Liquid via teaspoon Trial 2 Result: 1= does not enter airway Thin Liquid via sequential sips from cup Result: 2= enter airway/above vocal folds/ejected Yaak Thick Liquid via small single sip from cup Result: 1= does not enter airway Pudding via teaspoon with esophageal screen Result: 1= does not enter airway 1/4 Cookie Result: 1= does not enter airway - trace contrast (likely post prandial penetration of pharyngeal residues of previous trials) seen lining the anterior surface of the laryngeal vestibule prior to the swallow Thin Liquid via sequential sips from straw Result: 2= enter airway/above vocal folds/ejected - Oral Phase Labial Seal: No Labial Escape Tongue Control During Bolus Hold: Posterior escape of greater than half of bolus Bolus Preparation/Mastication: Slow prolonged chewing/mashing with complete recollection Bolus Transport/Lingual Motion: Slowed tongue motion Oral Residue: Residue collection on oral structures - Pharyngeal Phase Initiation of Pharyngeal Swallow: Bolus head in pyriforms Soft Palate Elevation: No bolus between soft palate and pharyngeal wall Laryngeal Elevation: Partial superior movement thyroid cart/partial apprx aryt- epig petiole Anterior Hyoid Excursion: Partial anterior movement Epiglottic Movement: Partial inversion Laryngeal Vestibule Closure at Height of Swallow: Incomplete; narrow column of air/contrast in laryngeal vestibule Pharyngeal Stripping Wave: Present - diminished Pharyngoesophageal Segment Opening: Parital distension and partial duration; parital obstruction of flow Tongue Base Retraction: Wide column of contrast between tongue base & post. pharyngeal wall Pharyngeal Residue: Majority of contrast within or on pharyngeal structures - ~50% of pudding in pharynx after the first swallow - Esophageal Phase Esophageal Clearance: Esophageal retention - Diagnosis/Impression Diagnosis: Mild-moderate oropharyngeal phase dysphagia (R13.12) Impression: The oral phase is primarily marked by... -Decreased bolus control with >1/2 thin liquid boluses seen spilling to the pyriform sinuses prior to swallow onset. -Slowed, but adequate mastication of 1/4 cookie. -Mild-moderate oral residues after the swallow, which the patient mostly cleared with use of a second swallow when needed. The pharyngeal phase is primarily marked by... -Delayed swallow onset. -Mildly decreased airway closure during the swallow due to decreased anterior hyoid excursion, laryngeal elevation, and epiglottic inversion. -Decreased pharyngeal motility, including decreased tongue base retraction, pharyngeal stripping wave, and UES opening/duration. -Laryngeal penetration with full ejection from the laryngeal vestibule with thin liquids via tsp, cup, and straw. No aspiration was observed during the study. - Recommendations Diet: Thin Liquids - Soft and bite size textures (IDDSI Level 6) Compensatory Strategies: Small Bites, Small Sips, Slow Rate - Allow time for multiple swallows on bites as needed, Alternate bites/solids and sips/liquids, Sitting upright Supervision: 1:1 Close Supervision - Assist feeding due to weakness Recommend Repeat Modified Barium Swallow: TBD Need for Skilled Speech Therapy Services: Yes Comment: Will recommend dysphagia therapy to address mild-moderate oropharyngeal dysphagia. POC to include the following: -monitor diet tolerance and respiratory status -implement oropharyngeal strengthening to promote improved bolus control, tongue base retraction, pharyngeal contraction, and hyolaryngeal elevation/excursion (lingual resistance, Lu, effortful, CTAR, Cait) -train patient, family, and staff in recommended compensatory strategies to decrease risk for aspiration Education Completed: 1. Described result of evaluation., 2. Pt understands evaluation & agrees with goals and treatment plan., 4. Family/caregivers understand evaluation & agree w/ goals & tx plan., 7. Pt requires further education on strategies & risks. - Status Active ST Patient: Active - Contact Information [facility] Speech Therapy:: Bárbara Lara M.A. [facility]-AUDITOR APPRAISER Speech-Language Pathologist [facility] [address] [place] [address] [email or web address] [phone] 09/08/22 11:57
--- NOTE | 2022-09-08 11:39 | MRI_ITS ---
STUDY: MRI BRAIN WITHOUT CONTRAST REASON FOR EXAM: Male, 86 years old. confusion, CARDIC ARREST, ANOXIC BRAIN INJURY TECHNIQUE: Standardized multiplanar fat and water weighted pulse sequences were obtained. COMPARISON: March 05, 2021 MR brain FINDINGS: There is moderate cerebral atrophy with widening of the extra-axial spaces and ventricular dilatation. There are multiple white matter hyperintensities, distributed throughout the deep white matter tracts of the cerebral hemispheres, consistent with moderate chronic white matter ischemic changes. There is no evidence for recent intracranial ischemia or other cause of cytotoxic edema on diffusion weighted imaging (DWI). Normal bilateral basal ganglia. Normal thalami. There is no extra-axial fluid accumulation. Normal flow voids within the major intracranial circulation suggesting patency by spin echo criteria. Focal ectasia left vertebral artery appears to deform the brainstem on the left. Normal sella turcica, pituitary gland, infundibular stalk, optic chiasm and hypothalamus. Normal tectal plate and pineal gland. Normal midbrain, leyla and medulla. 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 Normal basal cisterns. Normal bilateral temporal bones. Normal bilateral internal auditory canals. No demonstrated orbital abnormality, within the constraints of a routine brain study. Normal visualized paranasal sinuses. Normal calvarium and skull base. Normal visualized soft tissue structures. Normal visualized upper cervical spine. MRI/Brain without Contrast IMPRESSION: No acute disease. Involutional changes of the brain, as described above. Electronically Signed: Atif Hernandes MD at 17:19 EDT ,
--- NOTE | 2022-09-08 11:46 | PN.HOSP_ITS ---
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 Alejo is an 86-year-old white male who presents the emergency department [facility] on 09/02/2022 after suffering from a V-fib cardiac arrest. The patient was sitting at the breakfast table eating with his and he collapsed. EMS was called and he was found to be in V-fib. He was defibrillated 3 times and received 4 doses of epinephrine and 2 boluses of amiodarone 300 mg. After a second dose of amiodarone, ROSC was achieved. Patient was initially intubated and sedated in the ICU. He was able to be extubated on 09/04/2022. Upon admission he was placed on empiric antimicrobials. All cultures have been negative to date and antimicrobials have since been discontinued. He was found to be hypokalemic as well on presentation with potassium of 3.1. This was corrected and has been stabilized. His cardiac enzymes trended up with a peak slightly greater than 9000. Cardiology evaluated the patient and thought this was likely related to his cardiac arrest however aspirin and statin were initiated. They recommended once the patient was more medically stable to obtain a stress test. He has a history of mild coronary artery disease otherwise. He also has a history of aortic valve replacement 2012. He is clinically doing much better however his mental status is not baseline. He remains confused and oriented only to self. His echocardiogram was overall on impressive other than showing moderate aortic stenosis. No wall motion abnormality was identified. An amiodarone drip was initially administered however this is since been discontinued and patient is only on a beta-sanjeev at 25 mg daily. He was found to be hyperglycemic on presentation and previous A1c's from 2019 were greater than 6. He is on insulin with a sliding scale and 12 units of glargine daily. We will obtain a hemoglobin A1c. There was some concerns of post extubation dysphagia and a cookie swallow was performed on 09/08/2022. He was being given his medications with applesauce only prior to this as he was n.p.o. otherwise. Recommendations from speech therapy were direct supervision with him being a total feed and alternating bites and sips. He will need ongoing physical, occupational, and speech therapy at discharge and placement for ongoing therapy has been recommended. Family reports that he is much better today. Low-dose Seroquel was added overnight. I will transition this to Risperdal as he was somewhat somnolent this morning. I had extensive discussion with the family this early afternoon reviewing the entire situation regarding his admission, medical tests that have been performed and results as well as ongoing plan and discharge planning. Speech therapy did discuss his speech study with the family and ongoing recommendations and restrictions with regard to his oral diet. Objective Data Objective Data Vital Signs: Vital Signs Temp Pulse Resp BP Pulse Ox O2 Del Method O2 Flow Rate 97.3 F L 85 20 H 117/69 96 Nasal Cannula 2 09/08/22 09:40 09/08/22 11:02 09/08/22 11:02 09/08/22 09:40 09/08/22 09:40 09/08/22 09:40 09/08/22 09:40 FiO2 25 09/04/22 06:00 Oxygen Flow Rate (L/min) 2 Oxygen Delivery Method Nasal Cannula Weight: 96.5 kg Body Mass Index (BMI) 30.4 Intake & Output: Intake and Output for Last 24 Hours 09/06/22 09/07/22 09/08/22 23:59 23:59 23:59 Intake Total 2154.25 / 2154.25 1472.50 / 1472.50 1191.25 / 1191.25 Output Total 2150 / 2150 1060 / 1860 1300 / 1300 Balance 4.25 / 4.25 412.50 / -387.50 -108.75 / -108.75 Lab / Micro Data Result Diagrams: 09/08/22 05:07 09/08/22 05:07 Labs: Laboratory Results - last 24 hr 09/07/22 12:51: POC Glucose 147 H 09/07/22 21:49: POC Glucose 130 H 09/08/22 05:07: WBC 7.2, RBC 3.21 L, Hgb 10.9 L, Hct 33.2 L, MCV 103.4 H, MCH 34.0 H, MCHC 32.8, RDW Std Deviation 51.8 H, RDW Coeff of Fazal 13.7, Plt Count 133 L, MPV 9.3, Immature Gran % (Auto) 0.800, Neut % (Auto) 66.3, Lymph % (Auto) 12.1 L, [place] % (Auto) 13.8 H, Eos % (Auto) 6.4 H, Baso % (Auto) 0.6, Absolute Neuts (auto) 4.8, Absolute Lymphs (auto) 0.87, Nucleated RBC % 0 09/08/22 05:07: Sodium 138, Potassium 3.8, Chloride 109 H, Carbon Dioxide 23.0, Anion Gap 6, BUN 12, Creatinine 0.75, Estim Creat Clear Calc 54.75, Est GFR (MDRD) Af Amer 127, Est GFR (MDRD) Non-Af 105, BUN/Creatinine Ratio 16.0, Glucose 148 H, Calcium 8.7 09/08/22 05:12: POC Glucose 151 H Micro: Microbiology 09/02/22 13:54 Blood Culture (Wb) - Anticubital Right Blood Culture - Final No growth in 5 days. 09/02/22 13:50 Blood Culture (Wb) - Anticubital Right Blood Culture - Final No growth in 5 days. 09/02/22 16:55 Sputum, Induced/Lukens Gram Stain - Final 09/02/22 16:55 Sputum, Induced/Lukens Respiratory Culture - Final Mixed normal respiratory ann. No Streptococcus pneumoniae, beta-hemolytic Streptococcus or Staphylococcus aureus isolated. Rhythm Strip Rhythm Strip: Sinus Rhythm Physical Exam Const alert, no apparent distress and well nourished; Negative for oriented x3 or average body habitus Constitutional Narrative: Obese, elderly, white male, sitting up in bed, nursing and family at bedside, oriented to self and birthdate only,appears comfortable, nontoxic HEENT head/scalp atraumatic and moist oral mucous membranes HEENT Narrative: Dentition is poor, Mallampati is 2-3, no thrush Head and Scalp: normocephalic Eyes PERRL, EOMs intact bilaterally and conjunctivae normal Eyes Narrative: No scleral icterus Neck no lymphadenopathy and supple Neck Narrative: Trachea midline, no thyroid enlargement Resp normal respiratory effort, no retractions, no use of accessory muscles and clear to auscultation bilaterally Auscultation: Negative for rales, rhonchi or wheezes Cardio regular rate, regular rhythm, S1 normal heart sound, S2 normal heart sound, no rub, no gallops and no clicks Cardio Narrative: 3 out of 6 systolic murmur loudest at right upper sternal border GI normal to inspection, nondistended, normoactive bowel sounds, soft to palpation and non-tender Extremity no clubbing, cyanosis or edema Extremity Narrative: Pedal pulses are 2+ Skin Skin Narrative: Right subclavian in place, clean and dry, dressing intact Neuro No oriented x3, CN's II-XII intact bilaterally, moves all extremities and no focal motor deficits Neuro Narrative: Oriented only to self and birthdate, significant generalized weakness, follows one-step commands well but does have difficulty naming family members Speech: speech normal Psych affect normal Psych Narrative: Pleasantly confused, no hallucinations Assessment & Plan Assessment/Plan (1) Cardiopulmonary arrest with successful resuscitation: (2) Acute respiratory failure: (3) Encephalopathy acute: (4) NSTEMI, initial episode of care: (5) Aortic valve stenosis, moderate: (6) Dysphagia: PLAN: Plan Acute cardiopulmonary arrest due to V-fib -Occurred on 09/02/2022--> patient slumped over while eating breakfast -ROSC after 3 shocks after being found to be in ventricular fibrillation -Was hypokalemic upon presentation -Etiology is unclear at this time -Echocardiogram shows an EF of 55% with stage I diastolic dysfunction, mean aortic valve gradient of 30 mmHg and moderate aortic valve stenosis -Patient with known history of aortic valve stenosis status post bioprosthetic valve replacement -Was initially on amiodarone and this is since been discontinued -Metoprolol 25 mg daily initiated by cardiology-we will continue -Continue aspirin and statin -Check stress test per cardiology's recommendations -Suspect patient will need either loop recorder or event monitor at the time of discharge--> will discuss further with cardiology ? Need for LifeVest--> will discuss further with cardiology NSTEMI -Etiology is unclear however could be due to cardiac arrest with V-fib -Known history of only mild CAD -Not having chest pain during hospitalization -Continue aspirin and statin -Continue metoprolol as ordered -Check hemoglobin A1c -Echo with no wall motion abnormality -Stress test ordered to be done tomorrow Metabolic/toxic encephalopathy -Like related to post-arrest -Discontinue Seroquel -Trial very low-dose Risperdal -Check MRI for any signs of anoxia -CT on presentation showed only chronic involutional changes of the brain -No significant cognitive impairment at baseline per discussion with family Dysphagia -Speech therapy is following -Continue n.p.o. until cleared for diet -Cookie swallow pending for today Debility -PT/OT following -Placement recommended -Excepting facility is pending and patient will then need to be approved Chronic thrombocytopenia -Counts are stable -Continue to monitor Chronic anemia -Hemoglobin is stable at 10.9 -Baseline hemoglobin appears to be between 11 and 12 -Continue to monitor History of aortic valve stenosis status post AVR -Aortic valve replacement in 2013-bioprosthetic -Echocardiogram shows moderate aortic valve stenosis -We will need to continue to monitor History of PAF -Normal sinus rhythm during his hospitalization -Suspect was valvular related previously or postoperatively -Continue beta-sanjeev Hypokalemia -Resolved Acute hypoxic respiratory failure secondary to cardiopulmonary arrest -Resolved Hyperlipidemia -Continue statin History of rheumatoid arthritis -Continue methotrexate -Continue folic acid -Continue multivitamin Obesity -BMI 30.5 -Commend weight loss -complicates treatment, prognosis, outcomes History of prostate cancer -No current acute issues DVT prophylaxis -Subcu heparin CODE STATUS -Listed as full code however unverified will discuss further with family Disposition: -Patient will need placement at discharge -Case management is following and placement identification is currently pending for accepting facility Extensive discussion had with family between 1230 and 1 today with regards to presenting situation, diagnostic testing that has been performed and will be performed as well as results have been received, and overall plan of care. Charges/Coding Visit Charges Inpatient E&M: 44399 Subs Hosp L3
[2022-09-08] MEDS: Insulin Lispro 100 UNIT/ML INSULN.PEN SC ×3 (12:15→23:19)
[2022-09-08] MEDS: Metoprolol(XL)Succ 25 MG Tablet PO (12:15)
[2022-09-08 12:56] LABS: Bedside Glucose 159 mg/dL (74-106)
--- NOTE | 2022-09-08 13:18 | CASEMGMT ---
SW notified patient's daughter Susan and Francie that as of now [facility]CU and [facility] are declining patient due to his inability to follow commands and participate in therapy. SW explained that we can see how patient does with therapy today and tomorrow and as them to re-evaluate if he does better. Family was in agreement with this. Zahra Hidalgo CLASSER FLOW SPECIALIST
[2022-09-08 14:02] LABS: Hemoglobin A1c 5.9 % (3.8-5.6)
[2022-09-08 18:23] LABS: Bedside Glucose 150 mg/dL (74-106)
[2022-09-08] MEDS: RisperiDONE 0.5 MG Tablet PO (21:18)
[2022-09-08] MEDS: Atorvastatin Calcium 40 MG Tablet PO (21:19)
[2022-09-09] VITALS (9 sets, daily range): BP systolic 128–148; BP diastolic 70–83; PULSE 68–89; RESP 16–18; TEMP 36.4–36.8; O2SAT 92–97; BMI 30.3
[2022-09-09 00:01] LABS: Bedside Glucose 225 mg/dL (74-106)
[2022-09-09 05:35] LABS: Absolute Lymphocyte Count 1.05 X10^3/uL (0.83-4.51); Absolute Neutrophil Count 4.4 X10^3/uL (2.0-7.7); Basophil# 0.04 X10^3/uL; Basophil% 0.6 % (0-1); Eosinophil# 0.28 X10^3/uL; Eosinophils% 4.2 % (0-5); Hematocrit 32.1 % (40-54); Hemoglobin 10.8 g/dL (13.0-16.5); Lymphocyte # 1.05 X10^3/ul (0.83-4.51); Lymphocyte % 15.8 % (19-41); Mean Corp Hgb Conc 33.6 g/dL (32-36); Mean Corpuscular Hgb 34.4 pg (27.0-32.0); Mean Corpuscular Volume 102.2 fL (80-94); Mean Platelet Vol. 9.4 fl (6.2-12.0); Monocyte# 0.85 X10^3/uL; Monocyte% 12.8 % (0-10); NRBC Flagged by Analyzer 0 % (0-5); Neutrophil # 4.35 X10^3/uL (2.7-7.7); Neutrophil % 65.7 % (47-70); Platelet Count 141 K/mm3 (150-450); RBC Distribution Width CV 13.8 % (11.6-14.6); RBC Distribution Width SD 50.4 fl (35.1-43.9); Red Blood Count 3.14 M/mm3 (4.6-6.2); White Blood Count 6.6 K/mm3 (4.4-11.0)
[2022-09-09] MEDS: KCl 20MEQ in D5NS 20 MEQ/1,000 ML IV.SOLN. 75 MEQ IV (05:52)
[2022-09-09 05:53] LABS: Anion Gap 4 (5-15); BUN 19 mg/dL (7-18); BUN/Creat Ratio 23.4 RATIO (10-20); Calcium,Total 8.3 mg/dL (8.5-10.1); Chloride 108 mmol/L (98-107); Creatinine, Serum 0.81 mg/dL (0.70-1.30); EST Glomerular Filtration Rate 96 mL/min (>60); Est Glom Filt Rate - Afr Amer 116 mL/min (>60); Estimated Creatinine Clearance 67.59 ml/min; Glucose 141 mg/dL (74-106); Potassium 3.8 mmol/L (3.5-5.1); Sodium Level 137 mmol/L (136-145)
[2022-09-09 08:02] LABS: Bedside Glucose 140 mg/dL (74-106)
--- NOTE | 2022-09-09 09:49 | CASEMGMT ---
Discharge Planning Updates sent to [facility] via [facility] for reconsideration. Sydnie Pan, Discharge Planning Asst.
--- NOTE | 2022-09-09 10:33 | CASEMGMT ---
NAYANA asked Claudia in TCU to please look at patient's chart again as he did better with following commands with therapy yesterday. NAYANA spoke with patient's daughters per their request and let them both know NAYANA has asked [facility]CU and [facility] to re-evaluate patient as he did better with following commands. NAYANA also let them know [facility] is looking at the referral. Zahra Hidalgo VETERINARY MEDICINE SCIENTIST MICHELLE
[2022-09-09] MEDS: Metoprolol(XL)Succ 25 MG Tablet PO (10:41)
[2022-09-09] MEDS: Insulin Glargine-YFGN 100 UNIT/ML Pen 12 UNIT SC (10:43)
[2022-09-09] MEDS: Ipratropium/Albuterol Sulfate 3 ML AMPUL.NEB INHALATION ×2 (11:07→19:11)
[2022-09-09 11:09] LABS: Bedside Glucose 157 mg/dL (74-106)
--- NOTE | 2022-09-09 12:32 | STRESSREP ---
Stress Test Report Pharmacologic myocardial perfusion stress test. 86-year-old man with a history of non-ST elevation myocardial infarction Resting EKG demonstrates sinus rhythm with a rate of 76 bpm. Resting blood pressure is 143/84 mmHg. 0.4 mg of regadenoson was infused per usual protocol followed by rapid intravenous saline flush injection. Continuous EKG monitoring was performed. The maximum heart rate was 107 bpm which was 79 of max impacted heart rate the maximum workload was 1 metabolic equivalent. At rest there were no ST or T wave changes noted to suggest ischemia and at peak infusion nonspecific ST changes were noted which did not meet the criteria for ischemia. No clinical angina is noted. The final blood pressure was 155/75 mmHg. Myocardial perfusion protocol. 12.0 mCi of technetium 99m sestamibi was injected at rest. 0.4 mg of regadenoson was infused per usual protocol. At peak infusion 84.8 mCi of technetium 99m sestamibi was injected stress images were obtained stress and rest images were reconstructed and compared in the short axis vertical long and horizontal long axis. Gated images were also obtained. Perfusion SPECT analysis: Review of the stress images demonstrate normal uptake of tracer noted in all areas of the myocardium, with a large defect noted in the inferolateral segment. The resting images similar demonstrated normal uptake of tracer noted in all areas of the myocardium except for same area in the inferolateral segment basal inferior infarct is also noted. The above is suggestive of a previous extensive inferolateral infarct. No significant ischemia is present Gated SPECT analysis: The gated ejection fraction is 57. Conclusion: Myocardial pharmacologic stress test with evidence of inferior and inferolateral infarct. No ischemia is noted. Preserved ejection fraction.
[2022-09-09] MEDS: Insulin Lispro 100 UNIT/ML INSULN.PEN SC (12:57)
[2022-09-09 13:18] LABS: Bedside Glucose 192 mg/dL (74-106)
--- NOTE | 2022-09-09 13:53 | PN.HOSP_ITS ---
Reason for Visit Reason for Visit: Cardiac arrest Subjective Subjective No issues overnight. Patient seems to be doing better with therapy and improvement in following commands and interaction. Was able to get up to a chair today. Objective Data Objective Data Vital Signs: Vital Signs Temp Pulse Resp BP Pulse Ox O2 Del Method O2 Flow Rate 98.1 F 89 18 145/81 H 92 Room Air 1 09/09/22 10:24 09/09/22 11:09 09/09/22 11:09 09/09/22 10:41 09/09/22 11:09 09/09/22 11:09 09/08/22 12:12 FiO2 25 09/04/22 06:00 Oxygen Flow Rate (L/min) 1 Oxygen Delivery Method Room Air Weight: 96.2 kg Body Mass Index (BMI) 30.3 Intake & Output: Intake and Output for Last 24 Hours 09/07/22 09/08/22 09/09/22 23:59 23:59 23:59 Intake Total 1472.50 / 1472.50 1861.25 / 1861.25 1327.5 / 1327.5 Output Total 1060 / 1860 2050 / 205 800 / 800 Balance 412.50 / -387.50 -188.75 / -188.75 527.5 / 527.5 Medical Nutrition Assessment Dietitian: Malnutrition Criteria Met Start: 09/08/22 14:49 Freq: Status: Active Protocol: Document 09/08/22 14:49 MARIPOSA (Rec: 09/08/22 14:50 MARIPOSA [id number]) Nutrition Malnutrition Evidence of Malnutrition Exists Yes Malnutrition (severe): Acute Illness/Injury Evidenced By Suboptimal Energy Intake ( Severe),Weight Loss (Severe) Intake Problem Inadequate Oral Intake Etiology related to increased confusion Signs/Symptoms as evidenced by NPO status. PO diet resumes today (09/08) Status Active Problem Recommendation Dietitian Recommendations/Changes Will liberalize diet to regular - consistency per THERAPEUTIC RECREATION DIRECTOR d/t signs and symptoms of malnutrition; Will provide 8 oz CIB w/ breakfast, magic cup w/ lunch and ensure pudding w/ dinner for increased nutrition if consumed. Lab / Micro Data Result Diagrams: 09/09/22 05:20 09/09/22 05:20 Labs: Laboratory Results - last 24 hr 09/08/22 05:07: Hemoglobin A1c 5.9 H 09/08/22 18:03: POC Glucose 150 H 09/08/22 23:13: POC Glucose 225 H 09/09/22 05:20: WBC 6.6, RBC 3.14 L, Hgb 10.8 L, Hct 32.1 L, MCV 102.2 H, MCH 34.4 H, MCHC 33.6, RDW Std Deviation 50.4 H, RDW Coeff of Fazal 13.8, Plt Count 141 L, MPV 9.4, Immature Gran % (Auto) 0.900, Neut % (Auto) 65.7, Lymph % (Auto) 15.8 L, [place] % (Auto) 12.8 H, Eos % (Auto) 4.2, Baso % (Auto) 0.6, Absolute Neuts (auto) 4.4, Absolute Lymphs (auto) 1.05, Nucleated RBC % 0 09/09/22 05:20: Sodium 137, Potassium 3.8, Chloride 108 H, Carbon Dioxide 25.0, Anion Gap 4 L, BUN 19 H, Creatinine 0.81, Estim Creat Clear Calc 67.59, Est GFR (MDRD) Af Amer 116, Est GFR (MDRD) Non-Af 96, BUN/Creatinine Ratio 23.4 H, Glucose 141 H, Calcium 8.3 L 09/09/22 05:50: POC Glucose 140 H 09/09/22 10:39: POC Glucose 157 H 09/09/22 12:55: POC Glucose 192 H Micro: Microbiology 09/02/22 13:54 Blood Culture (Wb) - Anticubital Right Blood Culture - Final No growth in 5 days. 09/02/22 13:50 Blood Culture (Wb) - Anticubital Right Blood Culture - Final No growth in 5 days. 09/02/22 16:55 Sputum, Induced/Lukens Gram Stain - Final 09/02/22 16:55 Sputum, Induced/Lukens Respiratory Culture - Final Mixed normal respiratory ann. No Streptococcus pneumoniae, beta-hemolytic Streptococcus or Staphylococcus aureus isolated. Radiography Diagnostic Testing: Radiology Impression Brain MRI 09/08/22 11:39 IMPRESSION: No acute disease. Involutional changes of the brain, as described above. Electronically Signed: Atif Hernandes MD at 17:19 EDT , Rhythm Strip Rhythm Strip: Sinus Rhythm Physical Exam Const alert, no apparent distress and well nourished; Negative for oriented x3 or average body habitus Constitutional Narrative: Obese, elderly, white male, sitting up in a chair at the bedside, oriented to self and birthdate only,appears comfortable, nontoxic, was able to remember his children's and 's name today which is different from yesterday HEENT normocephalic, head/scalp atraumatic and moist oral mucous membranes HEENT Narrative: Dentition is poor, Mallampati is 2, no thrush Resp normal respiratory effort, no retractions, no use of accessory muscles and clear to auscultation bilaterally Resp Narrative: milldy diminished breath sounds bibasally, no wheezes or crackles. On room air. Auscultation: Negative for rales, rhonchi or wheezes Cardio regular rate, regular rhythm, S1 normal heart sound, S2 normal heart sound, no murmurs, no rub, no gallops and no clicks Cardio Narrative: 3 out of 6 systolic murmur loudest at right upper sternal border GI normal to inspection, nondistended, normoactive bowel sounds, soft to palpation and non-tender Skin Skin Narrative: Right subclavian in place, clean and dry, dressing intact Neuro No oriented x3, CN's II-XII intact bilaterally, moves all extremities, no focal motor deficits and no sensory deficits noted Neuro Narrative: Oriented only to self and birthdate, significant generalized weakness, follows o ne-step commands well and improved family member recognition Sensorium / Orientation: awake, alert and oriented to person Speech: speech normal Psych affect normal Psych Narrative: Pleasantly confused, no hallucinations Assessment & Plan Assessment/Plan (1) Cardiopulmonary arrest with successful resuscitation: (2) Acute respiratory failure: (3) Encephalopathy acute: (4) NSTEMI, initial episode of care: (5) Aortic valve stenosis, moderate: (6) Dysphagia: PLAN: Plan Acute cardiopulmonary arrest due to V-fib -Occurred on 09/02/2022--> patient slumped over while eating breakfast -ROSC after 3 shocks after being found to be in ventricular fibrillation -Was hypokalemic upon presentation -Etiology is unclear at this time -Echocardiogram shows an EF of 55% with stage I diastolic dysfunction, mean aortic valve gradient of 30 mmHg and moderate aortic valve stenosis -Patient with known history of aortic valve stenosis status post bioprosthetic valve replacement -Was initially on amiodarone and this is since been discontinued -Metoprolol 25 mg daily initiated by cardiology-we will continue -Continue aspirin and statin -Toprol 25 mg daily added -Stress test was unremarkable for any inducible ischemia and showed fixed defect on the posterior lateral aspect of the heart with no current perfusion issues -We will plan to discharge with an event monitor -No need for LifeVest with normal EF per discussion with Dr. Neal from cardiology NSTEMI -Etiology is unclear however could be due to cardiac arrest with V-fib -Known history of only mild CAD -Not having chest pain during hospitalization -Continue aspirin and statin -Metoprolol succinate 25 mg a day added -Hemoglobin A1c was 5.9 -Echo with no wall motion abnormality -Stress test done today and showed no inducible ischemia Metabolic/toxic encephalopathy -Like related to post-arrest -Continue low-dose Risperdal -MRI of the brain was unremarkable for any acute findings and showed only chronic involutional changes -No significant cognitive impairment at baseline per discussion with family Dysphagia -Speech therapy is following -Continue n.p.o. until cleared for diet -Cookie swallow performed and diet ordered with modifications as noted in the orders Debility -PT/OT following -Placement recommended -Accepting facility is pending and patient will then need to be approved Chronic thrombocytopenia -Counts are stable -Continue to monitor Chronic anemia -Hemoglobin is stable at 10.9 -Baseline hemoglobin appears to be between 11 and 12 -Continue to monitor History of aortic valve stenosis status post AVR -Aortic valve replacement in 2012-bioprosthetic -Echocardiogram shows moderate aortic valve stenosis -We will need to continue to monitor History of PAF -Normal sinus rhythm during his hospitalization -Suspect was valvular related previously or postoperatively -Continue beta-sanjeev Hyperlipidemia -Continue statin History of rheumatoid arthritis -Continue methotrexate -Continue folic acid -Continue multivitamin Obesity -BMI 30.5 -Commend weight loss -complicates treatment, prognosis, outcomes History of prostate cancer -No current acute issues DVT prophylaxis -Subcu heparin CODE STATUS -Listed as full code however unverified will discuss further with family Disposition: -Patient is just about medically stable for discharge and should be ready tomorrow if remains stable -Accepting facility is pending and patient will need pre-CERT Discussed findings on MRI and stress test with family. They are currently further discussing his CODE STATUS. Please with his progress and anxious for him to get to the next level of care for ongoing rehab Charges/Coding Visit Charges Inpatient E&M: 91888 Subs Hosp L2
--- NOTE | 2022-09-09 13:55 | CASEMGMT ---
[facility] and [facility] are still declining patient. [facility] ([facility]) has accepted patient. The 3 facilities that have accepted patient are [facility], [facility], and [facility]. SW notified patient's 2 daughters and of this information. They will talk with their brother and get back to . SW let them know patient will be ready for discharge tomorrow. They will talk to their brother this afternoon. SW told them to leave a message if it is after 4p. They thanked for the follow up. Plan: [facility], [facility], or [facility] pending family's choice. Zahra Hidalgo DIRECTOR FUNDRAISING MICHELEL
[2022-09-09 18:10] LABS: Bedside Glucose 108 mg/dL (74-106)
--- NOTE | 2022-09-09 18:14 | NURSING ---
Patient's daughter Susan Kat came to the desk to inform us they have decided on [facility]. She requests a phone call tomorrow with information about when he will go. .
[2022-09-09] MEDS: Atorvastatin Calcium 40 MG Tablet PO (21:13)
[2022-09-09] MEDS: RisperiDONE 0.5 MG Tablet PO (21:13)
[2022-09-09] MEDS: Heparin Injection (Vial) 5,000 UNIT/ML VIAL 5000 UNIT SC (21:13)
[2022-09-09 23:33] LABS: Bedside Glucose 121 mg/dL (74-106)
[2022-09-10] VITALS (7 sets, daily range): BP systolic 129–138; BP diastolic 65–83; PULSE 74–85; RESP 18–19; TEMP 36.9; O2SAT 94–97; BMI 30.2
[2022-09-10 06:09] LABS: Bedside Glucose 115 mg/dL (74-106)
[2022-09-10 06:43] LABS: Absolute Lymphocyte Count 1.04 X10^3/uL (0.83-4.51); Absolute Neutrophil Count 3.7 X10^3/uL (2.0-7.7); Basophil# 0.04 X10^3/uL; Basophil% 0.7 % (0-1); Eosinophil# 0.31 X10^3/uL; Eosinophils% 5.3 % (0-5); Hematocrit 35.8 % (40-54); Hemoglobin 12.3 g/dL (13.0-16.5); Lymphocyte # 1.04 X10^3/ul (0.83-4.51); Lymphocyte % 17.6 % (19-41); Mean Corp Hgb Conc 34.4 g/dL (32-36); Mean Corpuscular Hgb 34.2 pg (27.0-32.0); Mean Corpuscular Volume 99.4 fL (80-94); Mean Platelet Vol. 8.8 fl (6.2-12.0); Monocyte# 0.79 X10^3/uL; Monocyte% 13.4 % (0-10); NRBC Flagged by Analyzer 0 % (0-5); Neutrophil # 3.68 X10^3/uL (2.7-7.7); Neutrophil % 62.3 % (47-70); Platelet Count 173 K/mm3 (150-450); RBC Distribution Width CV 13.3 % (11.6-14.6); RBC Distribution Width SD 47.6 fl (35.1-43.9); White Blood Count 5.9 K/mm3 (4.4-11.0)
[2022-09-10] MEDS: Ipratropium/Albuterol Sulfate 3 ML AMPUL.NEB INHALATION ×2 (06:57→11:07)
[2022-09-10 07:12] LABS: Anion Gap 6 (5-15); BUN 16 mg/dL (7-18); BUN/Creat Ratio 19.8 RATIO (10-20); Calcium,Total 9.2 mg/dL (8.5-10.1); Chloride 105 mmol/L (98-107); Creatinine, Serum 0.81 mg/dL (0.70-1.30); EST Glomerular Filtration Rate 96 mL/min (>60); Est Glom Filt Rate - Afr Amer 117 mL/min (>60); Estimated Creatinine Clearance 67.59 ml/min; Glucose 139 mg/dL (74-106); Potassium 3.8 mmol/L (3.5-5.1); Sodium Level 136 mmol/L (136-145)
[2022-09-10] MEDS: Metoprolol(XL)Succ 25 MG Tablet PO (08:00)
[2022-09-10] MEDS: Insulin Glargine-YFGN 100 UNIT/ML Pen 12 UNIT SC (08:00)
[2022-09-10] MEDS: Heparin Injection (Vial) 5,000 UNIT/ML VIAL 5000 UNIT SC (08:01)
[2022-09-10] MEDS: Aspirin 81 MG TAB.CHEW PO (08:01)
[2022-09-10 08:16] LABS: Bedside Glucose 143 mg/dL (74-106)
--- NOTE | 2022-09-10 09:30 | CASEMGMT ---
NAYANA noted that patient's family has chosen [facility]. NAYANA asked Sydnie allison/jose pre planning advisor to please notify facilities. Zahra MARTINEZ
--- NOTE | 2022-09-10 09:35 | CASEMGMT ---
Discharge Planning Notified [facility] via phone that they are foc. Notified all other accepting facilities via [facility] that patient has chosen another SNF. Sydnie Pan, Discharge Planning Asst.
--- NOTE | 2022-09-10 10:41 | TREXTCAR_ITS ---
Diet Diet Order/Speech Therapy: 09/09/22 16:05 Diet: Cardiac - Heart Healthy Type of Dietary Supplement:: 8 oz CIB-B, MC-L, EP-D Is pt able to select menu?: No Diet Comments: Direct supervision/TOTAL FEED, alt bites&sips8 oz CIB-B, MC-L, EP-D Routine Orders/Code Status Suppository Frequency: Daily PRN O2 Liters per Minute: 2 O2 Frequency: PRN Keep PO Greater than or Equal to (%): 88 Routine Lab Work: CBC (1 week) and BMP (1 week) Code Status: DNRCC-A (Ok for Intubation) Wound(s) R wrist: Wound Type: Skin Tear Suggestions for Active Care Change Position every (hours): 2 Times a day to sit in chair: 3 Therapies Weight Bearing: Full weight bearing Physical Therapy: Eval and Treat Occupational Therapy: Eval and Treat Speech Therapy: Eval and Treat Problem/Diagnosis (1) Cardiopulmonary arrest with successful resuscitation: Status: Acute Code(s): I46.9 - Cardiac arrest, cause unspecified (2) Acute respiratory failure: Status: Acute Code(s): J96.00 - Acute respiratory failure, unspecified whether with hypoxia or hypercapnia (3) Encephalopathy acute: Status: Acute Code(s): G93.40 - Encephalopathy, unspecified (4) NSTEMI, initial episode of care: Status: Acute Code(s): I21.4 - Non-ST elevation (NSTEMI) myocardial infarction (5) Aortic valve stenosis, moderate: Status: Acute Code(s): I35.0 - Nonrheumatic aortic (valve) stenosis (6) Dysphagia: Status: Acute Code(s): R13.10 - Dysphagia, unspecified Plan MBS RESULTS Diagnosis:?Mild-moderate oropharyngeal phase dysphagia (R13.12) Impression: The oral phase is primarily marked by... -Decreased bolus control with >1/2 thin liquid boluses seen spilling to the pyriform sinuses prior to swallow onset. -Slowed, but adequate mastication of 1/4 cookie. -Mild-moderate oral residues after the swallow, which the patient mostly cleared with use of a second swallow when needed. The pharyngeal phase is primarily marked by... -Delayed swallow onset. -Mildly decreased airway closure during the swallow due to decreased anterior hyoid excursion, laryngeal elevation, and epiglottic inversion. -Decreased pharyngeal motility, including decreased tongue base retraction, pharyngeal stripping wave, and UES opening/duration. -Laryngeal penetration with full ejection from the laryngeal vestibule with thin liquids via tsp, cup, and straw. No aspiration was observed during the study. - Recommendations Diet:?Thin Liquids - Soft and bite size textures (IDDSI Level 6) Compensatory Strategies:?Small Bites, Small Sips, Slow Rate - Allow time for multiple swallows on bites as needed, Alternate bites/solids and sips/liquids, Sitting upright Supervision:?1:1 Close Supervision - Assist feeding due to weakness Recommend Repeat Modified Barium Swallow:?TBD Need for Skilled Speech Therapy Services:?Yes Comment: Will recommend dysphagia therapy to address mild-moderate oropharyngeal dysphagia. POC to include the following: -monitor diet tolerance and respiratory status -implement oropharyngeal strengthening to promote improved bolus control, tongue base retraction, pharyngeal contraction, and hyolaryngeal elevation/excursion (lingual resistance, Lu, effortful, CTAR, Cait) -train patient, family, and staff in recommended compensatory strategies to decrease risk for aspiration Education Completed:?1. Described result of evaluation., 2. Pt understands evaluation & agrees with goals and treatment plan., 4. Family/caregivers understand evaluation & agree w/ goals & tx plan., 7. Pt requires further education on strategies & risks. Allergies/Procedures Done in Hospital Allergies apremilast [From Otezla] Adverse Reaction (Verified 09/02/22 14:23) Pain in joints azithromycin [From Zithromax] Adverse Reaction (Verified 09/02/22 14:23) Other DIZZY doxycycline Adverse Reaction (Verified 09/02/22 14:23) Other COUGHA ND PHLEGM erythromycin base Adverse Reaction (Verified 09/02/22 14:23) Other gabapentin Adverse Reaction (Verified 09/02/22 14:23) Pain in joints guaifenesin [From Entex T] Adverse Reaction (Verified 09/02/22 14:23) Rash pseudoephedrine [From Entex T] Adverse Reaction (Verified 09/02/22 14:23) Rash tramadol Adverse Reaction (Verified 09/02/22 14:23) Pain in joints Procedures: 2-D Echocardiogram, CPR performed, EKG, Nuclear Stress Test and - (Chest/CT brain/MRI brain/modified barium swallow) Type of Care/Length of Stay Estimated LOS: Convalescent Care Less Than 30 days Type of Care Needed: Skilled Rehab Potential: Good Prognosis: Fair Additional Orders/Day of Discharge Day of Discharge: 09/10/22 Dietary and Speech Recommendations Dietitian Recommendations/Changes: Will liberalize diet to regular - consistency per SUPERVISOR PAIRING AND INSPECTING d/t signs and symptoms of malnutrition; Will provide 8 oz CIB w/ breakfast, magic cup w/ lunch and ensure pudding w/ dinner for increased nutrition if consumed. Discharge Plan Admission Admit Date/Time: 09/02/22 14:54 Attending Provider: Francie Montes De Oca Primary Care Provider: Stanley Grace Consulting Providers: Ivy Maloney ; Randall Neal ; Alex Sagastume ; Hector Cornejo ; Tavon Cordova ; Ryland Jolley ; Esme Yu NP ; Katja King Discharge Orders/Prescriptions Prescriptions: No Action fish,bora,flax oils-om3,6,9no1 [Triple [place] 3-6-9] 400-400-400 mg capsule 1 cap PO DAILY cholecalciferol (vitamin D3) 25 mcg (1,000 unit) capsule 25 mcg PO DAILY multivitamin [Multiple Vitamins] Tablet 1 tab PO DAILY folic acid 1 MG tablet 1 mg PO SUMOTUWEFRSA Label Comments: supplement methotrexate sodium 2.5 mg tablet 20 mg PO TH Label Comments: THURSDAYS cetirizine 10 mg tablet 10 mg PO DAILY betamethasone, augmented 0.05 % cream 1 applic TOPICAL DAILY Label Comments: APPLY TO AFFECTED AREA ON THE BODY ONCE TO TWICE DAILY NEEDED WHEN FLARED Rx Instructions: Apply to areas of rash on the back once daily clobetasol 0.05 % solution 1 applic TOPICAL DAILY Label Comments: APPLY TO AREAS OF RASH ON THE SCALP ONCE DAILY NEEDED Referrals / Follow Up: Stanley Grace, [Primary Care Provider] - Geno Shabazz TUNE UP MECHANIC, TUNE UP MECHANIC-C [Non-Staff -Ordering Privileges] - 09/25/22 2:00 pm
--- NOTE | 2022-09-10 10:44 | DS.PCM_ITS ---
Providers Date of Admission: 09/02/22 Date of Discharge: 09/10/22 Primary Care Physician: Dr. Stanley Grace, Consultations 09/02/22 14:53 Consult: Cardiology Routine Consulting Provider: Randall Neal Reason for Consult: nstemi, cardiac arrest EMERGENT Consult: Yes Notified: Yes Date Notified: 09/02/22 Time Notified: 17:18 Method of Notification: Text Consult: Crosstie Inspector / Pulmonary Medicine Routine Consulting Provider: Pulmonary Medicine evelyn [place] Reason for Consult: s/p cardiac arrest EMERGENT Consult: Yes MD Notified: Yes Date Notified: 09/02/22 Time Notified: 14:54 Method of Notification: ED Physician Initiated Reason For Visit: CARDIAC ARREST Diagnosis Discharge Diagnosis (1) Cardiopulmonary arrest with successful resuscitation: Status: Acute Code(s): I46.9 - Cardiac arrest, cause unspecified (2) Acute respiratory failure: Status: Acute Code(s): J96.00 - Acute respiratory failure, unspecified whether with hypoxia or hypercapnia (3) Encephalopathy acute: Status: Acute Code(s): G93.40 - Encephalopathy, unspecified (4) NSTEMI, initial episode of care: Status: Acute Code(s): I21.4 - Non-ST elevation (NSTEMI) myocardial infarction (5) Aortic valve stenosis, moderate: Status: Acute Code(s): I35.0 - Nonrheumatic aortic (valve) stenosis (6) Dysphagia: Status: Acute Code(s): R13.10 - Dysphagia, unspecified Medications at Discharge Home Medications folic acid 1 mg tablet 1 mg PO SUMOTUWEFRSA Check with primary doctor 03/23/16 cholecalciferol (vitamin D3) 25 mcg (1,000 unit) capsule 25 mcg PO DAILY Check with primary doctor 03/04/21 fish, borage, flaxseed oils-omega 3,6,9 cb #1 400 mg-400 mg-400 mg cap (Triple [place] 3-6-9) 1 cap PO DAILY Check with primary doctor 03/04/21 methotrexate sodium 2.5 mg tablet 20 mg PO TH Check with primary doctor 03/04/21 multivitamin (Multiple Vitamins tablet) 1 tab PO DAILY Check with primary doctor 04/21/22 cetirizine 10 mg tablet 10 mg PO DAILY Check with primary doctor 06/13/23 betamethasone, augmented 0.05 % topical cream 1 applic topical DAILY Psorosis 09/08/22 clobetasol 0.05 % scalp solution 1 applic topical DAILY Psorosis 09/08/22 aspirin 81 mg chewable tablet 81 mg PO BREAKFAST #0 tabs 09/10/22 atorvastatin 40 mg tablet 40 mg PO QHS #0 tabs 09/10/22 insulin glargine-yfgn 100 unit/mL (3 mL) subcutaneous pen 12 unit (0.12 mL) subcut DAILY #0 mL 09/10/22 insulin lispro 100 unit/mL subcutaneous pen (Humalog KwikPen (U-100) Insulin) See Protocol subcut ACHS #0 mL 09/10/22 metoprolol succinate 25 mg tablet,extended release 24 hr 25 mg PO DAILY #0 tabs 09/10/22 risperidone 0.5 mg tablet 0.5 mg PO QHS #0 tabs 09/10/22 Hospital Course Procedures 2-D Echocardiogram, Central line placement, CPR performed, EKG, Intubation, Nuclear stress test and - (CT brain/MRI brain/CTA chest/MBS/chest x-ray) Summary of Care Provided Minutes Spent on Discharge: 40 Hospital Course: Mr. Alejo is an 86-year-old white male who presented the emergency department [facility] on 09/02/2022 after suffering from a V-fib cardiac arrest.? The patient was sitting at the breakfast table eating with his and he collapsed.? EMS was called and he was found to be in V-fib.? He was de fibrillated 3 times and received 4 doses of epinephrine and 2 boluses of amiodarone 300 mg.? After a second dose of amiodarone, ROSC was achieved.? Patient was initially intubated and sedated in the ICU.? He was able to be extubated on 09/04/2022.? Upon admission he was placed on empiric antimicrobia ls.? All cultures were negative and antimicrobials were discontinued.? He was found to be hypokalemic as well on presentation with potassium of 3.1.? This was corrected and has been stabilized.? His cardiac enzymes trended up with a peak slightly greater than 9000.? Cardiology evaluated the patient and thought this was likely related to his cardiac arrest however aspirin and statin were initiated.? They recommended once the patient was more medically stable to obtain a stress test.? He has a history of mild coronary artery disease otherwise.? He also has a history of aortic valve replacement 2012.? His stress test was able to be performed on 09/09/2022 and demonstrated myocardial pharmacological evidence of an inferior and inferior lateral infarct with no acute ischemia noted and preserved ejection fraction. I discussed the case with cardiology and they recommended ongoing medical therapy with outpatient follow- up. Appointment was made for follow-up at the time of discharge. He overall has been clinically doing much better however his mental status is not baseline. We did obtain an MRI which was unremarkable for any acute findings and only showed chronic involutional changes consistent with his previous CT scan. We did discuss with family his downtime at the time of his arrest and overall downtime was felt to be between 8 and 20 minutes. There was an 8-minute response time for the squad and it is unclear how much time took place from the event until the phone call was placed. He remains confused and oriented only to self but his mental status seems to slowly be improving. He is improving his participation in therapy and his ability to follow commands.? His echocardiogram was overall on impressive other than showing moderate aortic stenosis.? No wall motion abnormality was identified.? An amiodarone drip was initially administered however this is since been discontinued and patient is only on a beta-sanjeev at 25 mg daily.? He was found to be hyperglycemic on presentation and previous A1c's from 2019 were greater than 6.? He is on insulin with a sliding scale and 12 units of glargine daily.? A1c was less than 6..? There were some concerns of post extubation dysphagia and a cookie swallow was performed on 09/08/2022.? Recommendations from speech therapy were direct supervision with him being a total feed and alternating bites and sips.? He will need ongoing physical, occupational, and speech therapy at discharge and placement for ongoing therapy has been recommended. He was accepted at [facility] and able to be discharged there in stable condition on 09/10/2022. He has a follow-up appointment with cardiology on 09/25/2022 at 2 PM. We have asked that he follow-up with his primary care physician within the next month after discharge from his rehabilitation. CODE STATUS was reviewed with the family at the time of discharge and they have elected on a CODE STATUS of DNR CCA okay for short-term intubation. They indicated they would not want him to go through CPR and ACLS protocol again. Discharge diagnoses: Acute cardiopulmonary arrest Ventricular fibrillation NSTEMI Anoxic encephalopathy Dysphagia Debility Chronic thrombocytopenia Chronic anemia History of aortic valve stenosis status post AVR History of PAF Hyperlipidemia History of rheumatoid arthritis Obesity History of prostate cancer Physical Exam Const alert, no apparent distress and well nourished; Negative for oriented x3 or average body habitus Constitutional Narrative: Obese, elderly, white male, sitting up in a chair at the bedside, oriented to self and birthdate only,appears comfortable, nontoxic, and daughter at bedside General Appearance: cooperative, comfortable, well kempt and well developed Orientation / Consciousness: awake, oriented to person and lethargic; Negative for oriented to place or oriented to time Exam Limitations: altered mental status Nutritional Appearance: overweight HEENT normocephalic, head/scalp atraumatic and moist oral mucous membranes; Negative for hearing grossly normal bilaterally HEENT Narrative: Dentition is poor, Mallampati is 2, no thrush Eyes PERRL, EOMs intact bilaterally and conjunctivae normal Eyes Narrative: No scleral icterus Neck no lymphadenopathy, supple and no JVD Neck Narrative: Trachea midline, no thyroid enlargement Resp normal respiratory effort, no retractions, no use of accessory muscles and clear to auscultation bilaterally Auscultation: Negative for rales, rhonchi or wheezes Cardio regular rate, regular rhythm, S1 normal heart sound, S2 normal heart sound, no murmurs, no rub, no gallops and no clicks Cardio Narrative: 3 out of 6 systolic murmur loudest at right upper sternal border GI normal to inspection, nondistended, normoactive bowel sounds, soft to palpation and non-tender Extremity normal capillary refill, no clubbing, cyanosis or edema and no calf tenderness Extremity Narrative: Pedal pulses are 2+ Skin no rashes or lesions noted, skin turgor normal and no jaundice Skin Narrative: Right subclavian in place, clean and dry, dressing intact Neuro No oriented x3, CN's II-XII intact bilaterally, moves all extremities, no focal motor deficits and no sensory deficits noted Neuro Narrative: Oriented only to self and birthdate, significant generalized weakness, follows one-step commands well Sensorium / Orientation: awake, alert and oriented to person Speech: speech normal Psych affect normal Psych Narrative: Pleasantly confused, no hallucinations Medical Records Data Medical Nutrition Assessment Dietitian: Malnutrition Criteria Met Start: 09/08/22 14:49 Freq: Status: Active Protocol: Document 09/08/22 14:49 MARIPOSA (Rec: 09/08/22 14:50 MARIPOSA [id number]) Nutrition Malnutrition Evidence of Malnutrition Exists Yes Malnutrition (severe): Acute Illness/Injury Evidenced By Suboptimal Energy Intake ( Severe),Weight Loss (Severe) Intake Problem Inadequate Oral Intake Etiology related to increased confusion Signs/Symptoms as evidenced by NPO status. PO diet resumes today (09/08) Status Active Problem Recommendation Dietitian Recommendations/Changes Will liberalize diet to regular - consistency per ZIGZAG APPLIQUER d/t signs and symptoms of malnutrition; Will provide 8 oz CIB w/ breakfast, magic cup w/ lunch and ensure pudding w/ dinner for increased nutrition if consumed. Weight / BMI Weight Weight: 95.6 kg Body Mass Index (BMI) 30.2 ABG / Lab / Microbiology Data Result Diagrams: 09/10/22 06:29 09/10/22 06:29 Laboratory: Laboratory Results - last 24 hr 09/09/22 10:39: POC Glucose 157 H 09/09/22 12:55: POC Glucose 192 H 09/09/22 17:52: POC Glucose 108 H 09/09/22 23:14: POC Glucose 121 H 09/10/22 05:31: POC Glucose 115 H 09/10/22 06:29: WBC 5.9, RBC 3.60 L, Hgb 12.3 L, Hct 35.8 L, MCV 99.4 H, MCH 34.2 H, MCHC 34.4, RDW Std Deviation 47.6 H, RDW Coeff of Fazal 13.3, Plt Count 173, MPV 8.8, Immature Gran % (Auto) 0.700, Neut % (Auto) 62.3, Lymph % (Auto) 17.6 L, [place] % (Auto) 13.4 H, Eos % (Auto) 5.3 H, Baso % (Auto) 0.7, Absolute Neuts (auto) 3.7, Absolute Lymphs (auto) 1.04, Nucleated RBC % 0 09/10/22 06:29: Sodium 136, Potassium 3.8, Chloride 105, Carbon Dioxide 25.0, Anion Gap 6, BUN 16, Creatinine 0.81, Estim Creat Clear Calc 67.59, Est GFR (MDRD) Af Amer 117, Est GFR (MDRD) Non-Af 96, BUN/Creatinine Ratio 19.8, Glucose 139 H, Calcium 9.2 09/10/22 07:58: POC Glucose 143 H Microbiology: Microbiology 09/02/22 13:54 Blood Culture (Wb) - Anticubital Right Blood Culture - Final No growth in 5 days. 09/02/22 13:50 Blood Culture (Wb) - Anticubital Right Blood Culture - Final No growth in 5 days. 09/02/22 16:55 Sputum, Induced/Lukens Gram Stain - Final 09/02/22 16:55 Sputum, Induced/Lukens Respiratory Culture - Final Mixed normal respiratory ann. No Streptococcus pneumoniae, beta-hemolytic Streptococcus or Staphylococcus aureus isolated. D/C Instructions Discharge Diet: Low fat / Low cholesterol Meaningful Use Info Meaningful Use Diagnoses (Choose all that apply): None applicable Discharge Plan Admission Admit Date/Time: 09/02/22 14:54 Primary Reason for Your Visit: Cardiac arrest Attending Provider: Francie Montes De Oca Primary Care Provider: Stanley Grace Consulting Providers: Ivy Maloney ; Randall Neal ; Alex Sagastume ; Hector Cornejo ; Tavon Cordova ; Ryland Jolley ; Esme Yu NP ; Katja King Discharge Orders/Prescriptions Prescriptions: New aspirin 81 mg Tablet,Chewable 81 mg PO BREAKFAST Qty: 0 0RF atorvastatin 40 mg Tablet 40 mg PO QHS Qty: 0 0RF insulin glargine-yfgn 100 unit/mL (3 mL) Insulin Pen 12 unit subcut DAILY Qty: 0 0RF insulin lispro [Humalog KwikPen Insulin] 100 unit/mL Insulin Pen See Protocol subcut ACHS Qty: 0 0RF Protocol: 3. Sliding Scale Insulin Med Dosing Condition: 150-189 mg/dl = 1 unit Condition: 190-229 mg/dl = 2 units Condition: 230-269 mg/dl = 3 units Condition: 270-309 mg/dl = 4 units Condition: 310-349 mg/dl = 5 units Condition: 350-399 mg/dl = 6 units Condition: 400-449 mg/dl = 7 units Condition: Greater than 449 call physician Protocol Text: - Use for Total Daily Dose of Insulin 37-55 units - Airam infected, or steroid patients MEDIUM DOSING ALGORITHIM metoprolol succinate 25 mg Tablet Extended Release 24 Hr 25 mg PO DAILY Qty: 0 0RF risperidone 0.5 mg Tablet 0.5 mg PO QHS Qty: 0 0RF Continued fish,bora,flax oils-om3,6,9no1 [Triple [place] 3-6-9] 400-400-400 mg capsule 1 cap PO DAILY cholecalciferol (vitamin D3) 25 mcg (1,000 unit) capsule 25 mcg PO DAILY multivitamin [Multiple Vitamins] Tablet 1 tab PO DAILY folic acid 1 MG tablet 1 mg PO SUMOTUWEFRSA Label Comments: supplement methotrexate sodium 2.5 mg tablet 20 mg PO Label Comments: THURSDAYS cetirizine 10 mg tablet 10 mg PO DAILY betamethasone, augmented 0.05 % cream 1 applic TOPICAL DAILY Label Comments: APPLY TO AFFECTED AREA ON THE BODY ONCE TO TWICE DAILY NEEDED WHEN FLARED Rx Instructions: Apply to areas of rash on the back once daily clobetasol 0.05 % solution 1 applic TOPICAL DAILY Label Comments: APPLY TO AREAS OF RASH ON THE SCALP ONCE DAILY NEEDED Referrals / Follow Up: Stanley Grace DO [Primary Care Provider] - Within 1 Month Geno Shabazz EVENTS SOLUTIONS CONSULTANT, EVENTS SOLUTIONS CONSULTANT-C [Non-Staff -Ordering Privileges] - 09/25/22 2:00 pm Disposition Disposition (needs filled in before D/C Order can be placed): [facility] Facility Charges/Coding Visit Charges Inpatient E&M: 15089 SNF Disch >30 Min
--- NOTE | 2022-09-10 11:33 | PHA.DC.MR ---
Pharmacy Service has performed discharge medication reconciliation for this patient. The patient's discharge medication list was reviewed for discrepancies and discrepancies were resolved. Home Medications folic acid 1 mg tablet 1 mg PO SUMOTUWEFRSA Check with primary doctor 03/23/16 cholecalciferol (vitamin D3) 25 mcg (1,000 unit) capsule 25 mcg PO DAILY Check with primary doctor 03/04/21 fish, borage, flaxseed oils-omega 3,6,9 cb #1 400 mg-400 mg-400 mg cap (Triple [place] 3-6-9) 1 cap PO DAILY Check with primary doctor 03/04/21 methotrexate sodium 2.5 mg tablet 20 mg PO TH Check with primary doctor 03/04/21 multivitamin (Multiple Vitamins tablet) 1 tab PO DAILY Check with primary doctor 04/21/22 cetirizine 10 mg tablet 10 mg PO DAILY Check with primary doctor 09/02/22 betamethasone, augmented 0.05 % topical cream 1 applic topical DAILY Psorosis 09/08/22 clobetasol 0.05 % scalp solution 1 applic topical DAILY Psorosis 09/08/22 aspirin 81 mg chewable tablet 81 mg PO BREAKFAST #0 tabs 09/10/22 atorvastatin 40 mg tablet 40 mg PO QHS #0 tabs 09/10/22 insulin glargine-yfgn 100 unit/mL (3 mL) subcutaneous pen 12 unit (0.12 mL) subcut DAILY #0 mL 09/10/22 insulin lispro 100 unit/mL subcutaneous pen (Humalog KwikPen (U-100) Insulin) See Protocol subcut ACHS #0 mL 09/10/22 metoprolol succinate 25 mg tablet,extended release 24 hr 25 mg PO DAILY #0 tabs 09/10/22 risperidone 0.5 mg tablet 0.5 mg PO QHS #0 tabs 09/10/22
--- NOTE | 2022-09-10 11:35 | CASEMGMT ---
Patient is ready for discharge. NAYANA faxed d/c orders and med list to [facility] ([facility]). Awaiting COVID test results to fax to [facility]. NAYANA completed a 7000 in [place]. NAYANA called Physicians and arranged for patient to get picked up at 13:00 via cot. NAYANA called Perla at [facility] and left her a voice mail letting her know this information. NAYANA notified patient's , daughter Susan, secretary of police. NAYANA will ginger REILLY. Plan: d/c to [facility] under skilled level of care on a convalescent stay. Physicians will transport patient via cot. Zahra MARTINEZ
--- NOTE | 2022-09-10 12:17 | CASEMGMT ---
COVID test faxed to [facility]. Zahra Hidalgo RN L AND D GREASE RENDERER
--- NOTE | 2022-09-10 12:40 | NURSING ---
Report called to [facility].
--- NOTE | 2022-09-10 13:22 | CHAPLAIN ---
Type of Pastoral Visit ___ Initial Visit _x__ Follow-up Visit ___ On-call Visit ___ General Patient Visit ___ Spiritual Assessment ___ Family Conference ___ Bereavement ___ Rapid Response ___ Code Blue ___ Other (describe below) Pastoral Care Referral From ___ Patient _x__ Family ___ Nurse ___ Physician ___ Customer Service Operator ___ Truck Dock Material Mover ___ Other (describe below) Sacrament/Intervention _x__ Active listening ___ Anointing ___ Religion ___ Bereavement ___ Communion ___ Jessica exploration ___ ___ Life review _x__ Prayer ___ Reconciliation ___ Sacrament of Sick _x__ Supportive presence ___ Wedding ___ Other (describe below) Pastoral Comments patient is pleasant and welcoming of spiritual care and prayer; pt is also exhibiting confusion as to place and thoughts; pt wants to get out of chair and leave but diverted until LOG POND WORKER came to assist with lunch
[2022-09-10 17:39] LABS: Bedside Glucose 156 mg/dL (74-106)
== END 2022-09-10 13:50 | disposition skilled nursing facility (03) | DRG 280 ==
LOC: ED 13:37 → ICU 14:32 → PCU 09-06 08:28
PROVIDERS: Hospitalist; Internal Medicine; Internal Medicine Critical Care Medicine; Student in an Organized Health Care Education/Training Program; Admitting Provider Internal Medicine; Emergency Provider Emergency Medicine; PCP Family Medicine; Visit Provider Internal Medicine
DX: I21.4 Non-ST elevation (NSTEMI) myocardial infarction (principal); I49.01 Ventricular fibrillation; J96.01 Acute respiratory failure with hypoxia; I46.2 Cardiac arrest due to underlying cardiac condition; E43 Unspecified severe protein-calorie malnutrition; G93.1 Anoxic brain damage, not elsewhere classified; D69.6 Thrombocytopenia, unspecified; Z95.2 Presence of prosthetic heart valve; I48.0 Paroxysmal atrial fibrillation; M06.9 Rheumatoid arthritis, unspecified; I10 Essential (primary) hypertension; E87.6 Hypokalemia; I25.10 Atherosclerotic heart disease of native coronary artery without angina pectoris; E78.5 Hyperlipidemia, unspecified; I35.0 Nonrheumatic aortic (valve) stenosis; D64.9 Anemia, unspecified; R73.9 Hyperglycemia, unspecified; E66.9 Obesity, unspecified; Z68.30 Body mass index [BMI] 30.0-30.9, adult; R13.12 Dysphagia, oropharyngeal phase; Z66 Do not resuscitate; Z79.82 Long term (current) use of aspirin; Z79.899 Other long term (current) drug therapy; Z85.46 Personal history of malignant neoplasm of prostate; Z86.73 Personal history of transient ischemic attack (TIA), and cerebral infarction without residual deficits
CPT/HCPCS: 31500; 31720; 36415; 36600; 51702; 70450; 70551; 71045; 71275; 74230; 78452; 80048; 80053; 80299; 81001; 82550; 82803; 82962; 83036; 83605; 83880; 84145; 84478; 84484; 85025; 85379; 85610; 85730; 87040; 87070; 87205; 87426; 92526; 92610; 92611; 93005; 93017; 93306; 94002; 94003; 94640; 94660; 94668; 97110; 97162; 97167; 97530; 97535; 97802; 99252; 99285; A9500; J7030; Q9957; Q9967; A4216; C8929; G0463; J0696; J2785

== ENCOUNTER → 2022-09-15 | Outpatient (REF) | payer MEDICARE, OTHER, SELFPAY ==
[2022-09-15 09:09] LABS: Hematocrit 36.6 % (40-54); Hemoglobin 12.3 g/dL (13.0-16.5); Mean Corp Hgb Conc 33.6 g/dL (32-36); Mean Corpuscular Hgb 33.9 pg (27.0-32.0); Mean Corpuscular Volume 100.8 fL (80-94); Mean Platelet Vol. 9.2 fl (6.2-12.0); Platelet Count 298 K/mm3 (150-450); RBC Distribution Width CV 13.2 % (11.6-14.6); RBC Distribution Width SD 48.1 fl (35.1-43.9); Red Blood Count 3.63 M/mm3 (4.6-6.2); White Blood Count 9.1 K/mm3 (4.4-11.0)
[2022-09-15 09:14] LABS: Anion Gap 7 (5-15); BUN 18 mg/dL (7-18); BUN/Creat Ratio 20.6 RATIO (10-20); Calcium,Total 8.8 mg/dL (8.5-10.1); Chloride 105 mmol/L (98-107); Creatinine, Serum 0.87 mg/dL (0.70-1.30); EST Glomerular Filtration Rate 88 mL/min (>60); Est Glom Filt Rate - Afr Amer 106 mL/min (>60); Glucose 143 mg/dL (74-106); Potassium 4.1 mmol/L (3.5-5.1); Sodium Level 135 mmol/L (136-145)
== END ==
LOC: OLS.WCC 05:00
PROVIDERS: PCP Family Medicine; Visit Provider Family Medicine
DX: D64.9 Anemia, unspecified (principal); E78.5 Hyperlipidemia, unspecified; E11.9 Type 2 diabetes mellitus without complications
CPT/HCPCS: 36415; 80048; 85027

== ENCOUNTER → 2022-10-06 | Outpatient (REF) | payer MEDICARE, OTHER, SELFPAY ==
[2022-10-06 08:33] LABS: Vitamin B12 533 pg/mL (211-911)
== END ==
LOC: OLS.WCC 04:00
PROVIDERS: PCP Family Medicine; Referring Provider Family Medicine; Visit Provider Family Medicine
DX: D64.9 Anemia, unspecified (principal)
CPT/HCPCS: 36415; 82607

== ENCOUNTER → 2022-10-14 | Outpatient (REF) | payer MEDICARE, OTHER, SELFPAY ==
[2022-10-14 08:38] LABS: Hematocrit 34.3 % (40-54); Mean Corp Hgb Conc 32.1 g/dL (32-36); Mean Corpuscular Hgb 33.1 pg (27.0-32.0); Mean Corpuscular Volume 103.3 fL (80-94); Mean Platelet Vol. 9.4 fl (6.2-12.0); Platelet Count 108 K/mm3 (150-450); RBC Distribution Width CV 14.4 % (11.6-14.6); Red Blood Count 3.32 M/mm3 (4.6-6.2); White Blood Count 4.2 K/mm3 (4.4-11.0)
[2022-10-14 08:48] LABS: Anion Gap 2 (5-15); BUN 17 mg/dL (7-18); Calcium,Total 8.5 mg/dL (8.5-10.1); Chloride 111 mmol/L (98-107); EST Glomerular Filtration Rate 75 mL/min (>60); Est Glom Filt Rate - Afr Amer 91 mL/min (>60); Glucose 109 mg/dL (74-106); Potassium 4.3 mmol/L (3.5-5.1); Sodium Level 143 mmol/L (136-145)
== END ==
LOC: OLS.WCC 05:00
PROVIDERS: PCP Family Medicine; Visit Provider Family Medicine
DX: D64.9 Anemia, unspecified (principal); N40.0 Benign prostatic hyperplasia without lower urinary tract symptoms; Z79.899 Other long term (current) drug therapy
CPT/HCPCS: 36415; 80048; 85027

== ENCOUNTER 2022-10-18 18:01 | Inpatient (IN) | payer MEDICARE, OTHER, SELFPAY ==
[2022-10-18 18:02] VITALS: TEMP 36.8; BMI 32.1
[2022-10-18 18:05] VITALS: BP 121/71; PULSE 57; RESP 16; O2SAT 95
--- NOTE | 2022-10-18 18:12 | EX.ED.DYSGE1 ---
HPI History of Present Illness Chief Complaint: Abd Pain Narrative Narrative: Patient is a 86-year-old male who is presenting to the ER with chief complaint of abdominal pain and elevated LFTs. We did get a call had a report from the nursing facility physician. The initial report was that patient's LFTs were elevated yesterday, and is having severe abdominal pain today, patient is a DNR CC, but patient is being sent to the ER for evaluation secondary to his abdominal pain. When speaking to the patient and daughter, they state that patient severe abdominal pain was yesterday, not today. Patient's lab work was yesterday when they checked his LFTs that were slightly elevated. Patient has mild diffuse abdominal pain today, but no severe pain like he did yesterday. Patient was at nursing facility. Patient's daughter is power of business attorney and son-in-law are at bedside. Patient currently has no headache, no lightheaded or dizziness. No chest pain or shortness of breath. Minimal abdominal pain now, no nausea, vomiting, diarrhea, no other acute complaints. Patient is slightly jaundiced today as well. Patient has no other acute complaints at this time. [facility] Medical History Anemia Aortic valve stenosis, moderate Back pain Cardiac arrest Cardiopulmonary arrest with successful resuscitation Easy bruising Essential (primary) hypertension Excessive bleeding Hereditary hemochromatosis History of coronary artery disease History of injury of tendon History of pain when walking Leg cramps Loss of hearing Macular degeneration Mild cognitive impairment Non-smoker Non-ST elevation [place] (NSTEMI) Nonobstructive atherosclerosis of coronary artery Nonrheumatic aortic (valve) insufficiency Obesity Orthostatic hypotension Pain Paroxysmal atrial fibrillation Peripheral vestibulopathy Prostate cancer Prosthetic aortic valve stenosis Psoriasis Psoriatic arthritis Rectal bleeding Restless legs Syncope TIA (transient ischemic attack) (2007) Ventricular fibrillation Wears glasses Home Medications folic acid 1 mg tablet 1 mg PO SUMOTUWEFRSA Check with primary doctor 03/23/16 [History Last Taken Unknown] fish, borage, flaxseed oils-omega 3,6,9 cb #1 400 mg-400 mg-400 mg cap (Triple Willard 3-6-9) 1 cap PO DAILY Check with primary doctor 03/04/21 [History Last Taken Unknown] methotrexate sodium 2.5 mg tablet 20 mg PO TH Check with primary doctor 03/04/21 [History Last Taken Unknown] multivitamin (Multiple Vitamins tablet) 1 tab PO DAILY Check with primary doctor 04/21/22 [History Last Taken Unknown] betamethasone, augmented 0.05 % topical cream 1 applic topical DAILY Psorosis 09/08/22 [History Last Taken Unknown] clobetasol 0.05 % scalp solution 1 applic topical DAILY Psorosis 09/08/22 [History Last Taken Unknown] aspirin 81 mg chewable tablet 81 mg PO BREAKFAST CARDIAC #0 tabs 09/10/22 [Rx Last Taken Unknown] atorvastatin 40 mg tablet 40 mg PO QHS CHOLESTEROL #0 tabs 09/10/22 [Rx Last Taken Unknown] insulin lispro 100 unit/mL subcutaneous pen (Humalog KwikPen (U-100) Insulin) See Protocol subcut ACHS DIABETES #0 mL 09/10/22 [Rx Last Taken Unknown] metoprolol succinate 25 mg tablet,extended release 24 hr 25 mg PO DAILY HTN #0 tabs 09/10/22 [Rx Last Taken Unknown] acetaminophen 325 mg capsule 325 mg PO ONCE PRN fever or pain 09/25/22 [History Last Taken Unknown] buspirone 10 mg tablet 10 mg PO BID ANXIETY 09/25/22 [History Last Taken Unknown] loratadine 10 mg disintegrating tablet (Allergy Relief (loratadine)) 10 mg PO DAILY ALLERGIES 09/25/22 [History Last Taken Unknown] trazodone 50 mg tablet 75 mg PO QHS ANXIETY 09/25/22 [History Last Taken Unknown] escitalopram oxalate 5 mg tablet 5 mg PO DAILY ANXIETY 10/18/22 [History Last Taken Unknown] insulin glargine-yfgn 100 unit/mL (3 mL) subcutaneous pen 14 unit subcut DAILY DIABETES 10/18/22 [History Last Taken Unknown] omeprazole 40 mg capsule,delayed release 40 mg PO DAILY GASTRITIS 10/18/22 [History Last Taken Unknown] Allergy/AdvReac Type Severity Reaction Status Date / Time apremilast [From Otezla] AdvReac Pain in Verified 10/18/22 18:02 joints azithromycin [From Zithromax] AdvReac Other Verified 10/18/22 18:02 doxycycline AdvReac Other Verified 10/18/22 18:02 erythromycin base AdvReac Other Verified 10/18/22 18:02 gabapentin AdvReac Pain in Verified 10/18/22 18:02 joints guaifenesin [From Entex T] AdvReac Rash Verified 10/18/22 18:02 pseudoephedrine AdvReac Rash Verified 10/18/22 18:02 [From Entex T] tramadol AdvReac Pain in Verified 10/18/22 18:02 joints Family History (Reviewed 09/25/22 @ 14:06 by Geno Shabazz FINANCIAL REPRESENTATIVE, FINANCIAL REPRESENTATIVE-C) Brother Heart disease AFIB Brother Myocardial infarction Other Cerebral aneurysm Surgical History (Reviewed 09/25/22 @ 14:06 by Geno Shabazz FINANCIAL REPRESENTATIVE, FINANCIAL REPRESENTATIVE-C) H/O aortic valve replacement (06/30/12) History of arthroplasty of left shoulder History of bilateral carpal tunnel release History of left heart catheterization (06/18/12) History of nasal septoplasty History of repair of rotator cuff History of shoulder surgery History of total bilateral knee replacement History of total right hip replacement Hx of colonoscopy Hx of left cataract extraction Hx of right cataract extraction Hx of shoulder replacement Hx of total hip arthroplasty S/p reverse total shoulder arthroplasty Social History Smoking Status: Never smoker Electronic Cigarette Use: not used second hand exposure: No alcohol intake: never substance use type: does not use shanika/anabaptism: Protestant seatbelt use: sometimes ROS ROS ED ROS Narrative REVIEW OF SYSTEMS: Unless otherwise stated in this report the patient's positive and negative responses for review of systems for constitutional, eyes, ENT, cardiovascular, respiratory, gastrointestinal, neurological, , musculoskeletal, and integument systems and related systems to the presenting problem are either stated in the history of present illness or were not pertinent or were negative for the symptoms and/or complaints related to the presenting medical problem. EXAM Physical Exam Narrative Exam Narrative: Vital signs reviewed and patient is not hypoxic. General: The patient appears well and in no apparent distress. Patient is resting comfortably on cart. Not toxic, lethargic, or listless. Skin: Warm, dry, no pallor noted. There is no rash noted. No jaundice noted. No jaundice noted head: Normocephalic, atraumatic Eye: Minimal scleral icterus, no drainage, EOMI. PERRL. Ears, Nose, Mouth, and Throat: oral mucosa is moist. Nares patent. Mouth without vesicles. Cardiovascular: Regular Rate and Rhythm, no murmurs, gallops, or rubs Respiratory: Patient is in no distress, no accessory muscle use, lungs are clear to auscultation, no wheezing, rales or rhonchi Back: non-tender, no CVA tenderness bilaterally to percussion. NO CTLS midline or paraspinal tenderness to palpation. GI: Soft, obese, no tenderness to palpation to the right upper quadrant, midepigastric area, left upper quadrant, or anywhere in the abdomen, no flank pain bilateral, no peritoneal signs, otherwise no tenderness to palpation, no masses appreciated. No rebound, guarding, or rigidity noted. Musculoskeletal: The patient has full range of motion of all extremities and joints with no difficulty. Patient has no motor, no sensory deficits. Neurological: A&O x3, normal speech, no focal neurological deficits. Psychiatric: Cooperative Const Vital Signs: 10/18/22 18:02 10/18/22 18:05 10/18/22 21:09 Temperature 98.3 F Temperature Source Oral Pulse Rate 57 L 56 L Respiratory Rate 16 16 Blood Pressure 121/71 H 147/65 H Blood Pressure Mean 87 92 Pulse Ox 95 96 Oxygen Delivery Method Room Air Room Air 10/18/22 22:08 Temperature 98 F Temperature Source Temporal Pulse Rate 89 Respiratory Rate 16 Blood Pressure 147/81 H Blood Pressure Mean 103 Pulse Ox 95 Oxygen Delivery Method Room Air MDM MDM MDM Narrative Medical decision making narrative: Patient remains asymptomatic. Patient has no abdominal pain, nausea or vomiting, repeat abdominal exam at disposition shows no abdominal pain, no guarding, rebound, rigidity, no acute pain to right upper quadrant or midepigastric area. Patient does have elevated LFTs that is significantly increased from yesterday. Case was discussed with Dr. Jacqueline Sommers, she will admit the patient for further observation, and consult Dr. Contreras. Patient would like to stay in the hospital overnight, he does not want go back to nursing facility. Daughter POA agrees. Patient is a DNR CC. Patient was given IV fluids. CT of the abdomen pelvis was discussed with patient and daughter at bedside, a copy of the CT report and lab work of the LFTs were given to the daughter and patient as well. Lab Data Attestation: I reviewed the patient's lab results. Labs: Laboratory Results - last 24 hr 10/18/22 10/18/22 18:30 19:00 WBC 5.1 RBC 3.64 L Hgb 12.2 L Hct 36.3 L MCV 99.7 H MCH 33.5 H MCHC 33.6 RDW Std Deviation 51.4 H RDW Coeff of Fazal 14.2 Plt Count 104 L MPV 9.1 Immature Gran % (Auto) 0.400 Neut % (Auto) 71.9 H Lymph % (Auto) 18.0 L [place] % (Auto) 7.0 Eos % (Auto) 2.3 Baso % (Auto) 0.4 Absolute Neuts (auto) 3.7 Absolute Lymphs (auto) 0.92 Nucleated RBC % 0 Sodium 137 Potassium 3.9 Chloride 105 Carbon Dioxide 26.0 Anion Gap 6 BUN 15 Creatinine 1.00 Estim Creat Clear Calc 54.75 Est GFR (MDRD) Af Amer 91 Est GFR (MDRD) Non-Af 75 BUN/Creatinine Ratio 15.0 Glucose 159 H Lactic Acid 1.7 Calcium 8.4 L Total Bilirubin 4.40 H AST 738 H ALT 746 H Alkaline Phosphatase 197 H Total Protein 6.5 Albumin 2.9 L Globulin 3.6 Albumin/Globulin Ratio 0.8 L Lipase 111 H Urine Color Yellow Urine Clarity Clear Urine pH 7.0 Ur Specific [place] 1.010 Urine Protein 15 H Urine Glucose (UA) Normal Urine Ketones Negative Urine Occult Blood Negative Urine Nitrite Negative Urine Bilirubin Negative Urine Urobilinogen 1 H Ur Leukocyte Esterase Negative Urine RBC 0 SEEN Urine WBC 0 SEEN Ur Squamous Epith Cells 0 SEEN Urine Bacteria 0 SEEN Urine Mucus 0 SEEN Patient's LFTs have significantly increased from yesterday. Lab results were gone over with patient, daughter and son-in-law at bedside. Radiography Diagnostic Testing: Clinical Impression(s) from Imaging Studies Abdomen/Pelvis CT 10/18/22 18:13 IMPRESSION: Sigmoid diverticulosis without diverticulitis. Electronically Signed: Sheldon Avila MD at 21:02 EDT , Discharge Plan Disposition Disposition: [facility] Discharge Date/Time: 10/18/22 22:55
--- NOTE | 2022-10-18 18:13 | EKG12_ITS ---
Test Reason : ABD PAIN Blood Pressure : / mmHG Vent. Rate : 054 BPM Atrial Rate : 054 BPM P-R Int : 158 ms QRS Dur : 090 ms QT Int : 480 ms P-R-T Axes : 078 -10 056 degrees QTc Int : 455 ms Sinus bradycardia with Premature atrial complexes Otherwise normal ECG Confirmed by LEVI WATERMAN, SYMONE ([id number]), assistant production editor HALIE LIU ([id number]) on 10/23/2022 8:33:18 AM Referred By: REYNALDO Confirmed By:FADY SIMS MD
--- NOTE | 2022-10-18 18:13 | CT_ITS ---
STUDY: CT ABDOMEN AND PELVIS WITH CONTRAST REASON FOR EXAM: Male, 86 years old. elevated LFTs, pain RADIATION DOSAGE (If Supplied By Facility): CTDIvol = ( 23.66 ) mGy, DLP = ( 1504.02 ) mGycm TECHNIQUE: Transaxial images were obtained from the dome of the diaphragm to the symphysis pubis without oral contrast. IV 100mL Isovue-370 was administered. Sagittal and coronal images were reconstructed. Individualized dose optimization techniques were used for this CT. COMPARISON: None. FINDINGS: The visualized lung bases are unremarkable. The visualized portions of the heart are within normal limits. Normal liver. Normal gallbladder and extrahepatic biliary system. Normal spleen. Normal pancreas. Normal bilateral adrenal glands. Normal right kidney. Normal left kidney. Normal visualized stomach. Normal small intestine. There are multiple colonic diverticula consistent with diverticulosis. The appendix is visualized and appears normal. There is diffuse atherosclerotic calcification of the abdominal aorta, without a demonstrated aneurysm. Normal inferior vena cava. Normal retroperitoneum. Normal urinary bladder. There is a small umbilical hernia containing fat. Status post bilateral hip arthroplasty which produces streak artifact and obscures the pelvis. CT/Abdomen/Pelvis W IV Cont ONLY IMPRESSION: Sigmoid diverticulosis without diverticulitis. Electronically Signed: Sheldon Avila MD at 21:02 EDT ,
[2022-10-18 18:40] LABS: Absolute Lymphocyte Count 0.92 X10^3/uL (0.83-4.51); Absolute Neutrophil Count 3.7 X10^3/uL (2.0-7.7); Basophil# 0.02 X10^3/uL; Basophil% 0.4 % (0-1); Eosinophil# 0.12 X10^3/uL; Eosinophils% 2.3 % (0-5); Hematocrit 36.3 % (40-54); Hemoglobin 12.2 g/dL (13.0-16.5); Lymphocyte # 0.92 X10^3/ul (0.83-4.51); Mean Corp Hgb Conc 33.6 g/dL (32-36); Mean Corpuscular Hgb 33.5 pg (27.0-32.0); Mean Corpuscular Volume 99.7 fL (80-94); Mean Platelet Vol. 9.1 fl (6.2-12.0); Monocyte# 0.36 X10^3/uL; NRBC Flagged by Analyzer 0 % (0-5); Neutrophil # 3.67 X10^3/uL (2.7-7.7); Neutrophil % 71.9 % (47-70); Platelet Count 104 K/mm3 (150-450); RBC Distribution Width CV 14.2 % (11.6-14.6); RBC Distribution Width SD 51.4 fl (35.1-43.9); Red Blood Count 3.64 M/mm3 (4.6-6.2); White Blood Count 5.1 K/mm3 (4.4-11.0)
[2022-10-18] MEDS: Ondansetron 4 MG/2 ML Vial IV (18:57)
[2022-10-18] MEDS: Morphine 4 MG/ML Syringe IV (18:57)
[2022-10-18] MEDS: 0.9% Normal Saline 1,000 ML 125 ML IV (18:57)
[2022-10-18 19:02] LABS: ALB/GLOB Ratio 0.8 RATIO (0.9-2.4); AST(SGOT) 738 U/L (15-37); Alanine Aminotransfer ALT/SGPT 746 U/L (16-61); Albumin, Serum 2.9 g/dL (3.2-5.0); Alkaline Phosphatase 197 U/L (45-117); Anion Gap 6 (5-15); BUN 15 mg/dL (7-18); Calcium,Total 8.4 mg/dL (8.5-10.1); Chloride 105 mmol/L (98-107); EST Glomerular Filtration Rate 75 mL/min (>60); Est Glom Filt Rate - Afr Amer 91 mL/min (>60); Estimated Creatinine Clearance 54.75 ml/min; Globulin 3.6 g/dL (2.2-4.2); Glucose 159 mg/dL (74-106); Lipase 111 U/L (13-75); Potassium 3.9 mmol/L (3.5-5.1); Protein, Total 6.5 g/dL (6.4-8.2); Sodium Level 137 mmol/L (136-145)
[2022-10-18 19:04] LABS: Lactic Acid 1.7 mmol/L (0.4-1.9)
[2022-10-18 19:11] LABS: Bacteria 0 SEEN /hpf (None Seen); Mucous, Urine 0 SEEN /hpf (<or=2+); Red Blood Cells-Urine 0 SEEN /hpf (0-5); Squamous Epithelial Cells - UA 0 SEEN /hpf (0-5); White Blood Cells 0 SEEN /hpf (0-5)
[2022-10-18 19:15] LABS: Color, Urine Yellow (Yellow); Glucose, Dipstick Normal (Normal); Ketone-Dipstick Negative (Negative); Leukocyte Esterase-Dipstick Negative /ul (Negative); Nitrite-Dipstick Negative (Negative); Occult Blood-Urine Negative /ul (Negative); Protein-Dipstick 15 mg/dl (Negative); Urine Bilirubin Dipstick Negative (Negative); Urine Clarity Clear (Clear); Urine Urobilinogen 1 mg/dl (Normal)
[2022-10-18 21:09] VITALS: BP 147/65; PULSE 56; RESP 16; O2SAT 96
--- NOTE | 2022-10-18 21:43 | HP.PCM.HOS_ITS ---
HPI - General General Date of Admission: 10/18/22 Date of Service: 10/18/22 Chief Complaint: Abdominal pain. HPI Narrative The patient is an 86 y/o M w/ PMHx: Obesity, Chronic anemia, Valvular Heart Disease s/p AVR, Hx Cardiopulmonary arrest, Nonobstructive CAD, PAF, Hx TIA, RLS, Hx VF, Psoriatic arthritis, Mild cognitive impairment, Anxiety, Allergic rhinitis, Diabetes mellitus type II, recent 09/10/22 discharge following cardiac arrest/NSTEMI w/ 09/09/22 stress test with evidence of inferior and inferolateral infarct with no ischemia noted with normal EF who presents to the [facility] ED from SNF on 10/18/22 with history of onset of abdominal pain starting the day prior noted to be intermittent with skilled facility lab work-up notable for elevated liver function enzymes prompting transition to the ED for evaluation. Patient with initial onset of abdominal pain reported it is periumbilical and severe forcing him to even hunch over with decreased appetite although it transiently improved and on day of presentation he then had discomfort that was primarily right flank and right upper and lower quadrant but this is since resolved. He also reports a history of chills potentially the day prior but these have also since resolved and denies any fevers. Work-up in the ED included T98.3, heart 57, BP 121/71, respiratory rate 16, 95% room air, CBC with WBC 5.1, hemoglobin 12.2, MCV 99.7, platelet 104 without marked shift, CMP with glucose 159, lactic acid 1.7, calcium 8.4, T. bili 4.40, AST/ALT 738/746, alk phos 197, lipase 111, urinalysis not marked appearing, CT A/P with IV contrast with evidence of sigmoid diverticulosis without any diverticulitis, EKG with SB without acute evidence of ischemia. In the ED patient ministered Zofran 4 mg IV x1 as well as morphine 4 mg IV x1 and maintenance IV fluids. [facility] Medical History Anemia Aortic valve stenosis, moderate Back pain Cardiac arrest Cardiopulmonary arrest with successful resuscitation Easy bruising Essential (primary) hypertension Excessive bleeding Hereditary hemochromatosis History of coronary artery disease History of injury of tendon History of pain when walking Leg cramps Loss of hearing Macular degeneration Mild cognitive impairment Non-smoker Non-ST elevation NH (NSTEMI) Nonobstructive atherosclerosis of coronary artery Nonrheumatic aortic (valve) insufficiency Obesity Orthostatic hypotension Pain Paroxysmal atrial fibrillation Peripheral vestibulopathy Prostate cancer Prosthetic aortic valve stenosis Psoriasis Psoriatic arthritis Rectal bleeding Restless legs Syncope TIA (transient ischemic attack) (2007) Ventricular fibrillation Wears glasses Home Medications folic acid 1 mg tablet 1 mg PO SUMOTUWEFRSA Check with primary doctor 03/23/16 [History Last Taken Unknown] fish, borage, flaxseed oils-omega 3,6,9 cb #1 400 mg-400 mg-400 mg cap (Triple [place] 3-6-9) 1 cap PO DAILY Check with primary doctor 03/04/21 [History Last Taken Unknown] methotrexate sodium 2.5 mg tablet 20 mg PO TH Check with primary doctor 03/04/21 [History Last Taken Unknown] multivitamin (Multiple Vitamins tablet) 1 tab PO DAILY Check with primary doctor 04/21/22 [History Last Taken Unknown] betamethasone, augmented 0.05 % topical cream 1 applic topical DAILY Psorosis 09/08/22 [History Last Taken Unknown] clobetasol 0.05 % scalp solution 1 applic topical DAILY Psorosis 09/08/22 [History Last Taken Unknown] aspirin 81 mg chewable tablet 81 mg PO BREAKFAST CARDIAC #0 tabs 09/10/22 [Rx Last Taken Unknown] atorvastatin 40 mg tablet 40 mg PO QHS CHOLESTEROL #0 tabs 09/10/22 [Rx Last Taken Unknown] insulin lispro 100 unit/mL subcutaneous pen (Humalog KwikPen (U-100) Insulin) See Protocol subcut ACHS DIABETES #0 mL 09/10/22 [Rx Last Taken Unknown] metoprolol succinate 25 mg tablet,extended release 24 hr 25 mg PO DAILY HTN #0 tabs 09/10/22 [Rx Last Taken Unknown] acetaminophen 325 mg capsule 325 mg PO ONCE PRN fever or pain 09/25/22 [History Last Taken Unknown] buspirone 10 mg tablet 10 mg PO BID ANXIETY 09/25/22 [History Last Taken Unknown] loratadine 10 mg disintegrating tablet (Allergy Relief (loratadine)) 10 mg PO DAILY ALLERGIES 09/25/22 [History Last Taken Unknown] trazodone 50 mg tablet 75 mg PO QHS ANXIETY 09/25/22 [History Last Taken Unknown] escitalopram oxalate 5 mg tablet 5 mg PO DAILY ANXIETY 10/18/22 [History Last Taken Unknown] insulin glargine-yfgn 100 unit/mL (3 mL) subcutaneous pen 14 unit subcut DAILY DIABETES 10/18/22 [History Last Taken Unknown] omeprazole 40 mg capsule,delayed release 40 mg PO DAILY GASTRITIS 10/18/22 [History Last Taken Unknown] Allergy/AdvReac Type Severity Reaction Status Date / Time apremilast [From Otezla] AdvReac Pain in Verified 10/18/22 18:02 joints azithromycin [From Zithromax] AdvReac Other Verified 10/18/22 18:02 doxycycline AdvReac Other Verified 10/18/22 18:02 erythromycin base AdvReac Other Verified 10/18/22 18:02 gabapentin AdvReac Pain in Verified 10/18/22 18:02 joints guaifenesin [From Entex T] AdvReac Rash Verified 10/18/22 18:02 pseudoephedrine AdvReac Rash Verified 10/18/22 18:02 [From Entex T] tramadol AdvReac Pain in Verified 10/18/22 18:02 joints Family History Brother Heart disease AFIB Brother Myocardial infarction Other Cerebral aneurysm Surgical History H/O aortic valve replacement (06/30/12) History of arthroplasty of left shoulder History of bilateral carpal tunnel release History of left heart catheterization (06/18/12) History of nasal septoplasty History of repair of rotator cuff History of shoulder surgery History of total bilateral knee replacement History of total right hip replacement Hx of colonoscopy Hx of left cataract extraction Hx of right cataract extraction Hx of shoulder replacement Hx of total hip arthroplasty S/p reverse total shoulder arthroplasty Social History Smoking Status: Never smoker Electronic Cigarette Use: not used second hand exposure: No alcohol intake: never substance use type: does not use shanika/methodist: Hindu seatbelt use: sometimes ROS ROS Narrative Admission Review of Systems: CONSTITUTIONAL: No weight loss, fever, + chills, weakness or fatigue. HEENT: Eyes: No visual loss, blurred vision, double vision or yellow sclerae. Ears, Nose, Throat: No hearing loss, sneezing, congestion, runny nose or sore throat. SKIN: No rash or itching, lesions, wounds. CARDIOVASCULAR: No chest pain, chest pressure or chest discomfort, palpitations, edema, orthopnea, syncopal events. RESPIRATORY: No shortness of breath, cough or sputum, wheezing, hemoptysis. GASTROINTESTINAL: + anorexia, abdominal pain. No nausea, vomiting or diarrhea, melena, BRBPR. GENITOURINARY: No dysuria, frequency, urgency or retention. NEUROLOGICAL: No headache, dizziness, syncope, paralysis, ataxia, numbness or tingling in the extremities, focal weakness, change in bowel or bladder control, seizure. MUSCULOSKELETAL: + muscle, back pain, joint pain or stiffness. HEMATOLOGIC: + anemia, easy bleeding/bruising. LYMPHATICS: No enlarged nodes. No history of splenectomy. PSYCHIATRIC: No history of depression or anxiety. ENDOCRINOLOGIC: No reports of sweating, cold or heat intolerance. No polyuria or polydipsia. ALLERGIES: No history of asthma, hives, eczema or rhinitis. Vital Signs Vital Signs Vital Signs: 10/18/22 18:02 10/18/22 18:05 10/18/22 21:09 Temperature 98.3 F Temperature Source Oral Pulse Rate 57 L 56 L Respiratory Rate 16 16 Blood Pressure 121/71 H 147/65 H Blood Pressure Mean 87 92 Pulse Ox 95 96 Oxygen Delivery Method Room Air Room Air Weight Weight: 223 lb 8.78 oz Body Mass Index (BMI) 32.1 Physical Exam Narrative Physical Examination: General: Awake, alert, oriented x 3 and cooperative, seated upright in ED bed, fatigued, denies any persistent abdominal discomfort at this time. Skin: Normal color, normal turgor, no icterus, no cyanosis except occasional staged ecchymoses in bilateral lower extremities venous stasis skin changes. HEENT: AT/NC, EOMI, PERRLA, mildly dry MM, no carotid bruits or JVD noted. Lungs: Mildly diminished, greater bases, appropriate effort, no rales, ronchi or wheezing. Heart: Mildly bradycardic with regular rhythm; no gallop, rub audible, + SM. Abdomen: Soft, NTTP, ND, hyperactive BS, no HSM. Extremities: No cyanosis, no clubbing, bilateral lower extremity pedal to proximal baugh pitting edema with venous stasis skin changes noted. Neurological: Patient awake, alert, oriented as noted, cognitive function intact; pupils equally reactive to light and accommodation, cranial nerves grossly normal, moving all 4 extremities, no focal deficits, strength moderately globally decreased secondary to acute presentation and underlying comorbidities. Psychiatric: Affect appears fatigued otherwise normal, no acute evidence of depressive or anxiety feelings. Results Lab / Micro Data 10/18/22 18:30 10/18/22 18:30 Labs: Laboratory Results - last 24 hr 10/18/22 18:30: WBC 5.1, RBC 3.64 L, Hgb 12.2 L, Hct 36.3 L, MCV 99.7 H, MCH 33.5 H, MCHC 33.6, RDW Std Deviation 51.4 H, RDW Coeff of Fazal 14.2, Plt Count 104 L, MPV 9.1, Immature Gran % (Auto) 0.400, Neut % (Auto) 71.9 H, Lymph % (Auto) 18.0 L, [place] % (Auto) 7.0, Eos % (Auto) 2.3, Baso % (Auto) 0.4, Absolute Neuts (auto) 3.7, Absolute Lymphs (auto) 0.92, Nucleated RBC % 0, Sodium 137, Potassium 3.9, Chloride 105, Carbon Dioxide 26.0, Anion Gap 6, BUN 15, Creatinine 1.00, Estim Creat Clear Calc 54.75, Est GFR (MDRD) Af Amer 91, Est GFR (MDRD) Non-Af 75, BUN/Creatinine Ratio 15.0, Glucose 159 H, Lactic Acid 1.7, Calcium 8.4 L, Total Bilirubin 4.40 H, AST 738 H, ALT 746 H, Alkaline Phosphata se 197 H, Total Protein 6.5, Albumin 2.9 L, Globulin 3.6, Albumin/Globulin Ratio 0.8 L, Lipase 111 H 10/18/22 19:00: Urine Color Yellow, Urine Clarity Clear, Urine pH 7.0, Ur Specific [place] 1.010, Urine Protein 15 H, Urine Glucose (UA) Normal, Urine Ketones Negative, Urine Occult Blood Negative, Urine Nitrite Negative, Urine Bilirubin Negative, Urine Urobilinogen 1 H, Ur Leukocyte Esterase Negative, Urine RBC 0 SEEN, Urine WBC 0 SEEN, Ur Squamous Epith Cells 0 SEEN, Urine Bacteria 0 SEEN, Urine Mucus 0 SEEN Radiology Impression Abdomen/Pelvis CT 10/18/22 18:13 IMPRESSION: Sigmoid diverticulosis without diverticulitis. Electronically Signed: Sheldon Avila MD at 21:02 EDT , Assessment & Plan Assessment/Plan (1) Abdominal pain: PLAN: Plan The patient is an 86 y/o M w/ PMHx: Obesity, Chronic anemia, Valvular Heart Disease s/p AVR, Hx Cardiopulmonary arrest, Nonobstructive CAD, PAF, Hx TIA, RLS, Hx VF, Psoriatic arthritis, Mild cognitive impairment, Anxiety, Allergic rhinitis, Diabetes mellitus type II, recent 09/10/22 discharge following cardiac arrest/NSTEMI w/ 09/09/22 stress test with evidence of inferior and inferolateral infarct with no ischemia noted with normal EF who presents to the [facility] ED from SNF on 10/18/22 with history of onset of abdominal pain starting the day prior noted to be intermittent with skilled facility lab work-up notable for elevated liver function enzymes prompting transition to the ED for evaluation. #1. Acute Abdominal Pain with Acute Transaminitis and Hyperbilirubinemia, unclear etiology although initially onset with VF arrest/hypoperfusion; however, worsening and this has been a month out from the acute event: Will admit to [facility], will additionally obtain Bili D, GGT, INR/PT, PTT, given resolution of abdominal pain and no N/V will allow oral intake, repeat AM CBC, BMP, hepatic profile as well as coags, will obtain RUQ US, UA requested, will request Bld Cx x 2 given history of possible chills with the abdominal pain the day prior although resolved currently, will consult Gastroenterology. #2. Recent Hx VF cardiopulmonary arrest with respiratory failure, NSTEMI, Metabolic/Toxic Encephalopathy: As noted recent discharge 09/10/22 following cardiac arrest requiring eventual intubation with associated NSTEMI complicated following extubation by dysphagia with ST recommendation for direct supervision total feed and alternating bites and sips. MRI brain without acute findings. #3. Diabetes mellitus type II: Hold oral home regimen, continue home insulin regimen with hold or one half dose pending blood sugar trending given n.p.o. status, n.p.o. status given acute presentation, accu checks w/ ISS. #4. Chronic macrocytic anemia: Admission hemoglobin 12.2, baseline prior 11-, stable, continue to trend #5. PAF: We will continue patient home metoprolol regimen, not on chronic anticoagulant therapy. #6. History TIA: We will continue patient on aspirin, holding statin given as noted transaminitis and hyperbilirubinemia, continue hypertensive regimen. #7. Nonobstructive CAD: We will continue aspirin, holding statin given as noted transaminitis and hyperbilirubinemia, continue metoprolol, ACEI/ARB. #8. Valvular heart disease: Status post AV replacement 2012, 09/03/22 ECHO with normal LV size, LV systolic function normal, EF 55%, stage I diastolic dysfunction, peak AV gradient 50 mmHg, mean aortic gradient 30 mmHg, moderate aortic stenosis. #9. Hypertension: Continue home regimen including metoprolol, PRN hydralazine. #10. Hyperlipidemia: We will hold statin therapy given hyperbilirubinemia and transaminitis. #11. Anxiety: We will continue patient home BuSpar regimen. #12. Allergic rhinitis: We will continue patient home loratadine regimen. #13. Rheumatoid arthritis: Given presentation we will temporally hold methotrexate regimen, continue folic acid. #14. Restless leg syndrome: Not on any current chronic regimen per list, clarifying. #15. Mild cognitive impairment: Complicates presentation, maintain on fall precautions, PT/OT/case management consultation for discharge planning. #16. Obesity: Weight loss and lifestyle changes encouraged. #17. DVT prophylaxis: SCDs. #18. CODE status: DNR-CCA, no intubation status. Charges/Coding Visit Charges Inpatient E&M: 95436 Init Hosp L3
[2022-10-18 22:08] VITALS: BP 147/81; PULSE 89; RESP 16; TEMP 36.6; O2SAT 95
[2022-10-18 22:46] VITALS: O2SAT 98; BMI 29.7
[2022-10-18 23:12] VITALS: BP 150/66; PULSE 52; RESP 12; TEMP 36.6; O2SAT 98
[2022-10-18 23:29] LABS: International Normalized Ratio 1.1; Prothrombin Time (Protime)PT. 14.6 SECONDS (11.7-14.9)
[2022-10-18 23:30] LABS: Partial Thromboplast Time 30.2 Seconds (24.1-36.2)
[2022-10-19] VITALS (8 sets, daily range): BP systolic 94–148; BP diastolic 54–78; PULSE 53–78; RESP 12–18; TEMP 36.3–36.6; O2SAT 93–100
[2022-10-19 00:21] LABS: Bilirubin, Direct 1.19 mg/dL (0.00-0.30); GGTP 246 U/L (15-85); LDH 511 U/L (87-241)
[2022-10-19 00:46] LABS: Bedside Glucose 102 mg/dL (74-106)
[2022-10-19] MEDS: 0.9% Normal Saline 1,000 ML 100 ML IV (00:51)
[2022-10-19 06:36] LABS: Absolute Lymphocyte Count 1.34 X10^3/uL (0.83-4.51); Absolute Neutrophil Count 2.5 X10^3/uL (2.0-7.7); Basophil# 0.02 X10^3/uL; Basophil% 0.4 % (0-1); Eosinophil# 0.26 X10^3/uL; Eosinophils% 5.6 % (0-5); Hematocrit 34.5 % (40-54); Hemoglobin 11.3 g/dL (13.0-16.5); Lymphocyte # 1.34 X10^3/ul (0.83-4.51); Lymphocyte % 28.6 % (19-41); Mean Corp Hgb Conc 32.8 g/dL (32-36); Mean Corpuscular Volume 100.9 fL (80-94); Mean Platelet Vol. 9.1 fl (6.2-12.0); Monocyte# 0.51 X10^3/uL; Monocyte% 10.9 % (0-10); NRBC Flagged by Analyzer 0 % (0-5); Neutrophil # 2.54 X10^3/uL (2.7-7.7); Neutrophil % 54.3 % (47-70); Platelet Count 105 K/mm3 (150-450); RBC Distribution Width CV 14.3 % (11.6-14.6); Red Blood Count 3.42 M/mm3 (4.6-6.2); White Blood Count 4.7 K/mm3 (4.4-11.0)
[2022-10-19 06:50] LABS: International Normalized Ratio 1.1; Prothrombin Time (Protime)PT. 14.6 SECONDS (11.7-14.9)
[2022-10-19 06:51] LABS: Partial Thromboplast Time 31.9 Seconds (24.1-36.2)
[2022-10-19 06:57] LABS: AST(SGOT) 439 U/L (15-37); Alanine Aminotransfer ALT/SGPT 588 U/L (16-61); Albumin, Serum 2.6 g/dL (3.2-5.0); Alkaline Phosphatase 172 U/L (45-117); Anion Gap 3 (5-15); BUN 12 mg/dL (7-18); BUN/Creat Ratio 14.1 RATIO (10-20); Bilirubin, Direct 0.61 mg/dL (0.00-0.30); Calcium,Total 7.9 mg/dL (8.5-10.1); Chloride 110 mmol/L (98-107); Creatinine, Serum 0.85 mg/dL (0.70-1.30); EST Glomerular Filtration Rate 91 mL/min (>60); Est Glom Filt Rate - Afr Amer 110 mL/min (>60); Estimated Creatinine Clearance 64.41 ml/min; Globulin 3.1 g/dL (2.2-4.2); Glucose 76 mg/dL (74-106); Potassium 3.9 mmol/L (3.5-5.1); Protein, Total 5.7 g/dL (6.4-8.2); Sodium Level 139 mmol/L (136-145)
--- NOTE | 2022-10-19 07:14 | PN.HOSP_ITS ---
Reason for Visit Reason for Visit: Diagnoses Unspecified abdominal pain (10/18/22) Objective Data Objective Data Vital Signs: Vital Signs Temp Pulse Resp BP Pulse Ox O2 Del Method 97.4 F L 57 L 12 106/55 L 93 Room Air 10/19/22 02:00 10/19/22 02:00 10/19/22 02:00 10/19/22 02:00 10/19/22 02:00 10/19/22 02:00 Oxygen Delivery Method Room Air Weight: 209 lb 14.081 oz Body Mass Index (BMI) 30.0 Intake & Output: Intake and Output for Last 24 Hours 10/17/22 10/18/22 10/19/22 23:59 23:59 23:59 Intake Total 1000 / 1000 Output Total 0 / 0 Balance 1000 / 1000 Lab / Micro Data 10/19/22 06:14 10/19/22 06:14 Labs: Laboratory Results - last 24 hr 10/18/22 18:30: WBC 5.1, RBC 3.64 L, Hgb 12.2 L, Hct 36.3 L, MCV 99.7 H, MCH 33.5 H, MCHC 33.6, RDW Std Deviation 51.4 H, RDW Coeff of Fazal 14.2, Plt Count 1 04 L, MPV 9.1, Immature Gran % (Auto) 0.400, Neut % (Auto) 71.9 H, Lymph % (Auto) 18.0 L, [place] % (Auto) 7.0, Eos % (Auto) 2.3, Baso % (Auto) 0.4, Absolute Neuts (auto) 3.7, Absolute Lymphs (auto) 0.92, Nucleated RBC % 0, Sodium 137, Potassium 3.9, Chloride 105, Carbon Dioxide 26.0, Anion Gap 6, BUN 15, Creatinine 1.00, Estim Creat Clear Calc 54.75, Est GFR (MDRD) Af Amer 91, Est GFR (MDRD) Non-Af 75, BUN/Creatinine Ratio 15.0, Glucose 159 H, Lactic Acid 1.7, Calcium 8.4 L, Total Bilirubin 4.40 H, AST 738 H, ALT 746 H, Alkaline Phosphatase 197 H, Total Protein 6.5, Albumin 2.9 L, Globulin 3.6, Albumin/Globulin Ratio 0.8 L, Lipase 111 H 10/18/22 19:00: Urine Color Yellow, Urine Clarity Clear, Urine pH 7.0, Ur Specific [place] 1.010, Urine Protein 15 H, Urine Glucose (UA) Normal, Urine Ketones Negative, Urine Occult Blood Negative, Urine Nitrite Negative, Urine Bilirubin Negative, Urine Urobilinogen 1 H, Ur Leukocyte Esterase Negative, Urine RBC 0 SEEN, Urine WBC 0 SEEN, Ur Squamous Epith Cells 0 SEEN, Urine Bacteria 0 SEEN, Urine Mucus 0 SEEN 10/18/22 23:08: PT 14.6, INR 1.1, APTT 30.2, Direct Bilirubin 1.19 H, GGT 246 H, Lactate Dehydrogenase 511 H 10/19/22 00:28: POC Glucose 102 10/19/22 06:14: WBC 4.7, RBC 3.42 L, Hgb 11.3 L, Hct 34.5 L, MCV 100.9 H, MCH 33.0 H, MCHC 32.8, RDW Std Deviation 52.0 H, RDW Coeff of Fazal 14.3, Plt Count 105 L, MPV 9.1, Immature Gran % (Auto) 0.200, Neut % (Auto) 54.3, Lymph % (Auto) 28.6, [place] % (Auto) 10.9 H, Eos % (Auto) 5.6 H, Baso % (Auto) 0.4, Absolute N euts (auto) 2.5, Absolute Lymphs (auto) 1.34, Nucleated RBC % 0, PT 14.6, INR 1.1, APTT 31.9, Sodium 139, Potassium 3.9, Chloride 110 H, Carbon Dioxide 26.0, Anion Gap 3 L, BUN 12, Creatinine 0.85, Estim Creat Clear Calc 64.41, Est GFR (MDRD) Af Amer 110, Est GFR (MDRD) Non-Af 91, BUN/Creatinine Ratio 14.1, Glucose 76, Calcium 7.9 L, Total Bilirubin 2.20 H, Direct Bilirubin 0.61 H, AST 439 H, ALT 588 H, Al kaline Phosphatase 172 H, Total Protein 5.7 L, Albumin 2.6 L, Globulin 3.1 Radiography Diagnostic Testing: Radiology Impression Abdomen/Pelvis CT 10/18/22 18:13 IMPRESSION: Sigmoid diverticulosis without diverticulitis. Electronically Signed: Sheldon Avila MD at 21:02 EDT , Assessment & Plan Assessment/Plan (1) Abdominal pain: QUALIFIERS: Abdominal location: right upper quadrant Qualified Code(s): R10.11 - Right upper quadrant pain PLAN: Plan The patient is an 86 y/o male was admitted with chief complaint of abdominal pain and elevated liver chemistry. Patient had severe abdominal pain, diffuse in location on 10/17 1 day before admission and got milder on the day of admission. No dizziness, headache, chest pain or shortness of breath. #1. Acute Abdominal Pain with Acute Transaminitis and Hyperbilirubinemia, unclear etiology although initially onset with VF arrest/hypoperfusion; however, worsening and this has been a month out from the acute event: Will admit to MS, will additionally obtain Bili D, GGT, INR/PT, PTT, given resolution of abdominal pain and no N/V will allow oral intake, repeat AM CBC, BMP, hepatic profile as well as coags, will obtain RUQ US, UA requested, will request Bld Cx x 2 given history of possible chills with the abdominal pain the day prior although resolved currently, will consult Gastroenterology. 1. Acute abdominal pain with acute liver injury with chronic mild liver disease. The patient has chronic thrombocytopenia since 2012, had 103,000 in June 2012, lowest in April 2016 89,000. Most recent 105,000. INR normal. TB 4.4. TB also elevated since April 2016 about 1.4 and admitted with 4.4, DB 1.19. Today 2.2, DB 0.67, therefore mainly indirect hyperbilirubinemia. GGT elevated about 4 times, ULN. Alkaline phosphatase was normal before, but elevated on October 17, 2022, 126. Currently 173 . LDH elevated. Albumin is low since August 2022, 2.9.ALT high since September 02, 2022 273, peaked 746 on day of admission and now 500. Similar to AST also elevated with ALT; 277 peaked [address] abdomen and pelvis done in ED shows sigmoid diverticulosis without diverticulitis. CT abdomen individually reviewed and agree with the findings of reported normal liver density with normal GB and extrahepatic biliary system. Normal spleen and pancreas. Normal visualized stomach small intestine but multiple colonic diverticula consistent with diverticulosis. Right upper quadrant sonogram is ordered. GI consulted and discussed with Dr. Contreras. Impression: Overall liver chemistry suggestive of acute liver injury on mild chronic liver disease. Most probably due to drug-induced liver injury, cholestatic in clinical picture. Other differentials are possible choledocholithiasis, IgA associated hepatobiliary pancreatic disease. Patient denies prior history of viral hepatitis. He has history of hemochromatosis unclear whether genetic or due to secondary iron overload. Denies significant history of anemia in the past. Ordered work-up for hemolytic anemia as patient is mainly indirect hyperbilirubinemia. Serum transferrin saturation and ferritin ordered Chronic thrombocytopenia and macrocytic anemia raises possibility of possible underlying portal hypertension/chronic liver disease INR normal. #2. Recent history of cardiopulmonary arrest with ventricular fibrillation, successfully resuscitated most probably due to non-STEMI. History of bioprosthetic aortic valve replacement in June 2012.: Patient was recently discharged on 09/10/2022 following cardiac arrest that required intubation, extubation followed by dysphagia. 2D echo shows EF 55% with a stage I diastolic dysfunction, mean AV gradient 30 mmHg. Moderate aortic valve stenosis. Patient was discharged on aspirin, metoprolol 25 mg daily, statin. At that time stress test did not show inducible ischemia. Echo no wall motion abnormality. 10/19: Patient blood pressure was on lower side and heart rate in low 50s. Speech therapist recommended direct supervision feeding. MRI brain without acute findings. Twelve-lead EKG individually reviewed and shows sinus bradycardia 54 bpm, LAD with no acute ST elevation. QTc 455 ms. #3. Diabetes mellitus type II: Hold oral home regimen, continue home insulin regimen with hold or one half dose pending blood sugar trending given n.p.o. status, n.p.o. status given acute presentation, accu checks w/ ISS. #4. Chronic macrocytic anemia: Admission hemoglobin 12.2, baseline prior 11-12, stable, continue to trend #6. History TIA: We will continue patient on aspirin, holding statin given as noted transaminitis and hyperbilirubinemia, continue hypertensive regimen. #9. Hypertension: Continue home regimen including metoprolol, PRN hydralazine. #10. Hyperlipidemia: hold statin therapy given hyperbilirubinemia and transaminitis. #11. Anxiety: We will continue patient home BuSpar regimen. #12. Allergic rhinitis: We will continue patient home loratadine regimen. #13. Rheumatoid arthritis: Given presentation we will temporally hold methotrexate regimen, continue folic acid. #14. Restless leg syndrome: Not on any current chronic regimen per list, clarifying. #15. Mild cognitive impairment: Complicates presentation, maintain on fall precautions, PT/OT/case management consultation for discharge planning. #16. Obesity: Weight loss and lifestyle changes encouraged. #17. DVT prophylaxis: SCDs. #18. CODE status: DNR-CCA, no intubation status. Charges/Coding Addendum Addendum: Total time of the visit including total time spent in history taking, exam counseling or coordination of care, (more than 50% of the total time, spent in obtaining medical information from nurses and other ancillary care providers,explaining to the patient about labs, imaging, diagnosis and jeffry gement of active complex medical conditions), review of previous medical records, clinical update to patient's family including her daughter, review of labs and imaging and discussion with diesel locomotive crane operator is 50 minutes. Visit Charges Inpatient E&M: 25279 Rust Hosp L3
[2022-10-19 07:16] LABS: Bedside Glucose 80 mg/dL (74-106)
--- NOTE | 2022-10-19 08:01 | US_ITS ---
INDICATION: ELEVATED Liver chemistry EXAMINATION: Ultrasound US Abdomen Limited (quadrant) TECHNIQUE: Robles scale and color doppler imaging was performed of the right upper quadrant. COMPARISON: Prior studies dated: October 30, [address] dated October 18, 2022 FINDINGS: LIVER: There is normal echotexture. No focal hepatic lesion. There is no free fluid. GALLBLADDER AND BILIARY TREE: There is sludge within the gallbladder. There is a comet tail artifact within the gallbladder fundus. There is mild gallbladder wall thickening measuring up to 5.1 mm. There is no pericholecystic fluid. The proximal common bile duct measures 4.2, which is within normal limits for the patient''s age. Songraphic Blackwell''s sign: Negative. PANCREAS: No focal abnormality is demonstrated in the pancreas. No pancreatic ductal dilatation. RIGHT KIDNEY: The right kidney measures 11.9 cm in length and is within normal limits. US/Abdomen Limited IMPRESSION: Sludge within the gallbladder with no associated pericholecystic fluid nor positive sonographic Blackwell''s sign. Comment an artifact of the gallbladder and mild gallbladder wall thickening may be secondary to adenomyomatosis. Electronically Signed: Stacie Pozo MD at 8:49 EDT ,
[2022-10-19] MEDS: 0.9% Saline Lock 10 ML Syringe IV (08:08)
[2022-10-19] MEDS: Lactated Ringers 500 ML 999 ML IV (10:07)
[2022-10-19] MEDS: Pantoprazole Sodium 20 MG Tablet PO ×2 (10:07→21:12)
[2022-10-19] MEDS: Nystatin Powder 15gm Bottle 1 APPLIC TOPICAL ×2 (10:07→21:13)
[2022-10-19] MEDS: Metoprolol(XL)Succ 25 MG Tablet PO (10:08)
[2022-10-19] MEDS: Aspirin 81 MG TAB.CHEW PO (10:08)
[2022-10-19] MEDS: Insulin Glargine-YFGN 100 UNIT/ML Pen 8 UNIT SC (10:08)
[2022-10-19] MEDS: busPIRone 5 MG Tablet PO ×2 (10:08→21:12)
[2022-10-19] MEDS: Loratadine 10 MG Tablet PO (10:08)
[2022-10-19] MEDS: Folic Acid 1 MG Tablet PO (10:08)
[2022-10-19] MEDS: KCL 20MEQ in D5.45NS 20 MEQ/1,000 ML IV.SOLN. 75 MEQ IV (10:12)
[2022-10-19] MEDS: Menthol/Lanolin/Calamine/Znox 113 GM Tube 1 APPLIC TOPICAL ×2 (10:16→21:13)
--- NOTE | 2022-10-19 10:16 | CON.PCM.GI_ITS ---
HPI Consult Data Date of Consult: 10/19/22 HPI Narrative Reason for Consultation: Hepatitis HPI Narrative: NUNU MALDONADO, is a 86 M who presents to the ER with worsening abdominal pain. He was recently discharged from the hospital after undergoing a V-fib cardiac arrest resulting in a non-ST segment elevation HI. He was treated with medical therapy and no intervention. In the ED he was discovered to have mild hypotension and his biochemical profile showed cholestatic hepatitis. The emergency room got a call from the nursing facility and reported that he been having abdominal pain and they checked his LFTs and they were more elevated than when he was discharged from the hospital. A lot of history is obtained from the patient's daughter and son-in-law who is at the bedside. When speaking to the patient and daughter, they state that patient severe abdominal pain was yesterday, not today. Patient's lab work was yesterday when they checked his LFTs that were slightly elevated. Patient has mild diffuse abdominal pain today, but no severe pain like he did yesterday. Patient was at nursing facility. Patient currently has no headache, no lightheaded or dizziness. No chest pain or shortness of breath. Minimal abdominal pain now, no nausea, vomiting, diarrhea, no other acute complaints. Patient is slightly jaundiced today as well. Patient has no other acute complaints at this time. As per the patient's daughter he does have hemochromatosis. She does not know if he has hereditary hemochromatosis or a different type of iron storage disease. Laboratory analysis in the ED: 10/18/22 18:30: WBC 5.1, Hgb 12.2 L, Hct 36.3 L, MCV 99.7 H,RDW Std Deviation 51.4 H, RDW Coeff of Fazal 14.2, Plt Count 104 L, Sodium 137, Potassium 3.9, Chloride 105, Carbon Dioxide 26.0, Anion Gap 6, BUN 15, Creatinine 1.00 Total Bilirubin 4.40 H, AST 738 H, ALT 746 H, Alkaline Phosphatase 197 H, Total Protein 6.5, Lipase 111 H [facility] Medical History Anemia Aortic valve stenosis, moderate Back pain Cardiac arrest Cardiopulmonary arrest with successful resuscitation Easy bruising Essential (primary) hypertension Excessive bleeding Hereditary hemochromatosis History of coronary artery disease History of injury of tendon History of pain when walking Leg cramps Loss of hearing Macular degeneration Mild cognitive impairment Non-smoker Non-ST elevation HI (NSTEMI) Nonobstructive atherosclerosis of coronary artery Nonrheumatic aortic (valve) insufficiency Obesity Orthostatic hypotension Pain Paroxysmal atrial fibrillation Peripheral vestibulopathy Prostate cancer Prosthetic aortic valve stenosis Psoriasis Psoriatic arthritis Rectal bleeding Restless legs Syncope TIA (transient ischemic attack) (2007) Ventricular fibrillation Wears glasses Home Medications folic acid 1 mg tablet 1 mg PO SUMOTUWEFRSA Check with primary doctor 03/23/16 [History Last Taken Unknown] fish, borage, flaxseed oils-omega 3,6,9 cb #1 400 mg-400 mg-400 mg cap (Triple [place] 3-6-9) 1 cap PO DAILY Check with primary doctor 03/04/21 [History Last Taken 10/18/22 08:00] methotrexate sodium 2.5 mg tablet 20 mg PO TH Check with primary doctor 03/04/21 [History Last Taken Unknown] multivitamin (Multiple Vitamins tablet) 1 tab PO DAILY Check with primary doctor 04/21/22 [History Last Taken 10/18/22 08:00] betamethasone, augmented 0.05 % topical cream 1 applic topical DAILY Psorosis 09/08/22 [History Last Taken Unknown] clobetasol 0.05 % scalp solution 1 applic topical DAILY Psorosis 09/08/22 [History Last Taken Unknown] aspirin 81 mg chewable tablet 81 mg PO BREAKFAST CARDIAC #0 tabs 09/10/22 [Rx Last Taken 10/18/22 08:00] atorvastatin 40 mg tablet 40 mg PO QHS CHOLESTEROL #0 tabs 09/10/22 [Rx Last Taken 10/17/22 21:44] insulin lispro 100 unit/mL subcutaneous pen (Humalog KwikPen (U-100) Insulin) See Protocol subcut ACHS DIABETES #0 mL 09/10/22 [Rx Last Taken Unknown] metoprolol succinate 25 mg tablet,extended release 24 hr 25 mg PO DAILY HTN #0 tabs 09/10/22 [Rx Last Taken 10/18/22 08:00] acetaminophen 325 mg capsule 325 mg PO ONCE PRN fever or pain 09/25/22 [History Last Taken Unknown] buspirone 10 mg tablet 10 mg PO BID ANXIETY 09/25/22 [History Last Taken 10/18/22 08:00] loratadine 10 mg disintegrating tablet (Allergy Relief (loratadine)) 10 mg PO DAILY ALLERGIES 09/25/22 [History Last Taken 10/18/22 08:00] trazodone 50 mg tablet 75 mg PO QHS ANXIETY 09/25/22 [History Last Taken 10/17/22 09:00] escitalopram oxalate 5 mg tablet 5 mg PO DAILY ANXIETY 10/18/22 [History Last Taken 10/18/22 08:00] insulin glargine-yfgn 100 unit/mL (3 mL) subcutaneous pen 14 unit subcut DAILY DIABETES 10/18/22 [History Last Taken Unknown] omeprazole 40 mg capsule,delayed release 40 mg PO DAILY GASTRITIS 10/18/22 [History Last Taken 10/18/22 08:00] Allergy/AdvReac Type Severity Reaction Status Date / Time apremilast [From Otezla] AdvReac Pain in Verified 10/18/22 18:02 joints azithromycin [From Zithromax] AdvReac Other Verified 10/18/22 18:02 doxycycline AdvReac Other Verified 10/18/22 18:02 erythromycin base AdvReac Other Verified 10/18/22 18:02 gabapentin AdvReac Pain in Verified 10/18/22 18:02 joints guaifenesin [From Entex T] AdvReac Rash Verified 10/18/22 18:02 pseudoephedrine AdvReac Rash Verified 10/18/22 18:02 [From Entex T] tramadol AdvReac Pain in Verified 10/18/22 18:02 joints Family History Brother Heart disease AFIB Brother Myocardial infarction Other Cerebral aneurysm Surgical History H/O aortic valve replacement (06/30/12) History of arthroplasty of left shoulder History of bilateral carpal tunnel release History of left heart catheterization (06/18/12) History of nasal septoplasty History of repair of rotator cuff History of shoulder surgery History of total bilateral knee replacement History of total right hip replacement Hx of colonoscopy Hx of left cataract extraction Hx of right cataract extraction Hx of shoulder replacement Hx of total hip arthroplasty S/p reverse total shoulder arthroplasty Social History Smoking Status: Never smoker Electronic Cigarette Use: not used second hand exposure: No alcohol intake: never substance use type: does not use shanika/mu-ism: Religious seatbelt use: sometimes ROS ROS Narrative Admission Review of Systems: CONSTITUTIONAL: No weight loss, fever, + chills, weakness or fatigue. HEENT: Eyes: No visual loss, blurred vision, double vision or yellow sclerae. Ears, Nose, Throat: No hearing loss, sneezing, congestion, runny nose or sore throat. SKIN: No rash or itching, lesions, wounds. CARDIOVASCULAR: No chest pain, chest pressure or chest discomfort, palpitations, edema, orthopnea, syncopal events. RESPIRATORY: No shortness of breath, cough or sputum, wheezing, hemoptysis. GASTROINTESTINAL: + anorexia, abdominal pain. No nausea, vomiting or diarrhea, melena, BRBPR. GENITOURINARY: No dysuria, frequency, urgency or retention. NEUROLOGICAL: No headache, dizziness, syncope, paralysis, ataxia, numbness or tingling in the extremities, focal weakness, change in bowel or bladder control, seizure. MUSCULOSKELETAL: + muscle, back pain, joint pain or stiffness. HEMATOLOGIC: + anemia, easy bleeding/bruising. LYMPHATICS: No enlarged nodes. No history of splenectomy. PSYCHIATRIC: No history of depression or anxiety. ENDOCRINOLOGIC: No reports of sweating, cold or heat intolerance. No polyuria or polydipsia. ALLERGIES: No history of asthma, hives, eczema or rhinitis. Physical Exam Narrative Physical Examination: General: Awake, alert, oriented x 3 and cooperative, seated upright in ED bed, fatigued, denies any persistent abdominal discomfort at this time. Skin: Normal color, normal turgor, no icterus, no cyanosis except occasional staged ecchymoses in bilateral lower extremities venous stasis skin changes. HEENT: AT/NC, EOMI, PERRLA, mildly dry MM, no carotid bruits or JVD noted. Lungs: Mildly diminished, greater bases, appropriate effort, no rales, ronchi or wheezing. Heart: Mildly bradycardic with regular rhythm; no gallop, rub audible, + SM. Abdomen: Soft, NTTP, ND, hyperactive BS, no HSM. Extremities: No cyanosis, no clubbing, bilateral lower extremity pedal to proxi mal baugh pitting edema with venous stasis skin changes noted. Neurological: Patient awake, alert, oriented as noted, cognitive function intact; pupils equally reactive to light and accommodation, cranial nerves grossly normal, moving all 4 extremities, no focal deficits, strength moderately globally decreased secondary to acute presentation and underlying comorbidities. Psychiatric: Affect appears fatigued otherwise normal, no acute evidence of depressive or anxiety feelings. Lab / Micro Data 10/19/22 06:14 10/19/22 06:14 Labs: Laboratory Results - last 24 hr 10/18/22 18:30: WBC 5.1, RBC 3.64 L, Hgb 12.2 L, Hct 36.3 L, MCV 99.7 H, MCH 33.5 H, MCHC 33.6, RDW Std Deviation 51.4 H, RDW Coeff of Fazal 14.2, Plt Count 104 L, MPV 9.1, Immature Gran % (Auto) 0.400, Neut % (Auto) 71.9 H, Lymph % (Auto) 18.0 L, Branch % (Auto) 7.0, Eos % (Auto) 2.3, Baso % (Auto) 0.4, Absolute Neuts (auto) 3.7, Absolute Lymphs (auto) 0.92, Nucleated RBC % 0, Sodium 137, Potassium 3.9, Chloride 105, Carbon Dioxide 26.0, Anion Gap 6, BUN 15, Creatinine 1.00, Estim Creat Clear Calc 54.75, Est GFR (MDRD) Af Amer 91, Est GFR (MDRD) Non-Af 75, BUN/Creatinine Ratio 15.0, Glucose 159 H, Lactic Acid 1.7, Calcium 8.4 L, Total Bilirubin 4.40 H, AST 738 H, ALT 746 H, Alkaline Phosphatase 197 H, Total Protein 6.5, Albumin 2.9 L, Globulin 3.6, Albumin/Globulin Ratio 0.8 L, Lipase 111 H 10/18/22 19:00: Urine Color Yellow, Urine Clarity Clear, Urine pH 7.0, Ur Specific [place] 1.010, Urine Protein 15 H, Urine Glucose (UA) Normal, Urine Ketones Negative, Urine Occult Blood Negative, Urine Nitrite Negative, Urine Bilirubin Negative, Urine Urobilinogen 1 H, Ur Leukocyte Esterase Negative, Urine RBC 0 SEEN, Urine WBC 0 SEEN, Ur Squamous Epith Cells 0 SEEN, Urine Bacteria 0 SEEN, Urine Mucus 0 SEEN 10/18/22 23:08: PT 14.6, INR 1.1, APTT 30.2, Direct Bilirubin 1.19 H, GGT 246 H, Lactate Dehydrogenase 511 H 10/19/22 00:28: POC Glucose 102 10/19/22 06:14: WBC 4.7, RBC 3.42 L, Hgb 11.3 L, Hct 34.5 L, MCV 100.9 H, MCH 33.0 H, MCHC 32.8, RDW Std Deviation 52.0 H, RDW Coeff of Fazal 14.3, Plt Count 105 L, MPV 9.1, Immature Gran % (Auto) 0.200, Neut % (Auto) 54.3, Lymph % (Auto) 28.6, Branch % (Auto) 10.9 H, Eos % (Auto) 5.6 H, Baso % (Auto) 0.4, Absolute Neuts (auto) 2.5, Absolute Lymphs (auto) 1.34, Nucleated RBC % 0, PT 14.6, INR 1.1, APTT 31.9, Sodium 139, Potassium 3.9, Chloride 110 H, Carbon Dioxide 26.0, Anion Gap 3 L, BUN 12, Creatinine 0.85, Estim Creat Clear Calc 64.41, Est GFR (MDRD) Af Amer 110, Est GFR (MDRD) Non-Af 91, BUN/Creatinine Ratio 14.1, Glucose 76, Calcium 7.9 L, Total Bilirubin 2.20 H, Direct Bilirubin 0.61 H, AST 439 H, ALT 588 H, Alkaline Phosphatase 172 H, Total Protein 5.7 L, Albumin 2.6 L, Globulin 3.1 10/19/22 06:36: POC Glucose 80 Radiology Impression Abdomen/Pelvis CT 10/18/22 18:13 IMPRESSION: Sigmoid diverticulosis without diverticulitis. Electronically Signed: Sheldon Avila MD at 21:02 EDT , Abdomen Ultrasound 10/19/22 08:01 IMPRESSION: Sludge within the gallbladder with no associated pericholecystic fluid nor positive sonographic Blackwell''s sign. Comment an artifact of the gallbladder and mild gallbladder wall thickening may be secondary to adenomyomatosis. Electronically Signed: Stacie Pozo MD at 8:49 EDT , Assessment & Plan Assessment/Plan (1) Abdominal pain: QUALIFIERS: Abdominal location: right upper quadrant Qualified Code(s): R10.11 - Right upper quadrant pain (2) Cholestatic hepatitis: PLAN: Plan The patient is an 86 y/o male was admitted with chief complaint of abdominal pain and elevated liver enzymes. -Cholestatic hepatitis. Differential diagnosis does include choledocholithiasis, IgG associated disease affecting the liver and the pancreas. Medication induced liver injury. Less likely viral hepatitis. P atient clinically at this time is doing very well. His liver enzymes are improving. Agree with getting right upper quadrant ultrasound and possible MRCP. Still recommend to check acute hepatitis profile, IgG4, ADE, ANCA. Check iron, reticulocyte, transferrin, ferritin and transferrin saturation. He also suffers from thrombocytopenia with a macrocytic anemia possibly secondary to underlying portal hypertension from chronic liver disease. He does not need an endoscopic procedure at this time. We will continue evaluate him to see if he continues to improve. Charges/Coding Visit Charges Inpatient E&M: 00564 Init Hosp L3
[2022-10-19] MEDS: Lactated Ringers 1,000 ML 999 ML IV (10:38)
[2022-10-19 12:11] LABS: Platelet Count 107 K/mm3 (150-450); RET-HE 34.8 pg (30-35); Reticulocyte Count 1.99 % (0.5-1.5)
[2022-10-19 12:17] LABS: Ferritin 1778 ng/mL (26-388); Iron 81 ug/dL (65-175); Iron Binding Capacity,Total 247 ug/dL (250-450); PERCENT IRON SATURATION 32.8 % (15.0-55.0)
[2022-10-19 16:58] LABS: Bedside Glucose 127 mg/dL (74-106)
[2022-10-19 21:09] LABS: Bedside Glucose 138 mg/dL (74-106)
[2022-10-19] MEDS: MELATONIN 3 MG TABLET PO (21:12)
[2022-10-19 21:33] LABS: Bedside Glucose 105 mg/dL (74-106)
[2022-10-20] MEDS: KCL 20MEQ in D5.45NS 20 MEQ/1,000 ML IV.SOLN. 75 MEQ IV (00:14)
[2022-10-20] MEDS: 0.9% Saline Lock 10 ML Syringe IV (00:21)
[2022-10-20 02:00] VITALS: BP 123/87; PULSE 52; RESP 16; TEMP 37.1; O2SAT 96
[2022-10-20 06:00] VITALS: BMI 30.1
[2022-10-20 06:49] LABS: Bedside Glucose 109 mg/dL (74-106)
[2022-10-20 07:38] LABS: AST(SGOT) 217 U/L (15-37); Alanine Aminotransfer ALT/SGPT 437 U/L (16-61); Albumin, Serum 2.9 g/dL (3.2-5.0); Alkaline Phosphatase 181 U/L (45-117); Anion Gap 2 (5-15); BUN 12 mg/dL (7-18); BUN/Creat Ratio 13.6 RATIO (10-20); Bilirubin, Direct 0.57 mg/dL (0.00-0.30); Calcium,Total 8.6 mg/dL (8.5-10.1); Chloride 110 mmol/L (98-107); Creatinine, Serum 0.88 mg/dL (0.70-1.30); EST Glomerular Filtration Rate 87 mL/min (>60); Est Glom Filt Rate - Afr Amer 105 mL/min (>60); Estimated Creatinine Clearance 62.22 ml/min; GGTP 193 U/L (15-85); Globulin 3.5 g/dL (2.2-4.2); Glucose 108 mg/dL (74-106); Potassium 4.2 mmol/L (3.5-5.1); Protein, Total 6.4 g/dL (6.4-8.2); Sodium Level 137 mmol/L (136-145)
[2022-10-20 07:43] LABS: Absolute Lymphocyte Count 1.61 X10^3/uL (0.83-4.51); Absolute Neutrophil Count 2.3 X10^3/uL (2.0-7.7); Basophil# 0.03 X10^3/uL; Basophil% 0.6 % (0-1); Eosinophil# 0.21 X10^3/uL; Eosinophils% 4.5 % (0-5); Hematocrit 36.7 % (40-54); Hemoglobin 12.1 g/dL (13.0-16.5); Lymphocyte # 1.61 X10^3/ul (0.83-4.51); Lymphocyte % 34.3 % (19-41); Mean Corpuscular Hgb 33.2 pg (27.0-32.0); Mean Corpuscular Volume 100.8 fL (80-94); Mean Platelet Vol. 9.4 fl (6.2-12.0); Monocyte# 0.49 X10^3/uL; Monocyte% 10.4 % (0-10); NRBC Flagged by Analyzer 0 % (0-5); Neutrophil # 2.33 X10^3/uL (2.7-7.7); Neutrophil % 49.8 % (47-70); Platelet Count 128 K/mm3 (150-450); RBC Distribution Width CV 13.9 % (11.6-14.6); RBC Distribution Width SD 52.2 fl (35.1-43.9); Red Blood Count 3.64 M/mm3 (4.6-6.2); White Blood Count 4.7 K/mm3 (4.4-11.0)
[2022-10-20 07:48] VITALS: O2SAT 95
--- NOTE | 2022-10-20 09:17 | CASEMGMT ---
Addendum entered by Tierra Hayden 10/20/22 09:39: Social Work SW spoke w/Estelle at [facility], they can take pt back when ready. [facility] BETZY Horne Original Note: Social Work SW met w/pt in room, pt's daughter and son in law present. SW inquired about the discharge plan, if the pt is to return to [facility]. Daughter states yes, this is the plan. She explains pt is going to be there [facility]. She states they are looking into getting pt into a locked unit eventually, and he is on a wait list at [facility]. At this time, however, plan is to return to [facility], no list of SNFs needed at this time as per daughter. Pt is still there under his Medicare. SW will fax updates to [facility] as they [facility] not [facility]. Pt may be ready for discharge today. SW will continue to follow. BETZY Horne
--- NOTE | 2022-10-20 09:54 | TREXTCAR_ITS ---
Diet Diet Order/Speech Therapy: 10/19/22 09:29 Carb [Diet: Carbohydrate Controlled] -1800 nithya Is pt able to select menu?: No Diet Comments: bland, soft foods; only 1 salt packet w/ meals Routine Orders/Code Status Routine Lab Work: - (liver profile in 3 days, fingerstick blood sugars before breakfast and 4 PM daily-notify attending if blood sugar under 80 or above 180) Code Status: DNRCC-A (No intubation) Wound(s) small scab behind left ear: Wound Type: Abrasion circular open areas from rash to buttocks: Wound Type: circular rash patterns similar to psoriasis- open small scab behind right ear: Wound Type: Abrasion Therapies Weight Bearing: Full weight bearing Physical Therapy: Eval and Treat Occupational Therapy: Eval and Treat Problem/Diagnosis (1) Abdominal pain: Status: Acute Code(s): R10.9 - Unspecified abdominal pain (2) Cholestatic hepatitis: Status: Acute Code(s): K75.89 - Other specified inflammatory liver diseases Plan: Suspected to be secondary to passage of gallstone (3) Essential hypertension: Status: Chronic Code(s): I10 - Essential (primary) hypertension (4) Diabetes mellitus, type 2: Status: Chronic Code(s): E11.9 - Type 2 diabetes mellitus without complications (5) Mild cognitive impairment: Status: Chronic Code(s): G31.84 - Mild cognitive impairment of uncertain or unknown etiology Allergies/Procedures Done in Hospital Allergies apremilast [From Otezla] Adverse Reaction (Verified 10/18/22 18:02) Pain in joints azithromycin [From Zithromax] Adverse Reaction (Verified 10/18/22 18:02) Other DIZZY doxycycline Adverse Reaction (Verified 10/18/22 18:02) Other COUGHA ND PHLEGM erythromycin base Adverse Reaction (Verified 10/18/22 18:02) Other gabapentin Adverse Reaction (Verified 10/18/22 18:02) Pain in joints guaifenesin [From Entex T] Adverse Reaction (Verified 10/18/22 18:02) Rash pseudoephedrine [From Entex T] Adverse Reaction (Verified 10/18/22 18:02) Rash tramadol Adverse Reaction (Verified 10/18/22 18:02) Pain in joints Procedures: None Type of Care/Length of Stay Estimated LOS: More Than 30 Days Type of Care Needed: Skilled Rehab Potential: Good Prognosis: Good Additional Orders/Day of Discharge H&P will serve as current which was dated: 10/18/22 Day of Discharge: 10/20/22 Dietary and Speech Recommendations Dietitian Recommendations/Changes: Continue with Carb Controlled diet. Will change Glucerna to 120mL TID w/ medpass versus with meals. Recommend removal of ONS if oral intakes improve. Family requesting that he only receives one salt packet with meals. Will continue to follow and modify interventions as needed. Discharge Plan Admission Admit Date/Time: 10/18/22 22:18 Primary Reason for Your Visit: Cholestatic hepatitis Attending Provider: Stanley Torre Primary Care Provider: Saravanan Chu Consulting Providers: Jacqueline Sommers; Ced Renner Discharge Orders/Prescriptions Prescriptions: New insulin glargine-yfgn 100 unit/mL (3 mL) Insulin Pen 8 unit subcut DAILY Qty: 0 0RF Continued fish,bora,flax oils-om3,6,9no1 [Triple [place] 3-6-9] 400-400-400 mg capsule 1 cap PO DAILY multivitamin [Multiple Vitamins] Tablet 1 tab PO DAILY buspirone 10 mg tablet 10 mg PO BID trazodone 50 mg tablet 75 mg PO QHS loratadine [Allergy Relief (loratadine)] 10 mg tablet,disintegrating 10 mg PO DAILY folic acid 1 MG tablet 1 mg PO SUMOTUWEFRSA Patient Comments: supplement betamethasone, augmented 0.05 % cream 1 applic TOPICAL DAILY Patient Comments: APPLY TO AFFECTED AREA ON THE BODY ONCE TO TWICE DAILY NEEDED WHEN FLARED Rx Instructions: Apply to areas of rash on the back once daily clobetasol 0.05 % solution 1 applic TOPICAL DAILY Patient Comments: APPLY TO AREAS OF RASH ON THE SCALP ONCE DAILY NEEDED aspirin 81 mg Tablet,Chewable 81 mg PO BREAKFAST Qty: 0 0RF atorvastatin 40 mg Tablet 40 mg PO QHS Qty: 0 0RF metoprolol succinate 25 mg Tablet Extended Release 24 Hr 25 mg PO DAILY Qty: 0 0RF escitalopram oxalate 5 mg tablet 5 mg PO DAILY omeprazole 40 mg capsule,delayed release(DR/EC) 40 mg PO DAILY Held methotrexate sodium 2.5 mg tablet 20 mg PO Instructions: Hold for 1 week, if liver enzymes normalize-restart next week Patient Comments: THURSDAYS Discontinued acetaminophen 325 mg capsule 325 mg PO ONCE PRN (Reason: fever or pain) insulin lispro [Humalog KwikPen Insulin] 100 unit/mL Insulin Pen See Protocol subcut ACHS Qty: 0 0RF Hold Instructions: Order Completed Protocol: 3. Sliding Scale Insulin Med Dosing Condition: 150-189 mg/dl = 1 unit Condition: 190-229 mg/dl = 2 units Condition: 230-269 mg/dl = 3 units Condition: 270-309 mg/dl = 4 units Condition: 310-349 mg/dl = 5 units Condition: 350-399 mg/dl = 6 units Condition: 400-449 mg/dl = 7 units Condition: Greater than 449 call physician Protocol Text: - Use for Total Daily Dose of Insulin 37-55 units - Obsese, infected, or steroid patients MEDIUM DOSING ALGORITHIM insulin glargine-yfgn 100 unit/mL (3 mL) Insulin Pen 14 unit subcut DAILY Referrals / Follow Up: Saravanan Chu MD [Primary Care Provider] - Stanley Grace DO [Med Staff - Railway Track Worker] - Disposition Disposition (needs filled in before D/C Order can be placed): [facility] Facility (1) Abdominal pain Qualifiers: Abdominal location: right upper quadrant Qualified Code(s): R10.11 - Right upper quadrant pain
[2022-10-20 09:57] VITALS: BP 97/54; PULSE 64; RESP 16; TEMP 36.6; O2SAT 98
[2022-10-20] MEDS: busPIRone 5 MG Tablet PO (10:05)
[2022-10-20] MEDS: Aspirin 81 MG TAB.CHEW PO (10:05)
[2022-10-20] MEDS: Folic Acid 1 MG Tablet PO (10:05)
[2022-10-20] MEDS: Glucerna Shake 120 ML LIQUID PO (10:05)
[2022-10-20 10:06] VITALS: BP 97/54; PULSE 64
[2022-10-20] MEDS: Metoprolol(XL)Succ 25 MG Tablet PO (10:06)
[2022-10-20] MEDS: Menthol/Lanolin/Calamine/Znox 113 GM Tube 1 APPLIC TOPICAL (10:06)
[2022-10-20] MEDS: Nystatin Powder 15gm Bottle 1 APPLIC TOPICAL (10:07)
[2022-10-20] MEDS: Insulin Glargine-YFGN 100 UNIT/ML Pen 8 UNIT SC (10:08)
--- NOTE | 2022-10-20 10:08 | PCM.DC.SUM ---
Providers Date of Admission: 10/18/22 Date of Discharge: 10/20/22 Primary Care Physician: Dr. Saravanan Chu MD Consultations 10/18/22 23:48 Consult: Gastroenterology Routine Consulting Provider: [facility] Reason for Consult: Transaminitis/Hyperbilirubinemia EMERGENT Consult: No MD Notified: Yes Date Notified: 10/18/22 Time Notified: 22:21 Method of Notification: Text Reason For Visit: ABDOMINAL PAIN, HYPERBILLIRUBINEMIA/TRANSAMINITIS Diagnosis Discharge Diagnosis (1) Abdominal pain: Status: Acute Code(s): R10.9 - Unspecified abdominal pain Qualifiers: Abdominal location: right upper quadrant Qualified Code(s): R10.11 - Right upper quadrant pain (2) Cholestatic hepatitis: Status: Acute Code(s): K75.89 - Other specified inflammatory liver diseases Plan: Suspected to be secondary to passage of gallstone (3) Essential hypertension: Status: Chronic Code(s): I10 - Essential (primary) hypertension (4) Diabetes mellitus, type 2: Status: Chronic Code(s): E11.9 - Type 2 diabetes mellitus without complications (5) Mild cognitive impairment: Status: Chronic Code(s): G31.84 - Mild cognitive impairment of uncertain or unknown etiology Plan Final diagnosis: #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 #2 probable gallstone passage #3 type 2 diabetes #4 paroxysmal atrial fib #5 coronary artery disease #6 cerebrovascular disease #7 mild cognitive impairment-etiology unclear #8 mild rectal bleeding-etiology unclear Medications at Discharge Home Medications folic acid 1 mg tablet 1 mg PO SUMOTUWEFRSA Check with primary doctor 03/23/16 fish, borage, flaxseed oils-omega 3,6,9 cb #1 400 mg-400 mg-400 mg cap (Triple Imperial 3-6-9) 1 cap PO DAILY Check with primary doctor 03/04/21 methotrexate sodium 2.5 mg tablet 20 mg PO TH Check with primary doctor 03/04/21 multivitamin (Multiple Vitamins tablet) 1 tab PO DAILY Check with primary doctor 04/21/22 betamethasone, augmented 0.05 % topical cream 1 applic topical DAILY Psorosis 09/08/22 clobetasol 0.05 % scalp solution 1 applic topical DAILY Psorosis 09/08/22 aspirin 81 mg chewable tablet 81 mg PO BREAKFAST CARDIAC #0 tabs 09/10/22 atorvastatin 40 mg tablet 40 mg PO QHS CHOLESTEROL #0 tabs 09/10/22 metoprolol succinate 25 mg tablet,extended release 24 hr 25 mg PO DAILY HTN #0 tabs 09/10/22 buspirone 10 mg tablet 10 mg PO BID ANXIETY 09/25/22 loratadine 10 mg disintegrating tablet (Allergy Relief (loratadine)) 10 mg PO DAILY ALLERGIES 09/25/22 trazodone 50 mg tablet 75 mg PO QHS ANXIETY 09/25/22 escitalopram oxalate 5 mg tablet 5 mg PO DAILY ANXIETY 10/18/22 omeprazole 40 mg capsule,delayed release 40 mg PO DAILY GASTRITIS 10/18/22 insulin glargine-yfgn 100 unit/mL (3 mL) subcutaneous pen 8 unit (0.08 mL) subcut DAILY #0 mL 10/20/22 Hospital Course Operations None Procedures None Summary of Care Provided Minutes Spent on Discharge: 31 Hospital Course: This 87-year-old white male was seen in the emergency room at [facility] after being brought in from a local extended care facility at which she resides due to abdominal pain and elevated liver enzymes. On evaluation in the emergency room, patient had no complaints of any abdominal pain. Labs were obtained which showed a normal white blood cell count, hemoglobin was slightly low at 12.2, CT of the abdomen and pelvis showed sigmoid diverticulosis without diverticulitis. Liver enzymes were elevated with an AST of 738, ALT of 746, and alkaline phosphatase of 197. Patient's bilirubin was elevated at 4.4. Lipase was slightly elevated at 111. Patient was admitted to [place] [address], and abdominal ultrasound was ordered which showed sludge within the gallbladder and no associated pericholecystic fluid. Patient was seen in consultation by gastroenterology who felt that the patient had cholestatic hepatitis. Patient's liver enzymes were repeated the next day and trended downward, patient was asymptomatic and it was felt he was stable for return to his extended care facility. Patient did have some mild rectal bleeding prior to discharge from the hospital but his hemoglobin remained stable-it was repeated just prior to his discharge back to the halfway. I had nursing let the nursing facility know of the patient's mild rectal bleeding and advised them to monitor it. On 10/20/2022, patient was seen and examined: On examination he appeared in good health and spirits, patient exhibited mild confusion. Vital signs as documented. Skin warm and dry and without overt rashes. Neck without JVD, neck was supple, trachea midline, thyroid was normal. Lungs clear bilaterally, normal air movement was noted. Heart exam notable for regular rhythm, normal sounds and absence of murmurs, rubs or gallops. Abdomen unremarkable and without evidence of organomegaly, masses, or abdominal aortic enlargement. Bowel sounds are present, abdomen is not distended. Extremities nonedematous, no cyanosis was noted, no clubbing was noted. Neuro: Cranial nerves II through XII are grossly intact, no focal motor deficits were noted, sensation to light touch and pinprick intact, motor exam 5/5 throughout. Psych: Patient is alert, he exhibits mild confusion On 10/20/2022, patient was seen and examined and felt to be stable for discharge to his extended care facility for long-term care. Weight / BMI Weight Weight: 95.3 kg Body Mass Index (BMI) 30.1 ABG / Lab / Microbiology Data 10/20/22 14:18 10/20/22 07:00 Laboratory: Laboratory Results - last 24 hr 10/19/22 06:14: Retic Count 1.99 H, Immature Retic Fraction 11.70, Retic Hgb Equivalent 34.8, Iron 81, TIBC 247 L, Iron Saturation 32.8, Ferritin 1778 H 10/19/22 11:41: POC Glucose 138 H 10/19/22 16:41: POC Glucose 127 H 10/19/22 21:08: POC Glucose 105 10/20/22 05:38: WBC Cancelled, Corrected WBC Cancelled, RBC Cancelled, Hgb Cancelled, Hct Cancelled, MCV Cancelled, MCH Cancelled, MCHC Cancelled, RDW Std Deviation Cancelled, RDW Coeff of Fazal Cancelled, Plt Count Cancelled, MPV Cancelled, Immature Gran % (Auto) Cancelled, Neut % (Auto) Cancelled, Lymph % (Auto) Cancelled, [place] % (Auto) Cancelled, Eos % (Auto) Cancelled, Baso % (Auto) Cancelled, Absolute Neuts (auto) Cancelled, Absolute Lymphs (auto) Cancelled, Total Counted Cancelled, Neutrophils % (Manual) Cancelled, Band Neutrophils % Cancelled, Lymphocytes % (Manual) Cancelled, Monocytes % (Manual) Cancelled, Eosinophils % (Manual) Cancelled, Basophils % (Manual) Cancelled, Metamyelocytes % Cancelled, Myelocytes % Cancelled, Promyelocytes % Cancelled, Blast Cells % Cancelled, Plasma Cell % (Manual) Cancelled, Other Cells % Cancelled, Nucleated RBC % Cancelled, Nucleated RBCs/100 WBC Cancelled, Differential Comment Cancelled, Diff Path Review Cancelled, Hypersegmented Neuts Cancelled, Atypical Lymphocytes Cancelled, Reactive Lymphocytes Cancelled, Smudge Cells Cancelled, Toxic Granulation Cancelled, Toxic Vacuolation Cancelled, Dohle Bodies Cancelled, Delbert Rods Cancelled, Platelet Estimate Cancelled, Plt Morphology Comment Cancelled, RBC Morphology Cancelled 10/20/22 05:38: RBC Morphology Cancelled, Polychromasia Cancelled, Hypochromasia Cancelled, Poikilocytosis Cancelled, Basophilic Stippling Cancelled, Anisocytosis Cancelled, Microcytosis Cancelled, Macrocytosis Cancelled, Spherocytes Cancelled, Sickle Cells Cancelled, Target Cells Cancelled, Tear Drop Cells Cancelled, Ovalocytes Cancelled, Stomatocytes Cancelled, Shaikh-Barronett Bodies Cancelled, Martinez Cells Cancelled, Bite Cells Cancelled, Crenated Cell Cancelled, Acanthocytes (Spur) Cancelled, Rouleaux Cancelled, Schistocytes Cancelled, Sodium Cancelled, Potassium Cancelled, Chloride Cancelled, Carbon Dioxide Cancelled, Anion Gap Cancelled, BUN Cancelled, Creatinine Cancelled, Estim Creat Clear Calc Cancelled, Est GFR (MDRD) Af Amer Cancelled, Est GFR (MDRD) Non-Af Cancelled, BUN/Creatinine Ratio Cancelled, Glucose Cancelled, Calcium Cancelled, Total Bilirubin Cancelled, Direct Bilirubin Cancelled, GGT Cancelled, AST Cancelled, ALT Cancelled, Alkaline Phosphatase Cancelled, Total Protein Cancelled, Albumin Cancelled, Globulin Cancelled 10/20/22 06:22: POC Glucose 109 H 10/20/22 07:00: WBC 4.7, RBC 3.64 L, Hgb 12.1 L, Hct 36.7 L, MCV 100.8 H, MCH 33.2 H, MCHC 33.0, RDW Std Deviation 52.2 H, RDW Coeff of Fazal 13.9, Plt Count 128 L, MPV 9.4, Immature Gran % (Auto) 0.400, Neut % (Auto) 49.8, Lymph % (Auto) 34.3, [place] % (Auto) 10.4 H, Eos % (Auto) 4.5, Baso % (Auto) 0.6, Absolute Neuts (auto) 2.3, Absolute Lymphs (auto) 1.61, Nucleated RBC % 0, Sodium 137, Potassium 4.2, Chloride 110 H, Carbon Dioxide 25.0, Anion Gap 2 L, BUN 12, Creatinine 0.88, Estim Creat Clear Calc 62.22, Est GFR (MDRD) Af Amer 105, Est GFR (MDRD) Non-Af 87, BUN/Creatinine Ratio 13.6, Glucose 108 H, Calcium 8.6, Total Bilirubin 1.90 H, Direct Bilirubin 0.57 H, GGT 193 H, AST 217 H, ALT 437 H, Alkaline Phosphatase 181 H, Total Protein 6.4, Albumin 2.9 L, Globulin 3.5 Meaningful Use Info Meaningful Use Diagnoses (Choose all that apply): None applicable Discharge Plan Admission Admit Date/Time: 10/18/22 22:18 Primary Reason for Your Visit: Cholestatic hepatitis Attending Provider: Stanley Torre Primary Care Provider: Saravanan Chu Consulting Providers: Jacqueline Sommers; Ced Renner Discharge Orders/Prescriptions Prescriptions: New insulin glargine-yfgn 100 unit/mL (3 mL) Insulin Pen 8 unit subcut DAILY Qty: 0 0RF Continued fish,bora,flax oils-om3,6,9no1 [Triple Imperial 3-6-9] 400-400-400 mg capsule 1 cap PO DAILY multivitamin [Multiple Vitamins] Tablet 1 tab PO DAILY buspirone 10 mg tablet 10 mg PO BID trazodone 50 mg tablet 75 mg PO QHS loratadine [Allergy Relief (loratadine)] 10 mg tablet,disintegrating 10 mg PO DAILY folic acid 1 MG tablet 1 mg PO SUMOTUWEFRSA Patient Comments: supplement betamethasone, augmented 0.05 % cream 1 applic TOPICAL DAILY Patient Comments: APPLY TO AFFECTED AREA ON THE BODY ONCE TO TWICE DAILY NEEDED WHEN FLARED Rx Instructions: Apply to areas of rash on the back once daily clobetasol 0.05 % solution 1 applic TOPICAL DAILY Patient Comments: APPLY TO AREAS OF RASH ON THE SCALP ONCE DAILY NEEDED aspirin 81 mg Tablet,Chewable 81 mg PO BREAKFAST Qty: 0 0RF atorvastatin 40 mg Tablet 40 mg PO QHS Qty: 0 0RF metoprolol succinate 25 mg Tablet Extended Release 24 Hr 25 mg PO DAILY Qty: 0 0RF escitalopram oxalate 5 mg tablet 5 mg PO DAILY omeprazole 40 mg capsule,delayed release(DR/EC) 40 mg PO DAILY Held methotrexate sodium 2.5 mg tablet 20 mg PO TH Hold Instructions: Hold for 1 week, if liver enzymes normalize-restart next week Patient Comments: THURSDAYS Discontinued acetaminophen 325 mg capsule 325 mg PO ONCE PRN (Reason: fever or pain) insulin lispro [Humalog KwikPen Insulin] 100 unit/mL Insulin Pen See Protocol subcut ACHS Qty: 0 0RF Hold Instructions: Order Completed Protocol: 3. Sliding Scale Insulin Med Dosing Condition: 150-189 mg/dl = 1 unit Condition: 190-229 mg/dl = 2 units Condition: 230-269 mg/dl = 3 units Condition: 270-309 mg/dl = 4 units Condition: 310-349 mg/dl = 5 units Condition: 350-399 mg/dl = 6 units Condition: 400-449 mg/dl = 7 units Condition: Greater than 449 call physician Protocol Text: - Use for Total Daily Dose of Insulin 37-55 units - Obsese, infected, or steroid patients MEDIUM DOSING ALGORITHIM insulin glargine-yfgn 100 unit/mL (3 mL) Insulin Pen 14 unit subcut DAILY Referrals / Follow Up: Saravanan hCu MD [Primary Care Provider] - Stanley Grace DO [Med Staff - Equal Employment Opportunity Officer] - Disposition Disposition (needs filled in before D/C Order can be placed): Care Home Facility Charges/Coding Visit Charges Inpatient E&M: 75616 Disch Hosp >30min
[2022-10-20] MEDS: Pantoprazole Sodium 20 MG Tablet PO (10:11)
--- NOTE | 2022-10-20 10:25 | PHA.DC_ITS ---
Pharmacy MD Med Reconciliation Pharmacy Service has performed discharge medication reconciliation for this patient. The patient's discharge medication list was reviewed for discrepancies and discrepancies were resolved. Medications at Discharge Home Medications folic acid 1 mg tablet 1 mg PO SUMOTUWEFRSA Check with primary doctor 03/23/16 fish, borage, flaxseed oils-omega 3,6,9 cb #1 400 mg-400 mg-400 mg cap (Triple [place] 3-6-9) 1 cap PO DAILY Check with primary doctor 03/04/21 methotrexate sodium 2.5 mg tablet 20 mg PO TH Check with primary doctor 03/04/21 multivitamin (Multiple Vitamins tablet) 1 tab PO DAILY Check with primary doctor 04/21/22 betamethasone, augmented 0.05 % topical cream 1 applic topical DAILY Psorosis 09/08/22 clobetasol 0.05 % scalp solution 1 applic topical DAILY Psorosis 09/08/22 aspirin 81 mg chewable tablet 81 mg PO BREAKFAST CARDIAC #0 tabs 09/10/22 atorvastatin 40 mg tablet 40 mg PO QHS CHOLESTEROL #0 tabs 09/10/22 metoprolol succinate 25 mg tablet,extended release 24 hr 25 mg PO DAILY HTN #0 tabs 09/10/22 buspirone 10 mg tablet 10 mg PO BID ANXIETY 09/25/22 loratadine 10 mg disintegrating tablet (Allergy Relief (loratadine)) 10 mg PO DAILY ALLERGIES 09/25/22 trazodone 50 mg tablet 75 mg PO QHS ANXIETY 09/25/22 escitalopram oxalate 5 mg tablet 5 mg PO DAILY ANXIETY 10/18/22 omeprazole 40 mg capsule,delayed release 40 mg PO DAILY GASTRITIS 10/18/22 insulin glargine-yfgn 100 unit/mL (3 mL) subcutaneous pen 8 unit (0.08 mL) subcut DAILY #0 mL 10/20/22
[2022-10-20 10:32] LABS: Bedside Glucose 170 mg/dL (74-106)
--- NOTE | 2022-10-20 10:36 | CASEMGMT ---
Social Work Pt is ready for discharge back to [facility]. SW sent discharge instructions to [facility] via [facility]. SW set up an ambulance for safety to take pt back, w/Physicians, pt set up to leave at 1pm. SW let pt's RN know, SW called daughter Ernestina to let her know. She will let pt's know, is currently at [place]. NAYANA called [facility] and left a message for Estelle in admissions, and also left a message in [facility] letting [facility] know pt is returning today, transport set up for 1pm. Plan: [facility], skilled, later today. BETZY Horne
[2022-10-20 11:48] LABS: Bedside Glucose 111 mg/dL (74-106)
--- NOTE | 2022-10-20 12:15 | NURSING ---
REPORT CALLED TO [facility] AND SPOKE WITH ALEKS REILLY
[2022-10-20 13:22] VITALS: BP 97/54; PULSE 57; RESP 16; TEMP 36.9; O2SAT 98
--- NOTE | 2022-10-20 13:38 | CASEMGMT ---
Social Work Power of employment law attorney for healthcare is scanned into [employer]. Francie is listed as POA, Susan and Ernestina are listed as alternates. BETZY Horne
--- NOTE | 2022-10-20 14:15 | NURSING ---
PT UP TO [facility] AND HAD BM BEFORE GOING GETTING ON CART TO BE D/C. NOTED BLOOD ON PT'S GREEN PAD AND ON TOILET. SOME BLOOD NOTED IN TOILET WITH STOOL. CALLED DR AND ORDERED STAT H&H- HGB THIS AM WAS 12.1.
[2022-10-20 15:03] LABS: Hematocrit 35.3 % (40-54); Hemoglobin 11.4 g/dL (13.0-16.5)
--- NOTE | 2022-10-20 15:45 | CHAPLAIN ---
Type of Pastoral Visit _x__ Initial Visit ___ Follow-up Visit ___ On-call Visit ___ General Patient Visit ___ Spiritual Assessment ___ Family Conference ___ Bereavement ___ Rapid Response ___ Code Blue ___ Other (describe below) Pastoral Care Referral From _x__ Patient ___ Family ___ Nurse ___ Physician ___ Grain Packer ___ Radio Sales Account Executive ___ Other (describe below) Sacrament/Intervention _x__ Active listening ___ Anointing ___ Synagogue ___ Bereavement ___ Communion ___ Jessica exploration ___ ___ Life review _x__ Prayer ___ Reconciliation ___ Sacrament of Sick _x__ Supportive presence ___ Wedding ___ Other (describe below) Pastoral Comments patient has been seen in previous admissions; pt is sitting in chair and is able to explain his situation of waiting on testing before discharge; pt is able to answer questions but also seems to hesitate on some details; pt acknowledges that he is accepting of situation because he trusts in the doctors, hospital, and God; pt welcomes presence and prayers for support
--- NOTE | 2022-10-20 15:50 | CASEMGMT ---
Addendum entered by Tierra Hayden 10/20/22 15:59: Social Work SW called daughter Ernestina, left message apologizing for the lack of communication in regard to discharge delay, and that the hospital is to call the [facility] once transport is arranged again. BETZY Horne Original Note: Social Work SW received a call from [facility] asking where pt is. SW called the floor, pt's discharge was delayed, but are rescheduling pt to go to [facility] and will call [facility] with a transportation time. SW called [facility], spoke w/Estelle and let her know pt's discharge was delayed, the floor will call [facility] and let them know what time pt is leaving. She will let pt's family know as they are at the facility. BETZY Horne
[2022-10-20 16:05] VITALS: BP 113/69; PULSE 60; RESP 18; TEMP 36.9; O2SAT 99
--- NOTE | 2022-10-20 16:09 | NURSING ---
H&H DONE AND STABLE AND REPORT CALLED TO [facility] - VS ALSO STABLE AND PT WILL GO BACK TO INTERMEDIATE PLANNED . PT HAS HX OF ANEMIA AND RECTAL BLEEDING
[2022-10-21 08:11] LABS: Haptoglobin 56 mg/dL (38-329)
[2022-10-21 15:08] LABS: ANTINUCLEAR ANTIBODIES DIRECT Negative (Negative); Anti-Mitochondrial AB <20.0 Units (0.0-20.0); Anti-Smooth Muscle ABS 8 Units (0-19); HEPATITIS B SURFACE AG Negative (Negative); Hep C Antibodies Non Reactive (Non Reactive); Hepatitis A IgM Antibody Negative (Negative); Hepatitis B Core AB IgM Negative (Negative)
[2022-10-21 16:09] LABS: IgG, Quant 828 mg/dL (603-1613); Immunoglobulin G, Subclass 1 437 mg/dL (248-810); Immunoglobulin G, Subclass 2 195 mg/dL (130-555); Immunoglobulin G, Subclass 3 67 mg/dL (15-102); Immunoglobulin G, Subclass 4 42 mg/dL (2-96)
== END 2022-10-20 16:24 | disposition skilled nursing facility (03) | DRG 442 ==
LOC: ED 22:04 → MS3 22:53
PROVIDERS: Internal Medicine; Admitting Provider Family Medicine; Emergency Provider Emergency Medicine; PCP Family Medicine; Visit Provider Internal Medicine
DX: K75.89 Other specified inflammatory liver diseases (principal); K62.5 Hemorrhage of anus and rectum; D69.6 Thrombocytopenia, unspecified; E11.9 Type 2 diabetes mellitus without complications; D53.9 Nutritional anemia, unspecified; E78.5 Hyperlipidemia, unspecified; E66.9 Obesity, unspecified; Z86.74 Personal history of sudden cardiac arrest; I48.0 Paroxysmal atrial fibrillation; G31.84 Mild cognitive impairment of uncertain or unknown etiology; Z79.4 Long term (current) use of insulin; M06.9 Rheumatoid arthritis, unspecified; F41.9 Anxiety disorder, unspecified; I25.10 Atherosclerotic heart disease of native coronary artery without angina pectoris; K80.20 Calculus of gallbladder without cholecystitis without obstruction; I10 Essential (primary) hypertension; I25.2 Old myocardial infarction; I35.0 Nonrheumatic aortic (valve) stenosis; J30.9 Allergic rhinitis, unspecified; Z66 Do not resuscitate; Z68.30 Body mass index [BMI] 30.0-30.9, adult; Z95.2 Presence of prosthetic heart valve; Z79.82 Long term (current) use of aspirin; Z79.899 Other long term (current) drug therapy; Z86.73 Personal history of transient ischemic attack (TIA), and cerebral infarction without residual deficits
CPT/HCPCS: 36415; 74177; 76705; 80048; 80053; 80074; 80076; 81001; 82248; 82728; 82784; 82787; 82962; 82977; 83010; 83516; 83540; 83550; 83605; 83615; 83690; 85014; 85018; 85025; 85045; 85610; 85730; 86038; 86225; 86235; 93005; 94668; 97162; 97166; 97530; 97535; 97802; 99285; J7030; J7120; Q9967; A4216; J2405

== ENCOUNTER → 2022-10-28 | Outpatient (REF) | payer MEDICARE, OTHER, SELFPAY ==
[2022-10-28 10:25] LABS: Absolute Lymphocyte Count 1.53 X10^3/uL (0.83-4.51); Absolute Neutrophil Count 2.7 X10^3/uL (2.0-7.7); Basophil# 0.03 X10^3/uL; Basophil% 0.6 % (0-1); Eosinophil# 0.32 X10^3/uL; Eosinophils% 6.1 % (0-5); Hematocrit 33.7 % (40-54); Hemoglobin 10.9 g/dL (13.0-16.5); Lymphocyte # 1.53 X10^3/ul (0.83-4.51); Lymphocyte % 29.3 % (19-41); Mean Corp Hgb Conc 32.3 g/dL (32-36); Mean Corpuscular Hgb 32.7 pg (27.0-32.0); Mean Corpuscular Volume 101.2 fL (80-94); Mean Platelet Vol. 10.1 fl (6.2-12.0); Monocyte# 0.62 X10^3/uL; Monocyte% 11.9 % (0-10); NRBC Flagged by Analyzer 0 % (0-5); Neutrophil % 51.5 % (47-70); Platelet Count 138 K/mm3 (150-450); RBC Distribution Width SD 51.8 fl (35.1-43.9); Red Blood Count 3.33 M/mm3 (4.6-6.2); White Blood Count 5.2 K/mm3 (4.4-11.0)
[2022-10-28 10:49] LABS: ALB/GLOB Ratio 0.8 RATIO (0.9-2.4); AST(SGOT) 33 U/L (15-37); Alanine Aminotransfer ALT/SGPT 105 U/L (16-61); Albumin, Serum 2.6 g/dL (3.2-5.0); Alkaline Phosphatase 163 U/L (45-117); Anion Gap 5 (5-15); BUN 16 mg/dL (7-18); BUN/Creat Ratio 21.7 RATIO (10-20); Calcium,Total 8.5 mg/dL (8.5-10.1); Chloride 110 mmol/L (98-107); Creatinine, Serum 0.74 mg/dL (0.70-1.30); EST Glomerular Filtration Rate 107 mL/min (>60); Est Glom Filt Rate - Afr Amer 129 mL/min (>60); Globulin 3.4 g/dL (2.2-4.2); Glucose 92 mg/dL (74-106); Potassium 3.6 mmol/L (3.5-5.1); Sodium Level 141 mmol/L (136-145)
== END ==
LOC: OLS.WHLCAR 05:00
PROVIDERS: PCP Family Medicine; Visit Provider Internal Medicine
DX: I11.0 Hypertensive heart disease with heart failure (principal); E11.9 Type 2 diabetes mellitus without complications; I48.0 Paroxysmal atrial fibrillation; I95.1 Orthostatic hypotension; I25.10 Atherosclerotic heart disease of native coronary artery without angina pectoris
CPT/HCPCS: 36415; 80053; 85025

== ENCOUNTER → 2022-11-04 | Outpatient (REF) | payer MEDICARE, OTHER, SELFPAY ==
[2022-11-04 08:20] LABS: Absolute Lymphocyte Count 1.59 X10^3/uL (0.83-4.51); Absolute Neutrophil Count 5.5 X10^3/uL (2.0-7.7); Basophil# 0.04 X10^3/uL; Basophil% 0.5 % (0-1); Eosinophil# 0.21 X10^3/uL; Eosinophils% 2.5 % (0-5); Hematocrit 34.9 % (40-54); Hemoglobin 11.4 g/dL (13.0-16.5); Lymphocyte # 1.59 X10^3/ul (0.83-4.51); Lymphocyte % 19.1 % (19-41); Mean Corp Hgb Conc 32.7 g/dL (32-36); Mean Corpuscular Hgb 32.9 pg (27.0-32.0); Mean Corpuscular Volume 100.6 fL (80-94); Mean Platelet Vol. 9.7 fl (6.2-12.0); Monocyte# 0.93 X10^3/uL; Monocyte% 11.2 % (0-10); NRBC Flagged by Analyzer 0 % (0-5); Neutrophil # 5.52 X10^3/uL (2.7-7.7); Neutrophil % 66.1 % (47-70); Platelet Count 157 K/mm3 (150-450); RBC Distribution Width CV 13.6 % (11.6-14.6); RBC Distribution Width SD 49.9 fl (35.1-43.9); Red Blood Count 3.47 M/mm3 (4.6-6.2); White Blood Count 8.3 K/mm3 (4.4-11.0)
[2022-11-04 08:35] LABS: ALB/GLOB Ratio 0.7 RATIO (0.9-2.4); AST(SGOT) 15 U/L (15-37); Alanine Aminotransfer ALT/SGPT 31 U/L (16-61); Albumin, Serum 2.5 g/dL (3.2-5.0); Alkaline Phosphatase 125 U/L (45-117); Anion Gap 4 (5-15); BUN 16 mg/dL (7-18); BUN/Creat Ratio 18.9 RATIO (10-20); Calcium,Total 8.6 mg/dL (8.5-10.1); Chloride 105 mmol/L (98-107); Creatinine, Serum 0.85 mg/dL (0.70-1.30); EST Glomerular Filtration Rate 91 mL/min (>60); Est Glom Filt Rate - Afr Amer 110 mL/min (>60); Globulin 3.8 g/dL (2.2-4.2); Glucose 121 mg/dL (74-106); Potassium 4.1 mmol/L (3.5-5.1); Protein, Total 6.3 g/dL (6.4-8.2); Sodium Level 138 mmol/L (136-145)
== END ==
LOC: OLS.WHLCAR 05:00
PROVIDERS: PCP Family Medicine; Visit Provider Internal Medicine
DX: I11.0 Hypertensive heart disease with heart failure (principal); I50.89 Other heart failure; E11.9 Type 2 diabetes mellitus without complications; I48.0 Paroxysmal atrial fibrillation; I95.1 Orthostatic hypotension; I25.10 Atherosclerotic heart disease of native coronary artery without angina pectoris
CPT/HCPCS: 36415; 80053; 85025

== ENCOUNTER → 2022-11-11 | Outpatient (REF) | payer MEDICARE, OTHER, SELFPAY ==
[2022-11-11 09:42] LABS: Absolute Lymphocyte Count 1.45 X10^3/uL (0.83-4.51); Absolute Neutrophil Count 2.7 X10^3/uL (2.0-7.7); Basophil# 0.04 X10^3/uL; Basophil% 0.8 % (0-1); Eosinophil# 0.37 X10^3/uL; Eosinophils% 7.4 % (0-5); Hematocrit 36.6 % (40-54); Hemoglobin 11.9 g/dL (13.0-16.5); Lymphocyte # 1.45 X10^3/ul (0.83-4.51); Lymphocyte % 28.8 % (19-41); Mean Corp Hgb Conc 32.5 g/dL (32-36); Mean Corpuscular Volume 98.4 fL (80-94); Mean Platelet Vol. 9.3 fl (6.2-12.0); Monocyte# 0.48 X10^3/uL; Monocyte% 9.5 % (0-10); NRBC Flagged by Analyzer 0 % (0-5); Neutrophil # 2.66 X10^3/uL (2.7-7.7); Neutrophil % 52.9 % (47-70); Platelet Count 202 K/mm3 (150-450); RBC Distribution Width CV 13.4 % (11.6-14.6); RBC Distribution Width SD 47.9 fl (35.1-43.9); Red Blood Count 3.72 M/mm3 (4.6-6.2)
[2022-11-11 09:59] LABS: ALB/GLOB Ratio 0.7 RATIO (0.9-2.4); AST(SGOT) 18 U/L (15-37); Alanine Aminotransfer ALT/SGPT 20 U/L (16-61); Albumin, Serum 2.8 g/dL (3.2-5.0); Alkaline Phosphatase 119 U/L (45-117); Anion Gap 4 (5-15); BUN 14 mg/dL (7-18); BUN/Creat Ratio 14.6 RATIO (10-20); Calcium,Total 9.2 mg/dL (8.5-10.1); Chloride 108 mmol/L (98-107); Creatinine, Serum 0.96 mg/dL (0.70-1.30); EST Glomerular Filtration Rate 79 mL/min (>60); Est Glom Filt Rate - Afr Amer 96 mL/min (>60); Globulin 4.3 g/dL (2.2-4.2); Glucose 93 mg/dL (74-106); Protein, Total 7.1 g/dL (6.4-8.2); Sodium Level 141 mmol/L (136-145)
== END ==
LOC: OLS.WHLCAR 05:00
PROVIDERS: PCP Family Medicine; Visit Provider Internal Medicine
DX: I25.10 Atherosclerotic heart disease of native coronary artery without angina pectoris (principal); E11.9 Type 2 diabetes mellitus without complications; I48.0 Paroxysmal atrial fibrillation; I11.0 Hypertensive heart disease with heart failure; I50.89 Other heart failure
CPT/HCPCS: 36415; 80053; 85025

== ENCOUNTER → 2022-11-19 | Outpatient (REF) | payer MEDICARE, OTHER, SELFPAY | LOC: OLS.WHLCAR 12:19 | PROVIDERS: PCP Family Medicine; Visit Provider Internal Medicine | DX: C61 Malignant neoplasm of prostate (principal); E11.9 Type 2 diabetes mellitus without complications; I48.0 Paroxysmal atrial fibrillation; Z12.5 Encounter for screening for malignant neoplasm of prostate | CPT/HCPCS: 36415; 84153; G0103 ==

== ENCOUNTER → 2022-11-26 | Outpatient (CLI) | payer MEDICARE, OTHER, SELFPAY ==
--- NOTE | 2022-11-26 13:56 | RAD_ITS ---
INDICATION: PAIN EXAMINATION/TECHNIQUE: X-RAY - LEFT XR Elbow Min 3 Views COMPARISON: No relevant prior comparison study available FINDINGS: SOFT TISSUES: No soft tissue swelling or gas. No radiopaque foreign body. BONES/JOINTS: There is no displacement of the anterior or posterior fat pads. No acute fracture or subluxation. Normal alignment. Significant joint space loss, bony proliferative changes and periarticular soft tissue ossifications versus less likely intra-articular bodies consistent with advanced degenerative osteoarthritis. No sclerotic or destructive changes observed. RAD/Elbow min 3 Views IMPRESSION: Advanced degenerative osteoarthritis. Periarticular calcifications may represent osteophytosis, ligamentous calcifications, or less likely intra-articular loose bodies. Electronically Signed: John Paul DO at 20:08 EDT ,
== END | disposition home or self-care (01) ==
PROVIDERS: PCP Family Medicine; Referring Provider Family Medicine; Visit Provider Family Medicine
DX: M25.522 Pain in left elbow (principal)
CPT/HCPCS: 73080

== ENCOUNTER 2022-12-21 08:56 | Observation (INO) | payer MEDICARE, OTHER, SELFPAY ==
[2022-12-21] VITALS (10 sets, daily range): BP systolic 108–151; BP diastolic 60–77; PULSE 46–54; RESP 14–20; TEMP 36.4–36.8; O2SAT 97–100; BMI 29.2; BMI 28.6
--- NOTE | 2022-12-21 09:32 | CT_ITS ---
HISTORY: headache, ringing in ears. TECHNIQUE: Multiple axial images were obtained of the head without intravenous contrast. A radiation dose optimization technique was used for this scan. 248 images. COMPARISON: 09/02/2022. FINDINGS: BRAIN PARENCHYMA: Multiple foci and zones of low attenuation in the bilateral cerebral white matter compatible with chronic small vessel ischemic gliosis. 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 No acute intra-axial hemorrhage identified. CSF SPACES: Generalized volume loss. No midline shift or other significant mass effect. No acute extra-axial hemorrhage seen. OTHER: Intact calvarium. No significant air fluid levels in the paranasal sinuses or mastoid air cells. Bilateral lens resections. CT/Brain/Head without Contrast IMPRESSION: No acute intracranial process identified. Mild chronic involutional and white matter changes. Electronically Signed: Virginia Silver MD at 10:11 EDT ,
--- NOTE | 2022-12-21 09:32 | EKG12_ITS ---
Test Reason : DIZZY Blood Pressure : / mmHG Vent. Rate : 045 BPM Atrial Rate : 045 BPM P-R Int : 196 ms QRS Dur : 090 ms QT Int : 496 ms P-R-T Axes : 026 -01 023 degrees QTc Int : 429 ms Sinus bradycardia with occasional Premature ventricular complexes Otherwise normal ECG Confirmed by ZACK WATERMAN, CATALINA ([id number]), film or videotape editor TESSA DUARTE ([id number]) on 12/23/2022 2:32:00 PM Referred By: TAY/RONI Confirmed By:CATALINA DIXON MD
--- NOTE | 2022-12-21 09:34 | EDS_ITS ---
HPI History of Present Illness Chief Complaint: Dizziness Informant: patient, spouse/S.O. and family Narrative Narrative: 87-year-old male presenting to the emergency room with tinnitus. Patient's history of anoxic brain injury makes obtaining an accurate history difficult. Reportedly he has a history of tinnitus and states that his ears usually ringing. states it is more pronounced today though the patient states that he does not feel it is any different than normal. I am told he has a headache but he tells me that he just has ringing in his ears. Reportedly he was having a bowel movement today and had rectal bleeding (bright red blood) without any rectal pain. states that he seemed very weak. A week ago after eating and smelling some cheese that he did not like the smell of he had a very weak episode that resolved. Patient denies any chest back abdominal arm or leg symptoms. He denies any diaphoresis. He states that he cannot hear out of his left ear but then states he can hear and that it is coming back because it was gone earlier this morning. He has not had any of his medications yet this morning. Daughter notes a blood sugar of 93 and gave him some orange juice. He notes that having bright red blood per the rectum is not new for him it just seemed more this morning. He feels lightheaded with movements. [facility] Medical History Abdominal pain Anemia Aortic valve stenosis, moderate Back pain Cardiac arrest Cardiopulmonary arrest with successful resuscitation Cholestatic hepatitis Easy bruising Essential (primary) hypertension Excessive bleeding Hereditary hemochromatosis History of coronary artery disease History of injury of tendon History of pain when walking Leg cramps Loss of hearing Macular degeneration Mild cognitive impairment Non-smoker Non-ST elevation AL (NSTEMI) Nonobstructive atherosclerosis of coronary artery Nonrheumatic aortic (valve) insufficiency Obesity Orthostatic hypotension Pain Paroxysmal atrial fibrillation Peripheral vestibulopathy Prostate cancer Prosthetic aortic valve stenosis Psoriasis Psoriatic arthritis Rectal bleeding Restless legs Syncope TIA (transient ischemic attack) (2007) Ventricular fibrillation Wears glasses Home Medications fish, borage, flaxseed oils-omega 3,6,9 cb #1 400 mg-400 mg-400 mg cap ([place] 3-6-9) 1 cap PO DAILY Check with primary doctor 03/04/21 [History Last Taken 12/20/22] multivitamin (Multiple Vitamins tablet) 1 tab PO DAILY Check with primary doctor 04/21/22 [History Last Taken 12/20/22] aspirin 81 mg chewable tablet 81 mg PO BREAKFAST CARDIAC #0 tabs 09/10/22 [Rx Last Taken 12/20/22] metoprolol succinate 25 mg tablet,extended release 24 hr 25 mg PO DAILY HTN #0 tabs 09/10/22 [Rx Last Taken 12/20/22] loratadine 10 mg disintegrating tablet (Allergy Relief (loratadine)) 10 mg PO DAILY ALLERGIES 09/25/22 [History Last Taken 12/20/22] trazodone 50 mg tablet 50 mg PO QHS ANXIETY 09/25/22 [History Last Taken 12/20/22] escitalopram oxalate 5 mg tablet 5 mg PO DAILY ANXIETY 10/18/22 [History Last Taken 12/20/22] donepezil 5 mg tablet 5 mg PO DAILY 12/21/22 [History Last Taken 12/20/22] insulin glargine-yfgn 100 unit/mL (3 mL) subcutaneous pen 10 unit subcut DAILY 12/21/22 [History Last Taken 12/20/22] oxybutynin chloride 5 mg tablet,extended release 24 hr 5 mg PO DAILY 12/21/22 [History Last Taken 12/20/22] Allergy/AdvReac Type Severity Reaction Status Date / Time apremilast [From Otezla] AdvReac Pain in Verified 12/21/22 08:57 joints azithromycin [From Zithromax] AdvReac Other Verified 12/21/22 08:57 doxycycline AdvReac Other Verified 12/21/22 08:57 erythromycin base AdvReac Other Verified 12/21/22 08:57 gabapentin AdvReac Pain in Verified 12/21/22 08:57 joints guaifenesin [From Entex T] AdvReac Rash Verified 12/21/22 08:57 pseudoephedrine AdvReac Rash Verified 12/21/22 08:57 [From Entex T] tramadol AdvReac Pain in Verified 12/21/22 08:57 joints Family History Brother Heart disease AFIB Brother Myocardial infarction Other Cerebral aneurysm Surgical History H/O aortic valve replacement (06/30/12) History of arthroplasty of left shoulder History of bilateral carpal tunnel release History of left heart catheterization (06/18/12) History of nasal septoplasty History of repair of rotator cuff History of shoulder surgery History of total bilateral knee replacement History of total right hip replacement Hx of colonoscopy Hx of left cataract extraction Hx of right cataract extraction Hx of shoulder replacement Hx of total hip arthroplasty S/p reverse total shoulder arthroplasty Social History Smoking Status: Never smoker Electronic Cigarette Use: not used second hand exposure: No alcohol intake: never substance use type: does not use shanika/congregation: [employer] seatbelt use: sometimes ROS ROS ED Constitutional Constitutional ED: Denies chills, fever(s) or weight loss Eyes Eyes: Denies blurry vision, change in vision or diplopia ENT ENT ED: Reports other Details: Tinnitus ; Denies ear pain, rhinorrhea or sore throat Cardiovascular Cardiovascular: Denies chest pain, orthopnea, palpitations or racing heartbeat Respiratory/Chest Respiratory/Chest: Denies cough, dyspnea or orthopnea Gastrointestinal Gastrointestinal: Reports other Details: Bright red blood per rectum No rectal pain ; Denies abdominal pain, diarrhea, nausea or vomiting Genitourinary Genitourinary ED: Denies dysuria, hematuria or urinary frequency Musculoskeletal Musculoskeletal: Denies arthralgias, back pain, myalgias or neck pain Integumentary Denies abscess or rash Neurologic Neurologic: Denies headache(s), paresthesias or weakness Psychiatric Psychiatric: Denies anxiety, depression, suicidal ideation or suicidal thoughts Endocrine Endocrinology: Denies polydipsia, polyphagia or polyuria Allergic/Immunologic Allergic/Immunologic ED: Denies mouth swelling, tongue swelling or urticaria EXAM Physical Exam Const Vital Signs: 12/21/22 08:57 12/21/22 09:50 12/21/22 10:39 Temperature 97.6 F L Temperature Source Temporal Pulse Rate 49 L Pulse Rate [Lying] 46 L Pulse Rate [Sitting (for 1 minute prior to obtaining)] 49 L Pulse Rate [Standing (for 1 minute prior to obtaining)] 51 L Respiratory Rate 14 Respiratory Effort Normal Non-Labored Respiratory Pattern Normal Blood Pressure 137/65 H Blood Pressure [Lying] 127/72 H Blood Pressure [Sitting (for 1 minute prior to obtaining)] 133/69 H Blood Pressure [Standing (for 1 minute prior to obtaining)] 115/66 Blood Pressure Mean 89 Blood Pressure Mean [Lying] 90 Blood Pressure Mean [Sitting (for 1 minute prior to obtaining)] 90 Blood Pressure Mean [Standing (for 1 minute prior to obtaining)] 82 Pulse Ox 98 Oxygen Delivery Method Room Air 12/21/22 10:57 12/21/22 12:58 12/21/22 12:59 Temperature Temperature Source Pulse Rate 53 L 54 L Pulse Rate [Lying] Pulse Rate [Sitting (for 1 minute prior to obtaining)] Pulse Rate [Standing (for 1 minute prior to obtaining)] Respiratory Rate 20 H Respiratory Effort Respiratory Pattern Blood Pressure 115/67 151/71 H 112/65 Blood Pressure [Lying] Blood Pressure [Sitting (for 1 minute prior to obtaining)] Blood Pressure [Standing (for 1 minute prior to obtaining)] Blood Pressure Mean 83 97 80 Blood Pressure Mean [Lying] Blood Pressure Mean [Sitting (for 1 minute prior to obtaining)] Blood Pressure Mean [Standing (for 1 minute prior to obtaining)] Pulse Ox 100 Oxygen Delivery Method Room Air 12/21/22 14:03 Temperature Temperature Source Pulse Rate 47 L Pulse Rate [Lying] Pulse Rate [Sitting (for 1 minute prior to obtaining)] Pulse Rate [Standing (for 1 minute prior to obtaining)] Respiratory Rate 16 Respiratory Effort Respiratory Pattern Blood Pressure 137/60 H Blood Pressure [Lying] Blood Pressure [Sitting (for 1 minute prior to obtaining)] Blood Pressure [Standing (for 1 minute prior to obtaining)] Blood Pressure Mean 85 Blood Pressure Mean [Lying] Blood Pressure Mean [Sitting (for 1 minute prior to obtaining)] Blood Pressure Mean [Standing (for 1 minute prior to obtaining)] Pulse Ox 97 Oxygen Delivery Method Room Air Positive well nourished and well developed General Appearance ED: well developed HEENT Reports normocephalic, head/scalp atraumatic, TM's clear and moist mucous membranes Tympanic Membrane ED: Yes TM's clear Eyes PERRL and EOMs intact bilaterally Neck no lymphadenopathy, supple and no JVD Resp normal respiratory effort and clear to auscultation bilaterally Cardio regular rate, regular rhythm and no murmurs GI normal to inspection, nondistended, normoactive bowel sounds and non-tender Palpation: soft Narrative: There is bright red blood dried on the buttocks in the midline. There is clotted red blood on digital examination. Back/Spine no CVA tenderness and normal ROM Extremity normal to inspection General Extremety ED: Negative for edema General Extremity: Negative for edema Neuro oriented x3 and CN's II-XII intact bilaterally Sensorium / Orientation: alert Motor Exam: strength 5/5 throughout Psych mental status grossly normal Mood & Affect: Negative for depressed or tearful Skin no rashes or lesions noted and no wounds MDM MDM MDM Narrative Medical decision making narrative: Hemoglobin is 12.4. Platelet count of 114. CMP negative. Troponin normal. Urinalysis is negative for infection. My interpretation of the chest x-ray is no acute process. CT of the brain is negative for acute. Patient has remained in a sinus bradycardic rhythm in the 40s. He has not taken his metoprolol today. The patient had orthostatics which showed him dropping approximately 30 points systolically from a sitting to a standing position. He received a liter of IV fluids and this was still the case and he was unstable with standing. Difficult disposition on this patient. He remains bradycardic and appears to have had 2 near syncopal episodes in the past week. He is having some evidence of rectal bleeding. I think is reasonable to admit him hold metoprolol trend hemoglobins and heart rate. I will speak with the hospitalist regarding admission. History & Record Review Discussion w/independent historian: EMS personnel, Patient, Family and Significant other Additional record(s) reviewed:: Prior inpatient record, Prior ED visit and Prior labs Lab Data Attestation: I reviewed the patient's lab results. Labs: Laboratory Results - last 24 hr 12/21/22 12/21/22 09:46 10:38 WBC 4.4 RBC 3.82 L Hgb 12.4 L Hct 37.1 L MCV 97.1 H MCH 32.5 H MCHC 33.4 RDW Std Deviation 51.8 H RDW Coeff of Fazal 14.4 Plt Count 114 L MPV 9.0 Immature Gran % (Auto) 0.200 Neut % (Auto) 38.4 L Lymph % (Auto) 37.0 Sumner % (Auto) 12.3 H Eos % (Auto) 11.4 H Baso % (Auto) 0.7 Absolute Neuts (auto) 1.7 L Absolute Lymphs (auto) 1.63 Nucleated RBC % 0 PT 14.0 INR 1.1 APTT 29.5 Sodium 138 Potassium 4.1 Chloride 107 Carbon Dioxide 28.0 Anion Gap 3 L BUN 23 H Creatinine 1.00 Estim Creat Clear Calc 53.74 Est GFR (MDRD) Af Amer 91 Est GFR (MDRD) Non-Af 75 BUN/Creatinine Ratio 23.0 H Glucose 97 Calcium 8.7 Total Bilirubin 1.00 AST 20 ALT 24 Alkaline Phosphatase 108 Troponin I High Sens 17 Total Protein 6.9 Albumin 3.1 L Globulin 3.8 Albumin/Globulin Ratio 0.8 L Urine Color Yellow Urine Clarity Clear Urine pH 7.0 Ur Specific [place] 1.010 Urine Protein Negative Urine Glucose (UA) Normal Urine Ketones Negative Urine Occult Blood Negative Urine Nitrite Negative Urine Bilirubin Negative Urine Urobilinogen Normal Ur Leukocyte Esterase Negative Urine RBC 0 SEEN Urine WBC 0 SEEN Ur Squamous Epith Cells 0 SEEN Urine Bacteria 0 SEEN Urine Mucus 0 SEEN Radiography Diagnostic Testing: Clinical Impression(s) from Imaging Studies Brain CT 12/21/22 09:32 IMPRESSION: No acute intracranial process identified. Mild chronic involutional and white matter changes. Electronically Signed: Virginia Silver MD at 10:11 EDT , Chest X-Ray 12/21/22 09:55 IMPRESSION: No acute cardiopulmonary process identified. Electronically Signed: Virginia Silver MD at 10:07 EDT , EKG Initial EKG: Attestation: I personally reviewed and interpreted this EKG as follows: Comments: Sinus bradycardia with a ventricular rate of 45 bpm. PVC is noted. Management Discussion w/another healthcare provider: Hospitalist Discharge Plan Triage Chief Complaint: Dizziness ED Provider: Donaldo Davis Dx/Rx/DC Orders Prescriptions: No Action fish,bora,flax oils-om3,6,9no1 [[place] 3-6-9] 400-400-400 mg capsule 1 cap PO DAILY multivitamin [Multiple Vitamins] Tablet 1 tab PO DAILY trazodone 50 mg tablet 50 mg PO QHS loratadine [Allergy Relief (loratadine)] 10 mg tablet,disintegrating 10 mg PO DAILY aspirin 81 mg Tablet,Chewable 81 mg PO BREAKFAST Qty: 0 0RF metoprolol succinate 25 mg Tablet Extended Release 24 Hr 25 mg PO DAILY Qty: 0 0RF escitalopram oxalate 5 mg tablet 5 mg PO DAILY donepezil 5 mg tablet 5 mg PO DAILY oxybutynin chloride 5 mg tablet extended release 24hr 5 mg PO DAILY insulin glargine-yfgn 100 unit/mL (3 mL) Insulin Pen 10 unit subcut DAILY Primary Care Provider: Stanley Grace Referrals: Stanley Grace DO [Primary Care Provider] -
[2022-12-21 09:54] LABS: Absolute Lymphocyte Count 1.63 X10^3/uL (0.83-4.51); Absolute Neutrophil Count 1.7 X10^3/uL (2.0-7.7); Basophil# 0.03 X10^3/uL; Basophil% 0.7 % (0-1); Eosinophils% 11.4 % (0-5); Hematocrit 37.1 % (40-54); Hemoglobin 12.4 g/dL (13.0-16.5); Lymphocyte # 1.63 X10^3/ul (0.83-4.51); Mean Corp Hgb Conc 33.4 g/dL (32-36); Mean Corpuscular Hgb 32.5 pg (27.0-32.0); Mean Corpuscular Volume 97.1 fL (80-94); Monocyte# 0.54 X10^3/uL; Monocyte% 12.3 % (0-10); NRBC Flagged by Analyzer 0 % (0-5); Neutrophil # 1.69 X10^3/uL (2.7-7.7); Neutrophil % 38.4 % (47-70); Platelet Count 114 K/mm3 (150-450); RBC Distribution Width CV 14.4 % (11.6-14.6); RBC Distribution Width SD 51.8 fl (35.1-43.9); Red Blood Count 3.82 M/mm3 (4.6-6.2); White Blood Count 4.4 K/mm3 (4.4-11.0)
--- NOTE | 2022-12-21 09:55 | RAD_ITS ---
HISTORY: near syncope. TECHNIQUE: XR Chest 1 View. COMPARISON: 09/06/2022. FINDINGS: CARDIOMEDIASTINAL BORDERS: Cardiac silhouette within normal limits in size. Mediastinal contour unremarkable with midline sternotomy again noted. Central venous catheter removed. LUNGS: Chronic scarring or atelectasis in the left lung base. PLEURA: No pleural effusion or pneumothorax seen. OSSEOUS STRUCTURES: Bilateral reverse shoulder arthroplasties in place. RAD/Chest 1 View (Portable) IMPRESSION: No acute cardiopulmonary process identified. Electronically Signed: Virginia Silver MD at 10:07 EDT ,
[2022-12-21 10:03] LABS: International Normalized Ratio 1.1; Partial Thromboplast Time 29.5 Seconds (24.1-36.2)
[2022-12-21 10:15] LABS: ALB/GLOB Ratio 0.8 RATIO (0.9-2.4); AST(SGOT) 20 U/L (15-37); Alanine Aminotransfer ALT/SGPT 24 U/L (16-61); Albumin, Serum 3.1 g/dL (3.2-5.0); Alkaline Phosphatase 108 U/L (45-117); Anion Gap 3 (5-15); BUN 23 mg/dL (7-18); Calcium,Total 8.7 mg/dL (8.5-10.1); Chloride 107 mmol/L (98-107); EST Glomerular Filtration Rate 75 mL/min (>60); Est Glom Filt Rate - Afr Amer 91 mL/min (>60); Estimated Creatinine Clearance 53.74 ml/min; Globulin 3.8 g/dL (2.2-4.2); Glucose 97 mg/dL (74-106); Potassium 4.1 mmol/L (3.5-5.1); Protein, Total 6.9 g/dL (6.4-8.2); Sodium Level 138 mmol/L (136-145); Troponin-I HS 17 pg/mL (3.0-78.0)
[2022-12-21 10:44] LABS: Bacteria 0 SEEN /hpf (None Seen); Mucous, Urine 0 SEEN /hpf (<or=2+); Red Blood Cells-Urine 0 SEEN /hpf (0-5); Squamous Epithelial Cells - UA 0 SEEN /hpf (0-5); White Blood Cells 0 SEEN /hpf (0-5)
[2022-12-21 10:45] LABS: Color, Urine Yellow (Yellow); Glucose, Dipstick Normal (Normal); Ketone-Dipstick Negative (Negative); Leukocyte Esterase-Dipstick Negative /ul (Negative); Nitrite-Dipstick Negative (Negative); Occult Blood-Urine Negative /ul (Negative); Protein-Dipstick Negative (Negative); Urine Bilirubin Dipstick Negative (Negative); Urine Clarity Clear (Clear); Urine Urobilinogen Normal (Normal)
[2022-12-21] MEDS: 0.9% Normal Saline (1000mL) 1,000 ML 999 ML IV (11:49)
--- NOTE | 2022-12-21 14:42 | PCM.HP.STD ---
HPI - General General Date of Admission: 12/21/22 Date of Service: 12/21/22 Chief Complaint: Dizziness/lightheadedness HPI Narrative NUNU MALDONADO, is a 87 M who presented to the emergency department at [facility] on 12/21/2022 with complaints of tinnitus and dizziness. Subjectively it sounds more like lightheadedness with standing. 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 I did see him at that time and overall he is doing much better. He is also had a headache per his reports but he denies a headache at the time of my evaluation and just complains that he has had ringing in his ears. His daughter indicates that this is a chronic problem however his states its been more persistent lately. He also had an episode of bright red blood per rectum today without any rectal pain. His reports that he seems weak however overall he seems to be fairly well right now. He denies any chest pain, shortness of breath, nausea, vomiting or urinary symptoms. He states this morning could not hear out of his left ear but that has improved and it is coming back at this time. He had not taking any of his home medications as of yet today. His blood sugar tested at home was 93 and his daughter did give him some orange juice. The bright red blood per rectum is not necessarily a new etiology for him but his reported it was more than typical this morning. Patient reports he just feels lightheaded with movement. Vital signs on presentation showed temperature of 96.6, heart rate 49, blood pressure was 137/65, respiratory rate 14 oxygen saturations are 98% on room air. He is persistently bradycardic in the emergency department however it appears to be sinus bradycardia on his EKG. Orthostatic vitals were positive from sitting to standing and the patient was symptomatic with some lightheadedness at that time. His CBC shows a mild anemia with a hemoglobin of 12.4 which appears to be at his baseline. His platelet count is 114,000 which is slightly lower than his baseline however it does appear to fluctuate some when reviewed with previous lab. He has no leukocytosis. His coags are normal. His chemistry panel shows a mildly elevated BUN at 23 and a serum creatinine of 1.0 and when compared to previous labs at slightly higher and he appears to be very minimally dry. His liver functions are unremarkable. His UA is unremarkable. CT the brain shows mild chronic involutional changes but no intracranial process and his chest x-ray is unremarkable for any acute findings. [facility] Medical History Abdominal pain Anemia Aortic valve stenosis, moderate Back pain Cardiac arrest Cardiopulmonary arrest with successful resuscitation Cholestatic hepatitis Easy bruising Essential (primary) hypertension Excessive bleeding Hereditary hemochromatosis History of coronary artery disease History of injury of tendon History of pain when walking Leg cramps Loss of hearing Macular degeneration Mild cognitive impairment Non-smoker Non-ST elevation IN (NSTEMI) Nonobstructive atherosclerosis of coronary artery Nonrheumatic aortic (valve) insufficiency Obesity Orthostatic hypotension Pain Paroxysmal atrial fibrillation Peripheral vestibulopathy Prostate cancer Prosthetic aortic valve stenosis Psoriasis Psoriatic arthritis Rectal bleeding Restless legs Syncope TIA (transient ischemic attack) (2007) Ventricular fibrillation Wears glasses Home Medications fish, borage, flaxseed oils-omega 3,6,9 cb #1 400 mg-400 mg-400 mg cap (Triple [place] 3-6-9) 1 cap PO DAILY Check with primary doctor 03/04/21 [History Last Taken 12/20/22] multivitamin (Multiple Vitamins tablet) 1 tab PO DAILY Check with primary doctor 04/21/22 [History Last Taken 12/20/22] aspirin 81 mg chewable tablet 81 mg PO BREAKFAST CARDIAC #0 tabs 09/10/22 [Rx Last Taken 12/20/22] metoprolol succinate 25 mg tablet,extended release 24 hr 25 mg PO DAILY HTN #0 tabs 09/10/22 [Rx Last Taken 12/20/22] loratadine 10 mg disintegrating tablet (Allergy Relief (loratadine)) 10 mg PO DAILY ALLERGIES 09/25/22 [History Last Taken 12/20/22] trazodone 50 mg tablet 50 mg PO QHS ANXIETY 09/25/22 [History Last Taken 12/20/22] escitalopram oxalate 5 mg tablet 5 mg PO DAILY ANXIETY 10/18/22 [History Last Taken 12/20/22] donepezil 5 mg tablet 5 mg PO DAILY 12/21/22 [History Last Taken 12/20/22] insulin glargine-yfgn 100 unit/mL (3 mL) subcutaneous pen 10 unit subcut DAILY 12/21/22 [History Last Taken 12/20/22] oxybutynin chloride 5 mg tablet,extended release 24 hr 5 mg PO DAILY 12/21/22 [History Last Taken 12/20/22] Allergy/AdvReac Type Severity Reaction Status Date / Time apremilast [From Otezla] AdvReac Pain in Verified 12/21/22 08:57 joints azithromycin [From Zithromax] AdvReac Other Verified 12/21/22 08:57 doxycycline AdvReac Other Verified 12/21/22 08:57 erythromycin base AdvReac Other Verified 12/21/22 08:57 gabapentin AdvReac Pain in Verified 12/21/22 08:57 joints guaifenesin [From Entex T] AdvReac Rash Verified 12/21/22 08:57 pseudoephedrine AdvReac Rash Verified 12/21/22 08:57 [From Entex T] tramadol AdvReac Pain in Verified 12/21/22 08:57 joints Family History Brother Heart disease AFIB Brother Myocardial infarction Other Cerebral aneurysm Surgical History H/O aortic valve replacement (06/30/12) History of arthroplasty of left shoulder History of bilateral carpal tunnel release History of left heart catheterization (06/18/12) History of nasal septoplasty History of repair of rotator cuff History of shoulder surgery History of total bilateral knee replacement History of total right hip replacement Hx of colonoscopy Hx of left cataract extraction Hx of right cataract extraction Hx of shoulder replacement Hx of total hip arthroplasty S/p reverse total shoulder arthroplasty Social History Smoking Status: Never smoker Electronic Cigarette Use: not used second hand exposure: No alcohol intake: never substance use type: does not use shanika/yazdanism: Confucianist seatbelt use: sometimes ROS Constitutional Constitutional: Reports weakness; Denies anorexia, change in weight, chills, fatigue, fever(s), malaise, night sweats or other Eyes Eyes: Denies blurry vision, change in eye color, change in vision, discharge from eye(s), double vision, erythema, eye pain, loss of vision or other ENT HEENT: Reports abnormal hearing, hearing loss and other Details: Tinnitus ; Denies dysphagia, ear pain, epistaxis, headache(s), nasal congestion, nasal discharge, post nasal drip, sinus pressure or sore throat Cardiovascular Cardiovascular: Denies chest pain, claudication, dyspnea on exertion, edema, lightheadedness, orthopnea, palpitations, paroxysmal nocturnal dyspnea, rapid heart rate, syncope or other Respiratory/Chest Respiratory/Chest: Denies cough, dyspnea, excessive phlegm production, hemoptysis, productive cough, shortness of breath at rest, shortness of breath with exertion, wheezing or other Gastrointestinal Gastrointestinal: Reports hematochezia; Denies abdominal pain, coffee ground emesis, constipation, diarrhea, dyspepsia, hematemesis, loose stools, melena, nausea, vomiting or other Genitourinary Genitourinary: Denies burning urination, difficulty urinating, dysuria, hematuria, nocturia, urinary frequency, urinary hesitancy, urinary incontinence, urinary urgency or other Musculoskeletal Musculoskeletal: Denies arthralgias, back pain, joint pain, joint stiffness, joint swelling, myalgias, neck pain or other Neurologic Neurologic: Denies abnormal gait, abnormal speech, confusion, disequilibrium, dizziness, focal weakness, headache(s), numbness, paresthesias, seizure-like activity, seizures, syncope, tingling, tremor(s) or other Psychiatric Psychiatric: Reports anxiety and depression; Denies homicidal ideation, suicidal ideation or other Endocrine Endocrinology: Denies change in body appearance, cold intolerance, excessive sweating, heat intolerance, polydipsia, polyuria or other Hematologic/Lymphatic Hematologic/Lymphatic: Denies anemia, easy bleeding, easy bruising, lymphadenopathy or other Allergic/Immunologic Allergic/Immunologic: Denies rhinitis, hives, eczemia, asthma or other Vital Signs Vital Signs Vital Signs: 12/21/22 08:57 12/21/22 09:50 12/21/22 10:39 Temperature 97.6 F L Temperature Source Temporal Pulse Rate 49 L Pulse Rate [Lying] 46 L Pulse Rate [Sitting (for 1 minute prior to obtaining)] 49 L Pulse Rate [Standing (for 1 minute prior to obtaining)] 51 L Respiratory Rate 14 Respiratory Effort Normal Non-Labored Respiratory Pattern Normal Blood Pressure 137/65 H Blood Pressure [Lying] 127/72 H Blood Pressure [Sitting (for 1 minute prior to obtaining)] 133/69 H Blood Pressure [Standing (for 1 minute prior to obtaining)] 115/66 Blood Pressure Mean 89 Blood Pressure Mean [Lying] 90 Blood Pressure Mean [Sitting (for 1 minute prior to obtaining)] 90 Blood Pressure Mean [Standing (for 1 minute prior to obtaining)] 82 Pulse Ox 98 Oxygen Delivery Method Room Air 12/21/22 10:57 12/21/22 12:58 12/21/22 12:59 Temperature Temperature Source Pulse Rate 53 L 54 L Pulse Rate [Lying] Pulse Rate [Sitting (for 1 minute prior to obtaining)] Pulse Rate [Standing (for 1 minute prior to obtaining)] Respiratory Rate 20 H Respiratory Effort Respiratory Pattern Blood Pressure 115/67 151/71 H 112/65 Blood Pressure [Lying] Blood Pressure [Sitting (for 1 minute prior to obtaining)] Blood Pressure [Standing (for 1 minute prior to obtaining)] Blood Pressure Mean 83 97 80 Blood Pressure Mean [Lying] Blood Pressure Mean [Sitting (for 1 minute prior to obtaining)] Blood Pressure Mean [Standing (for 1 minute prior to obtaining)] Pulse Ox 100 Oxygen Delivery Method Room Air 12/21/22 14:03 Temperature Temperature Source Pulse Rate 47 L Pulse Rate [Lying] Pulse Rate [Sitting (for 1 minute prior to obtaining)] Pulse Rate [Standing (for 1 minute prior to obtaining)] Respiratory Rate 16 Respiratory Effort Respiratory Pattern Blood Pressure 137/60 H Blood Pressure [Lying] Blood Pressure [Sitting (for 1 minute prior to obtaining)] Blood Pressure [Standing (for 1 minute prior to obtaining)] Blood Pressure Mean 85 Blood Pressure Mean [Lying] Blood Pressure Mean [Sitting (for 1 minute prior to obtaining)] Blood Pressure Mean [Standing (for 1 minute prior to obtaining)] Pulse Ox 97 Oxygen Delivery Method Room Air Weight Weight: 92.351 kg Body Mass Index (BMI) 29.2 Physical Exam Const alert, no apparent distress and well nourished Constitutional Narrative: Elderly, white male, sitting up in bed, oriented to self and place but not to time which is his baseline since his event in August, appears comfortable and nontoxic, family at bedside, patient joking and interacting with me throughout conversation General Appearance: cooperative HEENT normocephalic, head/scalp atraumatic and moist oral mucous membranes HEENT Narrative: Hearing loss noted bilaterally, dentition is fair for age, Mallampati 2 Eyes PERRL, EOMs intact bilaterally and conjunctivae normal Eyes Narrative: No scleral icterus Neck no lymphadenopathy and supple Neck Narrative: Trachea midline, no thyroid enlargement Resp normal respiratory effort, no retractions, no use of accessory muscles and clear to auscultation bilaterally Auscultation: Negative for rales, rhonchi or wheezes Cardio regular rate, regular rhythm, S1 normal heart sound, S2 normal heart sound, no murmurs, no rub, no gallops and no clicks GI normal to inspection, nondistended, normoactive bowel sounds, soft to palpation and non-tender Extremity no clubbing, cyanosis or edema Extremity Narrative: Pedal pulses are 2+ Skin no rashes or lesions noted, no wounds, skin turgor normal, no jaundice, no petechiae and no mottling Neuro CN's II-XII intact bilaterally, moves all extremities and no focal motor deficits Neuro Narrative: Generalized weakness noted but no focal deficits and generalized weakness is mild to moderate with proximal musculature being more affected than distal musculature upper and lower extremities Sensorium / Orientation: awake, alert, oriented to person and oriented to place Speech: speech normal Psych affect normal Psych Narrative: Very pleasant, eye contact is good, mood is not depressed at this time Results Lab / Micro Data Attestation: I reviewed the patient's lab results. 12/21/22 09:46 12/21/22 09:46 Labs: Laboratory Results - last 24 hr 12/21/22 09:46: WBC 4.4, RBC 3.82 L, Hgb 12.4 L, Hct 37.1 L, MCV 97.1 H, MCH 32.5 H, MCHC 33.4, RDW Std Deviation 51.8 H, RDW Coeff of Fazal 14.4, Plt Count 114 L, MPV 9.0, Immature Gran % (Auto) 0.200, Neut % (Auto) 38.4 L, Lymph % (Auto) 37.0, [place] % (Auto) 12.3 H, Eos % (Auto) 11.4 H, Baso % (Auto) 0.7, Absolute Neuts (auto) 1.7 L, Absolute Lymphs (auto) 1.63, Nucleated RBC % 0, PT 14.0, INR 1.1, APTT 29.5, Sodium 138, Potassium 4.1, Chloride 107, Carbon Dioxide 28.0, Anion Gap 3 L, BUN 23 H, Creatinine 1.00, Estim Creat Clear Calc 53.74, Est GFR (MDRD) Af Amer 91, Est GFR (MDRD) Non-Af 75, BUN/Creatinine Ratio 23.0 H, Glucose 97, Calcium 8.7, Total Bilirubin 1.00, AST 20, ALT 24, Alkaline Phosphatase 108, Troponin I High Sens 17, Total Protein 6.9, Albumin 3.1 L, Globulin 3.8, Albumin/Globulin Ratio 0.8 L 12/21/22 10:38: Urine Color Yellow, Urine Clarity Clear, Urine pH 7.0, Ur Specific [place] 1.010, Urine Protein Negative, Urine Glucose (UA) Normal, Urine Ketones Negative, Urine Occult Blood Negative, Urine Nitrite Negative, Urine Bilirubin Negative, Urine Urobilinogen Normal, Ur Leukocyte Esterase Negative, Urine RBC 0 SEEN, Urine WBC 0 SEEN, Ur Squamous Epith Cells 0 SEEN, Urine Bacteria 0 SEEN, Urine Mucus 0 SEEN Radiology Impression Brain CT 12/21/22 09:32 IMPRESSION: No acute intracranial process identified. Mild chronic involutional and white matter changes. Electronically Signed: Virginia Silver MD at 10:11 EDT , Chest X-Ray 12/21/22 09:55 IMPRESSION: No acute cardiopulmonary process identified. Electronically Signed: Virginia Silver MD at 10:07 EDT , Assessment & Plan Assessment/Plan (1) Bradycardia: (2) Tinnitus: (3) Orthostatic hypotension: (4) Bright red blood per rectum: PLAN: Plan Bradycardia -Appears to be sinus bradycardia -Hold donepezil -Hold metoprolol -Monitor on telemetry -We will hold on echocardiogram for now and see if his heart rates improve by holding medications that can do induce bradycardia and if not may need to consider echocardiogram -Patient did have an echo on 09/03/2022 that showed a normal EF and stage I diastolic dysfunction with moderate aortic stenosis and peak aortic valve gradient 50 mmHg -Stress test done on 09/09/2022 that showed evidence of previous inferior and inferolateral infarct with no inducible ischemia and preserved ejection fraction -Hold on cardiology consultation for now and monitor heart rates Orthostatic hypotension -We will give 1 L of IV fluids and repeat orthostatics in a.m. -We will have patient evaluated by PT and OT Bright red blood per rectum -Family reports she has had this intermittently -Likely diverticular versus hemorrhoidal bleeding -We will cycle hemoglobin every 6 hours -If any significant drop in hemoglobin will have patient evaluated by gastroenterology in house if not patient may follow-up as an outpatient with GI -We will continue aspirin for now but hold if any drop in hemoglobin Tinnitus -This is acute on chronic - reports this has been more of a problem lately however patient does not have significant complaint of this at the time of my evaluation -If continues to be problematic would refer to outpatient ENT History of acute cardiopulmonary arrest due to V-fib -09/02/2022 -Plan is to enroll patient in hospice after he is done with his rehab process per discussion with daughter and -We will hold metoprolol for now with bradycardia -Patient did have echo and stress test and cardiology follows -EF is within normal limits -Continue aspirin 81 mg History of anoxic encephalopathy/dementia -Overall patient is performing much better -Continue therapies as an outpatient after discharge -Hold donepezil as this medication can induce bradycardia Thrombocytopenia -His most recent platelet count was 202,000 however this appears to fluctuate as an outpatient next-we will monitor Chronic anemia -Hemoglobin is currently at his baseline between 11 and 12 -Will monitor with reports of rectal bleeding on presentation Seasonal allergies -Continue loratadine Urinary incontinence -Continue oxybutynin History of PAF -Normal sinus rhythm during his hospitalization -Suspect was valvular related previously or postoperatively -Holding beta-sanjeev for now with bradycardia -Patient not anticoagulated due to increased risk History of aortic valve stenosis -Status post bioprosthetic valve replacement -No current issues -Continue outpatient follow-up with cardiology DM-2 -Continue insulin glargine for basal insulin 10 units daily -SSI -Accu-Cheks as ordered Hyperlipidemia -Continue statin History of rheumatoid arthritis -Patient is no longer taking methotrexate Depression/anxiety -Continue Lexapro -Continue trazodone History of prostate cancer -No current acute issues DVT prophylaxis -Subcu Lovenox daily CODE STATUS -DNR CCA with no intubation as discussed with family prior to admission Charges/Coding Visit Charges Inpatient E&M: 21246 Init Hosp L3
[2022-12-21 15:25] LABS: Hemoglobin 12.1 g/dL (13.0-16.5)
[2022-12-21 15:43] LABS: Thyroid Stim Hormone (TSH) 1.22 uIU/mL (0.358-3.74)
[2022-12-21] MEDS: Lactated Ringers 1,000 ML 100 ML IV (16:31)
[2022-12-21 17:20] LABS: Bedside Glucose 91 mg/dL (74-106)
[2022-12-21 20:33] LABS: Hemoglobin 12.2 g/dL (13.0-16.5)
[2022-12-21] MEDS: traZODone 50 MG Tablet PO (21:23)
[2022-12-22 00:47] LABS: Bedside Glucose 144 mg/dL (74-106)
[2022-12-22 03:20] VITALS: BP 117/75; BP 126/75; BP 127/77; PULSE 48; PULSE 53; PULSE 59; RESP 18; TEMP 36.3; O2SAT 97
[2022-12-22 03:35] LABS: Absolute Lymphocyte Count 1.85 X10^3/uL (0.83-4.51); Absolute Neutrophil Count 1.7 X10^3/uL (2.0-7.7); Basophil# 0.03 X10^3/uL; Basophil% 0.7 % (0-1); Eosinophil# 0.47 X10^3/uL; Eosinophils% 10.4 % (0-5); Hematocrit 37.3 % (40-54); Hemoglobin 12.1 g/dL (13.0-16.5); Lymphocyte # 1.85 X10^3/ul (0.83-4.51); Lymphocyte % 40.7 % (19-41); Mean Corp Hgb Conc 32.4 g/dL (32-36); Mean Corpuscular Hgb 31.3 pg (27.0-32.0); Mean Corpuscular Volume 96.4 fL (80-94); Mean Platelet Vol. 9.1 fl (6.2-12.0); Monocyte# 0.45 X10^3/uL; Monocyte% 9.9 % (0-10); NRBC Flagged by Analyzer 0 % (0-5); Neutrophil # 1.73 X10^3/uL (2.7-7.7); Neutrophil % 38.1 % (47-70); Platelet Count 111 K/mm3 (150-450); RBC Distribution Width CV 14.4 % (11.6-14.6); RBC Distribution Width SD 50.8 fl (35.1-43.9); Red Blood Count 3.87 M/mm3 (4.6-6.2); White Blood Count 4.5 K/mm3 (4.4-11.0)
[2022-12-22 04:03] LABS: ALB/GLOB Ratio 0.8 RATIO (0.9-2.4); AST(SGOT) 18 U/L (15-37); Alanine Aminotransfer ALT/SGPT 19 U/L (16-61); Alkaline Phosphatase 100 U/L (45-117); Anion Gap 4 (5-15); BUN 18 mg/dL (7-18); BUN/Creat Ratio 21.8 RATIO (10-20); Calcium,Total 8.7 mg/dL (8.5-10.1); Chloride 110 mmol/L (98-107); Creatinine, Serum 0.82 mg/dL (0.70-1.30); EST Glomerular Filtration Rate 94 mL/min (>60); Est Glom Filt Rate - Afr Amer 114 mL/min (>60); Estimated Creatinine Clearance 65.53 ml/min; Globulin 3.6 g/dL (2.2-4.2); Glucose 106 mg/dL (74-106); Magnesium 2.1 mg/dL (1.6-2.6); Phosphorus 4.1 mg/dL (2.5-4.9); Potassium 4.1 mmol/L (3.5-5.1); Protein, Total 6.6 g/dL (6.4-8.2); Sodium Level 140 mmol/L (136-145)
[2022-12-22 07:43] VITALS: O2SAT 95
[2022-12-22] MEDS: Loratadine 10 MG Tablet PO (08:55)
[2022-12-22] MEDS: Multivitamins,Therapeutic Tablet 1 TABLET PO (08:55)
[2022-12-22] MEDS: Aspirin 81 MG TAB.CHEW PO (08:55)
[2022-12-22] MEDS: Escitalopram Oxalate 10 MG Tablet 5 MG PO (08:55)
[2022-12-22] MEDS: Tolterodine Tartrate 2 MG CAP.SA PO (08:56)
[2022-12-22] MEDS: Insulin Glargine-YFGN 100 UNIT/ML Pen 10 UNIT SC (08:56)
[2022-12-22] MEDS: Insulin Lispro 100 UNIT/ML INSULN.PEN SC (08:58)
[2022-12-22 09:12] VITALS: BP 109/59; PULSE 55; RESP 12; TEMP 36.6; O2SAT 94
[2022-12-22 09:25] LABS: Bedside Glucose 182 mg/dL (74-106)
--- NOTE | 2022-12-22 10:59 | PCM.PN.HOSP ---
Reason for Visit Reason for Visit: Diagnoses Tinnitus, unspecified ear (12/21/22) Orthostatic hypotension (12/21/22) Hemorrhage of anus and rectum (12/21/22) Bradycardia, unspecified (12/21/22) Subjective Subjective Patient is an 87-year-old gentleman admitted with bleeding per rectum. Patient was also found to be bradycardic on admission admitted to monitored bed for subsequent eval Objective Data Objective Data Vital Signs: Vital Signs Temp Pulse Resp BP Pulse Ox O2 Del Method 97.8 F 55 L 12 109/59 L 94 Room Air 12/22/22 09:12 12/22/22 09:12 12/22/22 09:12 12/22/22 09:12 12/22/22 09:12 12/22/22 09:15 Oxygen Delivery Method Room Air Weight: 90.6 kg Body Mass Index (BMI) 28.6 Intake & Output: Intake and Output for Last 24 Hours 12/20/22 12/21/22 12/22/22 23:59 23:59 23:59 Intake Total 1540 / 1540 1120 / 1120 Balance 1540 / 1540 1120 / 1120 Lab / Micro Data 12/22/22 03:08 12/22/22 03:08 Labs: Laboratory Results - last 24 hr 12/21/22 09:46: TSH 1.22 12/21/22 15:20: Hgb 12.1 L 12/21/22 16:34: POC Glucose 91 12/21/22 20:20: Hgb 12.2 L 12/21/22 21:22: POC Glucose 144 H 12/22/22 03:08: WBC 4.5, RBC 3.87 L, Hgb 12.1 L, Hct 37.3 L, MCV 96.4 H, MCH 31.3, MCHC 32.4, RDW Std Deviation 50.8 H, RDW Coeff of Faazl 14.4, Plt Count 111 L, MPV 9.1, Immature Gran % (Auto) 0.200, Neut % (Auto) 38.1 L, Lymph % (Auto) 40.7, [place] % (Auto) 9.9, Eos % (Auto) 10.4 H, Baso % (Auto) 0.7, Absolute Neuts (auto) 1.7 L, Absolute Lymphs (auto) 1.85, Nucleated RBC % 0, Sodium 140, Potassium 4.1, Chloride 110 H, Carbon Dioxide 26.0, Anion Gap 4 L, BUN 18, Creatinine 0.82, Estim Creat Clear Calc 65.53, Est GFR (MDRD) Af Amer 114, Est GFR (MDRD) Non-Af 94, BUN/Creatinine Ratio 21.8 H, Glucose 106, Calcium 8.7, Phosphorus 4.1, Magnesium 2.1, Total Bilirubin 1.00, AST 18, ALT 19, Alkaline Phosphatase 100, Total Protein 6.6, Albumin 3.0 L, Globulin 3.6, Albumin/Globulin Ratio 0.8 L 12/22/22 08:52: POC Glucose 182 H Physical Exam Narrative GENERAL: cooperative HEENT: Atraumatic; normocephalic EYES; Anicteric, Normal Conjunctiva NECK; supple, normal thyroid, RESPIRATORY: Diminished to auscultation CARDIOVASCULAR: Regular S1 S2, GI: soft, normoactive bowel sounds, : No Renal angle tenderness; EXTREMITIES: No edema, no clubbing, MUSCULOSKELETAL: no muscle wasting NEURO: Awake; no lateralizing signs. SKIN: No Rash PSYCH; Flat affect Assessment & Plan Assessment/Plan (1) Bright red blood per rectum: PLAN: Plan Patient is an 87-year-old gentleman admitted with bleeding per rectum. Patient was also found to be bradycardic on admission admitted to monitored bed for subsequent eval 1. Bleeding per rectum ? Has history of hemorrhoidal bleed. H&H has remained stable following admission 2. Bradycardia ? Thought to be medication induced patient is on metoprolol as well as donepezil withheld. Being monitored on continuous telemetry 3. Tinnitus chronic ? Symptomatic treatment 4. History of acute cardiopulmonary arrest due to V-fib -09/02/2022; -Plan is to enroll patient in hospice after he is done with his rehab process per discussion with daughter and 5. Dementia ? Patient is on donepezil held in view of bradycardia plan is to resume 6. Urinary incontinence ? Patient is on oxybutynin 7. History of paroxysmal A-fib ? Rate controlled on metoprolol which was held due to significant bradycardia. Not on systemic anticoagulation due to significant risk for falls 8. Valvular heart disease ? With history of aortic valve replacement with bioprosthetic material 9. Diabetes mellitus type 2 -Continue insulin glargine for basal insulin 10 units daily in addition to sliding scale insulin 10. Dyslipidemia -Patient is on statin therapy, continued at home dose 8. Depression with anxiety ? Patient is on Lexapro as well as trazodone continued 9. History of rheumatoid arthritis ? Patient was previously methotrexate no longer taking 10. History of prostate cancer ? Currently in remission 11. DVT prophylaxis ? SC Lovenox Time spent in the patient's overall evaluation,decision-making process, review of diagnostic data, adjustment of management, discussion with other providers, nursing nursing and ancillary staff involved in patient's care documentation, 40 Minutes Charges/Coding Visit Charges Inpatient E&M: 13737 Subs Hosp L2
[2022-12-22 11:56] LABS: Bedside Glucose 108 mg/dL (74-106)
--- NOTE | 2022-12-22 12:16 | DS.PCM_ITS ---
Providers Date of Admission: 12/21/22 Date of Discharge: 12/22/22 Primary Care Physician: Dr. Stanley Grace, DO Reason For Visit: BRADYCARDIA/BRBPR Diagnosis Discharge Diagnosis (1) Bright red blood per rectum: Status: Acute Code(s): K62.5 - Hemorrhage of anus and rectum Plan Patient is an 87-year-old gentleman admitted with bleeding per rectum. Patient was also found to be bradycardic on admission admitted to monitored bed for subsequent eval 1. Bleeding per rectum ? Has history of hemorrhoidal bleed. H&H has remained stable following admission ? Resolved. Plan is for patient to follow-up with PCP to be referred to GI if needed. Patient and family however not interested in pursuing aggressive evaluation. 2. Bradycardia ? Thought to be medication induced patient is on metoprolol as well as donepezil withheld. Being monitored on continuous telemetry 3. Tinnitus chronic ? Symptomatic treatment 4. History of acute cardiopulmonary arrest due to V-fib -09/02/2022; -Plan is to enroll patient in hospice after he is done with his rehab process per discussion with daughter and 5. Dementia ? Patient is on donepezil held in view of bradycardia plan is to resume 6. Urinary incontinence ? Patient is on oxybutynin 7. History of paroxysmal A-fib ? Rate controlled on metoprolol which was held due to significant bradycardia. Not on systemic anticoagulation due to significant risk for falls ? Metoprolol discontinued on discharge 8. Valvular heart disease ? With history of aortic valve replacement with bioprosthetic material 9. Diabetes mellitus type 2 -Continue insulin glargine for basal insulin 10 units daily in addition to sliding scale insulin 10. Dyslipidemia -Patient is on statin therapy, continued at home dose 8. Depression with anxiety ? Patient is on Lexapro as well as trazodone continued 9. History of rheumatoid arthritis ? Patient was previously methotrexate no longer taking 10. History of prostate cancer ? Currently in remission 11. DVT prophylaxis ? SC Lovenox Time spent in the patient's overall evaluation,decision-making process, review of diagnostic data, adjustment of management, discussion with other providers, nursing nursing and ancillary staff involved in patient's care documentation, 40 Minutes Medications at Discharge Home Medications fish, borage, flaxseed oils-omega 3,6,9 cb #1 400 mg-400 mg-400 mg cap (Triple [place] 3-6-9) 1 cap PO DAILY Check with primary doctor 03/04/21 multivitamin (Multiple Vitamins tablet) 1 tab PO DAILY Check with primary doctor 04/21/22 aspirin 81 mg chewable tablet 81 mg PO BREAKFAST CARDIAC #0 tabs 09/10/22 loratadine 10 mg disintegrating tablet (Allergy Relief (loratadine)) 10 mg PO DAILY ALLERGIES 09/25/22 trazodone 50 mg tablet 50 mg PO QHS ANXIETY 09/25/22 escitalopram oxalate 5 mg tablet 5 mg PO DAILY ANXIETY 10/18/22 donepezil 5 mg tablet 5 mg PO DAILY 12/21/22 insulin glargine-yfgn 100 unit/mL (3 mL) subcutaneous pen 10 unit subcut DAILY 12/21/22 oxybutynin chloride 5 mg tablet,extended release 24 hr 5 mg PO DAILY 12/21/22 Hospital Course Summary of Care Provided Minutes Spent on Discharge: 35 Physical Exam Narrative GENERAL: cooperative HEENT: Atraumatic; normocephalic EYES; Anicteric, Normal Conjunctiva NECK; supple, normal thyroid, RESPIRATORY: Diminished to auscultation CARDIOVASCULAR: Regular S1 S2, GI: soft, normoactive bowel sounds, : No Renal angle tenderness; EXTREMITIES: No edema, no clubbing, MUSCULOSKELETAL: no muscle wasting NEURO: Awake; no lateralizing signs. SKIN: No Rash PSYCH; Flat affect Weight / BMI Weight Weight: 90.6 kg Body Mass Index (BMI) 28.6 ABG / Lab / Microbiology Data 12/22/22 03:08 12/22/22 03:08 Laboratory: Laboratory Results - last 24 hr 12/21/22 09:46: TSH 1.22 12/21/22 15:20: Hgb 12.1 L 12/21/22 16:34: POC Glucose 91 12/21/22 20:20: Hgb 12.2 L 12/21/22 21:22: POC Glucose 144 H 12/22/22 03:08: WBC 4.5, RBC 3.87 L, Hgb 12.1 L, Hct 37.3 L, MCV 96.4 H, MCH 31.3, MCHC 32.4, RDW Std Deviation 50.8 H, RDW Coeff of Fazal 14.4, Plt Count 111 L, MPV 9.1, Immature Gran % (Auto) 0.200, Neut % (Auto) 38.1 L, Lymph % (Auto) 40.7, Cochran % (Auto) 9.9, Eos % (Auto) 10.4 H, Baso % (Auto) 0.7, Absolute Neuts (auto) 1.7 L, Absolute Lymphs (auto) 1.85, Nucleated RBC % 0, Sodium 140, Potassium 4.1, Chloride 110 H, Carbon Dioxide 26.0, Anion Gap 4 L, BUN 18, Creatinine 0.82, Estim Creat Clear Calc 65.53, Est GFR (MDRD) Af Amer 114, Est GFR (MDRD) Non-Af 94, BUN/Creatinine Ratio 21.8 H, Glucose 106, Calcium 8.7, Phosphorus 4.1, Magnesium 2.1, Total Bilirubin 1.00, AST 18, ALT 19, Alkaline Phosphatase 100, Total Protein 6.6, Albumin 3.0 L, Globulin 3.6, Albumin/Globulin Ratio 0.8 L 12/22/22 08:52: POC Glucose 182 H 12/22/22 11:29: POC Glucose 108 H D/C Instructions Discharge Diet: No restrictions Discharge Activity: Return to Normal Activity Call your doctor if you observe: Fever of 101 or Higher, Shortness of breath, Fainting spells and Chest pain Meaningful Use Info Meaningful Use Diagnoses (Choose all that apply): None applicable Discharge Plan Admission Admit Date/Time: 12/21/22 14:52 Attending Provider: Anuj Doan Primary Care Provider: Stanley Grace Consulting Providers: Francie Montes De Oca Discharge Orders/Prescriptions Prescriptions: Continued fish,bora,flax oils-om3,6,9no1 [Triple [place] 3-6-9] 400-400-400 mg capsule 1 cap PO DAILY multivitamin [Multiple Vitamins] Tablet 1 tab PO DAILY trazodone 50 mg tablet 50 mg PO QHS loratadine [Allergy Relief (loratadine)] 10 mg tablet,disintegrating 10 mg PO DAILY aspirin 81 mg Tablet,Chewable 81 mg PO BREAKFAST Qty: 0 0RF escitalopram oxalate 5 mg tablet 5 mg PO DAILY donepezil 5 mg tablet 5 mg PO DAILY oxybutynin chloride 5 mg tablet extended release 24hr 5 mg PO DAILY insulin glargine-yfgn 100 unit/mL (3 mL) Insulin Pen 10 unit subcut DAILY Discontinued metoprolol succinate 25 mg Tablet Extended Release 24 Hr 25 mg PO DAILY Qty: 0 0RF Referrals / Follow Up: Stanley Grace DO [Primary Care Provider] - Within 1 Week Disposition Disposition (needs filled in before D/C Order can be placed): Home, Self Care Charges/Coding Visit Charges Inpatient E&M: 33871 Disch Hosp >30min
--- NOTE | 2022-12-22 12:20 | CASEMGMT ---
Social Work Power of hospital admitting clerk for healthcare is scanned into panpan. Francie is listed as POA, Susan and Ernestina are listed as alternates. Piyush Martel, REHAB TRAINER, SENIOR TAX ACCOUNTANT
--- NOTE | 2022-12-22 13:25 | CASEMGMT ---
MELBA CM: This RN CM met with pt and spouse at bedside. Pt states he is independent at baseline and denies any discharge needs. Pt states he nor his drive, but his daughter will be picking him up this afternoon. DC Plan: Return home with the support of his and family. Maria Luisa Noriega RN CM
--- NOTE | 2022-12-22 13:32 | PHA.DC.MR.R ---
Pharmacy [place] Med Reconciliation Pharmacy Service has performed discharge medication reconciliation for this patient. The patient's discharge medication list was reviewed for discrepancies and discrepancies were resolved. Medications at Discharge Home Medications fish, borage, flaxseed oils-omega 3,6,9 cb #1 400 mg-400 mg-400 mg cap (Triple [place] 3-6-9) 1 cap PO DAILY Check with primary doctor 03/04/21 multivitamin (Multiple Vitamins tablet) 1 tab PO DAILY Check with primary doctor 04/21/22 aspirin 81 mg chewable tablet 81 mg PO BREAKFAST CARDIAC #0 tabs 09/10/22 loratadine 10 mg disintegrating tablet (Allergy Relief (loratadine)) 10 mg PO DAILY ALLERGIES 09/25/22 trazodone 50 mg tablet 50 mg PO QHS ANXIETY 09/25/22 escitalopram oxalate 5 mg tablet 5 mg PO DAILY ANXIETY 10/18/22 donepezil 5 mg tablet 5 mg PO DAILY 12/21/22 insulin glargine-yfgn 100 unit/mL (3 mL) subcutaneous pen 10 unit subcut DAILY 12/21/22 oxybutynin chloride 5 mg tablet,extended release 24 hr 5 mg PO DAILY 12/21/22
[2022-12-22 13:49] VITALS: BP 94/68; PULSE 56; RESP 14; TEMP 36.6; O2SAT 94
== END 2022-12-22 12:24 | disposition home or self-care (01) ==
LOC: ED 15:04 → PCU 15:14
PROVIDERS: Admitting Provider Internal Medicine; Emergency Provider Emergency Medicine; PCP Family Medicine; Visit Provider Internal Medicine
DX: I95.1 Orthostatic hypotension (principal); M06.9 Rheumatoid arthritis, unspecified; I48.0 Paroxysmal atrial fibrillation; Z79.4 Long term (current) use of insulin; K62.5 Hemorrhage of anus and rectum; R00.1 Bradycardia, unspecified; Z95.3 Presence of xenogenic heart valve; Z79.82 Long term (current) use of aspirin; I10 Essential (primary) hypertension; I25.10 Atherosclerotic heart disease of native coronary artery without angina pectoris; D64.9 Anemia, unspecified; H93.19 Tinnitus, unspecified ear; Z79.899 Other long term (current) drug therapy; Z86.74 Personal history of sudden cardiac arrest; F41.9 Anxiety disorder, unspecified; F32.A Depression, unspecified; E78.5 Hyperlipidemia, unspecified
CPT/HCPCS: 36415; 70450; 71045; 80053; 81001; 82962; 83735; 84100; 84443; 84484; 85018; 85025; 85610; 85730; 93005; 94668; 96360; 96361; 99221; 99285; J7030; J7120; A4216; G0378

== ENCOUNTER → 2023-01-01 | Outpatient (CLI) | payer MEDICARE, OTHER, SELFPAY ==
[2023-01-01 15:43] LABS: Ferritin 178 ng/mL (26-388); Iron 76 ug/dL (65-175)
== END | disposition home or self-care (01) ==
LOC: BFHLAB 11:48
PROVIDERS: PCP Family Medicine; Referring Provider Family Medicine; Visit Provider Family Medicine
DX: E83.119 Hemochromatosis, unspecified (principal); E11.9 Type 2 diabetes mellitus without complications
CPT/HCPCS: 36415; 82728; 83036; 83540

== ENCOUNTER 2023-01-13 15:06 | Outpatient (CLI) | payer MEDICARE, OTHER, SELFPAY ==
[2023-01-13 15:28] VITALS: BP 110/63; PULSE 63; RESP 16; TEMP 36.2; O2SAT 96; BMI 28.7
[2023-01-13] MEDS: 0.9% Normal Saline (500mL Bag) 500 ML 999 ML IV (15:37)
[2023-01-13] MEDS: 0.9% NaCl Peripheral Flush Adult/Peds IV (15:45)
[2023-01-13 16:18] VITALS: BP 113/61; PULSE 54; RESP 16; TEMP 36; O2SAT 95
== END 2023-01-13 15:07 | disposition home or self-care (01) ==
LOC: MEDOUTP 15:07
PROVIDERS: PCP Family Medicine; Referring Provider Family Medicine; Visit Provider Family Medicine
DX: E83.119 Hemochromatosis, unspecified (principal)
CPT/HCPCS: 99195; J7040; A4216

== ENCOUNTER 2023-02-09 11:17 | Outpatient (CLI) | payer MEDICARE, OTHER, SELFPAY ==
[2023-02-09 15:41] LABS: Ferritin 78 ng/mL (26-388)
== END 2023-02-09 11:18 | disposition home or self-care (01) ==
LOC: MEDOUTP 11:18
PROVIDERS: PCP Family Medicine; Referring Provider Family Medicine; Visit Provider Family Medicine
DX: E83.119 Hemochromatosis, unspecified (principal)
CPT/HCPCS: 36415; 82728